=== PATIENT | female | born 1945 | race Caucasian/White ===

== ENCOUNTER 2019-09-18 13:49 | Inpatient (IN) | payer MEDICARE, OTHER, SELFPAY ==
[2019-09-18 13:51] VITALS: BP 163/75; PULSE 67; RESP 16; TEMP 37; O2SAT 95; BMI 39.0
--- NOTE | 2019-09-18 13:56 | ECG_ITS ---
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 Measurements Intervals [place] Rate: 67 P: 56 ME: 145 QRS: -12 QRSD: 126 T: 40 QT: 437 QTc: 464 Interpretive Statements SINUS RHYTHM POSSIBLE RIGHT VENTRICULAR CONDUCTION DELAY [RSR (QR) IN V1/V2] POSSIBLE LATERAL MYOCARDIAL INFARCTION [30 ms Q WAVE IN I/aVL/V5/V6], OF IN INDETERMINATE AGE No previous ECG available for comparison Electronically Signed On 09-19-2019 13:44:25 CDT by Clara Vargas M.D. [id number]
--- NOTE | 2019-09-18 13:56 | CT_ITS ---
WS: [id number] CT angio chest PE protcl [id number] REASON FOR EXAM: cp TECHNIQUE: Coronal and sagittal 2-D and MIP reformations. IV CONTRAST ADMINISTERED: Omnipaque 350, 75 mL TOTAL EXAM DLP: 511.[address] scans at [facility] use at least one of these dose optimization techniques: automat ed exposure control; mA and/or kV adjustment per patient size (includes targeted exams where dose is matched to clinical indication); or iterative reconstruction. FINDINGS: After bolus injection of the contrast the pulmonary arteries fill readily with no filling d efects no evidence of thromboembolic disease. The perfusion scan was normal with no altered diffusion seen. The aorta showed no evidence of dissection is at the right or left side. There is no filling defects to suggest masses in either lung field. The heart chambers were all normal. The liver showed normal appearance with no filling defect. The adrenal glands show no abnormalities. The upper right lobe of the liver shows mild herniation but no obstructive changes. CT/CT angio chest PE protcl [id number] IMPRESSION: Negative CTA of the chest low probability of pulmonary embolus.
--- NOTE | 2019-09-18 14:05 | ED_ITS ---
HPI - Chest Pain General: Chief Complaint: Chest Pain Stated Complaint: CHEST PAIN Time Seen by Provider: 09/18/19 13:50 Source: patient and EMS Mode of arrival: EMS Limitations: no limitations History of Present Illness: HPI narrative: 74-year-old female states she had chest pain starting roughly 1 hour ago. States it was a pain that started in the center of her back and radiated to her chest. She states pain was an 8 out of 10 originally. Patient given nitro and nitro patient states pain is resolved now. She denies any shortness of breath. She denies any vomiting. MD complaint: chest pain Onset (ago): hour(s) Timing of current episode: constant Prior episodes: No Pain location: substernal Pain radiation: none Severity: moderate Associated symptoms: Deny abdominal pain, dyspnea, fever(s), nausea or vomiting Review of Systems Const: Denies: fever(s), chills, body aches or change in appetite Eyes: Denies: blurry vision or eye discomfort ENMT: Denies: throat pain or dental pain Card: Reports: chest pain Resp: Denies: dyspnea GI: Denies: abdominal pain, nausea, vomiting or diarrhea : Denies: dysuria Musc: Denies: neck pain or back pain Skin/Breast: Denies: rash Neuro: Denies: headache(s) Psych: Denies: depression Baljinder/Lymph: Denies: easy bruising All/Imm: Denies: urticaria PFSH ED PFSH: Social History Smoking and tobacco status: never smoked Physical Exam Const: COMMON NORMALS: no acute distress, patient oriented x3 and healthy appearing HENMT: COMMON NORMALS: normocephalic and atraumatic HEAD & SCALP: normocephalic and atraumatic Eye: COMMON NORMALS: Equal, round and reactive pupils present and EOMs intact bilaterally PUPIL: Yes Equal, round and reactive pupils present Neck/C-Spine: COMMON NORMALS: full ROM and supple Chest: COMMONS NORMALS: normal inspection of the chest and normal palpation of entire chest wall Resp: COMMON NORMALS: normal respiratory effort, No retractions, No use of accessory muscles and clear to auscultation bilaterally AUSCULTATION: clear to auscultation bilaterally Cardio: COMMON NORMALS: regular rate, regular rhythm and No murmurs present (Cardio) RATE: regular rate RHYTHM: regular rhythm GI: COMMON NORMALS: Normal to inspection, nondistended, normoactive bowel sounds present, Soft to palpation, non-tender and no masses PALPATION: Yes Soft to palpation Extremity: COMMON NORMALS: normal to inspection and full ROM Neuro: COMMON NORMALS: patient oriented x3, moves all extremities and no focal motor deficits Psych: COMMON NORMALS: mental status grossly normal, Normal thought process present and cooperative THOUGHT PROCESS: Normal thought process present Skin: COMMON NORMALS: no rashes or lesions noted and no wounds GENERAL SKIN EXAM: no rashes or lesions noted Course Vital Signs: Vital signs: Vital Signs Temperature 98.6 F 09/18/19 13:51 Pulse Rate 67 09/18/19 13:51 Respiratory Rate 16 09/18/19 13:51 Blood Pressure 163/75 09/18/19 13:51 Pulse Oximetry 95 09/18/19 13:51 MDM - Chest Pain MDM Narrative: Medical decision making narrative: Abby presents here with chest pain is been resolved with nitro. Initial and repeat troponins are increasing consistent with that non-ST elevation WI. Patient's CT here is normal. I spoke to Dr. Ugalde who is consulted I spoke to hospitalist will admit to CSU. Patient given Lovenox here. Patient was given aspirin in route. Lab Data: Labs: Lab Results 09/18/19 09/18/19 09/18/19 Range/Units 12:25 12:25 12:25 WBC 7.1 (4.0-10.0) 10^3/ uL RBC 3.95 L (4.1-5.3) 10^6/u L Hgb 11.0 L (11.5-15.3) g/dL Hct 34.0 L (37.0-47.0) % MCV 86.1 (81-99) fL MCH 27.8 L (28.0-34.0) pg MCHC 32.4 (30.0-36.0) g/dL RDW 14.9 (12.1-15.1) % Plt Count 227 (130-400) 10^3/c mm MPV 10.4 (7.4-10.4) fL Neut % (Auto) 69.9 % Lymph % (Auto) 18.3 % Burt % (Auto) 8.4 % Eos % (Auto) 2.1 % Baso % (Auto) 0.6 % Neut # (Auto) 5.0 (1.8-7.7) 10^3/u L Lymph # (Auto) 1.3 (0.8-4.8) 10^3/u L Burt # (Auto) 0.6 (0.2-0.9) 10^3/u L Eos # (Auto) 0.2 (0.0-0.8) 10^3/u L Baso # (Auto) 0.0 (0.0-0.1) 10^3/u L Nucleated RBC % (a uto) 0 % Nucleated RBCs # 0.0 /100WBC Sodium 140 (136-145) mmol/L Potassium 4.2 (3.5-5.1) mmol/L Chloride 99 (98-107) mmol/L Carbon Dioxide 29 (22-29) mmol/L Anion Gap 16.2 (5-19) BUN 10 (8-23) mg/dL Creatinine 0.8 (0.5-0.9) mg/dL Glucose 135 H (65-115) mg/dL Calculated Osmolal ity 288 (285-295) mOsm/k g Calcium 9.8 (8.5-10.5) mg/dL Total Bilirubin 0.3 (0.15-1.2) mg/dL AST 13 (0-32) U/L ALT 10 (0-33) U/L Alkaline Phosphata se 56 (35-105) IU/L Troponin T Baselin e 83 H (0-10) ng/L Troponin T 120 Min [place] (0-10) ng/L Delta Troponin T (0-10) ABS# Total Protein 6.8 (6.6-8.7) g/dL Albumin 4.6 (3.5-5.2) g/dL Globulin 2.2 (1.3-4.6) g/dL 09/18/19 Range/Units 14:26 WBC (4.0-10.0) 10^3/ uL RBC (4.1-5.3) 10^6/u L Hgb (11.5-15.3) g/dL Hct (37.0-47.0) % MCV (81-99) fL MCH (28.0-34.0) pg MCHC (30.0-36.0) g/dL RDW (12.1-15.1) % Plt Count (130-400) 10^3/c mm MPV (7.4-10.4) fL Neut % (Auto) % Lymph % (Auto) % Burt % (Auto) % Eos % (Auto) % Baso % (Auto) % Neut # (Auto) (1.8-7.7) 10^3/u L Lymph # (Auto) (0.8-4.8) 10^3/u L Burt # (Auto) (0.2-0.9) 10^3/u L Eos # (Auto) (0.0-0.8) 10^3/u L Baso # (Auto) (0.0-0.1) 10^3/u L Nucleated RBC % (a uto) % Nucleated RBCs # /100WBC Sodium (136-145) mmol/L Potassium (3.5-5.1) mmol/L Chloride (98-107) mmol/L Carbon Dioxide (22-29) mmol/L Anion Gap (5-19) BUN (8-23) mg/dL Creatinine (0.5-0.9) mg/dL Glucose (65-115) mg/dL Calculated Osmolal ity (285-295) mOsm/k g Calcium (8.5-10.5) mg/dL Total Bilirubin (0.15-1.2) mg/dL AST (0-32) U/L ALT (0-33) U/L Alkaline Phosphata se (35-105) IU/L Troponin T Baselin e (0-10) ng/L Troponin T 120 Min [place] 221.9 H (0-10) ng/L Delta Troponin T 138.9 H* (0-10) ABS# Total Protein (6.6-8.7) g/dL Albumin (3.5-5.2) g/dL Globulin (1.3-4.6) g/dL Imaging Data^: CT Chest: Radiologist's impression: [address] [address] [address] Scan Report Signed Patient: Abby Nova Unit #: [id number] : 1945 Age/Sex: 74 / F ADM Date: 09/18/19 Loc: ER Room/Bed: Attending Dr: Ordering Provider/Ordering MD: Lorena Enciso MD Date of Service: 09/18/19 Procedure(s): CT angio chest PE protcl [id number] Accession Number(s): [id number] Report Number: [id number] WS: [id number] CT angio chest PE protcl [id number] REASON FOR EXAM: cp TECHNIQUE: Coronal and sagittal 2-D and MIP reformations. IV CONTRAST ADMINISTERED: Omnipaque 350, 75 mL TOTAL EXAM DLP: 511.[address] scans at [facility] use at least one of these dose optimization techniques: automated exposure control; mA and/or kV adjustment per patient size (includes targeted exams where dose is matched to clinical indication); or iterative reconstruction. FINDINGS: After bolus injection of the contrast the pulmonary arteries fill readily with no filling defects no evidence of thromboembolic disease. The perfusion scan was normal with no altered diffusion seen. The aorta showed no evidence of dissection is at the right or left side. There is no filling defects to suggest masses in either lung field. The heart chambers were all normal. The liver showed normal appearance with no filling defect. The adrenal glands show no abnormalities. The upper right lobe of the liver shows mild herniation but no obstructive changes. CT/CT angio chest PE protcl [id number] IMPRESSION: Negative CTA of the chest low probability of pulmonary embolus. 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
[2019-09-18 14:06] LABS: Basophils % 0.6 %; Eosinophils # 0.2 10^3/uL (0.0-0.8); Eosinophils % 2.1 %; Lymphocytes # 1.3 10^3/uL (0.8-4.8); Lymphocytes % 18.3 %; Mean Corpuscular HGB Conc 32.4 g/dL (30.0-36.0); Mean Corpuscular Hemoglobin 27.8 pg (28.0-34.0); Mean Corpuscular Volume 86.1 fL (81-99); Mean Platelet Volume 10.4 fL (7.4-10.4); Monocytes # 0.6 10^3/uL (0.2-0.9); Monocytes % 8.4 %; Neutrophils % 69.9 %; Nucleated Red Blood Cells % 0 %; Platelet Count 227 10^3/cmm (130-400); Red Blood Count 3.95 10^6/uL (4.1-5.3); Red Cell Distribution Width 14.9 % (12.1-15.1); White Blood Count 7.1 10^3/uL (4.0-10.0)
[2019-09-18 14:29] LABS: Alanine Aminotransferase 10 U/L (0-33); Albumin Level 4.6 g/dL (3.5-5.2); Alkaline Phosphatase 56 IU/L (35-105); Anion Gap 16.2 (5-19); Aspartate Amino Transferase 13 U/L (0-32); Blood Urea Nitrogen 10 mg/dL (8-23); Calcium 9.8 mg/dL (8.5-10.5); Carbon Dioxide 29 mmol/L (22-29); Chloride 99 mmol/L (98-107); Creatinine Clr Calc Pharmacy 60.9929; Globulin 2.2 g/dL (1.3-4.6); Glucose 135 mg/dL (65-115); Osmolality Calculated 288 mOsm/kg (285-295); Potassium 4.2 mmol/L (3.5-5.1); Sodium 140 mmol/L (136-145); Total Bilirubin 0.3 mg/dL (0.15-1.2); Total Protein 6.8 g/dL (6.6-8.7); Troponin(5th) Baseline 83 ng/L (0-10)
[2019-09-18 14:57] LABS: Troponin 5 2HR 221.9 ng/L (0-10)
[2019-09-18 14:58] LABS: Troponin 5 2HR Delta 138.9 ABS# (0-10)
[2019-09-18] MEDS: iohexol 350 mg/mL 100 mL Btl IV (15:24)
--- NOTE | 2019-09-18 15:56 | ECG_ITS ---
[facility] ED Test Date: 2019-09-18 Pat Name: Abby Nova Department: Room: 102 Gender: Female Director Of Analytics: : 1945 Requested By: Lorena Enciso Order Number: [id number] Donte MD: Clara Vargas M.D. Measurements Intervals [place] Rate: 69 P: 61 AR: 169 QRS: -7 QRSD: 126 T: 41 QT: 453 QTc: 487 Interpretive Statements SINUS RHYTHM POSSIBLE RIGHT VENTRICULAR CONDUCTION DELAY [RSR (QR) IN V1/V2] POSSIBLE LATERAL MYOCARDIAL INFARCTION [30 ms Q WAVE IN I/aVL/V5/V6], OF INDETERMINATE AGE Compared to ECG 09/18/2019 14:04:30 No significant changes Electronically Signed On 09-19-2019 14:15:09 CDT by Clara Vargas M.D. [id number]
[2019-09-18] MEDS: enoxaparin 100 mg/mL Syringe 90 MG SUBCUT ×3 (16:22→20:22)
--- NOTE | 2019-09-18 17:38 | P.HP_ITS ---
Providers/Chief Complaint Admitting Physician: April Garcia MD Primary Care Provider: Lev Pena Chief Complaint: CHEST PAIN History of Present Illness Abby Nova is a 74 year old female with a past medical history of hypertension, hyperlipidemia, diabetes, hypothyroidism, cardiac arrhythmia which appears to be atrial fibrillation for her described history, not on any chronic anticoagulation, history of sarcoidosis in the 1980s for which she was transiently on steroids who presents to the emergency room today complaining of chest pain. 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 She felt extremely unwell at the time and as such cannot tell me if she was also short of breath. She did feel nauseous. When the pain did not subside she did take some sublingual nitro from her and had transient relief in the pain. She states at home she needed to take this up to 3 times for her pain to come down to 2 out of 10. She has not noticed any recent dyspnea on exertion or swelling in her feet. She does not recall having any palpitations or dizziness during this episode. She states she last had a cardiac catheterization about 10 years ago and reportedly did not have any obstructive coronary disease. She has not followed with her senior asset manager in [place] in several years. Diagnostics in the ER are notable for a baseline troponin of 83 and a 2-hour delta of 138. EKG does not show any acute ST-T wave changes. Her chest pain is currently rated 2 out of 10. She is comfortable at rest. CTA of the chest is negative for PE. Review of Systems General: Reports: 10 or more systems reviewed and unremarkable except in HPI and below Const: Denies: fever(s), chills or body aches Eyes: Denies: change in vision, blurry vision or photophobia ENMT: Reports: hoarseness; Denies: throat pain, enlarged tonsils, odynophagia or nasal congestion Card: Reports: chest pain; Denies: palpitations, irregular heart rhythm, edema, swelling of feet/ankles, lightheadedness, pre-syncope, dyspnea on exertion or orthopnea Resp: Denies: dyspnea, productive cough, non-productive cough, wheezing, stridor, pain on inspiration, change in phlegm color, hemoptysis or chest congestion GI: Denies: abdominal pain, nausea, vomiting, hematemesis, coffee ground emesis, dysphagia, heartburn, diarrhea, constipation, GI cramping, change in stool character, hematochezia or melena : Denies: flank pain, difficulty voiding, dysuria, urinary frequency, urinary urgency, urinary hesitancy or hematuria Musc: Denies: neck pain, back pain, extremity pain, joint swelling, joint warmth or deformity Neuro: Denies: headache(s), numbness in extremities, weakness in extremities, sensory changes, difficulty walking, frequent falls, dizziness, vertigo, behavioral changes, Slurred speech present or seizure-like activity Psych: Denies: anxiety, depression, suicidal ideation or homicidal ideation Endo: Denies: polyuria, polydipsia, tired all the time, cold intolerance or hot flashes Baljinder/Lymph: Denies: easy bruising or easy bleeding Medications/Allergies Home Medications Medication Instructions Recorded Confirmed Last Taken Type aspirin 81 mg PO DAILY 09/18/19 09/18/19 09/17/19 History black cohosh 40 mg PO DAILY 09/18/19 09/18/19 09/17/19 History citalopram 20 mg PO DAILY 09/18/19 09/18/19 09/17/19 History diclofenac sodium 75 mg PO DAILY 09/18/19 09/18/19 09/17/19 History elderberry fruit and flower 1 cap PO BID 09/18/19 09/18/19 09/17/19 History levothyroxine 25 mcg PO DAILY 09/18/19 09/18/19 09/17/19 History lovastatin 20 mg PO DAILY 09/18/19 09/18/19 09/17/19 History metformin 1,000 mg PO BID 09/18/19 09/18/19 09/18/19 History orphenadrine citrate 100 mg PO BID 09/18/19 09/18/19 09/17/19 History pantoprazole 40 mg PO DAILY 09/18/19 09/18/19 09/17/19 History trazodone 150 mg PO DAILY 09/18/19 09/18/19 09/17/19 History verapamil 90 mg PO DAILY 09/18/19 09/18/19 09/17/19 History PFSH Acute PFSH: Medical History Arrhythmia Diabetes Hyperlipidemia Hypertension Hypothyroidism Sarcoidosis Family History (Updated 09/18/19 @ 17:46 by April Garcia MD) Other Stroke Social History Smoking and tobacco status: never smoked Vitals/I&O/Wt Last Vital Signs Temp 98.6 F 09/18/19 13:51 Pulse 67 09/18/19 13:51 Resp 16 09/18/19 13:51 BP 163/75 09/18/19 13:51 Pulse Ox 95 09/18/19 13:51 Weight last 48 hrs Weight 90.718 kg Physical Exam Narrative: EXAM NARRATIVE: GEN: Awake, alert and oriented, no acute distress HEENT: NC/AT, PERRLA CVS: S1S2 N RS: CTA B/L except crackles over RUL Abd: Soft, nt/nd , bs+ 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 EXT: no rashes or edema Data : 09/18/19 12:25 09/18/19 12:25 A&P Assessment and plan (1) Non-ST elevation [place] (NSTEMI): Status: Acute (2) Hypothyroidism: Status: Acute Qualifiers: Hypothyroidism type: unspecified Qualified Code(s): E03.9 - Hypot hyroidism, unspecified (3) Arrhythmia: Status: Acute Qualifiers: Arrhythmia type: unspecified cardiac arrhythmia Qualified Code(s): I49.9 - Cardiac arrhythmia, unspecified (4) Hyperlipidemia: Status: Acute Qualifiers: Hyperlipidemia type: unspecified Qualified Code(s): E78.5 - Hyperlipid emia, unspecified (5) Diabetes: Status: Acute Qualifiers: Diabetes mellitus type: type 2 Diabetes mellitus terminal operator insulin use: without penitentiary use Diabetes mellitus complication status: with circulatory complication (6) Hypertension: Status: Acute Qualifiers: Hypertension type: essential hypertension Qualified Code(s): I10 - Essential (primary) hypertension Additional A&P Information Admit to CSU # NSTEMI EKG without acute St-T changes 2-hour troponin with significant delta of 138. Continue to trend EKG every 3 hour and troponins at 6-hour. Continue aspirin 81 mg daily, continue Lipitor 40 mg daily. Start Lovenox full dose anticoagulation with 90 mg subcutaneous every 12 hours Cardiology consult with Dr. Ugalde N.p.o. post midnight in case angiogram needed. Check HbA1c and lipid panel to assess glycemic and lipid control. PRN morphine for pain control #History of arrhythmia, per patient history appears to be atrial fibrillation which may have been related to her hypothyroid state, however no current documentation available for the same. Continue verapamil 90 mg p.o. daily #Diabetes mellitus. Hold home dose of metformin. Start low-dose insulin sliding scale. #Hypothyroidism continue levothyroxine 25 mics p.o. daily DVT prophylaxis: Currently on full dose Lovenox Full code Attestations Medical Necessity Statement*: Anticipate greater than 2 midnight stay for the management of an NSTEMI. 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
[2019-09-18] MEDS: metoprolol tartrate 50 mg Tablet PO (17:54)
--- NOTE | 2019-09-18 18:07 | P.CONIM_ITS ---
Providers/Reason For Consult Consulting Physican/Specialty*: Lawanda Ugalde MD/cardiology Reason for Consult*: Chest pain/evaluate her troponin T Attending Physician: Ji Aponte MD Primary Care Provider: Lev Pena History of Present Illness History of Present Illness Abby Nova is a 74 year old female with a history of hypertension, type 2 diabetes, dyslipidemia and obesity is present with complaints of chest pain since 10:00 this morning. Patient apparently has been in her baseline state of health up until 10:00 this morning when she started having pain in the back between the shoulder blades. It was severe in intensity, 10/10. The pain started radiating to the front associated with a tight feeling in the chest. She had some shortness of breath. No palpitations, dizziness or syncopal episode. She took 1 sublingual nitro initially and waited for 15 minutes. Since there was no significant relief, she took the second nitro which brought down the pain from 10/10 to 5/10. At this time, the ambulance was called. She rates the emergency room around 1 PM. In the ambulance, she was given chewable aspirin, and another sublingual nitro .in the emergency room, she was started on a nitro paste. Her chest pain gradually started coming down. At the time of my examination, patient is pain-free. She feels tired and weak. She has no fever, chills or cough. No other specific complaints. She had a cardiac cauterization approximately 10 years ago in [place] and was told to have no significant blockages. She has no previous history for coronary disease, myocardial infarction or congestive heart failure. She has been compliant with her medications. Review of Systems Narrative: CONSTITUTIONAL: No fever or chills. He has some amount of lethargy and weakness now. EYES: No blurring of vision or other visual disturbances lately. ENT: No hoarseness of voice, auditory disturbances or sore throat. CARDIOVASCULAR: As mentioned above. RESPIRATORY: No significant cough. GASTROINTESTINAL: No hematemesis or melena. GENITOURINARY: No dysuria or hematuria. INTEGUMENTARY: No skin rashes or history of skin cancer. NEURO: No transient ischemic attacks or amaurosis. PSYCHIATRIC: No history of psychosis or major depression. HEMATOLOGIC: No bleeding disorders or significant anemia. ENDOCRINE: History of hypothyroidism MUSCULOSKELETAL: No recent joint pain or swelling. ALLERGY/IMMUNOLOGY: As mentioned above. Meds/Allergies Home Medications and Allergies Home Medications Medication Instructions Recorded Confirmed Last Taken Type aspirin 81 mg PO DAILY 09/18/19 09/18/19 09/17/19 History black cohosh 40 mg PO DAILY 09/18/19 09/18/19 09/17/19 History citalopram 20 mg PO DAILY 09/18/19 09/18/19 09/17/19 History diclofenac sodium 75 mg PO DAILY 09/18/19 09/18/19 09/17/19 History elderberry fruit and flower 1 cap PO BID 09/18/19 09/18/19 09/17/19 History levothyroxine 25 mcg PO DAILY 09/18/19 09/18/19 09/17/19 History lovastatin 20 mg PO DAILY 09/18/19 09/18/19 09/17/19 History metformin 1,000 mg PO BID 09/18/19 09/18/19 09/18/19 History orphenadrine citrate 100 mg PO BID 09/18/19 09/18/19 09/17/19 History pantoprazole 40 mg PO DAILY 09/18/19 09/18/19 09/17/19 History trazodone 75 mg PO BEDTIME 09/18/19 09/18/19 09/17/19 History verapamil 90 mg PO DAILY 09/18/19 09/18/19 09/17/19 History Allergies Allergy/AdvReac Type Severity Reaction Status Date / Time prednisone Allergy ALGY-Difficulty Verified 09/18/19 19:30 Breathing PFSH Acute PFSH: Medical History (Updated 09/18/19 @ 18:23 by Rafael Ugalde MD) Acute non-ST elevation myocardial infarction (NSTEMI) Arrhythmia Benign essential hypertension with target blood pressure below 140/90 Diabetes Exploratory laparotomy scar History of paroxysmal supraventricular tachycardia Hyperlipidemia Hypertension Hypothyroidism Mixed hyperlipidemia Sarcoidosis Type 2 diabetes mellitus Surgical History (Updated 09/18/19 @ 18:16 by Rafael Ugalde MD) History of appendectomy Family History (Updated 09/18/19 @ 17:46 by April Garcia MD) Other Stroke Social History Smoking and tobacco status: never smoked Vitals/I&O/Wt Last Vital Signs Temp 98.6 F 09/18/19 13:51 Pulse 67 09/18/19 13:51 Resp 16 09/18/19 13:51 BP 163/75 09/18/19 13:51 Pulse Ox 95 09/18/19 13:51 Weight last 48 hrs Weight 200 lb Physical Exam Narrative: EXAM NARRATIVE: GENERAL: The patient is alert and oriented times three. Not in any acute distress. Moderately obese, short statured HEENT: No significant pallor, icterus or lymphadenopathy. The pupils are reactant to light. Oral cavity: There are no mucous membrane lesions. Funduscopic examination: The fundus is not visualized NECK: Trachea appears to be central. No masses noted. No JVD or thyromegaly appreciated. No carotid bruit. RESPIRATORY: Chest is symmetrical. No intercostals muscle retraction or any accessory muscle activation. There is no chest wall tenderness. Breath sounds are heard bilaterally. No rales or rhonchi heard. No evidence of any consolidation. BREASTS: Deferred. HEART: The PMI could not be palpated. No palpable precordial events. S1 and S2 are normal. No S3 or S4 heard. No pericardial rub or any click heard. ABDOMEN: Obese . No vessel pulsations or distention. No tenderness. No organomegaly appreciated. No abdominal bruit. Bowel sounds are normally heard. Vertical laparotomy scar on the right side of the abdomen, appears well-healed. : Deferred. RECTAL: Deferred. LYMPHATIC: No lymphadenopathy noted in the neck or groin. EXTREMITIES: No edema or cyanosis. No clubbing. The pulses are symmetrical bilaterally. The radial, femoral, dorsalis pedis and the posterior tibial pulses are palpated and found to be in good volume and amplitude. MUSCULOSKELETAL: No acute joint deformities or swelling SKIN: There are no significant scars or skin rash noted. NEUROPSYCHIATRIC: The patient is alert and oriented x3. Appears to be in a good mood. The higher functions are grossly within normal limits. No tremors or rigidity noted. Data Labs: Other Labs: Laboratory Last Values WBC 7.1 10^3/uL (4.0- 10.0) 09/18/19 12:25 RBC 3.95 10^6/uL (4.1 -5.3) L 09/18/19 12:25 Hgb 11.0 g/dL (11.5-1 5.3) L 09/18/19 12:25 Hct 34.0 % (37.0-47.0 ) L 09/18/19 12:25 MCV 86.1 fL (81-99) 09/18/19 12:25 MCH 27.8 pg (28.0-34. 0) L 09/18/19 12:25 MCHC 32.4 g/dL (30.0-3 6.0) 09/18/19 12:25 RDW 14.9 % (12.1-15.1 ) 09/18/19 12:25 Plt Count 227 10^3/cmm (130 -400) 09/18/19 12:25 MPV 10.4 fL (7.4-10.4 ) 09/18/19 12:25 Neut % (Auto) 69.9 % 09/18/19 12:25 Lymph % (Auto) 18.3 % 09/18/19 12:25 [place] % (Auto) 8.4 % 09/18/19 12:25 Eos % (Auto) 2.1 % 09/18/19 12:25 Baso % (Auto) 0.6 % 09/18/19 12:25 Neut # (Auto) 5.0 10^3/uL (1.8- 7.7) 09/18/19 12:25 Lymph # (Auto) 1.3 10^3/uL (0.8- 4.8) 09/18/19 12:25 [place] # (Auto) 0.6 10^3/uL (0.2- 0.9) 09/18/19 12:25 Eos # (Auto) 0.2 10^3/uL (0.0- 0.8) 09/18/19 12:25 Baso # (Auto) 0.0 10^3/uL (0.0- 0.1) 09/18/19 12:25 Nucleated RBC % (a uto) 0 % 09/18/19 12:25 Nucleated RBCs # 0.0 /100WBC 09/18/19 12:25 Sodium 140 mmol/L (136-1 45) 09/18/19 12:25 Potassium 4.2 mmol/L (3.5-5 .1) 09/18/19 12:25 Chloride 99 mmol/L (98-107 ) 09/18/19 12:25 Carbon Dioxide 29 mmol/L (22-29) 09/18/19 12:25 Anion Gap 16.2 (5-19) 09/18/19 12:25 BUN 10 mg/dL (8-23) 09/18/19 12:25 Creatinine 0.8 mg/dL (0.5-0. 9) 09/18/19 12:25 Glucose 135 mg/dL (65-115 ) H 09/18/19 12:25 Calculated Osmolal ity 288 mOsm/kg (285- 295) 09/18/19 12:25 Calcium 9.8 mg/dL (8.5-10 .5) 09/18/19 12:25 Total Bilirubin 0.3 mg/dL (0.15-1 .2) 09/18/19 12:25 AST 13 U/L (0-32) 09/18/19 12:25 ALT 10 U/L (0-33) 09/18/19 12:25 Alkaline Phosphata se 56 IU/L (35-105) 09/18/19 12:25 Troponin T Baselin e 83 ng/L (0-10) H 09/18/19 12:25 Troponin T 120 Min cheo 221.9 ng/L (0-10) H 09/18/19 14:26 Delta Troponin T 138.9 ABS# (0-10) H* 09/18/19 14:26 Total Protein 6.8 g/dL (6.6-8.7 ) 09/18/19 12:25 Albumin 4.6 g/dL (3.5-5.2 ) 09/18/19 12:25 Globulin 2.2 g/dL (1.3-4.6 ) 09/18/19 12:25 Imaging^: CT Chest: Radiologist's impression: No evidence of pulmonary embolism. No evidence of aortic dissection EKG^: EKG 1: My Interpretation: Normal sinus rhythm with incomplete right bundle branch block pattern. Possible old lateral wall [place]. EKG 2: My Interpretation: Normal sinus rhythm with normal ST-T's. Incomplete right bundle branch block pattern. Possible old lateral wall myocardial infarction. A&P Assessment and plan (1) Acute non-ST elevation myocardial infarction (NSTEMI): Patient may be started on Lovenox, beta-melita, aspirin and Plavix. Also may start on Crestor 20 mg p.o. now and daily. Serial cardiac enzymes and EKGs. Echocardiogram would be appropriate to evaluate LV function and rule out any other pathology. May hold off on the verapamil and lovastatin may continue on the other current medications.. Status: Acute (2) History of paroxysmal supraventricular tachycardia: Patient apparently has not had any recent tachycardia. Since we are starting her on metoprolol, I may hold off on the verapamil at this time. Status: Acute (3) Type 2 diabetes mellitus: Management of diabetes as per the primary Status: Acute Qualifiers: Diabetes mellitus complication status: with hyperglycemia Diabetes mellitus assisted insulin use: without long term care social worker use Qualified Code(s): E11.65 - Type 2 diabetes mellitus with hyperglycemia (4) Benign essential hypertension with target blood pressure below 140/90: I will start her on amlodipine 10 mg p.o. now and daily. Metoprolol 50 mg p.o. twice daily. Continue on the Nitropaste. Closely monitor blood pressure. Status: Acute (5) Mixed hyperlipidemia: Crestor 20 mg p.o. daily. Will check on the lipid profile and liver profile on the blood in the lab Status: Acute Additional A&P Information After reviewing the echocardiogram and also based on the patient clinical progress, further recommendations will be made. 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
[2019-09-18 18:15] VITALS: BP 216/90; PULSE 68; RESP 18; O2SAT 94
[2019-09-18 18:56] LABS: NT Pro B Type Natriuretic Pept 268 pg/mL (0-450); Thyroid Stimulating Hormone 1.31 uIU/mL (0.27-4.20)
[2019-09-18 19:04] LABS: Troponin 5 6HR 363.4 ng/L (0-10); Troponin 5 6HR Delta 280.4 ng/L (0-12)
[2019-09-18 19:25] VITALS: BP 137/65; PULSE 58; RESP 14; TEMP 36.8; O2SAT 95
--- NOTE | 2019-09-18 19:45 | PC.NURSE ---
Patient arrived to the floor from the ED after report was received via phone. Patient is alert and oriented and able to ambulate with assistance. Patient does not have any complaints or pain at this time. VSS on room air. Heart rate drops down in to 50s at times. Patient has been oriented to her room and has call light within reach.
--- NOTE | 2019-09-18 19:56 | ECG_ITS ---
[facility] Test Date: 2019-09-18 Pat Name: Abby Nova Department: Room: 102 Gender: Female Academic Affairs Assistant: Rosa RYANB: 1945 Requested By: Lorena Enciso Order Number: [id number] Donte MD: Rafael Ugalde M.D. Measurements Intervals [place] Rate: 59 P: 62 IN: 159 QRS: 12 QRSD: 116 T: 33 QT: 456 QTc: 454 Interpretive Statements SINUS BRADYCARDIA LOW QRS VOLTAGE IN PRECORDIAL LEADS [QRS DEFLECTION < 1.0 mV IN CHEST LEADS] INCOMPLETE RIGHT BUNDLE BRANCH BLOCK [90+ ms QRS DURATION, TERMINAL R IN V1/V2, 40+ ms S IN I/aVL/V4/V5/V6] Compared to ECG 09/18/2019 14:04:30 Low QRS voltage now present Incomplete right bundle-branch block now present Sinus rhythm no longer present Myocardial infarct finding no longer present Electronically Signed On 09-19-2019 19:28:10 CDT by Rafael Ugalde M.D. [id number]
[2019-09-18 20:00] VITALS: PULSE 60
[2019-09-18] MEDS: amlodipine 5 mg Tablet PO (20:22)
[2019-09-18] MEDS: clopidogrel 300 mg Tablet PO (20:22)
[2019-09-18 20:42] LABS: Glucose Point of Care 136 mg/dL (70-110)
[2019-09-18] MEDS: trazodone 150 mg Tablet 75 MG PO (23:00)
[2019-09-18] MEDS: trazodone 150 mg Tablet PO (23:14)
[2019-09-19] VITALS (63 sets, daily range): BP systolic 87–135; BP diastolic 39–65; PULSE 50–69; RESP 7–31; TEMP 36.5–37.2; O2SAT 89–96
--- NOTE | 2019-09-19 03:46 | PC.NURSE ---
Patient had an uneventful night. Patient states she did not sleep well. Will continue to monitor.
[2019-09-19 04:43] LABS: Basophils % 0.5 %; Eosinophils # 0.2 10^3/uL (0.0-0.8); Eosinophils % 2.1 %; Lymphocytes # 2.1 10^3/uL (0.8-4.8); Lymphocytes % 23.5 %; Mean Corpuscular HGB Conc 32.4 g/dL (30.0-36.0); Mean Corpuscular Hemoglobin 27.6 pg (28.0-34.0); Mean Corpuscular Volume 85.4 fL (81-99); Mean Platelet Volume 10.3 fL (7.4-10.4); Monocytes # 0.8 10^3/uL (0.2-0.9); Monocytes % 9.2 %; Neutrophils # 5.6 10^3/uL (1.8-7.7); Nucleated Red Blood Cells % 0 %; Platelet Count 242 10^3/cmm (130-400); Red Blood Count 3.98 10^6/uL (4.1-5.3); White Blood Count 8.8 10^3/uL (4.0-10.0)
[2019-09-19 05:05] LABS: Alanine Aminotransferase 11 U/L (0-33); Albumin Level 4.3 g/dL (3.5-5.2); Alkaline Phosphatase 52 IU/L (35-105); Anion Gap 14.2 (5-19); Aspartate Amino Transferase 32 U/L (0-32); Blood Urea Nitrogen 8 mg/dL (8-23); Carbon Dioxide 29 mmol/L (22-29); Chloride 99 mmol/L (98-107); Creatinine Clr Calc Pharmacy 60.9929; Globulin 2.3 g/dL (1.3-4.6); Glucose 129 mg/dL (65-115); Osmolality Calculated 284 mOsm/kg (285-295); Potassium 4.2 mmol/L (3.5-5.1); Sodium 138 mmol/L (136-145); Total Bilirubin 0.5 mg/dL (0.15-1.2); Total Protein 6.6 g/dL (6.6-8.7)
[2019-09-19 05:08] LABS: Chol HDL Ratio 3.31 mg/dL (0.0-4.40); Cholesterol 129 mg/dL (0-200); HDL Cholesterol 39 mg/dL (60-100); LDL Cholesterol Calculated 61 mg/dL (50-129); LDL HDL Ratio 1.56 RATIO (0.00-3.22); Triglycerides 144 mg/dL (0-150)
[2019-09-19 06:35] LABS: Glucose Point of Care 155 mg/dL (70-110)
--- NOTE | 2019-09-19 07:52 | P.PN_ITS ---
Vitals/I&O/Wt Last Vital Signs Temp 98.7 F 09/19/19 03:03 Pulse 65 09/19/19 03:03 Resp 14 09/19/19 03:03 BP 119/56 09/19/19 03:03 Pulse Ox 95 09/19/19 03:03 09/18/19 09/19/19 09/19/19 22:59 06:59 14:59 Intake Total 300 / 300 Balance 300 / 300 Weight last 48 hrs Weight 90.083 kg Weight 90.718 kg Data : 09/19/19 04:03 09/19/19 04:03 A&P Assessment and plan (1) Non-ST elevation [place] (NSTEMI): Status: Acute (2) Hypothyroidism: Status: Acute Qualifiers: Hypothyroidism type: unspecified Qualified Code(s): E03.9 - Hypothyroidism, unspecified (3) Arrhythmia: Status: Acute Qualifiers: Arrhythmia type: unspecified cardiac arrhythmia Qualified Code(s): I49.9 - Cardiac arrhythmia, unspecified (4) Hyperlipidemia: Status: Acute Qualifiers: Hyperlipidemia type: unspecified Qualified Code(s): E78.5 - Hyperlipidemia, unspecified (5) Diabetes: Status: Acute Qualifiers: Diabetes mellitus type: type 2 Diabetes mellitus director long term care insulin use: without senior care use Diabetes mellitus complication status: with circulatory complication (6) Hypertension: Status: Acute Qualifiers: Hypertension type: essential hypertension Qualified Code(s): I10 - Essential (primary) hypertension Additional A&P Information Admit to CSU # NSTEMI EKG without acute St-T changes 2-hour troponin with significant delta of 138. Continue to trend EKG every 3 hour and troponins at 6-hour. Continue aspirin 81 mg daily, continue Lipitor 40 mg daily. Start Lovenox full dose anticoagulation with 90 mg subcutaneous every 12 hours Cardiology consult with Dr. Ugalde N.p.o. post midnight in case angiogram needed. Check HbA1c and lipid panel to assess glycemic and lipid control. PRN morphine for pain control #History of arrhythmia, per patient history appears to be atrial fibrillation which may have been related to her hypothyroid state, however no current documentation available for the same. Continue verapamil 90 mg p.o. daily #Diabetes mellitus. Hold home dose of metformin. Start low-dose insulin slidi ng scale. #Hypothyroidism continue levothyroxine 25 mics p.o. 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
--- NOTE | 2019-09-19 07:55 | USCV_ITS ---
Abby Nova Age: 74 Gender: F : 1945 Exam Date: 09/19/2019 10:04 Ordering Phys: Rafael Ugalde MD ([email or web address]) Technologist: Merlin Vargas [place] [facility] [place]: NSTEMI Risk Factors: Previous Vascular Surgery: Right Brachial BP: / Left Brachial BP: / Right Left Velocity (cm/s) Spectral Plaque Velocity (cm/s) Spectral Plaque Syst/Diast Broadening Syst/Diast Broadening 39.50/ 11.70 Prox CCA 44.30 / 13.20 49.70/ 16.00 Mid CCA 55.90 / 16.30 78.55/ 20.95 Distal CCA 52.00 / 10.10 101.40/20.90 Prox ICA 140.70/ 46.00 130.10/29.80 Mid ICA 117.00/ 31.60 / Distal ICA 86.30 / 14.50 72.80 ECA 102.50 1.40 ICA/CCA 2.51 Antegrade Vertebral Antegrade 84.90/ 14.30 cm/s 60.70/ 17.10 cm/s Tri Subclavian Tri 120.2 120.6 0 0 FINDINGS Moderate to heavy heterogeneous plaques at the left bifurcation and proximal internal carotid artery Moderate heterogeneous plaques at the right bifurcation and internal carotid artery Antegrade flow in the vertebral arteries bilaterally Normal Doppler flow velocities in the external carotid and subclavian arteries bilaterally CONCLUSIONS Moderate to heavy heterogeneous plaques at the left bifurcation and proximal internal carotid artery with velocity elevation consistent with 50-79% stenosis. Moderate heterogeneous plaques at the right bifurcation and internal carotid artery with velocity elevation consistent with 16-49% stenosis. No similar previous studies are available for comparison Dr Rafael Ugalde MD [facility] (Electronically Signed) Final Date: 20 September 2019 08:26 S
[2019-09-19] MEDS: citalopram 20 mg Tablet PO (08:38)
[2019-09-19] MEDS: atorvastatin 40 mg Tablet 20 MG PO (08:38)
[2019-09-19] MEDS: aspirin 81 mg EC Tablet PO (08:38)
[2019-09-19] MEDS: amlodipine 5 mg Tablet PO (08:38)
[2019-09-19] MEDS: metoprolol tartrate 50 mg Tablet PO (08:38)
[2019-09-19] MEDS: pantoprazole DR 40 mg Tablet PO (08:39)
[2019-09-19] MEDS: levothyroxine 25 mcg Tablet PO (08:39)
[2019-09-19] MEDS: sodium chloride 0.9% 1,000 ML 50 ML IV (08:40)
--- NOTE | 2019-09-19 09:21 | PC.CHAP ---
Pastoral Care Encounter/Spiritual Assessment Type of Contact [] Declined yarn examiner skeins visit [] Patient/Family/Request visit [] Outpatient visit [] Follow-up visit [] Physician referral [] Code/Alert [x] Routine visit [] Staff referral [] Actively dying [] Patient sleeping [] Family support [] [] Out of room [] Palliative care [] [] Receiving care in room [] Pre-surgical visit [] Trauma [] Long length of stay [] ICU visit [] Other: Relational/Emotional Strength [] Patient feels connected with others/family/visitors/staff [] Distress [] Loneliness/isolation [] Abandonment Spirituality of Patient [] Person of Elma [] Attends Jehovah[employer] Witness of their Elma [] Believes in Prayer [] Reads Bible or Baptism materials [] There are Spiritual issues to be addressed Filling And Packing Supervisor Interventions [x] Prayer [] Active listening [] Non-anxious presence [] Spiritual/emotional support [] Crisis/trauma care [] Spiritual counseling [] Bereavement support [] Provided bereavement packet [] Provided Bible/devotional materials [] Provided toy/stuffed animal, coloring book to patient or family member [] Provided Communion [] Anointing/Hydro [] Salvation [x] Completed spiritual assessment [] Other: Impact on Illness or Injury [] Angry [] Fearful [] Anxious [] Often cries [] Exhaustion [] Unable to work [] Unable to attend congregation [] Unable to walk/stand [] Unable to read [] Unable to drive [] Unable to eat/drink [] Unable to sleep [] Unable to be with family [] Patient intubated [] Other: Summary Patient suffering other bodily pains, and with heart issue meds are being withheld until all can be reviewed. Patient in pretty good frame of mind. Time spent with patient 10 min
[2019-09-19 09:45] LABS: Estmated Average Glucose 134; Hemoglobin A1C 6.3 % (4.0-6.0)
--- NOTE | 2019-09-19 10:48 | P.PN_ITS ---
Subjective Subjective: Interval history: no c/o chest pain today. C/o back pain and hip pain today from missing her diclofenac. Explained to her that this to minimize the risk of nephropathy since she will also be getting contrast today. Planned for angiogram today given NSTEMi and uptrending enzymes overnight. Verapamil has since been disocntinued, added metoprolol and amlodipine. Medications: Reviewed: Yes Vitals/I&O/Wt Last Vital Signs Temp 98.4 F 09/19/19 08:00 Pulse 61 09/19/19 08:00 Resp 16 09/19/19 08:00 BP 118/53 09/19/19 08:00 Pulse Ox 93 09/19/19 08:00 09/18/19 09/19/19 09/19/19 22:59 06:59 14:59 Intake Total 300 / 300 Balance 300 / 300 Weight last 48 hrs Weight 90.083 kg Weight 90.718 kg Physical Exam Narrative: EXAM NARRATIVE: GEN: Awake, alert and oriented, no acute distress HEENT: NC/AT, PERRLA CVS: S1S2 N RS: CTA B/L Abd: Soft, nt/nd , bs+ SOLUTION MANAGER: no focal neuro deficits EXT: no rashes or edema Data : 09/19/19 04:03 09/19/19 04:03 A&P Assessment and plan (1) Non-ST elevation [place] (NSTEMI): Status: Acute (2) Hypothyroidism: Status: Acute Qualifiers: Hypothyroidism type: unspecified Qualified Code(s): E03.9 - Hypothyroidism, unspecified (3) Arrhythmia: Status: Acute Qualifiers: Arrhythmia type: unspecified cardiac arrhythmia Qualified Code(s): I49.9 - Cardiac arrhythmia, unspecified (4) Hyperlipidemia: Status: Acute Qualifiers: Hyperlipidemia type: unspecified Qualified Code(s): E78.5 - Hyperlipidemia, unspecified (5) Diabetes: Status: Acute Qualifiers: Diabetes mellitus type: type 2 Diabetes mellitus longterm insulin use: without longterm use Diabetes mellitus complication status: with circulatory complication (6) Hypertension: Status: Acute Qualifiers: Hypertension type: essential hypertension Qualified Code(s): I10 - Essential (primary) hypertension Additional A&P Information # NSTEMI EKG without acute St-T changes , rising tropinin [place] overnight EChocardiogram with normal LVEF 60%, normal distolic function, no RWMA, mild AV stenosis Planned for angiogram later today Continue aspirin 81 mg daily, continue Lipitor 40 mg daily. Lovenox full dose anticoagulation with 90 mg subcutaneous every 12 hours metoprolol added to medication regimen, verapamil discontinued PRN morphine for pain control #History of arrhythmia, per patient history appears to be atrial fibrillation which may have been related to her hypothyroid state, however no current documentation available for the same. Now on metoprolol, verapamil disocontinued #Diabetes mellitus. Hold home dose of metformin. Start low-dose insulin sliding scale. A1c well controlled at 6.3 #Hypothyroidism continue levothyroxine 25 mics p.o. 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
[2019-09-19 12:09] LABS: Glucose Point of Care 144 mg/dL (70-110)
--- NOTE | 2019-09-19 13:25 | PM.PN ---
Subjective Subjective: Interval history: Patient is feeling okay with no chest pain or palpitation. No unusual shortness of breath. She had echocardiogram today. The LV ejection fraction was normal. She had a grade 1 diastolic dysfunction. Mild aortic valve stenosis. No other significant abnormalities. Medications: Reviewed: Yes Medication Review Details: Current Medications Al Hydrox/Mg Hydrox/Simethicone (Maalox) 15 ml PO Q6H PRN PRN Reason: INDIGESTION Amlodipine Besylate (Norvasc) 5 mg PO DAILY [facility] Last Admin: 09/19/19 08:38 Dose: 5 mg Documented by: Aspirin (Aspirin Ec) 81 mg PO DAILY [facility] Last Admin: 09/19/19 08:38 Dose: 81 mg Documented by: Atorvastatin Calcium (Lipitor) 40 mg PO DAILY [facility] Citalopram Hydrobromide (Celexa) 20 mg PO DAILY [facility] Last Admin: 09/19/19 08:38 Dose: 20 mg Documented by: Dextrose (D50w) 25 ml IVP ONCE PRN; Protocol PRN Reason: hypoglycemia protocol Dextrose (D50w) 50 ml IVP PRN PRN; Protocol PRN Reason: hypoglycemia protocol Diclofenac Sodium (Voltaren) 1 applic TOPICAL QID [facility] Enoxaparin Sodium (Lovenox) 90 mg 1 mg/kg (90 mg) SUBCUT Q12H [facility] Last Admin: 09/19/19 08:06 Dose: Not Given Documented by: Glucagon (Glucagen) 1 mg IM ONCE PRN; Protocol PRN Reason: Adult Acute Hypoglycemia Prot. Dextrose (D5w) 500 mls @ 100 mls/hr IV ONCE PRN; Protocol PRN Reason: Adult Acute Hypoglycemia Prot Sodium Chloride (Sodium Chloride 0.9%) 1,000 mls @ 125 mls/hr IV .Q8H ONE Stop: 09/19/19 16:15 Last Admin: 09/19/19 08:40 Dose: 50 mls/hr Documented by: Insulin Aspart (Novolog) 0 unit SUBCUT WM&BEDTIME [facility]; Protocol Last Admin: 09/19/19 12:05 Dose: Not Given Documented by: Levothyroxine Sodium (Synthroid) 25 mcg PO DAILY [facility] Last Admin: 09/19/19 08:39 Dose: 25 mcg Documented by: Metoprolol Tartrate (Lopressor) 50 mg PO BID [facility] Last Admin: 06/17/20 08:38 Dose: 50 mg Documented by: Morphine Sulfate (Morphine) 2 mg IVP Q4H PRN PRN Reason: SEVERE PAIN Ondansetron HCl (Zofran) 4 mg IVP Q8H PRN PRN Reason: vomiting, or N/V if npo Pantoprazole Sodium (Protonix) 40 mg PO DAILY [facility] Last Admin: 09/19/19 08:39 Dose: 40 mg Documented by: Trazodone HCl (Desyrel) 75 mg PO BEDTIME [facility] Last Admin: 09/18/19 23:00 Dose: 75 mg Documented by: Vitals/I&O/Wt Last Vital Signs Temp 98.9 F 09/19/19 11:09 Pulse 58 L 09/19/19 11:09 Resp 18 09/19/19 11:09 BP 108/47 09/19/19 11:09 Pulse Ox 96 09/19/19 11:09 09/18/19 09/19/19 09/19/19 22:59 06:59 14:59 Intake Total 300 / 300 Balance 300 / 300 Weight last 48 hrs Weight 198 lb 9.6 oz Weight 200 lb Physical Exam Narrative: EXAM NARRATIVE: GENERAL: The patient is alert and oriented times three. Not in any acute distress. Moderately obese, short statured HEENT: No significant pallor, icterus or lymphadenopathy. NECK: Trachea appears to be central. No masses noted. No JVD or thyromegaly appreciated. No carotid bruit. RESPIRATORY: Chest is symmetrical. No intercostals muscle retraction or any accessory muscle activation. There is no chest wall tenderness. Breath sounds are heard bilaterally. No rales or rhonchi heard. No evidence of any consolidation. BREASTS: Deferred. HEART: Ejection study murmur grade 2/6 in the aortic area. No diastolic murmurs. No pericardial rub. ABDOMEN: Obese . No vessel pulsations or distention. No tenderness. No organomegaly appreciated. No abdominal bruit. Bowel sounds are normally heard. Vertical laparotomy scar on the right side of the abdomen, appears well-healed. : Deferred. RECTAL: Deferred. LYMPHATIC: No lymphadenopathy noted in the neck or groin. EXTREMITIES: No edema or cyanosis. No clubbing. The pulses are symmetrical bilaterally. The radial, femoral, dorsalis pedis and the posterior tibial pulses are palpated and found to be in good volume and amplitude. MUSCULOSKELETAL: No acute joint deformities or swelling SKIN: There are no significant scars or skin rash noted. NEUROPSYCHIATRIC: The patient is alert and oriented x3. Appears to be in a good mood. The higher functions are grossly within normal limits. No tremors or rigidity noted. Data : 09/19/19 04:03 09/19/19 04:03 Other Labs: Laboratory Last Values WBC 8.8 10^3/uL (4.0-10.0) 09/19/19 04:03 RBC 3.98 10^6/uL (4.1-5.3) L 09/19/19 04:03 Hgb 11.0 g/dL (11.5-15.3) L 09/19/19 04:03 Hct 34.0 % (37.0-47.0) L 09/19/19 04:03 MCV 85.4 fL (81-99) 09/19/19 04:03 MCH 27.6 pg (28.0-34.0) L 09/19/19 04:03 MCHC 32.4 g/dL (30.0-36.0) 09/19/19 04:03 RDW 15.0 % (12.1-15.1) 09/19/19 04:03 Plt Count 242 10^3/cmm (130-400) 09/19/19 04:03 MPV 10.3 fL (7.4-10.4) 09/19/19 04:03 Neut % (Auto) 64.0 % 09/19/19 04:03 Lymph % (Auto) 23.5 % 09/19/19 04:03 [place] % (Auto) 9.2 % 09/19/19 04:03 Eos % (Auto) 2.1 % 09/19/19 04:03 Baso % (Auto) 0.5 % 09/19/19 04:03 Neut # (Auto) 5.6 10^3/uL (1.8-7.7) 09/19/19 04:03 Lymph # (Auto) 2.1 10^3/uL (0.8-4.8) 09/19/19 04:03 [place] # (Auto) 0.8 10^3/uL (0.2-0.9) 09/19/19 04:03 Eos # (Auto) 0.2 10^3/uL (0.0-0.8) 09/19/19 04:03 Baso # (Auto) 0.0 10^3/uL (0.0-0.1) 09/19/19 04:03 Nucleated RBC % (auto) 0 % 09/19/19 04:03 Nucleated RBCs # 0.0 /100WBC 09/19/19 04:03 Sodium 138 mmol/L (136-145) 09/19/19 04:03 Potassium 4.2 mmol/L (3.5-5.1) 09/19/19 04:03 Chloride 99 mmol/L (98-107) 09/19/19 04:03 Carbon Dioxide 29 mmol/L (22-29) 09/19/19 04:03 Anion Gap 14.2 (5-19) 09/19/19 04:03 BUN 8 mg/dL (8-23) 09/19/19 04:03 Creatinine 0.7 mg/dL (0.5-0.9) 09/19/19 04:03 Glucose 129 mg/dL (65-115) H 09/19/19 04:03 POC Glucose 144 mg/dL (70-110) 09/19/19 11:07 Estimat Average Glucose 134 09/19/19 04:03 Hemoglobin A1c 6.3 % (4.0-6.0) H 09/19/19 04:03 Calculated Osmolality 284 mOsm/kg (285-295) L 09/19/19 04:03 Calcium 10.0 mg/dL (8.5-10.5) 09/19/19 04:03 Total Bilirubin 0.5 mg/dL (0.15-1.2) 09/19/19 04:03 AST 32 U/L (0-32) 09/19/19 04:03 ALT 11 U/L (0-33) 09/19/19 04:03 Alkaline Phosphatase 52 IU/L (35-105) 09/19/19 04:03 Troponin I 6 Hour 363.4 ng/L (0-10) H 09/18/19 18:26 Troponin I Hi Sens Del 280.4 ng/L (0-12) H* 09/18/19 18:26 Troponin T Baseline 83 ng/L (0-10) H 09/18/19 12:25 Troponin T 120 Minute 221.9 ng/L (0-10) H 09/18/19 14:26 Delta Troponin T 138.9 ABS# (0-10) H* 09/18/19 14:26 NT-Pro-B Natriuret Pep 268 pg/mL (0-450) 09/18/19 18:25 Total Protein 6.6 g/dL (6.6-8.7) 09/19/19 04:03 Albumin 4.3 g/dL (3.5-5.2) 09/19/19 04:03 Globulin 2.3 g/dL (1.3-4.6) 09/19/19 04:03 Triglycerides 144 mg/dL (0-150) 09/19/19 04:03 Cholesterol 129 mg/dL (0-200) 09/19/19 04:03 LDL Cholesterol, Calc 61 mg/dL (50-129) 09/19/19 04:03 HDL Cholesterol 39 mg/dL (60-100) L 09/19/19 04:03 LDL/HDL Ratio 1.56 RATIO (0.00-3.22) 09/19/19 04:03 Cholesterol/HDL Ratio 3.31 mg/dL (0.0-4.40) 09/19/19 04:03 TSH 1.31 uIU/mL (0.27-4.20) 09/18/19 18:25 A&P Assessment and plan (1) Acute non-ST elevation myocardial infarction (NSTEMI): Patient has seems to be stable at this time. May continue on the current medication. Apparently she was not given the Lovenox early this morning. Advised to go ahead and give her heparin 5000 units IV. For further evaluation of the patient's coronary status, she requires a cardiac catheterization. Status: Acute (2) History of paroxysmal supraventricular tachycardia: Since there is no recurrence of tachyarrhythmia, may continue on the current dose of the metoprolol. Status: Acute (3) Type 2 diabetes mellitus: Management of diabetes as per the primary. Started on IV hydration with normal saline 125 cc/h. Continue to hold metformin Status: Acute Qualifiers: Diabetes mellitus halfway insulin use: without halfway use Diabetes mellitus complication status: with hyperglycemia Qualified Code(s): E11.65 - Type 2 diabetes mellitus with hyperglycemia (4) Benign essential hypertension with target blood pressure below 140/90: Patient is currently normotensive. May continue on the current medications. Will closely monitor the blood pressure. Status: Acute (5) Mixed hyperlipidemia: Crestor 20 mg p.o. daily. Will check on the lipid profile and liver profile on the blood in the lab Status: Acute Additional A&P Information We will do a troponin T today to evaluate the trend. For further evaluation of her symptoms and the coronary status, she requires a cardiac catheterization. The risk of bleeding, hematoma, vascular injury, myocardial infarction, CVA, renal failure and other concomitant complications were explained in detail. Patient understood this well and consented to proceed. 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
--- NOTE | 2019-09-19 13:35 | W.PM.OPSUD ---
Surgery/Procedure H&P Update DATE OF PROCEDURE: September 19, 2019 DATE H&P PERFORMED: 09/18/19 H&P UPDATE INFORMATION: I have reviewed H&P completed within last 30 days, I have examined patient prior to procedure and No changes to prior documentation PLANNED PROCEDURE: Operation Date: 09/19/19 16:30 Proposed Procedures p Cardiac Catheterization(Left) - Rafael Ugalde MD PHYSICAL EXAM: alert, oriented x 3, clear to auscultation bilaterally and regular rate & rhythm AIRWAY EVAL/ANESTHESIA PLAN: normal airway, Monitored Anesthesia, Local Anesthesia, Risks, benefits & alternatives of sedation and/or procedure discussed and Patient agrees to continue as planned
[2019-09-19] MEDS: diclofenac 1% Topical Gel 100 gm 1 APPLIC TOPICAL (14:36)
[2019-09-19] MEDS: heparin 5,000 unit/mL INJ 1 mL 5000 UNIT INJECTION (14:36)
[2019-09-19 14:40] LABS: Troponin T (5th) Once 730 ng/L (0-10)
--- NOTE | 2019-09-19 15:30 | XACV_ITS ---
Exam Room: [facility] Ht: 152 cm Wt: 90 kg BSA: 2.00 m2 Gender: Female : 1945 Any Known Allergies: Other Exam Priority: Routine Procedure(s): Procedure Description: Diagnostic procedure Procedure Description: Left Heart Catheterization Procedure Description: Left ventriculography Procedure Description: Coronary Angiography Diagnostic Cath Status: Urgent Diagnostic Findings Coronary angiography shows right dominance. There is no left main. The left anterior descending artery has a high and anterior takeoff. It was found to be very tortuous. The first 2 diagonal branches found to have an ostial around 70% narrowing. The diagonal branch is very tortuous. After the second diagonal branch, the left and descending artery was found to have an around 60%. The LAD at this point appeared to be tortuous. The distal LAD and all the diagonal branches were found to be very tortuous. The mid LAD was found to have mild diffuse disease. 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 Mild diffuse intimal varices were noted in this vessel. The right coronary artery is a large dominant tortuous vessel with no significant stenotic lesions. Conclusions 71-year-old white male with history of diabetes, hypertension and dyslipidemia, presented with prolonged episode of chest pain and elevated troponin T. She underwent a left heart catheterization with a left and right coronary angiogram and LV angiogram today. The findings are as follows. All the coronary arteries were found to be tortuous. She has an anomalous circumflex artery. Left anterior descending artery has a high and anterior takeoff. 70% ostial narrowing in the first diagonal branch. Right after the second diagonal artery, there is a 60% stenosis in the LAD proper. Mild disease in the other vessels. Normal LV ejection fraction 55%. Mild hypokinesia of the LV apex. LVEDP of 15 mmHg. The cardiac catheterization findings were reviewed and discussed with Dr. David. I was wanting to do an FFR of the LAD lesion. But because of the extreme tortuosity of the artery, percutaneous intervention could be extremely difficult. For this reason, I concurred with Dr. David to manage the patient medically and consider PCI, if she has recurrence of chest pains, even after optimizing the medical treatment. Recommendations Continue current medical management and risk factor modification. Diagnostic RX Recommendation: medical therapy and/or counseling LV EDP: 15 mmHg Ejection Fraction: 55.0 % Left Ventriculography Findings: The LV cavity appears to be normal size. There is mild hypokinesia of the LV apex. No filling defects were noted. Heavy mitral annular calcification was noted. Trace to mild mitral regurgitation was seen. No significant mitral prolapse. Pressures Phase:Rest AO : 102 mmHg / 50 mmHg ( 70 mmHg ) @ 11:51:00 AM 99 mmHg / 36 mmHg ( 61 mmHg ) @ 12:23:00 PM LV : 96 mmHg / 0 mmHg / @ 12:22:00 PM 101 mmHg / 0 mmHg / @ 12:23:00 PM Clinical Evaluation EBL: 5mL-10mL Procedural Details Procedure Consent Obtained. Pre-Procedure Time Out. Identified patient by full name and date of as verbalized by the patient/guarantor. Does the consent match the physician's order: Yes. Accurate & Complete Informed Consent: Yes. Inpatient/Outpatient History & Physical on Chart: Yes. If H&P is completed, is and addenduem needed: No; If yes, is the addendum complete: N/A. Visualize and Verify Site with Patient/Guarantor: N/A. Relevant Radiology Images available: N/A. Pre-op teaching completed and patient verbalized understanding. The risks, benefits, and alternatives of sedation and/or procedure were discussed by physician. The patient agrees to continue. Procedure started. [facility] Clinical Fraility Score: 3: Managing Well. Deliverer Pharmacy Indications: ACS > 24 hours. Chest Pain Symptom Assessment: Typical Angina Symptoms. Cardiovascular Instability: No. Correct patient, site and procedure confirmed by cath team. PERRLA. Strong, equal hand mechanical insulator bilaterally. Lungs clear x 5 lobes. IV Site on Arrival: 20 gauge in the left anticubital. IV Fluids: 0.9% NaCl at KVO. 0 mL infused prior to botany laboratory assistant. Pre Procedural Pulses: bilateral dorsalis pedis was Doppled. Pre Procedural Pulses: bilateral posterior tibial was Doppled. Oxygen started at 2liters/min via nasal canula. bilateral groins was prepped with chloroprep then draped in the usual sterile fashion. right radial was prepped with chloroprep then draped in the usual sterile fashion. Baseline sample Acquired. HR: 52 BPM. Physician notified. Patient's family unavailable. Equipment: 6F - Radial. Cardiac Cath Pack. ACIST Manifold Kit Model BT 2000. Heparinized Saline (2 units/mL), 1000 mL bag. Physician arrived. Physician scrubbed in. Immediate Pre-Procedure Time Out. Correct Patient: Yes; Correct Procedure: Yes; Correct Site: Yes; Correct Patient Position: Yes; Correct Supplies: Yes; Dried Flammable Prep: Yes; Blood Products Available: N/A;. Lidocaine 1% infiltrated to the right radial. Arterial access obtained. A Informativeo 5 Fr Abdelrahman Radial Catheter, 110cm was advanced over the wire and used for Left coronary angiography. ACT drawn. Results 111 seconds. Therapeutic limits - pre-heparin administration 90-150 seconds and monitoring heparin during a vascular procedure >250 seconds. Wire out. Hand injection. Glidewire inserted. Inventory is TR Glidewire Angled Stiff Shaft .035 260cm. Glidewire out. Exchanged wire inserted. Catheter removed over the exchange wire. A TR 5FR Radial TIG 4.0 110cm was advanced over the wire and used for Left coronary angiography. Catheter removed over the exchange wire. unable to cannulate catheters. Moving to femoral approach. Lidocaine 1% infiltrated to the right groin. Arterial access obtained with micropuncture set. Needle and wire out. Dr Ugalde holding pressure. Arterial access obtained with micropuncture set. CRD 5F Multi-pac Diagnostic Catheter. A 5 bhutanese JL4 catheter in over wire. Multiple views taken of left coronary artery. Catheter out. A 5 bhutanese JR4 catheter in over wire. Catheter out. A 5 bhutanese Angled Pig catheter in over wire. EDP Sample taken: LV 96/-1,15; HR: 48 BPM; SpO2: 96%. LV gram performed in ROLAND @ 10 mL/second for a total of 30 mL. EDP Sample taken: LV 101/-1,15; HR: 49 BPM; SpO2: 96%. Pullback taken: LV Off; AO Off; Mean: , Peak to Peak: , SEP: ; HR: 49 BPM; SpO2: 96%. Catheter out. Physician scrubbed out. A TR Band was successful obtaining hemostatsis at the Right Radial artery insertion site. A Suture was successful obtaining hemostatsis at the Right Femoral artery insertion site. TR band placed. Hemostasis obtained. Sheath(s) sutured into position with 2-0 silk and sterile 4x4's and Op-site applied over the site. No oozing or signs and symptoms of hematoma noted. Arterial sheath flushed and connected to tranducer and pressure bag with heparinized saline. Post Procedure: Pulses reassessed and unchanged. PERRLA. Strong, equal hand mechanical insulator bilaterally. No VTE prophylaxis required. Medication's Wasted: Nitro = 49.8 mg. Total IV fluids: 50 mL. Post-op diagnosis: single vessel CAD, anomylous Coronary artery. Complications: none. Estimated blood loss: 5mL-10mL. Procedure completed. Patient transferred by bed to 1st floor. Site: Right Radial artery Sheath Size: 6 Fr Hemostasis Method: TR Band Hemostasis Success: Successful Site: Right Femoral artery Sheath Size: 6 Fr Hemostasis Method: Suture Hemostasis Success: Successful Procedure Medications Start: 4:37 PM Stop: 4:37 PM Medication: Versed Amount: 0.5 mg Route: I.V. Start: 4:37 PM Stop: 4:37 PM Medication: Fentanyl Amount: 25 mcg Route: I.V. Start: 4:41 PM Stop: 4:41 PM Medication: Versed Amount: 0.5 mg Route: I.V. Start: 4:41 PM Stop: 4:41 PM Medication: Fentanyl Amount: 25 mcg Route: I.V. Start: 4:43 PM Stop: 4:43 PM Medication: Verapamil Amount: 5 mg Route: I.A. Start: 4:43 PM Stop: 4:43 PM Medication: Nitrogylcerin Amount: 200 mcg Route: I.A. Start: 4:50 PM Stop: 4:50 PM Medication: Heparin Amount: 4000 units Route: I.V. Start: 4:51 PM Stop: 4:51 PM Medication: Versed Amount: 0.5 mg Route: I.V. Start: 4:51 PM Stop: 4:51 PM Medication: Fentanyl Amount: 25 mcg Route: I.V. Start: 5:12 PM Stop: 5:12 PM Medication: Versed Amount: 0.5 mg Route: I.V. Start: 5:12 PM Stop: 5:12 PM Medication: Fentanyl Amount: 25 mcg Route: I.V. I, the attending physician, have reviewed and verified all procedure medications. Yes, all medications given per verbal order History/Risk Factors Hypertension: Yes Dyslipidemia: Yes Diabetic Therapy: Oral Peripheral Arterial Disease (PAD): No Myocardial Infarction (LA): Yes Obesity: Yes Renal Disease: No Prior Interventions PCI: No CABG: No Valve Surgery: No Report Signatures Finalized by:Dr Rafael Ugalde MD [facility] on 09/19/2019 6:49:51 PM
[2019-09-19] MEDS: diphenhydrAMINE 50 mg Capsule PO (15:41)
[2019-09-19 16:41] LABS: Glucose Point of Care 128 mg/dL (70-110)
--- NOTE | 2019-09-19 17:53 | PC.NURSE ---
PATIENT RETURNED FROM CCL WITH CCL RN ; VSS ; SB ; PATIENT DENIES ANY COMPLAINTS AT THIS TIME ; RIGHT WRIST TR BAND IN PLACE WITH NO BLEEDING BRUISING OR HEMATOMA NOTED ; RIGHT GROIN SHEATH IN PLACE WITH PRESSURE BAG ; NO BLEEDING BRUISING OR HEMATOMA NOTED ; ALL PULSES PRESENT ; PATIENT MONITORED ; FAMILY NOTIFIED
--- NOTE | 2019-09-19 19:20 | PC.NURSE ---
Received report from MOHINI Vernon. Patient is currently lying on her right side. Patient is s/p [facility] with right femoral and right radial access. TR band in place to right wrist with no s/s of bleeding or hematoma formation observed. Sheath and pressure bag in place to right groin. Dressing remains c,d,i with no s/s of bleeding or hematoma formation observed. Instructed patient on site care and restrictions. Patients verbalized understanding but will need reinforcement of all instructions.
[2019-09-19 19:45] LABS: Partial Thromboplastin Time 57.5 SECONDS (23.9-36.7)
--- NOTE | 2019-09-19 19:45 | USCV_ITS ---
Abby Nova Age: 74 Gender: F : 1945 Exam Date: 09/19/2019 05:58 Ordering Phys: April Garcia MD Technologist: Gosia Vargas Exam Location: [facility] [place] Indication: NSTEMI BP: 119 / 56 HR: 61 Rhythm: Sinus Technical Quality: Adequate MEASUREMENTS (Male / Female) Normal Values 2D ECHO LV Diastolic Diameter PLAX 3.9 cm 4.2 - 5.9 / 3.9 - 5.3 cm LV Systolic Diameter PLAX 3.4 cm LV Chamber Size 3.4 cm IVS Diastolic Thickness 1.6 cm 0.6 - 1.0 / 0.6 - 0.9 cm IVS Systolic Thickness 1.9 cm LVPW Diastolic Thickness 1.3 cm 0.6 - 1.0 / 0.6 - 0.9 cm LVPW Systolic Thickness 1.8 cm RV Chamber Size 2.9 cm LVOT Diameter 2.1 cm LV Ejection Fraction 2D Teich 28.1 % LV Ejection Fraction MOD 2C 57.8 % LV Ejection Fraction 2C AL 56.7 % LA Diameter 3.0 cm LA Width 2.7 cm LA Height 3.6 cm RA Width 2.5 cm RA Height 3.5 cm Aorta at Sinotubular Diameter 3.2 cm M-MODE LV Diastolic Diameter MM 4.2 cm 4.2 - 5.9 / 3.9 - 5.3 cm LV Systolic Diameter MM 2.2 cm LV Ejection Fraction MM Teich 79.7 % IVS Diastolic Thickness MM 1.0 cm 0.6 - 1.0 / 0.6 - 0.9 cm IVS Systolic Thickness MM 1.2 cm LVPW Diastolic Thickness MM 1.3 cm 0.6 - 1.0 / 0.6 - 0.9 cm LVPW Systolic Thickness MM 1.9 cm RV Diastolic Diameter MM 0.6 cm Aortic Annulus Diameter 3.2 cm LA Ao Ratio MM 0.9 MV E Point Septal Separation 1.1 cm DOPPLER AV Peak Velocity 263.0 cm/s LVOT Peak Velocity 134.0 cm/s AV Area Cont Eq vti 1.9 cm squared AV Area Cont Eq pk 1.7 cm squared MV Area PHT 2.2 cm squared Mitral E to A Ratio 0.9 MV E' Velocity 8.0 cm/s Mitral E to MV E' Ratio 17.2 Mitral E to LV E' Lateral Ratio 17.0 Mitral E to LV E' Septal Ratio 17.4 TR Peak Velocity 217.7 cm/s TR Peak Gradient 19.0 mmHg TR Mean Velocity 169.6 cm/s TR Mean Gradient 13.3 mmHg TR Velocity Time Integral 79.1 cm TV Peak E Velocity 50.0 cm/s Right Atrial Pressure 5.0 mmHg Pulmonary Artery Systolic Pressu 24.0 mmHg PV Peak Velocity 90.0 cm/s RV Acceleration Time 0.2 s RV Ejection Time 0.3 s RV AcT/ET 0.6 FINDINGS Left Ventricle Normal left ventricular size, systolic function and wall thickness, with no regional wall motion abnormalities. Left ventricular ejection fraction is estimated at 60 %. Normal diastolic function. Right Ventricle Normal right ventricular size and systolic function. Right ventricular systolic pressure 24 mmHg. Right Atrium Normal right atrial size. Left Atrium Normal left atrial size. Mitral Valve Moderate mitral annular calcification. No mitral valve stenosis. No mitral valve regurgitation. Aortic Valve Aortic valve not well visualized. Thickened and calcified aortic valve. Mild aortic valve stenosis, mean gradient 13 mmHg, FLORENCIO 1.9 cm squared. No aortic valve regurgitation. Tricuspid Valve Structurally normal tricuspid valve. Trace tricuspid valve regurgitation. Pulmonic Valve Pulmonic valve not well visualized. No pulmonary valve stenosis. Pericardium No pericardial effusion. Aorta Normal-sized aortic root. CONCLUSIONS 1. Normal left ventricular size, systolic function and wall thickness, with no regional wall motion abnormalities. Left ventricular ejection fraction is estimated at 60 %. Normal diastolic function. 2. Normal right ventricular size and systolic function. 3. Normal pulmonary artery pressure. 4. Mild aortic valve stenosis, mean gradient 13 mmHg, FLORENCIO 1.9 cm squared. 5. When compared to previous echocardiogram dated 06/28/2016, there is mild aortic valve stenosis now. Clara Vargas MD (Electronically Signed) Final Date: 19 September 2019 08:24 S
[2019-09-19 20:42] LABS: Glucose Point of Care 171 mg/dL (70-110)
[2019-09-19] MEDS: ALPRAZolam 0.25 mg Tablet PO (21:07)
[2019-09-19] MEDS: trazodone 150 mg Tablet 75 MG PO (21:07)
[2019-09-19] MEDS: acetaminophen 325 mg Tablet 650 MG PO (21:07)
--- NOTE | 2019-09-19 21:16 | PC.NURSE ---
Patient remains lying on right side. Right groin remain c,d,i with no s/s of bleeding or hematoma formation observed. Patient reports having back problems is why she can't lie on her back for long periods. Reinforced site care instructions. Patient verbalized understanding.
[2019-09-19] MEDS: morphine 4 mg/mL SDV 1 mL 2 MG IVP (21:44)
--- NOTE | 2019-09-19 22:22 | PC.NURSE ---
Initiated sheath pull at 2155 per protocol. Hemostasis achieved immediately. Maintained pressure for 20min. No s/s of bleeding or hematoma formation observed. Cleaned site. Applied 2x2 and bio-occlusive to site. VS monitored every 2min and they remained WNL. Positioned patient for comfort. TR band off at this time. No s/s of bleeding or hematoma formation to right wrist. Applied 2x2 and bio-occlusive dressing to site. Instructed patient on site care and restrictions. Patient verbalized complete understanding.
[2019-09-20] VITALS (10 sets, daily range): BP systolic 107–128; BP diastolic 45–61; PULSE 51–61; RESP 14–18; TEMP 36.4–37.1; O2SAT 93–96
--- NOTE | 2019-09-20 04:27 | PC.NURSE ---
Patient resting on left side. Right groin dressing remain c,d,i without s/s of bleeding or hematoma formation observed.
[2019-09-20 06:02] LABS: Basophils # 0.1 10^3/uL (0.0-0.1); Basophils % 0.8 %; Eosinophils # 0.2 10^3/uL (0.0-0.8); Eosinophils % 3.1 %; Hematocrit 31.8 % (37.0-47.0); Hemoglobin 9.9 g/dL (11.5-15.3); Lymphocytes # 1.8 10^3/uL (0.8-4.8); Lymphocytes % 28.9 %; Mean Corpuscular HGB Conc 31.1 g/dL (30.0-36.0); Mean Corpuscular Hemoglobin 27.7 pg (28.0-34.0); Mean Corpuscular Volume 88.8 fL (81-99); Mean Platelet Volume 10.2 fL (7.4-10.4); Monocytes # 0.5 10^3/uL (0.2-0.9); Monocytes % 8.7 %; Neutrophils # 3.6 10^3/uL (1.8-7.7); Neutrophils % 57.9 %; Nucleated Red Blood Cells % 0 %; Platelet Count 198 10^3/cmm (130-400); Red Blood Count 3.58 10^6/uL (4.1-5.3); Red Cell Distribution Width 15.4 % (12.1-15.1); White Blood Count 6.2 10^3/uL (4.0-10.0)
[2019-09-20 06:21] LABS: Alanine Aminotransferase 9 U/L (0-33); Albumin Level 3.9 g/dL (3.5-5.2); Alkaline Phosphatase 49 IU/L (35-105); Anion Gap 11.9 (5-19); Aspartate Amino Transferase 18 U/L (0-32); Blood Urea Nitrogen 13 mg/dL (8-23); Calcium 9.3 mg/dL (8.5-10.5); Carbon Dioxide 29 mmol/L (22-29); Chloride 101 mmol/L (98-107); Globulin 2.2 g/dL (1.3-4.6); Glucose 137 mg/dL (65-115); Osmolality Calculated 284 mOsm/kg (285-295); Potassium 3.9 mmol/L (3.5-5.1); Sodium 138 mmol/L (136-145); Total Bilirubin 0.5 mg/dL (0.15-1.2); Total Protein 6.1 g/dL (6.6-8.7)
[2019-09-20 06:27] LABS: Glucose Point of Care 141 mg/dL (70-110)
--- NOTE | 2019-09-20 08:37 | PC.NURSE ---
90 mg of Lovenox given per order on 09/18/19 at 2021. By error, documentation of medication was undone.
--- NOTE | 2019-09-20 09:06 | P.PN_ITS ---
Subjective Subjective: Interval history: Patient denies any chest pain or palpitations. No unusual shortness of breath. No hematoma or bleeding from the right groin. The vital signs remained stable. Blood pressure is under control. No significant arrhythmias on the monitor. Medications: Reviewed: Yes Medication Review Details: Current Medications Acetaminophen (Tylenol) 650 mg PO Q6H PRN PRN Reason: MILD PAIN Last Admin: 09/19/19 21:07 Dose: 650 mg Documented by: Al Hydrox/Mg Hydrox/Simethicone (Maalox) 15 ml PO Q6H PRN PRN Reason: INDIGESTION Al Hydrox/Mg Hydrox/Simethicone (Maalox) 30 ml PO Q15M PRN PRN Reason: INDIGESTION Alprazolam (Xanax) 0.25 mg PO TID PRN PRN Reason: ANXIETY Last Admin: 09/19/19 21:07 Dose: 0.25 mg Documented by: Amlodipine Besylate (Norvasc) 5 mg PO DAILY [facility] Last Admin: 09/19/19 08:38 Dose: 5 mg Documented by: Aspirin (Aspirin Ec) 81 mg PO DAILY [facility] Last Admin: 09/19/19 08:38 Dose: 81 mg Documented by: Atorvastatin Calcium (Lipitor) 40 mg PO DAILY [facility] Atropine Sulfate (Atropine) 0.5 mg IVP PRN PRN PRN Reason: Symptomatic bradycardia Citalopram Hydrobromide (Celexa) 20 mg PO DAILY [facility] Last Admin: 09/19/19 08:38 Dose: 20 mg Documented by: Clopidogrel Bisulfate (Plavix) 75 mg PO DAILY [facility] Dextrose (D50w) 25 ml IVP ONCE PRN; Protocol PRN Reason: hypoglycemia protocol Dextrose (D50w) 50 ml IVP PRN PRN; Protocol PRN Reason: hypoglycemia protocol Diclofenac Sodium (Voltaren) 1 applic TOPICAL QID [facility] Last Admin: 09/19/19 14:36 Dose: 1 applic Documented by: Diclofenac Sodium (Voltaren) 75 mg PO DAILY [facility] Enoxaparin Sodium (Lovenox) 90 mg 1 mg/kg (90 mg) SUBCUT Q12H [facility] Last Admin: 09/19/19 08:06 Dose: Not Given Documented by: Glucagon (Glucagen) 1 mg IM ONCE PRN; Protocol PRN Reason: Adult Acute Hypoglycemia Prot. Dextrose (D5w) 500 mls @ 100 mls/hr IV ONCE PRN; Protocol PRN Reason: Adult Acute Hypoglycemia Prot Insulin Aspart (Novolog) 0 unit SUBCUT WM&BEDTIME [facility]; Protocol Last Admin: 09/20/19 08:02 Dose: 2 unit Documented by: Levothyroxine Sodium (Synthroid) 25 mcg PO DAILY [facility] Last Admin: 09/19/19 08:39 Dose: 25 mcg Documented by: Magnesium Hydroxide (Milk Of Magnesia) 30 ml PO DAILY PRN PRN Reason: CONSTIPATION Metoprolol Tartrate (Lopressor) 50 mg PO BID [facility] Last Admin: 09/19/19 08:38 Dose: 50 mg Documented by: Morphine Sulfate (Morphine) 2 mg IVP Q4H PRN PRN Reason: SEVERE PAIN Last Admin: 09/19/19 21:44 Dose: 2 mg Documented by: Naloxone HCl (Narcan) 0.1 mg IVP Q2M PRN PRN Reason: RESPIRATORY RATE < 8/MIN Nitroglycerin (Nitrostat) 0.4 mg SUBLINGUAL Q5M PRN PRN Reason: CHEST PAIN Ondansetron HCl (Zofran) 4 mg IVP Q8H PRN PRN Reason: vomiting, or N/V if npo Pantoprazole Sodium (Protonix) 40 mg PO DAILY [facility] Last Admin: 09/19/19 08:39 Dose: 40 mg Documented by: Temazepam (Restoril) 15 mg PO BEDTIME PRN PRN Reason: INSOMNIA Trazodone HCl (Desyrel) 75 mg PO BEDTIME [facility] Last Admin: 09/19/19 21:07 Dose: 75 mg Documented by: Vitals/I&O/Wt Last Vital Signs Temp 98.1 F 09/20/19 04:24 Pulse 55 L 09/20/19 04:24 Resp 14 09/20/19 04:24 BP 115/45 09/20/19 04:24 Pulse Ox 93 09/20/19 04:24 09/19/19 09/20/19 09/20/19 22:59 06:59 14:59 Intake Total 120 / 120 120 / 240 Output Total 200 / 200 Balance -80 / -80 120 / 40 Weight last 48 hrs Weight 202 lb 5 oz Weight 198 lb 9.6 oz Weight 200 lb Physical Exam Narrative: EXAM NARRATIVE: GENERAL: The patient is alert and oriented times three. Not in any acute distress. Moderately obese, short statured HEENT: No significant pallor, icterus or lymphadenopathy. NECK: Trachea appears to be central. No masses noted. No JVD or thyromegaly appreciated. No carotid bruit. RESPIRATORY: Chest is symmetrical. No intercostals muscle retraction or any accessory muscle activation. There is no chest wall tenderness. Breath sounds are heard bilaterally. No rales or rhonchi heard. No evidence of any co nsolidation. BREASTS: Deferred. HEART: Ejection study murmur grade 2/6 in the aortic area. No diastolic murmurs. No pericardial rub. ABDOMEN: Obese . No vessel pulsations or distention. No tenderness. No organomegaly appreciated. No abdominal bruit. Bowel sounds are normally heard. Vertical laparotomy scar on the right side of the abdomen, appears well-healed. : Deferred. RECTAL: Deferred. LYMPHATIC: No lymphadenopathy noted in the neck or groin. EXTREMITIES: No edema or cyanosis. No hematoma or bleeding from the groin MUSCULOSKELETAL: No acute joint deformities or swelling SKIN: There are no significant scars or skin rash noted. NEUROPSYCHIATRIC: The patient is alert and oriented x3. Appears to be in a good mood. The higher functions are grossly within normal limits. No tremors or r igidity noted. Const: COMMON NORMALS: alert Resp: COMMON NORMALS: clear to auscultation bilaterally AUSCULTATION: clear to auscultation bilaterally Neuro: SENSORIUM/ORIENTATION: Yes alert Data : 09/20/19 05:17 09/20/19 05:17 A&P Assessment and plan (1) Acute non-ST elevation myocardial infarction (NSTEMI): Patient underwent the left heart catheterization yesterday. She was found to have moderately severe disease in the ostium of the first diagonal and distal LAD. In view of the extreme tortuosity of the vessels, it was opted to treat her medically. She may be kept on the aspirin and Plavix. Status: Acute (2) History of paroxysmal supraventricular tachycardia: Since there is no recurrence of tachyarrhythmia, may continue on the current dose of the metoprolol. Status: Acute (3) Type 2 diabetes mellitus: In view of the patient's coronary disease, it may be appropriate to add Jardiance to her current medications. This was discussed with Status: Acute Qualifiers: Diabetes mellitus complication status: with hyperglycemia Diabetes mellitus terminal system operator insulin use: without terminal system operator use Qualified Code(s): E11.65 - Type 2 diabetes mellitus with hyperglycemia (4) Benign essential hypertension with target blood pressure below 140/90: Patient is currently normotensive. May continue on the current medications Status: Acute (5) Mixed hyperlipidemia: May continue on the Lipitor. Status: Acute Additional A&P Information If the patient continues to remain stable, may be discharged home today. She needs to be seen in the clinic next week by the nurse practitioner. I may see her in the office in 1 month Attestations Medical Necessity Statement*: Possible discharge home today Coding Level of Care Code Acute Telescope Maintenance for [facility] Fwd Exam Expanded Problem Focused Diagnoses Acute non-ST elevation myocardial infarction (NSTEMI) I21.4 History of paroxysmal supraventricular tachycardia Z86.79 Type 2 diabetes mellitus E11.65 Diabetes mellitus complication status: with hyperglycemia Diabetes mellitus terminal system operator insulin use: without terminal system operator use Benign essential hypertension with target blood pressure below 140/90 I10 Mixed hyperlipidemia E78.2
--- NOTE | 2019-09-20 09:33 | ECG_ITS ---
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 Measurements Intervals Lyndon Rate: 62 P: 35 MO: 136 QRS: -35 QRSD: 126 T: 14 QT: 461 QTc: 470 Interpretive Statements SINUS RHYTHM LEFT AXIS DEVIATION RIGHT BUNDLE BRANCH BLOCK MODERATE T-WAVE ABNORMALITY, CONSIDER LATERAL ISCHEMIA Compared to ECG 09/18/2019 20:09:47 Left-axis deviation now present Right bundle-branch block now present T-wave abnormality now present Possible ischemia now present Sinus bradycardia no longer present Incomplete right bundle-branch block no longer present Electronically Signed On 09-20-2019 16:30:41 CDT by Clara Vargas M.D. [id number]
[2019-09-20] MEDS: pantoprazole DR 40 mg Tablet PO (09:51)
[2019-09-20] MEDS: citalopram 20 mg Tablet PO (09:51)
[2019-09-20] MEDS: aspirin 81 mg EC Tablet PO (09:51)
[2019-09-20] MEDS: atorvastatin 40 mg Tablet PO (09:52)
[2019-09-20] MEDS: metoprolol tartrate 50 mg Tablet PO ×2 (09:52→17:07)
[2019-09-20] MEDS: amlodipine 5 mg Tablet PO (09:52)
[2019-09-20] MEDS: diclofenac 75 mg DR Tablet PO (09:52)
[2019-09-20] MEDS: levothyroxine 25 mcg Tablet PO (09:53)
[2019-09-20] MEDS: clopidogrel 75 mg Tablet PO (09:53)
[2019-09-20] MEDS: enoxaparin 100 mg/mL Syringe 90 MG SUBCUT (10:20)
[2019-09-20 11:33] LABS: Glucose Point of Care 190 mg/dL (70-110)
[2019-09-20 16:19] LABS: Glucose Point of Care 137 mg/dL (70-110)
[2019-09-20 16:50] LABS: Troponin T (5th) Once 479 ng/L (0-10)
--- NOTE | 2019-09-20 17:27 | PM.DCS ---
Discharge Providers Date of Admission: 09/18/19 16:00 Date of Discharge: September 20, 2019 Attending Provider at Admission: Ji Aponte MD Attending Provider at Discharge: April Garcia MD Primary Care Provider: Lev Pena Diagnoses at Discharge Discharge Diagnosis (1) Acute non-ST elevation myocardial infarction (NSTEMI): Status: Acute (2) History of paroxysmal supraventricular tachycardia: Status: Acute (3) Type 2 diabetes mellitus: Status: Acute Qualifiers: Diabetes mellitus nursing home insulin use: without nursing home use Diabetes mellitus complication status: with hyperglycemia Qualified Code(s): E11.65 - Type 2 diabetes mellitus with hyperglycemia (4) Benign essential hypertension with target blood pressure below 140/90: Status: Acute (5) Mixed hyperlipidemia: Status: Acute Reason for Visit Reason for Visit: CHEST PAIN Hospital Course Discharge Summary: Abby Nova is a 74 year old female with a past medical history of hypertension, hyperlipidemia, diabetes, hypothyroidism who presented to [facility] [place] [facility] on September 17 with chief complaints of back pain radiating into the epigastric region. This was relieved with nitroglycerin. Diagnostics in the ER were notable for increasing troponin delta's, with overall picture consistent with NSTEMI. She was seen by the cardiology service and underwent coronary angiogram on September 18 and was found to have moderately severe disease in the ostium of the first diagonal and distal LAD. In view of extreme tortuosity of the vessels, it was overall a difficult to recanalize and it was decided to treat her medically. She has been optimized from a medication perspective on aspirin and Plavix. Verapamil has been discontinued and instead metoprolol and amlodipine has been started. Diabetic medication has also been changed from metformin to Jardiance for more cardioprotective nature. There were no significant arrhythmias on the monitor. Echocardiogram showed a normal LVEF and grade 1 diastolic dysfunction. On the day of discharge she is chest pain-free. She was able to ambulate within her room from bed to bathroom easily. She was able to give herself a shower without any recurrence of symptoms. She is returning home under the care of her daughter with recommendations to follow-up with cardiology in the next 7 to 10 days. She is also been advised to maintain her blood pressure, HR and blood glucose log to bring to the next visit. 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 Routin e Exams 09/19/19 15:30 Completed CV echo complete* [id number] Stat Ultrasound 09/19/19 19:45 Completed US carotid duplex bilateral [CV car otid duplex BI* Ultrasound 09/19/19 07:55 Completed [id number]] Routine Pending at discharge Category Date Time Status Complete Blood Co unt w/Auto AM LABS Lab 09/21/19 04:00 Ordered Comprehensive Met abolic Panel AM LA BS Lab 09/21/19 04:00 Ordered Labs from last 24 hours 09/20/19 09/20/19 09/20/19 16:11 11:19 06:03 WBC RBC Hgb Hct MCV MCH MCHC RDW Plt Count MPV Neut % (Auto) Lymph % (Auto) Bond % (Auto) Eos % (Auto) Baso % (Auto) Neut # (Auto) Lymph # (Auto) Bond # (Auto) Eos # (Auto) Baso # (Auto) Nucleated RBC % (a uto) Nucleated RBCs # APTT Sodium Potassium Chloride Carbon Dioxide Anion Gap BUN Creatinine Glucose POC Glucose 137 190 141 Calculated Osmolal ity Calcium Total Bilirubin AST ALT Alkaline Phosphata se Troponin T Gen 5 n g/L Total Protein Albumin Globulin 09/20/19 09/20/19 09/20/19 05:17 05:17 05:17 WBC 6.2 RBC 3.58 L Hgb 9.9 L Hct 31.8 L MCV 88.8 MCH 27.7 L MCHC 31.1 RDW 15.4 H Plt Count 198 MPV 10.2 Neut % (Auto) 57.9 Lymph % (Auto) 28.9 Bond % (Auto) 8.7 Eos % (Auto) 3.1 Baso % (Auto) 0.8 Neut # (Auto) 3.6 Lymph # (Auto) 1.8 Bond # (Auto) 0.5 Eos # (Auto) 0.2 Baso # (Auto) 0.1 Nucleated RBC % (a uto) 0 Nucleated RBCs # 0.0 APTT Sodium 138 Potassium 3.9 Chloride 101 Carbon Dioxide 29 Anion Gap 11.9 BUN 13 Creatinine 0.9 Glucose 137 H POC Glucose Calculated Osmolal ity 284 L Calcium 9.3 Total Bilirubin 0.5 AST 18 ALT 9 Alkaline Phosphata se 49 Troponin T Gen 5 n g/L 479 H* Total Protein 6.1 L Albumin 3.9 Globulin 2.2 09/19/19 09/19/19 09/19/19 20:53 20:38 19:23 WBC RBC Hgb Hct MCV MCH MCHC RDW Plt Count MPV Neut % (Auto) Lymph % (Auto) Bond % (Auto) Eos % (Auto) Baso % (Auto) Neut # (Auto) Lymph # (Auto) Bond # (Auto) Eos # (Auto) Baso # (Auto) Nucleated RBC % (a uto) Nucleated RBCs # APTT 36.0 57.5 H Sodium Potassium Chloride Carbon Dioxide Anion Gap BUN Creatinine Glucose POC Glucose 171 Calculated Osmolal ity Calcium Total Bilirubin AST ALT Alkaline Phosphata se Troponin T Gen 5 n g/L Total Protein Albumin Globulin Vitals: Last Vital Signs Temp 97.9 F 09/20/19 15:07 Pulse 56 L 09/20/19 15:07 Resp 17 09/20/19 15:07 BP 128/61 09/20/19 15:07 Pulse Ox 96 09/20/19 15:07 Discharge Plan Discharge Patient Disposition: Home, Self-Care Condition: Stable Prescriptions: New clopidogrel 75 mg Tablet 75 mg PO DAILY 30 Days Qty: 30 RF: 0 amlodipine 5 mg Tablet 5 mg PO DAILY 30 Days Qty: 30 RF: 0 metoprolol tartrate 50 mg Tablet 50 mg PO BID 30 Days Qty: 60 RF: 0 Nitrostat 0.4 mg Tablet, Sublingual 0.4 mg sublingual Q5M PRN (Reason: Chest Pain) 30 Days RF: 0 diclofenac sodium 1 % Gel 1 applic topical QID 30 Days Qty: 1 RF: 2 Jardiance 10 mg tablet 10 mg PO DAILY 30 Days Qty: 30 RF: 0 acetaminophen 325 mg Tablet 650 mg PO Q6H PRN (Reason: Mild Pain) Qty: 0 RF: 0 Continued aspirin 81 mg Tablet,Delayed Release (Dr/Ec) 81 mg PO DAILY RF: 0 levothyroxine 25 mcg tablet 25 mcg PO DAILY RF: 0 citalopram 20 mg tablet 20 mg PO DAILY RF: 0 pantoprazole 40 mg tablet,delayed release (DR/EC) 40 mg PO DAILY RF: 0 trazodone 150 mg tablet 75 mg PO BEDTIME RF: 0 orphenadrine citrate 100 mg tablet extended release 100 mg PO BID RF: 0 lovastatin 20 mg tablet 20 mg PO DAILY RF: 0 black cohosh 40 mg Tablet 40 mg PO DAILY RF: 0 elderberry fruit and flower 460-115 mg Capsule 1 cap PO BID RF: 0 Changed diclofenac sodium 75 mg tablet,delayed release (DR/EC) 75 mg PO DAILY PRN (Reason: pain) Qty: 0 RF: 0 Discontinued verapamil 180 mg tablet extended release 90 mg PO DAILY RF: 0 metformin 1,000 mg tablet 1,000 mg PO BID RF: 0 Discharge Orders: Discharge Order (Routine); Ordered 09/20/19 Ordered By: April Garcia Other Ambulatory Orders: Complete Blood Count w/Auto (Routine) Timeframe: 1 Week Location: Determined by Patient Ordered By: April Garcia Referrals: Lev Pena [Primary Care Provider] - Rafael Ugalde MD [Physician] - 7-10 days Discharge Diet: Cardiac and Diabetic Discharge Activity: Increase activity as tolerated Discharge Attestations Time Spent in Discharge Care*: greater than 30 min Specific Discharge Activities: Specific discharge activities: educating patient, educating and/or supporting family/caregiver, discussing with pcp/other providers, documenting/other paperwork and evaluating patient/reviewing data Quality Metrics Clinical Quality Measures During this hospital stay, did patient experience: AMI Clinical Trial Participant: No Contraindication to aspirin (AMI): Aspirin given Contraindication to statin: Statin prescribed Coding Level of Care Code Acute 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
--- NOTE | 2019-09-20 18:07 | PC.NURSE ---
discharge instructions given and explained.pt verb understanding of instructions.discharged via w/c to exit at this time
== END 2019-09-20 18:07 | disposition home or self-care (01) | DRG 282 ==
LOC: ER 16:53 → CSU 17:29
PROVIDERS: Emergency Medicine; Internal Medicine Cardiovascular Disease; Admitting Provider Student in an Organized Health Care Education/Training Program; PCP Physician Assistant Medical; Visit Provider Student in an Organized Health Care Education/Training Program
PROC: 4A023N7 Measurement of Cardiac Sampling and Pressure, Left Heart, Percutaneous Approach (ICD-10-PCS; principal; 2019-09-19 16:30)
DX: I21.4 Non-ST elevation (NSTEMI) myocardial infarction (principal); I25.10 Atherosclerotic heart disease of native coronary artery without angina pectoris; I10 Essential (primary) hypertension; E78.2 Mixed hyperlipidemia; E11.9 Type 2 diabetes mellitus without complications; E03.9 Hypothyroidism, unspecified; E66.9 Obesity, unspecified; Z68.39 Body mass index [BMI] 39.0-39.9, adult; I35.0 Nonrheumatic aortic (valve) stenosis; Z79.82 Long term (current) use of aspirin
CPT/HCPCS: 12345; 36415; 36416; 71275; 80053; 80061; 82962; 83036; 83880; 84443; 84484; 85025; 85347; 85730; 93005; 93306; 93452; 93880; 96372; 99283; C1769; C1887; C1894; J1644; J1650; J1815; J2001; J2250; J2270; J3010; J3490; J7030; Q0163; Q9967

== ENCOUNTER 2020-07-03 06:00 | Outpatient (RCR) | payer MEDICARE, SELFPAY | END 2020-08-01 23:55 | disposition home or self-care (01) | LOC: WPT 06:00 | PROVIDERS: PCP Physician Assistant Medical; Referring Provider Physician Assistant; Visit Provider Physician Assistant | DX: S42.202D Unspecified fracture of upper end of left humerus, subsequent encounter for fracture with routine healing (principal); X58.XXXD Exposure to other specified factors, subsequent encounter | CPT/HCPCS: 97110; 97112; 97140; 97163 ==

== ENCOUNTER 2020-08-02 06:00 | Outpatient (RCR) | payer MEDICARE, SELFPAY | END 2020-09-01 23:59 | disposition home or self-care (01) | LOC: WPT 06:00 | PROVIDERS: PCP Physician Assistant Medical; Referring Provider Physician Assistant; Visit Provider Physician Assistant | DX: S42.202D Unspecified fracture of upper end of left humerus, subsequent encounter for fracture with routine healing (principal); X58.XXXD Exposure to other specified factors, subsequent encounter | CPT/HCPCS: 97110; 97140 ==

== ENCOUNTER 2020-09-02 06:00 | Outpatient (RCR) | payer MEDICARE, SELFPAY | END 2020-10-01 23:59 | disposition home or self-care (01) | LOC: WPT 06:00 | PROVIDERS: PCP Physician Assistant Medical; Referring Provider Physician Assistant; Visit Provider Physician Assistant | DX: S42.202D Unspecified fracture of upper end of left humerus, subsequent encounter for fracture with routine healing (principal); X58.XXXD Exposure to other specified factors, subsequent encounter | CPT/HCPCS: 97110 ==

== ENCOUNTER 2020-09-13 22:41 | Observation (INO) | payer MEDICARE, SELFPAY ==
[2020-09-13 23:06] VITALS: BP 168/77; PULSE 61; RESP 18; TEMP 36.7; O2SAT 96; BMI 31.7
--- NOTE | 2020-09-13 23:14 | CTR_ITS ---
PROCEDURE INFORMATION: Exam: CT Head Without Contrast Exam date and time: 09/13/2020 11:14 PM Age: 75 years old Clinical indication: Patient HX: C/O dizziness w L sided facial parasthesia; Additional info: Weakness TECHNIQUE: Imaging protocol: Computed tomography of the head without contrast. Radiation optimization: All CT scans at this facility use at least one of these dose optimization techniques: automated exposure control; mA and/or kV adjustment per patient size (includes targeted exams where dose is matched to clinical indication); or iterative reconstruction. COMPARISON: No relevant prior studies available. RADIATION DOSE METRICS: Total DLP (mGy-cm): 857.97 FINDINGS: Brain: No acute intracranial hemorrhage or mass effect. There is very mild decreased attenuation in the periventricular white matter, likely from microvascular disease. No definite acute infarct by CT. MRI could be more sensitive/specific for detection, as clinically directed. Cerebral ventricles: Ventricle size is normal for age. Paranasal sinuses: Mild focal opacity in the right ethmoid sinus. Included paranasal sinuses otherwise appear essentially clear. Mastoid air cells: No significant acute finding. Vasculature: Vascular calcifications in the internal carotid and vertebral basilar systems. Bones/joints: No definite acute skull fracture. CT/CT head wo con* [id number] IMPRESSION: 1. No acute intracranial hemorrhage or mass effect. 2. Changes of microvascular disease. 3. No definite acute infarct by CT, see above. 4. Other findings discussed above. Radiation Dose CTDIVOL = (mGy): DLP = 857.97 (mGy-cm)
--- NOTE | 2020-09-13 23:14 | XRR_ITS ---
PROCEDURE INFORMATION: Exam: XR Chest Exam date and time: 09/13/2020 11:14 PM Age: 75 years old Clinical indication: Other: Weakness TECHNIQUE: Imaging protocol: XR of the chest. Views: 1 view. COMPARISON: CT angio chest PE protcl [id number] 09/18/2019 3:12 PM FINDINGS: Tubes, catheters and devices: Left-sided cardiac pacemaker, new since the comparison exam. Lungs: No CHF/pulmonary edema. Visible lungs appear essentially clear. Pleural spaces: No visible pneumothorax. No definite pleural fluid. Heart/Mediastinum: Heart size is upper range of normal. Bones/joints: No significant acute finding. XR/XR chest 1V portable [id number] IMPRESSION: 1. No definite CHF or pneumonia. 2. Other findings discussed above.
[2020-09-13 23:25] LABS: Basophils # 0.1 10^3/uL (0.0-0.1); Eosinophils # 0.2 10^3/uL (0.0-0.8); Eosinophils % 2.8 %; Hematocrit 35.9 % (37.0-47.0); Hemoglobin 11.5 g/dL (11.5-15.3); Lymphocytes # 2.4 10^3/uL (0.8-4.8); Lymphocytes % 28.8 %; Mean Corpuscular Hemoglobin 28.5 pg (28.0-34.0); Mean Corpuscular Volume 89.1 fL (81-99); Mean Platelet Volume 10.5 fL (7.4-10.4); Monocytes # 0.7 10^3/uL (0.2-0.9); Monocytes % 8.7 %; Neutrophils # 4.78 10^3/uL (1.8-7.7); Nucleated Red Blood Cells % 0 %; Platelet Count 243 10^3/cmm (130-400); Red Blood Count 4.03 10^6/uL (4.1-5.3); Red Cell Distribution Width 15.6 % (12.1-15.1); White Blood Count 8.3 10^3/uL (4.0-10.0)
--- NOTE | 2020-09-13 23:38 | ED_ITS ---
HPI - Weakness General: Chief complaint: Weakness Stated complaint: WEAKNESS Time Seen by Provider: 09/13/20 23:06 Source: patient and EMS Mode of arrival: EMS Limitations: no limitations History of Present Illness: HPI Narrative: 75-year-old female who states she has history of severe stenosis in her carotid arteries. States that starting this evening around 8 she was having some paresthesias to the left side of her face. She denies any weakness. States she has had some dizziness over the last 2 days. No extremity weakness noted. She denies any chest pain. She states last time she felt normal was 2 days ago. Denies any vision changes currently. Associated symptoms: Denies chest pain, chills, dysuria, easy bruising, fever(s), nausea or vomiting Review of Systems Const: Denies: fever(s), chills, body aches or change in appetite Eyes: Denies: blurry vision or eye discomfort ENMT: Denies: throat pain or dental pain Card: Denies: chest pain Resp: Denies: dyspnea GI: Denies: abdominal pain, nausea, vomiting or diarrhea : Denies: dysuria Musc: Denies: neck pain or back pain Skin/Breast: Denies: rash Neuro: Reports: sensory changes Psych: Denies: depression Baljinder/Lymph: Denies: easy bruising All/Imm: Denies: urticaria PFSH ED PFSH: Medical History (Updated 09/14/20 @ 01:36 by Lorena Enciso MD) Acute non-ST elevation myocardial infarction (NSTEMI) Arrhythmia Benign essential hypertension with target blood pressure below 140/90 Diabetes Exploratory laparotomy scar History of paroxysmal supraventricular tachycardia Hyperlipidemia Hypertension Hypothyroidism Mixed hyperlipidemia Sarcoidosis Type 2 diabetes mellitus Surgical History (Updated 09/18/19 @ 18:16 by Rafael Ugalde MD) History of appendectomy Family History (Updated 09/18/19 @ 17:46 by April Garcia MD) Other Stroke Social History Smoking and tobacco status: never smoked Physical Exam Const: COMMON NORMALS: no acute distress, patient oriented x3 and healthy appearing HENMT: COMMON NORMALS: normocephalic and atraumatic HEAD & SCALP: normoce phalic and atraumatic Eye: COMMON NORMALS: Equal, round and reactive pupils present and EOMs intact bilaterally PUPIL: Yes Equal, round and reactive pupils present Neck/C-Spine: COMMON NORMALS: full ROM and supple Chest: COMMONS NORMALS: normal inspection of the chest and normal palpation of entire chest wall Resp: COMMON NORMALS: normal respiratory effort, No retractions, No use of accessory muscles and clear to auscultation bilaterally AUSCULTATION: clear to auscultation bilaterally Cardio: COMMON NORMALS: regular rate, regular rhythm and No murmurs present (Cardio) RATE: regular rate RHYTHM: regular rhythm GI: COMMON NORMALS: Normal to inspection, nondistended, normoactive bowel sounds present, Soft to palpation, non-tender and no masses PALPATION: Yes Soft to palpation Extremity: COMMON NORMALS: normal to inspection and full ROM Neuro: COMMON NORMALS: patient oriented x3, moves all extremities and no focal motor deficits CRANIAL NERVES: Yes CN normal except as noted COORDINATION/BALANCE: [id number] test normal SPEECH: speech normal MOTOR EXAM: 5/5 motor strength present throughout COORDINATION: [id number] test normal Psych: COMMON NORMALS: mental status grossly normal, Normal thought process present and cooperative THOUGHT PROCESS: Normal thought process present Skin: COMMON NORMALS: no rashes or lesions noted and no wounds GENERAL SKIN EXAM: no rashes or lesions noted Course Vital Signs: Vital signs: Vital Signs Temperature 98.1 F 09/13/20 23:06 Pulse Rate 61 09/13/20 23:06 Respiratory Rate 18 09/13/20 23:06 Blood Pressure 168/77 09/13/20 23:06 Pulse Oximetry 96 09/13/20 23:06 MDM - Weakness MDM Narrative: Medical decision making narrative: Patient presents here with some paresthesias to her left side of her face along with generalized weakness. Weakness is been going on for 2 days. Her NIH scale here is a 0 she is not a TPA candidate. She does have a history of carotid artery stenosis though and I spoke to hospitalist will add admit she is having some paresthesias. She has been stable here. She ambulate with no difficulty. Lab Data: Labs: Lab Results 09/13/20 09/13/20 09/13/20 Range/Units 23:00 23:00 23:00 WBC 8.3 (4.0-10.0) 10^3/ uL RBC 4.03 L (4.1-5.3) 10^6/u L Hgb 11.5 (11.5-15.3) g/dL Hct 35.9 L (37.0-47.0) % MCV 89.1 (81-99) fL MCH 28.5 (28.0-34.0) pg MCHC 32.0 (30.0-36.0) g/dL RDW 15.6 H (12.1-15.1) % Plt Count 243 (130-400) 10^3/c mm MPV 10.5 H (7.4-10.4) fL Neut % (Auto) 58.0 % Lymph % (Auto) 28.8 % Granite % (Auto) 8.7 % Eos % (Auto) 2.8 % Baso % (Auto) 1.0 % Neut # (Auto) 4.78 (1.8-7.7) 10^3/u L Lymph # (Auto) 2.4 (0.8-4.8) 10^3/u L Granite # (Auto) 0.7 (0.2-0.9) 10^3/u L Eos # (Auto) 0.2 (0.0-0.8) 10^3/u L Baso # (Auto) 0.1 (0.0-0.1) 10^3/u L Nucleated RBC % (a uto) 0 % Nucleated RBCs # 0.0 /100WBC Sodium 140 (136-145) mmol/L Potassium 4.5 (3.5-5.1) mmol/L Chloride 100 (98-107) mmol/L Carbon Dioxide 27 (22-29) mmol/L Anion Gap 17.5 (5-19) BUN 19 (8-23) mg/dL Creatinine 0.9 (0.5-0.9) mg/dL GFR Calculation Not Reportable Glucose 84 (65-115) mg/dL Calculated Osmolal ity 291 (285-295) mOsm/k g Calcium 9.2 (8.5-10.5) mg/dL Total Bilirubin 0.4 (0.15-1.2) mg/dL AST 13 (0-32) U/L ALT 9 (0-33) U/L Alkaline Phosphata se 60 (35-105) IU/L Troponin T Baselin e 11 H (0-10) ng/L Troponin T 120 Min kiana (0-10) ng/L Delta Troponin T (0-10) ABS# Total Protein 7.0 (6.6-8.7) g/dL Albumin 4.7 (3.5-5.2) g/dL Globulin 2.3 (1.3-4.6) g/dL Urine Color (Yellow) Urine Appearance (CLEAR) Urine pH (5-7) Ur Specific Gravit y (1.005-1.030) Urine Protein (Negative) Urine Glucose (UA) (Normal) Urine Ketones (Negative) Urine Blood (Negative) Urine Nitrate (Negative) Urine Bilirubin (Negative) Urine Urobilinogen (Negative) mg/dL Ur Leukocyte Kimberley ase (Negative) Urine RBC (0-2) /hpf Urine WBC (0-5) /hpf Ur Squamous Epith Cells (0-5) /hpf Amorphous Sediment Urine Bacteria (NONE) /hpf 09/13/20 09/14/20 Range/Units 23:25 00:55 WBC (4.0-10.0) 10^3/ uL RBC (4.1-5.3) 10^6/u L Hgb (11.5-15.3) g/dL Hct (37.0-47.0) % MCV (81-99) fL MCH (28.0-34.0) pg MCHC (30.0-36.0) g/dL RDW (12.1-15.1) % Plt Count (130-400) 10^3/c mm MPV (7.4-10.4) fL Neut % (Auto) % Lymph % (Auto) % Granite % (Auto) % Eos % (Auto) % Baso % (Auto) % Neut # (Auto) (1.8-7.7) 10^3/u L Lymph # (Auto) (0.8-4.8) 10^3/u L Granite # (Auto) (0.2-0.9) 10^3/u L Eos # (Auto) (0.0-0.8) 10^3/u L Baso # (Auto) (0.0-0.1) 10^3/u L Nucleated RBC % (a uto) % Nucleated RBCs # /100WBC Sodium (136-145) mmol/L Potassium (3.5-5.1) mmol/L Chloride (98-107) mmol/L Carbon Dioxide (22-29) mmol/L Anion Gap (5-19) BUN (8-23) mg/dL Creatinine (0.5-0.9) mg/dL GFR Calculation Glucose (65-115) mg/dL Calculated Osmolal ity (285-295) mOsm/k g Calcium (8.5-10.5) mg/dL Total Bilirubin (0.15-1.2) mg/dL AST (0-32) U/L ALT (0-33) U/L Alkaline Phosphata se (35-105) IU/L Troponin T Baselin e (0-10) ng/L Troponin T 120 Min kiana 11.77 H (0-10) ng/L Delta Troponin T 0.77 (0-10) ABS# Total Protein (6.6-8.7) g/dL Albumin (3.5-5.2) g/dL Globulin (1.3-4.6) g/dL Urine Color Yellow (Yellow) Urine Appearance Clear (CLEAR) Urine pH 5 (5-7) Ur Specific Gravit y 1.010 (1.005-1.030) Urine Protein Neg (Negative) Urine Glucose (UA) Norm (Normal) Urine Ketones Negative (Negative) Urine Blood Neg (Negative) Urine Nitrate Negative (Negative) Urine Bilirubin Neg (Negative) Urine Urobilinogen Norm (Negative) mg/dL Ur Leukocyte Kimberley ase Trace H (Negative) Urine RBC 0-4 H (0-2) /hpf Urine WBC 0-4 H (0-5) /hpf Ur Squamous Epith Cells 0-4 H (0-5) /hpf Amorphous Sediment Not Reportable Urine Bacteria Trace (NONE) /hpf Imaging Data^: CT Head: Attestation: I personally reviewed and interpreted this imaging study as follows: Radiologist's impression: [address] [address] [address] Scan Report Signed Patient: Abby Nova Unit #: [id number] : [id number] Age/Sex: 75 / F ADM Date: 09/13/20 Loc: ER Room/Bed: Attending Dr: Ordering Provider/Ordering MD: Lorena Enciso MD Date of Service: 09/13/20 Procedure(s): CT head wo con* [id number] Accession Number(s): [id number] Report Number: [id number] PROCEDURE INFORMATION: Exam: CT Head Without Contrast Exam date and time: 09/13/2020 11:14 PM Age: 75 years old Clinical indication: Patient HX: C/O dizziness w L sided facial parasthesia; Additional info: Weakness TECHNIQUE: Imaging protocol: Computed tomography of the head without contrast. Radiation optimization: All CT scans at this facility use at least one of these dose optimization techniques: automated exposure control; mA and/or kV adjustment per patient size (includes targeted exams where dose is matched to clinical indication); or iterative reconstruction. COMPARISON: No relevant prior studies available. RADIATION DOSE METRICS: Total DLP (mGy-cm): 857.97 FINDINGS: Brain: No acute intracranial hemorrhage or mass effect. There is very mild decreased attenuation in the periventricular white matter, likely from microvascular disease. No definite acute infarct by CT. MRI could be more sensitive/specific for detection, as clinically directed. Cerebral ventricles: Ventricle size is normal for age. Paranasal sinuses: Mild focal opacity in the right ethmoid sinus. Included paranasal sinuses otherwise appear essentially clear. Mastoid air cells: No significant acute finding. Vasculature: Vascular calcifications in the internal carotid and vertebral basilar systems. Bones/joints: No definite acute skull fracture. CT/CT head wo con* [id number] IMPRESSION: 1. No acute intracranial hemorrhage or mass effect. 2. Changes of microvascular disease. 3. No definite acute infarct by CT, see above. 4. Other findings discussed above. EKG Data^: EKG 1: Attestation: I personally reviewed and interpreted this EKG as follows: EKG interpretation date: 09/13/20 EKG interpretation time: 23:20 Interpretation: paced rhythm hr 60with no st or t wave abnormalities qrs 169 qtc 498 Discharge Plan Discharge Patient Disposition: Admitted As Inpatient Admit Provider: Eva Kim Clinical Impression: Paresthesia, Weakness Condition: Stable Coding Level of Care Code ED Information Management Specialist for Chg Fwd Exam Comprehensive NIH stroke score NIHSS Level Of Consciousness - 1a: 0 Level Of Consciousness Questions - 1b: Both Correct Level Of Consciousness Commands - 1c: Both Correct Best Gaze - 2: Normal Visual Crockett - 3: No Visual Loss Facial Palsy - 4: Normal Motor Arm Right - 5: No Drift Motor Arm Left - 5: No Drift Motor Leg Right - 6: No Drift Motor Leg Left - 6: No Drift Limb Ataxia - 7: Absent Sensory - 8: Normal Best Language - 9: No Aphasia Dysarthia - 10: Normal Extinction And Inattention - 11: 0 Score Total Score: 0
[2020-09-13 23:45] LABS: Add Urine Microscopic? YES; Bilirubin Urine Neg (Negative); Blood Urine Neg (Negative); Glucose Urine UA Norm (Normal); Ketones Urine Negative (Negative); Leukocyte Esterase Urine Trace (Negative); Nitrate Urine Negative (Negative); Protein Urine Neg (Negative); Urine Appearance Clear (CLEAR); Urine Color Yellow (Yellow); Urobilinogen Urine Norm (Negative); pH Urine 5 (5-7)
[2020-09-13 23:47] LABS: Add Urine Culture? No; Bacteria Urine TRACE /hpf; RBC Urine 0-4 /hpf (0-2); Squamous Epithelial Cell Urine 0-4 /hpf (0-5); WBC Urine 0-4 /hpf (0-5)
[2020-09-13 23:47] LABS: Troponin(5th) Baseline 11 ng/L (0-10)
[2020-09-13 23:51] LABS: Alanine Aminotransferase 9 U/L (0-33); Albumin Level 4.7 g/dL (3.5-5.2); Alkaline Phosphatase 60 IU/L (35-105); Anion Gap 17.5 (5-19); Aspartate Amino Transferase 13 U/L (0-32); Blood Urea Nitrogen 19 mg/dL (8-23); Calcium 9.2 mg/dL (8.5-10.5); Carbon Dioxide 27 mmol/L (22-29); Chloride 100 mmol/L (98-107); Globulin 2.3 g/dL (1.3-4.6); Glucose 84 mg/dL (65-115); Osmolality Calculated 291 mOsm/kg (285-295); Potassium 4.5 mmol/L (3.5-5.1); Sodium 140 mmol/L (136-145); Total Bilirubin 0.4 mg/dL (0.15-1.2)
[2020-09-14] VITALS (12 sets, daily range): BP systolic 114–182; BP diastolic 57–91; PULSE 56–96; RESP 12–17; TEMP 36.6–37.5; O2SAT 93–96
[2020-09-14 01:18] LABS: Troponin 5 2HR 11.77 ng/L (0-10); Troponin 5 2HR Delta 0.77 ABS# (0-10)
--- NOTE | 2020-09-14 03:54 | PM.HP ---
Providers/Chief Complaint Admitting Physician: Eva Kim MD Primary Care Provider: Lev Pena Chief Complaint: WEAKNESS History of Present Illness Abby Nova is a 75 year old female who presented to the emergency room with chief complaint of left-sided facial paresthesias. Mrs. Nova has a known history of carotid artery disease and is in the process of being set up for vascular surgery in [place]. She says that she has 90% blockage in her left carotid artery. She had a stress test last week for cardiac evaluation preoperatively and has an appointment the first week of October with vascular surgeon Dr. Patel. She had been seen by Dr. Cochran another vascular surgeon previously. Her senior analyst developer is Dr. Shorty Prater in [place]. She has been having frequent dizzy spells and weakness for some time. The last few days symptoms have been occurring but she thought she was getting better. This evening however she had what she describes a somewhat sudden onset of left-sided facial numbness and tingling. She stated the left side of her face felt acutely cold. She waited for a little while but the symptoms did not pass. At the time of symptom onset she was watching TV. Later on she was trying to use her phone to set up something on the TV and could not see the numbers clearly. She tried to close her eyes but things remained blurry. She denied any double vision. She does describe feeling a little dizzy at the time but had no nausea. No tinnitus. She denies any speech difficulties or swallowing problems. She did not notice any focal weakness on one side or the other and had no other paresthesias. Her symptoms though persisted and she decided to come in for evaluation. On arrival to the emergency room NIH score was 0. She continued to complain of sensation of her face feeling numb and tingly. CT of her head did not show acute abnormalities and her laboratory studies were unremarkable. Initial troponin was 11. In addition to carotid artery stenosis she has other medical diagnoses as noted below. She is being placed in observation status for further evaluation and treatment. Review of Systems Const: Reports: fatigue; Denies: fever(s), chills or change in weight Eyes: Reports: blurry vision ENMT: Denies: throat pain or nasal congestion Card: Reports: lightheadedness and pre-syncope; Denies: chest pain, palpitations or edema Resp: Denies: dyspnea, productive cough or non-productive cough GI: Denies: abdominal pain, nausea, vomiting, diarrhea or constipation : Denies: difficulty voiding Musc: Reports: muscle weakness; Denies: joint swelling or joint redness Skin/Breast: Denies: rash or sores Neuro: Reports: sensory changes, difficulty walking, dizziness, vertigo and other (No fall last few weeks but has had fall with fracture in her left shoulder); Denies: headache(s), numbness in extremities, weakness in extremities, confusion, Slurred speech present or involuntary movements Psych: Denies: anxiety or depression Baljinder/Lymph: Denies: easy bruising or easy bleeding Medications/Allergies Home Medications Medication Instructions Recorded Confirmed Last Taken Type aspirin 81 mg PO DAILY 09/18/19 09/14/20 09/17/19 History black cohosh 40 mg PO DAILY 09/18/19 09/14/20 09/17/19 History citalopram 20 mg PO DAILY 09/18/19 09/14/20 09/17/19 History elderberry fruit and flower 1 cap PO BID 09/18/19 09/14/20 09/17/19 History levothyroxine 25 mcg PO DAILY 09/18/19 09/14/20 09/17/19 History lovastatin 20 mg PO DAILY 09/18/19 09/14/20 09/17/19 History pantoprazole 40 mg PO DAILY 09/18/19 09/14/20 09/17/19 History trazodone 75 mg PO BEDTIME 09/18/19 09/14/20 09/17/19 History diclofenac sodium 75 mg PO DAILY PRN #0 tab 09/20/19 09/14/20 09/17/19 Rx amlodipine 5 mg PO DAILY 09/14/20 09/14/20 Unknown History clopidogrel 75 mg PO DAILY 09/14/20 09/14/20 Unknown History fluticasone propionate 1 spray INTRANASAL BID 09/14/20 09/14/20 Unknown History furosemide 40 mg PO DAILY PRN 09/14/20 09/14/20 Unknown History metformin 1,000 mg PO BID 09/14/20 09/14/20 Unknown History metoprolol tartrate 25 mg PO BID 09/14/20 09/14/20 Unknown History tizanidine 2 mg PO DAILY 09/14/20 09/14/20 Unknown History Allergies Allergy/AdvReac Type Severity Reaction Status Date / Time prednisone Allergy ALGY-Difficulty Verified 09/18/19 19:30 Breathing Additional Medication Information I personally reviewed home medication list PFSH Acute PFSH: Medical History (Updated 09/14/20 @ 09:02 by Eva Kim MD) Acute non-ST elevation myocardial infarction (NSTEMI) (09/2019) Benign essential hypertension with target blood pressure below 140/90 Carotid artery stenosis 90% blockage COVID-19 vaccine administered (~07/2020) History of COVID-19 (~02/2020) of covid History of paroxysmal supraventricular tachycardia Hypothyroidism Mixed hyperlipidemia Sarcoidosis Type 2 diabetes mellitus Surgical History (Updated 09/14/20 @ 09:03 by Eva Kim MD) History of appendectomy History of arteriography attempted left heart Cath 09/2019. 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, done in [place] Family History (Updated 09/14/20 @ 08:20 by Eva Kim MD) Brother Stroke CAD (coronary artery disease) Brother Stroke Sister CAD (coronary artery disease) upper 50s Other Cancer Denies family history of Diabetes Clotting disorder Social History (Updated 09/14/20 @ 08:20 by Eva Kim MD) Smoking and tobacco status: never smoked Alcohol intake: never Substance/Drug Use: never Lives independently: Yes Household members: none Marital status: / Vitals/I&O/Wt Last Vital Signs Temp 97.8 F 09/14/20 02:35 Pulse 56 L 09/14/20 02:35 Resp 12 09/14/20 02:35 BP 182/70 09/14/20 02:35 Pulse Ox 96 09/14/20 02:35 09/13/20 09/13/20 09/14/20 14:59 22:59 06:59 Output Total 400 / 400 Balance -400 / -400 Weight last 48 hrs Weight 83.915 kg Physical Exam Narrative: EXAM NARRATIVE: Constitutional: Awake and alert, cooperative, history obtained from her HEENT: Normocephalic atraumatic, able to keep eyes open during examination, no nystagmus, extraocular movements are intact, pupils are reactive, does have some dizziness with head movements but not consistent, nasopharynx is clear, oropharynx Neck: Large, supple Respiratory: Clear to auscultation bilaterally Cardiovascular: Regular rhythm, pacemaker palpable, murmur, no S3 or S4 Abdomen: Soft, large surgical scar from remote open cholecystectomy, nontender, positive bowel sounds Extremities: No pitting edema Skin: Dry, no rashes Neuro: Speech clear, face is symmetric, tongue protrusion is midline, handgrip is equal, strength is equal at both feet, [id number] is intact, toes are downgoing Psych: Normal affect Data : 09/13/20 23:00 09/13/20 23:00 Other data: Laboratory Results WBC 8.3 10^3/uL (4.0-10.0) 09/13/20 23:00 RBC 4.03 10^6/uL (4.1-5.3) L 09/13/20 23:00 Hgb 11.5 g/dL (11.5-15.3) 09/13/20 23:00 Hct 35.9 % (37.0-47.0) L 09/13/20 23:00 MCV 89.1 fL (81-99) 09/13/20 23:00 MCH 28.5 pg (28.0-34.0) 09/13/20 23:00 MCHC 32.0 g/dL (30.0-36.0) 09/13/20 23:00 RDW 15.6 % (12.1-15.1) H 09/13/20 23:00 Plt Count 243 10^3/cmm (130-400) 09/13/20 23:00 MPV 10.5 fL (7.4-10.4) H 09/13/20 23:00 Neut % (Auto) 58.0 % 09/13/20 23:00 Lymph % (Auto) 28.8 % 09/13/20 23:00 [place] % (Auto) 8.7 % 09/13/20 23:00 Eos % (Auto) 2.8 % 09/13/20 23:00 Baso % (Auto) 1.0 % 09/13/20 23:00 Neut # (Auto) 4.78 10^3/uL (1.8-7.7) 09/13/20 23:00 Lymph # (Auto) 2.4 10^3/uL (0.8-4.8) 09/13/20 23:00 [place] # (Auto) 0.7 10^3/uL (0.2-0.9) 09/13/20 23:00 Eos # (Auto) 0.2 10^3/uL (0.0-0.8) 09/13/20 23:00 Baso # (Auto) 0.1 10^3/uL (0.0-0.1) 09/13/20 23:00 Nucleated RBC % (auto) 0 % 09/13/20 23:00 Nucleated RBCs # 0.0 /100WBC 09/13/20 23:00 Sodium 140 mmol/L (136-145) 09/13/20 23:00 Potassium 4.5 mmol/L (3.5-5.1) 09/13/20 23:00 Chloride 100 mmol/L (98-107) 09/13/20 23:00 Carbon Dioxide 27 mmol/L (22-29) 09/13/20 23:00 Anion Gap 17.5 (5-19) 09/13/20 23:00 BUN 19 mg/dL (8-23) 09/13/20 23:00 Creatinine 0.9 mg/dL (0.5-0.9) 09/13/20 23:00 GFR Calculation Not Reportable 09/13/20 23:00 Glucose 84 mg/dL (65-115) 09/13/20 23:00 Calculated Osmolality 291 mOsm/kg (285-295) 09/13/20 23:00 Calcium 9.2 mg/dL (8.5-10.5) 09/13/20 23:00 Total Bilirubin 0.4 mg/dL (0.15-1.2) 09/13/20 23:00 AST 13 U/L (0-32) 09/13/20 23:00 ALT 9 U/L (0-33) 09/13/20 23:00 Alkaline Phosphatase 60 IU/L (35-105) 09/13/20 23:00 Troponin T Baseline 11 ng/L (0-10) H 09/13/20 23:00 Troponin T 120 Minute 11.77 ng/L (0-10) H 09/14/20 00:55 Delta Troponin T 0.77 ABS# (0-10) 09/14/20 00:55 Total Protein 7.0 g/dL (6.6-8.7) 09/13/20 23:00 Albumin 4.7 g/dL (3.5-5.2) 09/13/20 23:00 Globulin 2.3 g/dL (1.3-4.6) 09/13/20 23:00 Urine Color Yellow (Yellow) 09/13/20 23:25 Urine Appearance Clear (CLEAR) 09/13/20 23:25 Urine pH 5 (5-7) 09/13/20 23:25 Ur Specific [place] 1.010 (1.005-1.030) 09/13/20 23:25 Urine Protein Neg (Negative) 09/13/20 23:25 Urine Glucose (UA) Norm (Normal) 09/13/20 23:25 Urine Ketones Negative (Negative) 09/13/20 23:25 Urine Blood Neg (Negative) 09/13/20 23:25 Urine Nitrate Negative (Negative) 09/13/20 23:25 Urine Bilirubin Neg (Negative) 09/13/20 23:25 Urine Urobilinogen Norm mg/dL (Negative) 09/13/20 23:25 Ur Leukocyte Esterase Trace (Negative) H 09/13/20 23:25 Urine RBC 0-4 /hpf (0-2) H 09/13/20 23:25 Urine WBC 0-4 /hpf (0-5) H 09/13/20 23:25 Ur Squamous Epith Cells 0-4 /hpf (0-5) H 09/13/20 23:25 Amorphous Sediment Not Reportable 09/13/20 23:25 Urine Bacteria Trace /hpf (NONE) 09/13/20 23:25 Impressions Chest X-Ray 09/13/20:14 IMPRESSION: 1. No definite CHF or pneumonia. 2. Other findings discussed above. Head CT 09/13/20 23:14 IMPRESSION: 1. No acute intracranial hemorrhage or mass effect. 2. Changes of microvascular disease. 3. No definite acute infarct by CT, see above. 4. Other findings discussed above. Radiation Dose CTDIVOL = (mGy): DLP = 857.97 (mGy-cm) A&P Assessment and plan (1) Paresthesia: left face, along with transient blurry vision Status: Acute (2) Dizziness: been an intermittent problem for a while, seemed worse for a time tonight Status: Acute (3) Weakness: worse the last few days, generalized rather than focal Status: Acute (4) Carotid artery stenosis: 90% blockage by patient report, in process of getting evealuated for intervention/surgery Status: Chronic Qualifiers: Laterality: left Qualified Code(s): I65.22 - Occlusion and stenosis of left carotid artery (5) Type 2 diabetes mellitus: chronically on metformin, blood sugar was in 80s in ED which patient states is low for her Status: Chronic Qualifiers: Diabetes mellitus prison insulin use: without prison use Diabetes mellitus complication status: with hyperglycemia Qualified Code(s): E11.65 - Type 2 diabetes mellitus with hyperglycemia (6) Benign essential hypertension with target blood pressure below 140/90: chronically on metoprolol and amlodipine, currently with elevated pressures Status: Chronic (7) Mixed hyperlipidemia: chronically on statin Status: Chronic (8) Hypothyroidism: chronically on levothyroxine Status: Chronic Qualifiers: Hypothyroidism type: unspecified Qualified Code(s): E03.9 - Hypothyroidism, unspecified (9) Pacemaker: Status: Chronic Additional A&P Information Lives alone (lost to covid at our facility) Observation admission Serial neuro exams Continue serial troponins/EKG Telemetry monitoring PT/OT/speech evaluations We will check echocardiogram I have not ordered focused evaluation of carotid arteries as she has had a recent CTA of the head neck revealing, per her report, 90% left carotid stenosis, in the process of being set up for surgical evaluation outpatient Not a candidate for MRI secondary to pacemaker I have requested records from the first vascular surgeon she saw in [place] as well as her senior analyst developer She is scheduled to see new vascular surgeon the first week in October, Dr Patel Continue aspirin and Plavix Continue statin therapy Continue beta-blockade and amlodipine, currently not adding any additional antihypertensive medication Continue citalopram and levothyroxine Hold home Metformin, sliding scale insulin currently Hold trazodone, tizanidine for now Hold her herbal medications of black cohosh and Elderberry flower Continue Flonase Continue PPI Presently patient is feeling much better. We will see how she does with therapy evaluations before determining further plan of care. DVT prophylaxis: Lovenox Plans, findings and concerns discussed with patient and she was given an opportunity to ask questions. Anticipated Disposition: Home with close outpatient follow-up to her providers in [place] Code Status: Full code Attestations Medical Necessity Statement*: Currently anticipate a stay less than two midnights in a patient presenting with complaints as described. There has been a progressively chronic component to the symptoms she displays but the left-sided facial paresthesias and changes in her vision this evening were new. She reports having 90% blockage in her left carotid artery. Plans are as noted. 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
[2020-09-14 05:41] LABS: Troponin 5 6HR 11.69 ng/L (0-10); Troponin 5 6HR Delta 0.69 ng/L (0-12)
--- NOTE | 2020-09-14 06:55 | USCV_ITS ---
Abby Nova Age: 75 Gender: F : 1945 Exam Date: 09/14/2020 09:18 Ordering Phys: Eva Kim MD Technologist: Gwendolyn Moreno Exam Location: [facility] [place] Indication: Known carotid disease, parasthesias BP: / HR: Rhythm: Sinus Technical Quality: Fair MEASUREMENTS (Male / Female) Normal Values 2D ECHO LV Diastolic Diameter PLAX 3.8 cm 4.2 - 5.9 / 3.9 - 5.3 cm LV Systolic Diameter PLAX 2.2 cm LV Chamber Size 3.3 cm IVS Diastolic Thickness 1.8 cm 0.6 - 1.0 / 0.6 - 0.9 cm IVS Systolic Thickness 1.8 cm LVPW Diastolic Thickness 0.8 cm 0.6 - 1.0 / 0.6 - 0.9 cm LVPW Systolic Thickness 1.5 cm RV Chamber Size 3.1 cm LVOT Diameter 2.0 cm LV Ejection Fraction 2D Teich 74.5 % LV Ejection Fraction MOD 2C 71.2 % LV Ejection Fraction 2C AL 70.8 % LA Diameter 3.1 cm LA Width 2.9 cm LA Height 5.2 cm RA Width 2.9 cm RA Height 4.7 cm Aorta at Sinotubular Diameter 2.4 cm M-MODE LV Diastolic Diameter MM 4.6 cm 4.2 - 5.9 / 3.9 - 5.3 cm LV Systolic Diameter MM 2.7 cm LV Ejection Fraction MM Teich 70.9 % IVS Diastolic Thickness MM 1.4 cm 0.6 - 1.0 / 0.6 - 0.9 cm IVS Systolic Thickness MM 1.7 cm LVPW Diastolic Thickness MM 1.4 cm 0.6 - 1.0 / 0.6 - 0.9 cm LVPW Systolic Thickness MM 1.4 cm RV Diastolic Diameter MM 0.6 cm Aortic Annulus Diameter 3.2 cm LA Ao Ratio MM 1.0 MV E Point Septal Separation 0.6 cm DOPPLER AV Peak Velocity 233.3 cm/s LVOT Peak Velocity 124.0 cm/s AV Area Cont Eq vti 1.7 cm squared AV Area Cont Eq pk 1.7 cm squared MV Peak Velocity 166.0 cm/s MV Area PHT 4.1 cm squared Mitral E to A Ratio 0.8 MV E' Velocity 69.0 cm/s Mitral E to MV E' Ratio 20.4 Mitral E to LV E' Lateral Ratio 23.6 Mitral E to LV E' Septal Ratio 18.1 TV Peak E Velocity 59.0 cm/s Right Atrial Pressure 3.0 mmHg PV Peak Velocity 107.0 cm/s RV Acceleration Time 0.1 s RV Ejection Time 0.3 s RV AcT/ET 0.3 FINDINGS Left Ventricle Normal left ventricular size and systolic function with no regional wall motion abnormalities. Left ventricular ejection fraction is estimated at 70 %. Grade II diastolic dysfunction, moderately elevated filling pressures. Right Ventricle Normal right ventricular size and systolic function. Right Atrium Normal right atrial size. Right atrial pressure estimated at 3 mm Hg. Left Atrium Mildly increased left atrial size. Mitral Valve Severe mitral annular calcification. Moderately thickened mitral valve. No mitral valve stenosis. Trace mitral valve regurgitation. Aortic Valve Moderatey thickened and calcified aortic valve. Mild aortic valve stenosis, peak velcity 2.4 m/sec, peak gradient 23 mm Hg, mean gradient 13 mmHg, FLORENCIO 1.6 cm squared by continuity equation. Aortic valve visually appears moderate. No aortic valve regurgitation. Tricuspid Valve Structurally normal tricuspid valve. Trace tricuspid valve regurgitation. Pulmonic Valve Pulmonic valve not well visualized. No pulmonary valve stenosis. Pericardium No pericardial effusion. Aorta Normal size aortic root and proximal ascending aorta. Normal sized inferior vena cava. CONCLUSIONS 1. Normal left ventricular size and systolic function with no regional wall motion abnormalities. Left ventricular ejection fraction is estimated at 70 %. Grade II diastolic dysfunction, moderately elevated filling pressures. 2. Moderatey thickened and calcified aortic valve. Mild aortic valve stenosis, peak velcity 2.4 m/sec, peak gradient 23 mm Hg, mean gradient 13 mmHg, FLORENCIO 1.6 cm squared by continuity equation. Aortic valve visually appears moderate. 3. No pericardial effusion. 4. When compared to previous echocardiogram dated 09/19/2019, there may not have been any significant change. Clara Vargas MD (Electronically Signed) Final Date: 14 September 2020 14:00 S
[2020-09-14 08:21] LABS: Estmated Average Glucose 97
[2020-09-14 08:23] LABS: Chol HDL Ratio 3.06 mg/dL (0.0-4.40); Cholesterol 144 mg/dL (0-200); HDL Cholesterol 47 mg/dL (60-100); LDL Cholesterol Calculated 73 mg/dL (50-129); LDL HDL Ratio 1.55 RATIO (0.00-3.22); Triglycerides 118 mg/dL (0-150)
[2020-09-14 08:50] LABS: Glucose Point of Care 115 mg/dL (70-110)
[2020-09-14] MEDS: atorvastatin 40 mg Tablet 20 MG PO (10:04)
[2020-09-14] MEDS: pantoprazole DR 40 mg Tablet PO (10:05)
[2020-09-14] MEDS: aspirin 81 mg EC Tablet PO (10:05)
[2020-09-14] MEDS: metoprolol tartrate 25 mg Tablet PO (10:05)
[2020-09-14] MEDS: amlodipine 5 mg Tablet PO (10:05)
[2020-09-14] MEDS: citalopram 20 mg Tablet PO (10:05)
[2020-09-14] MEDS: levothyroxine 25 mcg Tablet PO (10:05)
[2020-09-14] MEDS: clopidogrel 75 mg Tablet PO (10:05)
[2020-09-14] MEDS: fluticasone nasal spray 16gm Btl 1 SPRAY INTRANASAL ×2 (10:06→17:28)
[2020-09-14 10:19] LABS: INR 1.05 (0.8-1.2)
[2020-09-14 11:08] LABS: Glucose Point of Care 160 mg/dL (70-110)
[2020-09-14] MEDS: enoxaparin 40 mg/0.4 mL Syringe SUBCUT (11:21)
--- NOTE | 2020-09-14 16:44 | PM.PN ---
Subjective Subjective: Interval history: Currently patient is doing better, she is ambulating the hallways in a walker, she tells me that her left facial numbness is only slightly present, primarily in the hindu region, no jaw pain, no temporal pain, she tells me that she has intermittent changes in her vision, is not real blurriness of the vision, just distortion of her vision, currently her vision is back to normal, no numbness or tingling of her fingers, no focal neurologic deficits, Vitals/I&O/Wt Last Vital Signs Temp 98.9 F 09/14/20 16:00 Pulse 60 09/14/20 16:00 Resp 17 09/14/20 16:00 BP 117/57 09/14/20 16:00 Pulse Ox 93 09/14/20 16:00 09/14/20 09/14/20 09/14/20 06:59 14:59 22:59 Intake Total 600 / 600 Output Total 400 / 400 Balance -400 / -400 600 / 600 Weight last 48 hrs Weight 83.915 kg Physical Exam Const: COMMON NORMALS: no acute distress and patient oriented x3 Resp: COMMON NORMALS: normal respiratory effort, No retractions, No use of accessory muscles and clear to auscultation bilaterally AUSCULTATION: clear to auscultation bilaterally Cardio: COMMON NORMALS: regular rate, regular rhythm, S1 normal heart sound present and S2 normal heart sound present RATE: regular rate RHYTHM: regular rhythm HEART SOUNDS: S1 normal heart sound present and S2 normal heart sound present GI: COMMON NORMALS: Normal to inspection, nondistended, normoactive bowel sounds present, Soft to palpation, non-tender and No hepatosplenomegaly present PALPATION: Yes Soft to palpation and Yes No hepatosplenomegaly present Extremity: COMMON NORMALS: no pedal edema Neuro: COMMON NORMALS: patient oriented x3, CN's II-XII intact bilaterally, moves all extremities, no focal motor deficits and no sensory deficits noted Psych: COMMON NORMALS: mental status grossly normal Data : 09/13/20 23:00 09/13/20 23:00 A&P Assessment and plan (1) Paresthesia: Possible transient ischemic attack left face, along with transient blurry vision Currently resolved Does have left carotid artery stenosis, which would not fit the picture of left facial numbness Cardiac echocardiogram shows mild aortic stenosis Does report intermittent palpitations of her heart, on telemetry monitoring, might require an event monitor on discharge MRI of the brain cannot be done due to pacemaker Continue aspirin, statin, Plavix, gentle IV hydration, continue to monitor Full code Lovenox for DVT prophylaxis Status: Acute (2) Dizziness: been an intermittent problem for a while, seemed worse for a time tonight Status: Acute (3) Weakness: worse the last few days, generalized rather than focal Status: Acute (4) Carotid artery stenosis: 90% blockage by patient report, in process of getting evealuated for intervention/surgery Status: Chronic Qualifiers: Laterality: left Qualified Code(s): I65.22 - Occlusion and stenosis of left carotid artery (5) Type 2 diabetes mellitus: chronically on metformin, blood sugar was in 80s in ED which patient states is low for her Status: Chronic Qualifiers: Diabetes mellitus 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 terminal operator insulin use: without computer terminal operator use Diabetes mellitus complication status: with hyperglycemia Qualified Code(s): E11.65 - Type 2 diabetes mellitus with hyperglycemia (6) Benign essential hypertension with target blood pressure below 140/90: chronically on metoprolol and amlodipine, currently with elevated pressures Status: Chronic (7) Mixed hyperlipidemia: chronically on statin Status: Chronic (8) Hypothyroidism: chronically on levothyroxine Status: Chronic Qualifiers: Hypothyroidism type: unspecified Qualified Code(s): E03.9 - Hypothyroidism, unspecified (9) Pacemaker: Status: Chronic Additional A&P Information Lives alone (lost to covid at our facility) Serial neuro exams Telemetry monitoring PT/OT/speech evaluations I have not ordered focused evaluation of carotid arteries as she has had a recent CTA of the head neck revealing, per her report, 90% left carotid stenosis, in the process of being set up for surgical evaluation outpatient Not a candidate for MRI secondary to pacemaker I have requested records from the first vascular surgeon she saw in [place] as well as her line crew supervisor She is scheduled to see new vascular surgeon the first week in October, Dr Patel Continue aspirin and Plavix Continue statin therapy Continue beta-blockade and amlodipine, currently not adding any additional antihypertensive medication Continue citalopram and levothyroxine Hold home Metformin, sliding scale insulin currently Hold trazodone, tizanidine for now Hold her herbal medications of black cohosh and Elderberry flower Continue Flonase Continue PPI Presently patient is feeling much better. We will see how she does with therapy evaluations before determining further plan of care. DVT prophylaxis: Lovenox Plans, findings and concerns discussed with patient and she was given an opportunity to ask questions. 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
[2020-09-14 16:54] LABS: Glucose Point of Care 134 mg/dL (70-110)
[2020-09-14] MEDS: sodium chloride 0.9% 1,000 ML 75 ML IV (17:28)
--- NOTE | 2020-09-14 17:36 | PC.NURSE ---
pt refused blood pressure medication due to it making her feel foggy when she takes more then one while blood pressure medication. metoprolol 25 mg was held due to pt refusal.
--- NOTE | 2020-09-14 17:39 | PC.NURSE ---
shift summary pt has been up ad jamil[place] with stand by assist. pt walked one lap around both nurses stations with this nurse using walker without any assistance from this nurse, pt tolerated well. pt has been up to chair with meals, and transfers with no assistance from this nurse. no complaints of discomfort or pain at this time. numbness is stillon left side of face and head. No other complaints at this time. will continue to monitor.
[2020-09-14 18:10] LABS: Erythrocyte Sedimentation Rate 11 mm/hr (0-15)
[2020-09-14 20:52] LABS: Glucose Point of Care 142 mg/dL (70-110)
--- NOTE | 2020-09-14 21:40 | PC.NURSE ---
PATIENT ASKED WHY SOME OF HER HOME MEDICATIONS HAD NOT BEEN GIVEN. THIS NURSE ASKED WHICH MEDICATIONS SHE WAS ASKING ABOUT SPECIFICALLY. PATIENT RESPONDED WITH TRAZODONE AND THE OTHER ONE I CANT REMEMBER THE NAME OF BUT IT HELPS WITH MY LEGS. THIS NURSE INFORMED PATIENT THAT SHE WOULD LOOK OVER HER HOME MEDICATION LIST AND COMPARE IT TO THE CURRENT MAR, AND WHEN THE DOCTOR WAS AVAILABLE TO LOOK AT HER CHART THIS NURSE WOULD BE ABLE TO GET CLARIFICATION AND RELAY INFORMATION TO PATIENT.
[2020-09-15] VITALS: BP 126/63; PULSE 59; RESP 16; TEMP 36.8; O2SAT 94
--- NOTE | 2020-09-15 01:18 | PC.NURSE ---
PATIENT WAS NOTIFIED THAT THE DOCTOR HAD NOT YET HAD A CHANCE TO LOOK INTO HER CHART BUT SOON SHE HAD A MOMENT SHE WOULD. THIS NURSE WOULD LET PATIENT KNOW WHY SHE HAS NOT BEEN GIVEN THE MEDICATIONS IN QUESTION. PATIENT AGGRESSIVELY STATED I HAVE BEEN TAKING THESE MEDICATIONS FOR 35 YEARS, IF THEY WONT GIVE THEM TO ME GO GET MY BAG OF MEDICATIONS AND I WILL TAKE THEM MYSELF. THIS NURSE EDUCATED PATIENT ON POLICY OF MEDICATION ADMINISTRATION, THAT ALL MEDICATIONS HAVE TO BE APPROVED AND ORDERED BY THE ATTENDING DOCTOR BEFORE A NURSE CAN RETRIEVE THEM OR GIVE THEM. PATIENT IS RESISTIVE TO EDUCATION. WILL KEEP PATIENT UPDATED ON ANY COMMUNICATION WITH DOCTOR ABOUT MEDICATIONS IN QUESTION.
[2020-09-15 04:00] VITALS: BP 131/66; PULSE 60; RESP 17; TEMP 36.9; O2SAT 95
[2020-09-15 07:01] LABS: Basophils # 0.1 10^3/uL (0.0-0.1); Eosinophils # 0.2 10^3/uL (0.0-0.8); Eosinophils % 2.6 %; Hematocrit 33.2 % (37.0-47.0); Hemoglobin 10.6 g/dL (11.5-15.3); Lymphocytes # 1.9 10^3/uL (0.8-4.8); Lymphocytes % 27.6 %; Mean Corpuscular HGB Conc 31.9 g/dL (30.0-36.0); Mean Corpuscular Hemoglobin 28.2 pg (28.0-34.0); Mean Corpuscular Volume 88.3 fL (81-99); Mean Platelet Volume 10.1 fL (7.4-10.4); Monocytes # 0.6 10^3/uL (0.2-0.9); Monocytes % 7.9 %; Neutrophils % 60.3 %; Nucleated Red Blood Cells % 0 %; Platelet Count 222 10^3/cmm (130-400); Red Blood Count 3.76 10^6/uL (4.1-5.3); Red Cell Distribution Width 15.4 % (12.1-15.1)
[2020-09-15 07:14] LABS: Alanine Aminotransferase 7 U/L (0-33); Albumin Level 4.3 g/dL (3.5-5.2); Alkaline Phosphatase 51 IU/L (35-105); Anion Gap 13.2 (5-19); Aspartate Amino Transferase 9 U/L (0-32); Blood Urea Nitrogen 16 mg/dL (8-23); Calcium 9.5 mg/dL (8.5-10.5); Carbon Dioxide 29 mmol/L (22-29); Chloride 102 mmol/L (98-107); Globulin 2.2 g/dL (1.3-4.6); Glucose 108 mg/dL (65-115); Magnesium 1.8 mg/dL (1.7-2.3); Osmolality Calculated 292 mOsm/kg (285-295); Phosphorus 3.3 mg/dL (2.5-4.5); Potassium 4.2 mmol/L (3.5-5.1); Sodium 140 mmol/L (136-145); Total Bilirubin 0.4 mg/dL (0.15-1.2); Total Protein 6.5 g/dL (6.6-8.7)
[2020-09-15 08:00] VITALS: BP 163/76; PULSE 64; RESP 19; TEMP 36.8; O2SAT 96
[2020-09-15] MEDS: atorvastatin 40 mg Tablet 20 MG PO (08:27)
[2020-09-15] MEDS: amlodipine 5 mg Tablet PO (08:28)
[2020-09-15] MEDS: aspirin 81 mg EC Tablet PO (08:28)
[2020-09-15] MEDS: levothyroxine 25 mcg Tablet PO (08:29)
[2020-09-15] MEDS: pantoprazole DR 40 mg Tablet PO (08:29)
[2020-09-15] MEDS: metoprolol tartrate 25 mg Tablet PO (08:29)
[2020-09-15] MEDS: fluticasone nasal spray 16gm Btl 1 SPRAY INTRANASAL (08:29)
[2020-09-15] MEDS: citalopram 20 mg Tablet PO (08:29)
[2020-09-15] MEDS: clopidogrel 75 mg Tablet PO (08:29)
[2020-09-15] MEDS: enoxaparin 40 mg/0.4 mL Syringe SUBCUT (08:30)
[2020-09-15] MEDS: sodium chloride 0.9% 1,000 ML 75 ML IV (08:31)
[2020-09-15] MEDS: tizanidine 4 mg Tablet 2 MG PO (11:01)
[2020-09-15 11:21] LABS: Glucose Point of Care 189 mg/dL (70-110)
[2020-09-15 11:47] VITALS: BP 105/53; PULSE 66; RESP 18; TEMP 37.3; O2SAT 95
--- NOTE | 2020-09-15 13:31 | P.DS_ITS ---
Discharge Providers Date of Admission: 09/14/20 01:24 Date of Discharge: September 15, 2020 Attending Provider at Admission: Eva Kim MD Attending Provider at Discharge: Ilan Hays MD Primary Care Provider: Lev Pena Diagnoses at Discharge Discharge Diagnosis (1) Paresthesia: Status: Acute (2) Dizziness: Status: Acute (3) Weakness: Status: Acute (4) Carotid artery stenosis: Status: Chronic Permanent problem details: 90% blockage Qualifiers: Laterality: left Qualified Code(s): I65.22 - Occlusion and stenosis of left carotid artery (5) Type 2 diabetes mellitus: Status: Chronic Qualifiers: Diabetes mellitus intermediate frame tender insulin use: without intermediate frame tender use Diabetes mellitus complication status: with hyperglycemia Qualified Code(s): E11.65 - Type 2 diabetes mellitus with hyperglycemia (6) Benign essential hypertension with target blood pressure below 140/90: Status: Chronic (7) Mixed hyperlipidemia: Status: Chronic (8) Hypothyroidism: Status: Chronic Qualifiers: Hypothyroidism type: unspecified Qualified Code(s): E03.9 - Hypothyroidism, unspecified (9) Pacemaker: Status: Chronic Permanent problem details: for jaison-Abbe, done in [place] Reason for Visit Reason for Visit: WEAKNESS Hospital Course Hospital Course This is a 75-year-old female with a past medical history of hypertension, noninsulin-dependent type 2 diabetes mellitus, hypothyroidism, CAD with moderate severe disease in the ostium of the first diagonal and distal LAD medically managed, grade 1 diastolic dysfunction, history of greater than 90% left carotid artery stenosis currently in the process of seeing vascular surgery for surgical intervention who presents to [facility] due to left-sided facial numbness, and visual changes Patient was admitted to [facility] for transient ischemic attack, with left facial numbness, blurry vision, dizziness, NIH stroke scale on admission was 0. Head CT showed no acute intracranial hemorrhage or mass- effect, her Plavix and statin were continued, she received IV fluids, her vision returned back to normal, her left facial numbness resolved. It is unlikely that patient's left facial numbness is related to her left carotid artery stenosis, likely patient has had a transient ischemic Attack. She remained asymptomatic throughout hospital admission, I have discharged her on patients aspirin, Plavix, high-dose statin, with a close follow-up with her primary care physician as outpatient. Patient was advised if she were to have any recurrent strokelike symptoms go to the emergency room or call 911. For her left carotid artery stenosis, she is going to follow-up with her vascular surgeon Dr. Cochran in [place]. Advised to keep up with appointment. Physical Exam Const: COMMON NORMALS: no acute distress and patient oriented x3 Resp: COMMON NORMALS: normal respiratory effort, No retractions, No use of accessory muscles and clear to auscultation bilaterally AUSCULTATION: clear to auscultation bilaterally Cardio: COMMON NORMALS: regular rate, regular rhythm, S1 normal heart sound present and S2 normal heart sound present RATE: regular rate RHYTHM: regular rhythm HEART SOUNDS: S1 normal heart sound present and S2 normal heart sound present GI: COMMON NORMALS: Normal to inspection, nondistended, normoactive bowel sounds present, Soft to palpation, non-tender and No hepatosplenomegaly present PALPATION: Yes Soft to palpation and Yes No hepatosplenomegaly present Extremity: COMMON NORMALS: no pedal edema Neuro: COMMON NORMALS: patient oriented x3 Psych: COMMON NORMALS: mental status grossly normal Discharge Data Data Completed and Pending: Completed Studies During Hospitalization Category Date Time Status CT head wo con* [id number] Urgent Cat Scan 09/13/20 23:14 Completed XR chest 1V viktoria ble [id number] Urgent Exams 09/13/20 23:14 Completed CV echo complete* [id number] Routine Ultrasound 09/14/20 06:55 Completed Pending at discharge Category Date Time Status Complete Blood Co unt w/Auto AM LABS Lab 09/16/20 04:00 Ordered Complete Blood Co unt w/Auto AM LABS Lab 09/17/20 04:00 Ordered Comprehensive Met abolic Panel AM LA BS Lab 09/16/20 04:00 Ordered Comprehensive Met abolic Panel AM LA BS Lab 09/17/20 04:00 Ordered Magnesium AM LABS Lab 09/16/20 04:00 Ordered Magnesium AM LABS Lab 09/17/20 04:00 Ordered Phosphorus AM LAB S Lab 09/16/20 04:00 Ordered Phosphorus AM LAB S Lab 09/17/20 04:00 Ordered Labs from last 24 hours 09/15/20 09/15/20 09/15/20 11:11 06:17 06:17 WBC 7.0 RBC 3.76 L Hgb 10.6 L Hct 33.2 L MCV 88.3 MCH 28.2 MCHC 31.9 RDW 15.4 H Plt Count 222 MPV 10.1 Neut % (Auto) 60.3 Lymph % (Auto) 27.6 [place] % (Auto) 7.9 Eos % (Auto) 2.6 Baso % (Auto) 1.0 Neut # (Auto) 4.20 Lymph # (Auto) 1.9 [place] # (Auto) 0.6 Eos # (Auto) 0.2 Baso # (Auto) 0.1 Nucleated RBC % (a uto) 0 Nucleated RBCs # 0.0 ESR Sodium 140 Potassium 4.2 Chloride 102 Carbon Dioxide 29 Anion Gap 13.2 BUN 16 Creatinine 0.8 GFR Calculation Not Reportable Glucose 108 POC Glucose 189 H Calculated Osmolal ity 292 Calcium 9.5 Phosphorus 3.3 Magnesium 1.8 Total Bilirubin 0.4 AST 9 ALT 7 Alkaline Phosphata se 51 Total Protein 6.5 L Albumin 4.3 Globulin 2.2 09/14/20 09/14/20 09/14/20 20:40 16:47 05:00 WBC RBC Hgb Hct MCV MCH MCHC RDW Plt Count MPV Neut % (Auto) Lymph % (Auto) [place] % (Auto) Eos % (Auto) Baso % (Auto) Neut # (Auto) Lymph # (Auto) [place] # (Auto) Eos # (Auto) Baso # (Auto) Nucleated RBC % (a uto) Nucleated RBCs # ESR 11 Sodium Potassium Chloride Carbon Dioxide Anion Gap BUN Creatinine GFR Calculation Glucose POC Glucose 142 H 134 H Calculated Osmolal ity Calcium Phosphorus Magnesium Total Bilirubin AST ALT Alkaline Phosphata se Total Protein Albumin Globulin Vitals: Last Vital Signs Temp 99.2 F 09/15/20 11:47 Pulse 66 09/15/20 11:47 Resp 18 09/15/20 11:47 BP 105/53 09/15/20 11:47 Pulse Ox 95 09/15/20 11:47 Discharge Plan Discharge Patient Disposition: Home Condition: Stable Prescriptions: New atorvastatin 80 mg tablet 80 mg PO DAILY 30 Days Qty: 30 RF: 0 Continued furosemide 40 mg Tablet 40 mg PO DAILY PRN (Reason: Fluid overload) RF: 0 tizanidine 4 mg Tablet 2 mg PO DAILY RF: 0 metformin 1,000 mg Tablet 1,000 mg PO BID RF: 0 metoprolol tartrate 50 mg Tablet 25 mg PO BID RF: 0 clopidogrel 75 mg Tablet 75 mg PO DAILY RF: 0 amlodipine 5 mg tablet 5 mg PO DAILY RF: 0 fluticasone propionate 50 mcg/actuation [place],Suspension 1 spray INTRANASAL BID RF: 0 aspirin 81 mg Tablet,Delayed Release (Dr/Ec) 81 mg PO DAILY RF: 0 levothyroxine 25 mcg tablet 25 mcg PO DAILY RF: 0 citalopram 20 mg tablet 20 mg PO DAILY RF: 0 pantoprazole 40 mg tablet,delayed release (DR/EC) 40 mg PO DAILY RF: 0 trazodone 150 mg tablet 75 mg PO BEDTIME RF: 0 black cohosh 40 mg Tablet 40 mg PO DAILY RF: 0 elderberry fruit and flower 460-115 mg Capsule 1 cap PO BID RF: 0 diclofenac sodium 75 mg tablet,delayed release (DR/EC) 75 mg PO DAILY PRN (Reason: pain) Qty: 0 RF: 0 Discontinued lovastatin 20 mg tablet 20 mg PO DAILY RF: 0 Discharge Orders: Discharge Order (Routine); Ordered 09/15/20 Ordered By: Ilan Hays Other Ambulatory Orders: [place] cardiac event monitor (Routine) Timeframe: 1 Day Facility: [facility] - Location: Cardiac Diagnostic Laboratory Ordered By: Ilan Hays Referrals: Lev Pena [Primary Care Provider] - Andrea Dukes M.D [Physician] - 1 month (event monitor) Patient Instructions: Transient Ischemic Attack (DC), Opioid Safety Activity Restrictions/Additional Instructions: -Follow-up with vascular surgeon in [place] for carotid artery surgery -Follow-up with cardiology -If you have recurrent TIA-like symptoms, please go to emergency room Discharge Attestations Time Spent in Discharge Care*: less than 30 min Quality Metrics Clinical Quality Measures During this hospital stay, did patient experience: Stroke Contraindication to Antithrombotic: Antithrombotic prescribed Contraindication to Anticoagulation: Overlap treatment not indicated Contraindication to Statin: Statin prescribed Coding Level of Care Code Acute Chg FW DC note Diagnoses Paresthesia R20.2 Dizziness R42 Weakness R53.1 Carotid artery stenosis I65.22 Laterality: left Type 2 diabetes mellitus E11.65 Diabetes mellitus [facility] insulin use: without intermediate frame tender use Diabetes mellitus complication status: with hyperglycemia Benign essential hypertension with target blood pressure below 140/90 I10 Mixed hyperlipidemia E78.2 Hypothyroidism E03.9 Hypothyroidism type: unspecified Pacemaker Z95.0
[2020-09-15 15:28] VITALS: BP 120/63; PULSE 60; RESP 20; TEMP 36.9; O2SAT 93
[2020-09-15 17:32] VITALS: BP 120/63; PULSE 60; RESP 20; TEMP 36.9; O2SAT 93
== END 2020-09-15 16:30 | disposition home or self-care (01) ==
LOC: ER 23:06 → MEDSURG 09-14 01:34
PROVIDERS: Admitting Provider Hospitalist; Emergency Provider Emergency Medicine; PCP Physician Assistant Medical; Visit Provider Family Medicine
DX: R20.2 Paresthesia of skin (principal); R42 Dizziness and giddiness; R53.1 Weakness; I65.22 Occlusion and stenosis of left carotid artery; I10 Essential (primary) hypertension; E78.2 Mixed hyperlipidemia; E03.9 Hypothyroidism, unspecified; Z95.0 Presence of cardiac pacemaker; E11.65 Type 2 diabetes mellitus with hyperglycemia; I25.10 Atherosclerotic heart disease of native coronary artery without angina pectoris
CPT/HCPCS: 36415; 36416; 70450; 71045; 80053; 80061; 81001; 82962; 83036; 83735; 84100; 84484; 85025; 85610; 85651; 92523; 92610; 93306; 96360; 96361; 96372; 97110; 97116; 97161; 97165; 99285; G0378; J1650; J1815; J7030

== ENCOUNTER 2021-09-23 12:21 | Outpatient (CLI) | payer MEDICARE, SELFPAY ==
--- NOTE | 2021-09-23 12:45 | USCV_ITS ---
Avtar Abby Age: 76 Gender: F : 1945 Exam Date: 09/23/2021 12:54 Ordering Phys: Sara Gomez Technologist: [place] [facility] [place]: BP: 130 / 82 HR: 61 Rhythm: Sinus Technical Quality: MEASUREMENTS (Male / Female) Normal Values 2D ECHO LV Diastolic Diameter PLAX 3.6 cm 4.2 - 5.9 / 3.9 - 5.3 cm LV Systolic Diameter PLAX 2.4 cm IVS Diastolic Thickness 1.0 cm 0.6 - 1.0 / 0.6 - 0.9 cm IVS Systolic Thickness 1.4 cm LVPW Diastolic Thickness 1.3 cm 0.6 - 1.0 / 0.6 - 0.9 cm LVPW Systolic Thickness 1.4 cm LVOT Diameter 2.0 cm LV Ejection Fraction 2D Teich 65.1 % LA Diameter 3.5 cm Aorta at Sinotubular Diameter 2.5 cm IVC Diameter 1.6 cm M-MODE Aortic Annulus Diameter 3.5 cm LA Ao Ratio MM 1.2 MV E Point Septal Separation 1.6 cm DOPPLER AV Peak Velocity 268.3 cm/s LVOT Peak Velocity 116.0 cm/s AV Area Cont Eq vti 1.5 cm squared AV Area Cont Eq pk 1.4 cm squared MV Area PHT 5.0 cm squared Mitral E to A Ratio 0.9 MV E' Velocity 69.0 cm/s Mitral E to MV E' Ratio 17.8 Mitral E to LV E' Lateral Ratio 16.7 Mitral E to LV E' Septal Ratio 19.1 TR Peak Velocity 270.3 cm/s TR Peak Gradient 29.2 mmHg TV Peak E Velocity 88.0 cm/s Right Atrial Pressure 3.0 mmHg Pulmonary Artery Systolic Pressu 32.2 mmHg PV Peak Velocity 108.0 cm/s FINDINGS Left Ventricle Normal left ventricular size. LV systolic function is normal with EF of 55-60%. No regional wall motion abnormalities. Grade 1 diastolic dysfunction Right Ventricle The right ventricle is normal in size and function. Right Atrium The right atrium is normal in size. Left Atrium The left atrium is enlarged Mitral Valve Moderate mitral annular calcification without significant stenosis or prolapse. There is trace mitral regurgitation. Aortic Valve Aortic valve is thickened and calcified. Mild aortic stenosis with mean gradient across aortic valve of 13 mmHg and aortic valve gradient of 1.39 cm squared. Tricuspid Valve Structurally normal tricuspid valve without significant stenosis. Trace tricuspid regurgitation. Insufficient TR jet to calculate RVSP. Pulmonic Valve Not well-visualized Pericardium Normal pericardium without effusion. Aorta Normal ascending aorta dimension. IVC CONCLUSIONS LV systolic function is normal with EF 55 to 60%. Grade 1 diastolic dysfunction. Left atrium is enlarged. Moderate mitral annular calcification. Trace mitral regurgitation Aortic valve is thickened and calcified. Mild aortic stenosis with mean gradient across aortic valve of 13 mmHg and aortic valve area 1.39 cm squared Trace tricuspid regurgitation. Compared to prior echocardiogram from 09/14/2020, no significant changes are seen. Andrea Dukes MD (Electronically Signed) Final Date: 29 September 2021 23:27 S
== END 2021-09-23 12:22 | disposition home or self-care (01) ==
PROVIDERS: PCP Physician Assistant Medical; Visit Provider Nurse Practitioner Family
DX: I35.0 Nonrheumatic aortic (valve) stenosis (principal)
CPT/HCPCS: 93306

== ENCOUNTER 2022-08-11 15:48 | Emergency (ER) | payer MEDICARE, SELFPAY ==
[2022-08-11 15:58] VITALS: BP 139/58; PULSE 63; RESP 16; TEMP 36.5; O2SAT 94; BMI 41.0
--- NOTE | 2022-08-11 17:14 | W.ED.EXTPRO ---
HPI - Extremity Problem General: Chief complaint: Extremity Injury, Lower Stated complaint: fall/leg pain Time Seen by Provider: 08/11/22 17:14 History of Present Illness: 77-year-old female comes in today with complaints of increased redness to do a hematoma to her left proximal lower leg. Patient reports falling 12 days ago was seen at [facility] and noted no fracture. Over the past 2 days patient's had some increased pain and redness to her right lower leg. Patient does take Eliquis and Plavix routinely. Swelling is localized to the proximal lateral lower leg with some erythema and fever. Patient has coronary artery disease, GERD, subclinical hypothyroidism, diabetes type 2. Associated symptoms: Deny chest pain or fever(s) Review of Systems Const: Denies: fever(s) Card: Denies: chest pain Resp: Denies: dyspnea GI: Denies: vomiting : Denies: difficulty voiding Musc: Reports: extremity pain Skin/Breast: Reports: erythema PFSH ED PFSH: Medical History (Updated 08/11/22 @ 18:12 by SHANE Alvarenga) Acute non-ST elevation myocardial infarction (NSTEMI) (09/2019) Benign essential hypertension with target blood pressure below 140/90 Carotid artery stenosis 90% blockage COVID-19 vaccine administered (~07/2020) History of COVID-19 (~02/2020) of covid History of paroxysmal supraventricular tachycardia Hypothyroidism Mixed hyperlipidemia Sarcoidosis Type 2 diabetes mellitus Surgical History (Updated 09/14/20 @ 09:03 by Eva Kim MD) History of appendectomy History of arteriography attempted left heart Cath 09/2019. 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, done in [place] Family History (Updated 09/14/20 @ 08:20 by Eva Kim MD) Brother Stroke CAD (coronary artery disease) Brother Stroke Sister CAD (coronary artery disease) upper 50s Other Cancer Denies family history of Diabetes Clotting disorder Social History (Updated 09/14/20 @ 08:20 by Eva Kim MD) Smoking and tobacco status: never smoked Alcohol intake: never Substance/Drug Use: never Lives independently: Yes Household members: none Marital status: / Physical Exam Const: COMMON NORMALS: alert HENMT: COMMON NORMALS: normocephalic HEAD & SCALP: normocephalic Neck/C-Spine: COMMON NORMALS: full ROM Resp: COMMON NORMALS: normal respiratory effort Cardio: COMMON NORMALS: regular rate and regular rhythm RATE: regular rate RHYTHM: regular rhythm Extremity: LEFT LOWER EXTREMITY: Yes lower leg (Lateral proximal lower leg with some ecchymosis and redness.) Left lower leg: Yes inspection, Yes palpation and Yes neurovascular exam Neuro: SENSORIUM/ORIENTATION: Yes alert Skin: NARRATIVE SKIN EXAM: Redness to an area of ecchymosis and swelling Procedures Abscess I/D Site: lower extremity Side (if applicable): left Local Anesthetic: lidocaine 1% and with epi Amount of anesthesia used (mL): 4 Technique: incised with #11 blade Amount of fluid expressed (mL): 15 Irrigation: No Packing used?: none Course Vital Signs: Vital signs: Vital Signs Temperature 97.7 F 08/11/22 15:58 Pulse Rate 76 08/11/22 18:21 Respiratory Rate 16 08/11/22 18:21 Blood Pressure 139/58 08/11/22 15:58 Pulse Oximetry 98 08/11/22 18:21 Oxygen Delivery Me thod Room Air 08/11/22 15:58 MDM - Extremity (Nontraumatic) Medical Decision Making Patient came in today due to increased swelling and tenderness to a possible hematoma to the left lower leg. On exam patient has a fluctuant mass to the left proximal lower extremity. Some redness and heat is noted to a probable hematoma. Differential diagnosis includes hematoma, abscess, cellulitis. Under aseptic condition and needle was used to draw off approximately 15 cc of dark red blood no other was able to be drawn. Patient then had a incision made into the area for further evacuation of blood. No signs of purulent drainage was noted. Believe the patient probably has some cellulitis secondary to a hematoma and lower leg injury. Patient will be started on Bactrim and cephalexin for full coverage for strep and staph. Recommended monitoring for worsening symptoms and return to the ER as needed. Patient did report relief of pain and discomfort after I&D. Lab Data Radiology Impressions Tibia/Fibula X-Ray 08/11/22 17:37 IMPRESSION: 1. Negative for fracture or dislocation. 2. Knee arthroplasty changes in place. 3. Soft tissue swelling over the anterior aspect of the proximal tibial metaphysis. Discharge Plan Discharge Patient Disposition: Home Clinical Impression: Cellulitis and abscess of left leg, Hematoma Condition: Stable Prescriptions: New cephalexin 500 mg capsule 500 mg PO TID 7 Days Qty: 21 0RF sulfamethoxazole-trimethoprim 800-160 mg tablet 1 tab PO BID 7 Days Qty: 14 0RF No Action furosemide 40 mg Tablet 40 mg PO DAILY PRN (Reason: Fluid overload) tizanidine 4 mg Tablet 2 mg PO DAILY metformin 1,000 mg Tablet 1,000 mg PO BID metoprolol tartrate 50 mg Tablet 25 mg PO BID clopidogrel 75 mg Tablet 75 mg PO DAILY amlodipine 5 mg tablet 5 mg PO DAILY fluticasone propionate 50 mcg/actuation [place],Suspension 1 spray INTRANASAL BID aspirin 81 mg Tablet,Delayed Release (Dr/Ec) 81 mg PO DAILY levothyroxine 25 mcg tablet 25 mcg PO DAILY citalopram 20 mg tablet 20 mg PO DAILY pantoprazole 40 mg tablet,delayed release (DR/EC) 40 mg PO DAILY Rx Instructions: pt states that she takes 1/2 tab daily trazodone 150 mg tablet 75 mg PO BEDTIME black cohosh 40 mg Tablet 40 mg PO DAILY elderberry fruit and flower 460-115 mg Capsule 1 cap PO BID diclofenac sodium 75 mg tablet,delayed release (DR/EC) 75 mg PO DAILY PRN (Reason: pain) Qty: 0 0RF Rx Instructions: take with food Discharge Orders: Discharge ED (Routine); Ordered 08/11/22 Ordered By: Archie Castro Referrals: Chun Arshad [Primary Care Provider] - Discharge Diet: Usual diet Discharge Activity: Increase activity as tolerated Patient Instructions: Cellulitis (ED) Activity Restrictions/Additional Instructions: Home and rest. Drink plenty of water and fluids. Take antibiotics as directed. You will take cephalexin 500 mg 3 times a day for the next 7 days. You will take Bactrim DS 1 tablet twice a day for the next 7 days. Follow-up with primary care in 3 to 5 days for recheck. Return to emergency room for worsening symptoms such as inability to hold fluids down, severe leg pain, high fever greater than 100.4. Coding Level of Care Code ED 911 Telecommunicator for Felisa Meade
--- NOTE | 2022-08-11 17:37 | XRR_ITS ---
PROCEDURE INFORMATION: Exam: XR Left Tibia and Fibula Exam date and time: 08/11/2022 5:51 PM Age: 77 years old Clinical indication: Injury or trauma; Fall; Blunt trauma; Lower leg; Left; Prior surgery; Surgery date: 6+ months; Surgery type: Lt knee TECHNIQUE: Imaging protocol: Radiologic exam of the left tibia and fibula. Views: 2 views. COMPARISON: No relevant prior studies available. FINDINGS: Bones/joints: Knee arthroplasty changes in place. Soft tissues: Soft tissue swelling over the anterior aspect of the proximal tibial metaphysis. XR/XR tibia fibula LT 2V [id number] IMPRESSION: 1. Negative for fracture or dislocation. 2. Knee arthroplasty changes in place. 3. Soft tissue swelling over the anterior aspect of the proximal tibial metaphysis.
[2022-08-11] MEDS: sulfamethoxazole-trimeth DS 160-800 mg Tablet 1 TAB PO (17:58)
[2022-08-11] MEDS: cefTRIAXone 1,000 MG in water for injection-sterile 2.1 ML 0.01 MG IM (17:58)
[2022-08-11 18:21] VITALS: PULSE 76; RESP 16; O2SAT 98
== END 2022-08-11 18:22 | disposition home or self-care (01) ==
PROVIDERS: Emergency Provider Nurse Practitioner Family; PCP Family Medicine
DX: L03.116 Cellulitis of left lower limb (principal); L02.416 Cutaneous abscess of left lower limb; S80.12XA Contusion of left lower leg, initial encounter; Z79.02 Long term (current) use of antithrombotics/antiplatelets; Z79.82 Long term (current) use of aspirin; Z79.84 Long term (current) use of oral hypoglycemic drugs; I25.2 Old myocardial infarction; I10 Essential (primary) hypertension; E78.2 Mixed hyperlipidemia; E11.9 Type 2 diabetes mellitus without complications; W19.XXXA Unspecified fall, initial encounter
CPT/HCPCS: 73590; 96372; 99284; J0696

== ENCOUNTER 2024-02-02 13:52 | Outpatient (CLI) | payer MEDICARE, SELFPAY ==
--- NOTE | 2024-02-02 13:54 | US_ITS ---
WS: [id number] BILATERAL 3D TOMOSYNTHESIS DIGITAL DIAGNOSTIC MAMMOGRAPHY WITH CAD CLINICAL INFORMATION: PAIN OF R BREAST HISTORY: Pain in RIGHT axilla COMPARISON: 2009 TECHNIQUE: Bilateral CC, MLO, and ML views. FINDINGS: The breasts are composed of heterogeneous fibroglandular density, which can limit the detection of sm all underlying mass lesions. Vascular calcifications. Punctate and lucent centered calcifications. Se cretory calcifications. Marker RIGHT axilla. Normal underlying fatty tissue. Somewhat prominent lymph node in this area with a normal fatty hilum. Ultrasound is pending. ULTRASOUND BREAST RIGHT TECHNIQUE: Ultrasound right breast focused area of concern. CLINICAL INFORMATION: PAIN OF R BREAST FINDINGS: Ultrasound RIGHT breast area of concern RIGHT axilla prominent slightly enlarged lymph node measuring 2.5 x 1.0 x 1.2 cm in the area of pain. Preserved fatty hilum. Lymph node is enlarged but otherwise has a normal appearance. This could be further evaluated with ultrasound-guided biopsy if continued c oncern. Otherwise recommend return to annual screening mammography. No other suspicious abnormalities. US/US breast RT limited* [id number] IMPRESSION: Lobulated prominent lymph node RIGHT axilla with normal preserved f atty hilum and otherwise normal appearance. This has a benign appearance but co uld be followed up with ultrasound or biopsied if continued clinical concern in this area. Otherwise recommend return to annual screen mammography. DENSITY: The breasts are heterogeneously dense, which may obscure small masses. BI-RADS: 2 - Benign FOLLOW UP: 1 Year Follow-up See discussion regarding lymph node above
--- NOTE | 2024-02-02 14:48 | MM_ITS ---
WS: [id number] BILATERAL 3D TOMOSYNTHESIS DIGITAL DIAGNOSTIC MAMMOGRAPHY WITH CAD CLINICAL INFORMATION: PAIN OF R BREAST HISTORY: Pain in RIGHT axilla COMPARISON: 2009 TECHNIQUE: Bilateral CC, MLO, and ML views. FINDINGS: The breasts are composed of heterogeneous fibroglandular density, which can limit the detection of sm all underlying mass lesions. Vascular calcifications. Punctate and lucent centered calcifications. Se cretory calcifications. Marker RIGHT axilla. Normal underlying fatty tissue. Somewhat prominent lymph node in this area with a normal fatty hilum. Ultrasound is pending. ULTRASOUND BREAST RIGHT TECHNIQUE: Ultrasound right breast focused area of concern. CLINICAL INFORMATION: PAIN OF R BREAST FINDINGS: Ultrasound RIGHT breast area of concern RIGHT axilla prominent slightly enlarged lymph node measuring 2.5 x 1.0 x 1.2 cm in the area of pain. Preserved fatty hilum. Lymph node is enlarged but otherwise has a normal appearance. This could be further evaluated with ultrasound-guided biopsy if continued c oncern. Otherwise recommend return to annual screening mammography. No other suspicious abnormalities. MM/MM diag tomosynthesis [id number] IMPRESSION: Lobulated prominent lymph node RIGHT axilla with normal preserved f atty hilum and otherwise normal appearance. This has a benign appearance but co uld be followed up with ultrasound or biopsied if continued clinical concern in this area. Otherwise recommend return to annual screen mammography. DENSITY: The breasts are heterogeneously dense, which may obscure small masses. BI-RADS: 2 - Benign FOLLOW UP: 1 Year Follow-up See discussion regarding lymph node above
== END 2024-02-02 13:53 | disposition home or self-care (01) ==
LOC: RAD 13:54
PROVIDERS: PCP Family Medicine; Visit Provider Nurse Practitioner Family
DX: N63.31 Unspecified lump in axillary tail of the right breast (principal); R92.333 Mammographic heterogeneous density, bilateral breasts; R92.1 Mammographic calcification found on diagnostic imaging of breast
CPT/HCPCS: 76642; 77061; 77062; G0279

== ENCOUNTER → 2024-06-12 13:13 | Outpatient (BNVA) | payer MEDICARE, SELFPAY | PROVIDERS: PCP Family Medicine; Visit Provider Nurse Practitioner Family | DX: I87.2 Venous insufficiency (chronic) (peripheral) (principal); L29.89 Other pruritus; L57.8 Other skin changes due to chronic exposure to nonionizing radiation; D22.39 Melanocytic nevi of other parts of face; L57.0 Actinic keratosis | CPT/HCPCS: 17000; 99204 ==

== ENCOUNTER 2024-06-21 13:22 | Emergency (ER) | payer MEDICARE, SELFPAY ==
[2024-06-21 13:24] VITALS: BP 126/76; PULSE 60; RESP 18; TEMP 36.5; O2SAT 96; BMI 40.6
--- NOTE | 2024-06-21 15:11 | CTR_ITS ---
PROCEDURE INFORMATION: Exam: CT Thoracic Spine Without Contrast Exam date and time: 06/21/2024 4:46 PM Age: 79 years old Clinical indication: Injury or trauma; Fall; Blunt trauma (contusions or hematomas); Injury date: 06/20/2024; Prior surgery; Surgery date: 6+ months; Surgery type: Gb, hysterectomy , tubal, spine, exploratory abd. ; Additional info: Fall/hematoma TECHNIQUE: Imaging protocol: Computed tomography of the thoracic spine without contrast. Radiation optimization: All CT scans at this facility use at least one of these dose optimization techniques: automated exposure control; mA and/or kV adjustment per patient size (includes targeted exams where dose is matched to clinical indication); or iterative reconstruction. COMPARISON: CT angio chest PE protcl [id number] 09/18/2019 3:12 PM RADIATION DOSE METRICS: Total DLP (mGy-cm): 979.7 FINDINGS: Tubes, catheters and devices: Pacemaker. Bones/joints: Multilevel bridging productive degenerative endplate changes throughout the spine. T1-T2: No significant disc bulge or herniation. No severe spinal canal stenosis. No significant neural foraminal narrowing. T2-T3: No significant disc bulge or herniation. No severe spinal canal stenosis. No significant neural foraminal narrowing. T3-T4: No significant disc bulge or herniation. No severe spinal canal stenosis. No significant neural foraminal narrowing. T4-T5: No significant disc bulge or herniation. No severe spinal canal stenosis. No significant neural foraminal narrowing. T5-T6: No significant disc bulge or herniation. No severe spinal canal stenosis. No significant neural foraminal narrowing. T6-T7: No significant disc bulge or herniation. No severe spinal canal stenosis. No significant neural foraminal narrowing. T7-T8: No significant disc bulge or herniation. No severe spinal canal stenosis. No significant neural foraminal narrowing. T8-T9: No significant disc bulge or herniation. No severe spinal canal stenosis. No significant neural foraminal narrowing. T9-T10: No significant disc bulge or herniation. No severe spinal canal stenosis. No significant neural foraminal narrowing. T10-T11: No significant disc bulge or herniation. No severe spinal canal stenosis. No significant neural foraminal narrowing. T11-T12: No significant disc bulge or herniation. No severe spinal canal stenosis. No significant neural foraminal narrowing. T12-L1: No significant disc bulge or herniation. No severe spinal canal stenosis. No significant neural foraminal narrowing. Lungs: Emphysematous changes. Bibasilar atelectasis. Vasculature: Aortic and coronary artery atherosclerotic calcifications. Soft tissues: Unremarkable. CT/CT thoracic spin wo con* [id number] IMPRESSION: 1. Negative for fracture or dislocation 2. Aortic and coronary artery atherosclerotic calcifications. 3. Emphysematous changes. 4. Multilevel bridging productive degenerative endplate changes throughout the spine. 5. Pacemaker. 6. Bibasilar atelectasis.
--- NOTE | 2024-06-21 15:11 | CTR_ITS ---
PROCEDURE INFORMATION: Exam: CT Abdomen And Pelvis With Contrast Exam date and time: 06/21/2024 4:46 PM Age: 79 years old Clinical indication: Injury or trauma; Fall; Blunt; Generalized; Prior surgery; Surgery date: 6+ months; Surgery type: Gb, hysterectomy , tubal, spine, exploratory abd. ; Additional info: Fall/back ecchymosis/anticoagulation, also eval for lumbar fracture TECHNIQUE: Imaging protocol: Computed tomography of the abdomen and pelvis with contrast. Radiation optimization: All CT scans at this facility use at least one of these dose optimization techniques: automated exposure control; mA and/or kV adjustment per patient size (includes targeted exams where dose is matched to clinical indication); or iterative reconstruction. Contrast material: OMNIPAQUE 350; Contrast volume: 100 ml; Contrast route: INTRAVENOUS (IV); COMPARISON: CT angio chest PE protcl [id number] 09/18/2019 3:12 PM RADIATION DOSE METRICS: Total DLP (mGy-cm): 986.9 FINDINGS: Lungs: Left lower lobe atelectasis. Diaphragm: Small hiatal hernia. Liver: Mild hepatic steatosis. Scattered hepatic and splenic calcified benign granulomas. Gallbladder and biliary ducts: Normal. No calcified stones. No ductal dilation. Pancreas: Normal. No ductal dilation. Spleen: Normal. No splenomegaly. Adrenal glands: Normal. No mass. Kidneys and ureters: Perinephric edema bilaterally likely reflecting renal insufficiency, please correlate for pyelonephritis. Left kidney nonobstructing calyceal stone. Stomach and bowel: Diverticulosis without diverticulitis. Appendix: No evidence of appendicitis. Intraperitoneal space: Unremarkable. No free air. No significant fluid collection. Vasculature: Extensive proximal mesenteric and bilateral renal artery atherosclerotic disease, CT angiogram could further characterize this. Lymph nodes: Unremarkable. No enlarged lymph nodes. Urinary bladder: Unremarkable as visualized. Reproductive: Unremarkable as visualized. Bones/joints: Lumbar spine surgical hardware. Soft tissues: Unremarkable. CT/CT abdomen pelvis w con* [id number] IMPRESSION: 1. Negative for traumatic injury to the abdomen or pelvis. 2. Left lower lobe atelectasis. 3. Mild hepatic steatosis. 4. Scattered hepatic and splenic calcified benign granulomas. 5. Perinephric edema bilaterally likely reflecting renal insufficiency, please correlate for pyelonephritis. 6. Left kidney nonobstructing calyceal stone. 7. Diverticulosis without diverticulitis. 8. Lumbar spine surgical hardware. 9. Small hiatal hernia. 10. Extensive proximal mesenteric and bilateral renal artery atherosclerotic disease, CT angiogram could further characterize this.
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
[2024-06-21 15:52] LABS: Basophils # 0.1 10^3/uL (0.0-0.1); Basophils % 0.9 %; Eosinophils # 0.1 10^3/uL (0.0-0.8); Hematocrit 33.2 % (36-47); Lymphocytes # 1.7 10^3/uL (0.8-4.8); Lymphocytes % 24.6 %; Mean Corpuscular HGB Conc 32.8 g/dL (30-55); Mean Corpuscular Hemoglobin 29.1 pg (27-33); Mean Corpuscular Volume 88.8 fl (85-98); Mean Platelet Volume 9.5 fL (7.4-10.4); Monocytes # 0.6 10^3/uL (0.2-0.9); Monocytes % 8.2 %; Neutrophils # 4.32 10^3/uL (1.8-7.7); Neutrophils % 63.3 %; Nucleated Red Blood Cells % 0 %; Platelet Count 201 10^3/cmm (157-399); Red Blood Count 3.74 10^6/uL (3.85-5.65); Red Cell Distribution Width 16.3 % (12.1-15.1); White Blood Count 6.83 10^3/uL (3.29-11.43)
[2024-06-21 16:09] LABS: Alanine Aminotransferase 8 U/L (0-33); Albumin Level 4.2 g/dL (3.5-5.2); Alkaline Phosphatase 69 U/L (35-105); Anion Gap 15.5 (5-19); Aspartate Amino Transferase 11 U/L (0-32); Blood Urea Nitrogen 17 mg/dL (8-23); Calcium 9.1 mg/dL (8.5-10.5); Carbon Dioxide 31 mmol/L (22-29); Chloride 96 mmol/L (98-107); Creatinine Clr Calc Pharmacy 35.4378; Glucose 182 mg/dL (65-115); Osmolality Calculated 292 mOsm/kg (285-295); Potassium 4.5 mmol/L (3.5-5.1); Sodium 138 mmol/L (136-145); Total Bilirubin 0.5 mg/dL (0.15-1.2); Total Protein 7.2 g/dL (6.6-8.7)
[2024-06-21] MEDS: iohexol 350 mg/mL 500 mL Btl (per mL) IV (16:52)
[2024-06-21 18:08] VITALS: BP 159/83; PULSE 60; O2SAT 92
== END 2024-06-21 18:09 | disposition home or self-care (01) ==
PROVIDERS: Emergency Provider Physician Assistant; PCP Family Medicine
DX: S20.229A Contusion of unspecified back wall of thorax, initial encounter (principal); S30.0XXA Contusion of lower back and pelvis, initial encounter; Z79.84 Long term (current) use of oral hypoglycemic drugs; E11.9 Type 2 diabetes mellitus without complications; E78.2 Mixed hyperlipidemia; I10 Essential (primary) hypertension; W19.XXXA Unspecified fall, initial encounter
CPT/HCPCS: 36415; 72128; 74177; 80053; 85025; 99285

== ENCOUNTER 2024-10-09 00:46 | Emergency (ER) | payer MEDICARE, SELFPAY ==
[2024-10-09] VITALS (8 sets, daily range): BP systolic 123–187; BP diastolic 71–84; PULSE 60–78; RESP 16–17; TEMP 36.8; O2SAT 86–96; BMI 39.8
--- OUTSIDE RECORDS SUMMARY | 2024-10-09 00:56 | XMS_ITS | Encounter Summary ---
Author Organization [facility] Address [address] [place] [address] Care Team Providers Care Skin Diving Teacher Name Role Phone Cori You MD Primary Care Provider Encounter Details Date Type Department Care Team (Latest Contact Info) Description 10/01/1998 Outpatient Historical [facility] Mango Andujar MD [address] [place] [address] Primary localized osteoarthrosis, other specified sites (Primary Dx); Acquired spondylolisthesis Social History Tobacco Use Types Packs/Day Years Used Date Smoking Tobacco: Never Assessed Comments Unknown Sex and Gender Information Value Date Recorded Sex Assigned at Not on file Legal Sex Female 5:17 AM CYTOLOGY MANAGER Gender Identity Not on file Sexual Orientation Not on file documented as of this encounter Plan of Treatment Not on file documented as of this encounter Visit Diagnoses Diagnosis Primary localized osteoarthrosis, other specified sites- Primary Acquired spondylolisthesis documented in this encounter Additional Health Concerns Infection Onset Date Last Indicated Resolved Time R/O COVID-19 02/07/2020 02/07/2020 02/09/2020 2:46 AM CYTOLOGY MANAGER COVID-19 02/07/2020 02/07/2020 03/08/2020 8:09 PM CYTOLOGY MANAGER R/O COVID-19 03/13/2020 03/14/2020 03/14/2020 4:43 AM CYTOLOGY MANAGER COVID-19 Comment:Positive in February. Retest for pre-procedure. 03/14/2020 03/14/2020 03/15/2020 9:[address] documented as of this encounter Care Teams Skin Diving Teacher Relationship Specialty Start Date End Date Cori You MD [address] [phone] PCP - General Family Practice 10/10/14 documented as of this encounter
--- OUTSIDE RECORDS SUMMARY | 2024-10-09 00:56 | XMS_ITS | Encounter Summary ---
Author Organization [facility] Address [address] [place] [address] Care Team Providers Care International Logistics Analyst Name Role Phone Cori You MD Primary Care Provider [phone] Encounter Details Date Type Department Care Team (Latest Contact Info) Description 06/20/1998 Outpatient Historical [facility] Family Medicine- [address] [phone] Trace Singleton MD [address] [phone] Acute bronchitis (Primary Dx) Social History Tobacco Use Types Packs/Day Years Used Date Smoking Tobacco: Never Assessed Comments Unknown Sex and Gender Information Value Date Recorded Sex Assigned at Not on file Legal Sex Female 5:17 AM CELLAR PACKER Gender Identity Not on file Sexual Orientation Not on file documented as of this encounter Plan of Treatment Not on file documented as of this encounter Visit Diagnoses Diagnosis Acute bronchitis- Primary documented in this encounter Additional Health Concerns Infection Onset Date Last Indicated Resolved Time R/O COVID-19 02/07/2020 02/07/2020 02/09/2020 2:46 AM CELLAR PACKER COVID-19 02/07/2020 02/07/2020 03/08/2020 8:09 PM CELLAR PACKER R/O COVID-19 03/13/2020 03/14/2020 03/14/2020 4:43 AM CELLAR PACKER COVID-19 Comment:Positive in February. Retest for pre-procedure. 03/14/2020 03/14/2020 03/15/2020 9:16 AM Mindy CRUZ documented as of this encounter Care Teams International Logistics Analyst Relationship Specialty Start Date End Date Cori You MD [address] [phone] PCP - General Family Practice 10/10/14 documented as of this encounter
--- OUTSIDE RECORDS SUMMARY | 2024-10-09 00:56 | XMS_ITS | Encounter Summary ---
Author Organization [facility] Address [address] [place] [address] Care Team Providers Care Corncob Pipes Assembler Name Role Phone Cori You MD Primary Care Provider [phone] Encounter Details Date Type Department Care Team (Late st Contact Info) Description 04/09/2008 Ancillary Orders [facility] [address] [facility] [address] [place] [address] Herbert Hugo, NO ADDRESS ON FILE Screening Mammogram Social History Tobacco Use Types Packs/Day Years Used Date Smoking Tobacco: Never Assessed Comments No Sex and Gender Information Value Date Recorded Sex Assigned at Not on file Legal Sex Female 5:17 AM STIFF LEG OPERATOR Gender Identity Not on file Sexual Orientation Not on file documented as of this encounter Plan of Treatment Not on file documented as of this encounter Visit Diagnoses Diagnosis Screening mammogram Other screening mammogram documented in this encounter Additional Health Concerns Infection Onset Date Last Indicated Resolved Time R/O COVID-19 02/07/2020 02/07/2020 02/09/2020 2:46 AM STIFF LEG OPERATOR COVID-19 02/07/2020 02/07/2020 03/08/2020 8:09 PM STIFF LEG OPERATOR R/O COVID-19 03/13/2020 03/14/2020 03/14/2020 4:43 AM STIFF LEG OPERATOR COVID-19 Comment:Positive in February. Retest for pre-procedure. 03/14/2020 03/14/2020 03/15/2020 9:[address] documented as of this encounter Care Teams Corncob Pipes Assembler Relationship Specialty Start Date End Date Cori You MD [address] [phone] PCP - General Family Practice 10/10/14 documented as of this encounter
--- OUTSIDE RECORDS SUMMARY | 2024-10-09 00:56 | XMS_ITS | Encounter Summary ---
Author Organization [facility] Address [address] [place] [address] Care Team Providers Care Pneumatic Tube Operator Name Role Phone Cori You MD Primary Care Provider Encounter Details Date Type Department Care Team (Late st Contact Info) Description 02/19/2008 Outpatient Historical [facility] Cardiopulmonary Rehabilitation [address] [place] [address] Misael Aviles MD [address] [place] [phone] Social History Tobacco Use Types Packs/Day Years Used Date Smoking Tobacco: Never Assessed Comments No Sex and Gender Information Value Date Recorded Sex Assigned at Not on file Legal Sex Female 5:17 AM FINISHING SUPERVISOR PLASTIC SHEETS Gender Identity Not on file Sexual Orientation Not on file documented as of this encounter Plan of Treatment Not on file documented as of this encounter Visit Diagnoses Not on filedocumented in this encounter Additional Health Concerns Infection Onset Date Last Indicated Resolved Time R/O COVID-19 02/07/2020 02/07/2020 02/09/2020 2:46 AM FINISHING SUPERVISOR PLASTIC SHEETS COVID-19 02/07/2020 02/07/2020 03/08/2020 8:09 PM FINISHING SUPERVISOR PLASTIC SHEETS R/O COVID-19 03/13/2020 03/14/202003/14/2020 4:43 AM FINISHING SUPERVISOR PLASTIC SHEETS COVID-19 Comment:Positive in February. Retest for pre-procedure. 03/14/2020 03/14/2020 03/15/2020 9:16 AM C documented as of this encounter Care Teams Pneumatic Tube Operator Relationship Specialty Start Date End Date Cori You MD [address] [phone] PCP - General Family Practice 10/10/14 documented as of this encounter
--- OUTSIDE RECORDS SUMMARY | 2024-10-09 00:56 | XMS_ITS | Encounter Summary ---
Author Organization [facility] Address [address] [place] [address] Care Team Providers Care State Tested Nursing Assistant Name Role Phone Cori You MD Primary Care Provider Encounter Details Date Type Department Care Team (Latest Contact Info) Description 12/23/1998 Outpatient Historical [facility] [address] [facility] [address] [place] [address] Adalberto Nick MD NO ADDRESS ON FILE Family history of malignant neoplasm of breast (Primary Dx) Social History Tobacco Use Types Packs/Day Years Used Date Smoking Tobacco: Never Assessed Comments Unknown Sex and Gender Information Value Date Recorded Sex Assigned at Not on file Legal Sex Female 5:17 AM PROFESSOR OF PHYSICAL EDUCATION Gender Identity Not on file Sexual Orientation Not on file documented as of this encounter Plan of Treatment Not on file documented as of this encounter Visit Diagnoses Diagnosis Family history of malignant neoplasm of breast- Primary documented in this encounter Additional Health Concerns Infection Onset Date Last Indicated Resolved Time R/O COVID-19 02/07/2020 02/07/2020 02/09/2020 2:46 AM PROFESSOR OF PHYSICAL EDUCATION COVID-19 02/07/2020 02/07/2020 03/08/2020 8:09 PM PROFESSOR OF PHYSICAL EDUCATION R/O COVID-19 03/13/2020 03/14/2020 03/14/2020 4:43 AM PROFESSOR OF PHYSICAL EDUCATION COVID-19 Comment:Positive in February. Retest for pre-procedure. 03/14/2020 03/14/2020 03/15/2020 9:[address] documented as of this encounter Care Teams State Tested Nursing Assistant Relationship Specialty Start Date End Date Cori You MD [address] [phone] PCP - General Family Practice 10/10/14 documented as of this encounter
--- OUTSIDE RECORDS SUMMARY | 2024-10-09 00:56 | XMS_ITS | Encounter Summary ---
Author Organization [facility] Address [address] [place] [address] Care Team Providers Care Boat Engine Mechanic Name Role Phone Cori You MD Primary Care Provider Encounter Details Date Type Department Care Team (Latest Contact Info) Description 01/27/1998 Outpatient Historical [facility] [address] [phone] Herbert Hugo, NO ADDRESS ON FILE Acute bronchitis (Primary Dx) Social History Tobacco Use Types Packs/Day Years Used Date Smoking Tobacco: Never Assessed Comments Unknown Sex and Gender Information Value Date Recorded Sex Assigned at Not on file Legal Sex Female 5:17 AM SENSOR TECHNICIAN Gender Identity Not on file Sexual Orientation Not on file documented as of this encounter Plan of Treatment Not on file documented as of this encounter Visit Diagnoses Diagnosis Acute bronchitis- Primary documented in this encounter Additional Health Concerns Infection Onset Date Last Indicated Resolved Time R/O COVID-19 02/07/2020 02/07/2020 02/09/2020 2:46 AM SENSOR TECHNICIAN COVID-19 02/07/2020 02/07/2020 03/08/2020 8:09 PM SENSOR TECHNICIAN R/O COVID-19 03/13/2020 03/14/2020 03/14/2020 4:43 AM SENSOR TECHNICIAN COVID-19 Comment:Positive in February. Retest for pre-procedure. 03/14/2020 03/14/2020 03/15/2020 9:[address] documented as of this encounter Care Teams Boat Engine Mechanic Relationship Specialty Start Date End Date Croi You MD [address] [phone] PCP - General Family Practice 10/10/14 documented as of this encounter
--- OUTSIDE RECORDS SUMMARY | 2024-10-09 00:56 | XMS_ITS | Encounter Summary ---
Author Organization [facility] Address [address] [place] [address] Care Team Providers Care Gemologist Name Role Phone Cori You MD Primary Care Provider Encounter Details Date Type Department Care Team (Late st Contact Info) Description 12/17/1997 Outpatient Historical [facility] [address] [facility] [address] [place] [address] Radha Duffy MD NO ADDRESS ON FILE Family history of malignant neoplasm of breast (Primary Dx) Social History Tobacco Use Types Packs/Day Years Used Date Smoking Tobacco: Never Assessed Comments Unknown Sex and Gender Information Value Date Recorded Sex Assigned at Not on file Legal Sex Female 5:17 AM PRINT BINDING WORKER Gender Identity Not on file Sexual Orientation Not on file documented as of this encounter Plan of Treatment Not on file documented as of this encounter Visit Diagnoses Diagnosis Family history of malignant neoplasm of breast- Primary documented in this encounter Additional Health Concerns Infection Onset Date Last Indicated Resolved Time R/O COVID-19 02/07/2020 02/07/2020 02/09/2020 2:46 AM PRINT BINDING WORKER COVID-19 02/07/2020 02/07/2020 03/08/2020 8:09 PM PRINT BINDING WORKER R/O COVID-19 03/13/2020 03/14/2020 03/14/2020 4:43 AM PRINT BINDING WORKER COVID-19 Comment:Positive in February. Retest for pre-procedure. 03/14/2020 03/14/2020 03/15/2020 9:[address] documented as of this encounter Care Teams Gemologist Relationship Specialty Start Date End Date Cori You MD [address] [phone] PCP - General Family Practice 10/10/14 documented as of this encounter
--- OUTSIDE RECORDS SUMMARY | 2024-10-09 00:56 | XMS_ITS | Encounter Summary ---
Author Organization [facility] Address [address] [place] [address] Care Team Providers Care Wire Fence Erector Name Role Phone Cori You MD Primary Care Provider Encounter Details Date Type Department Care Team (Latest Contact Info) Description 05/25/1999 Outpatient Historical [facility] Medicine[address] [phone] Herbert Hugo, NO ADDRESS ON FILE Acute sinusitis, unspecified (Primary Dx); Wheezing Social History Tobacco Use Types Packs/Day Years Used Date Smoking Tobacco: Never Assessed Comments Unknown Sex and Gender Information Value Date Recorded Sex Assigned at Not on file Legal Sex Female 5:17 AM MECHANICAL SUPERVISOR Gender Identity Not on file Sexual Orientation Not on file documented as of this encounter Plan of Treatment Not on file documented as of this encounter Visit Diagnoses Diagnosis Acute sinusitis, unspecified- Primary Wheezing documented in this encounter Additional Health Concerns Infection Onset Date Last Indicated Resolved Time R/O COVID-19 02/07/2020 02/07/2020 02/09/2020 2:46 AM MECHANICAL SUPERVISOR COVID-19 02/07/2020 02/07/2020 03/08/2020 8:09 PM MECHANICAL SUPERVISOR R/O COVID-19 03/13/2020 03/14/2020 03/14/2020 4:43 AM MECHANICAL SUPERVISOR COVID-19 Comment:Positive in February. Retest for pre-procedure. 03/14/2020 03/14/2020 03/15/2020 9:[address] documented as of this encounter Care Teams Wire Fence Erector Relationship Specialty Start Date End Date Cori You MD [address] [phone] PCP - General Family Practice 10/10/14 documented as of this encounter
--- OUTSIDE RECORDS SUMMARY | 2024-10-09 00:56 | XMS_ITS | Encounter Summary ---
Author Organization [facility] Address [address] [place] [address] Care Team Providers Care Wine Sales Representative Name Role Phone Cori You MD Primary Care Provider Encounter Details Date Type Department Care Team (Late st Contact Info) Description 11/01/2007 [facility] [address] [place] [address] Herbert Hugo DO NO ADDRESS ON FILE Sohail Flores MD NO ADDRESS ON FILE Social History Tobacco Use Types Packs/Day Years Used Date Smoking Tobacco: Never Assessed Comments Unknown Sex and Gender Information Value Date Recorded Sex Assigned at Not on file Legal Sex Female 5:17 AM LODGE OFFICER Gender Identity Not on file Sexual Orientation Not on file documented as of this encounter Plan of Treatment Not on file documented as of this encounter Procedures Procedure Name Priority Date/Time Associated Diagnosis Comments NM BONE SCAN 3 PHASE Routine 11/03/2007 10:00 AM CDT documented in this encounter Results * NM BONE SCAN 3 PHASE (11/03/2007 10:00 AM CDT) Anatomical Region Laterality Modality Other 11/03/2007 10:0 0 AM CDT Narrative 11/03/2007 5:28 PM CDT Radionuclide Bone Imaging, Three Phase Examination: Radiopharmaceutical: Tc-99m HDP ([id number]) Dose: 20.2 mCi Reason for Consultation: Right knee pain 11 month status post TKA for evaluation: Possible loosening Perfusion imaging over the anterior knees demonstrates mild diffuse increase over the right knee with immediate blood pool images demonstrating mild increase in the lateral synovium. Osseous phase images demonstrate focal irregularity of increased tracer accumulation in the femoral condyles and tibial condyles as well as in the patella. In addition there is subtle focal increase of tracer in two discrete locations in the posterior cortex of the proximal tibial shaft. The left knee demonstrates focally increased tracer along the medial articular surface. Impression: 1. Findings in the right knee of concern for nonspecific inflammation with possible enthesopathy laterally. Findings are not highly suggestive of infection, loosening or fracture at the knee. 2. Findings in the right proximal tibial shaft posteriorly of concern for gonzalez splints or possible early stress fractures. 3. Osteoarthritic changes in the left knee. - Dictated By: Be Richard M.D. Electronically Signed By: Be Richard M.D. Date Signed: 11/03/07 Procedure Note Be Richard - 11/03/2007 Radionuclide Bone Imaging, Three Phase Examination: Radiopharmaceutical: Tc-99m HDP([id number]) Dose: 20.2 mCi Reason for Consultation: Right knee pain 11 month status post TKA forevaluation: Possible loosening Perfusion imaging over the anterior knees demonstrates mild diffuseincrease over the right knee with immediate blood pool images demonstrating mild increase in the lateralsynovium. Osseous phase images demonstrate focal irregularity of increased traceraccumulation in the femoral condyles and tibial condyles as well as in the patella. In addition thereis subtle focal increase of tracer in two discrete locations in the posterior cortex of the proximaltibial shaft. The left knee demonstrates focally increased tracer along the medialarticular surface. Impression: 1. Findings in the right knee of concern for nonspecific inflammation withpossible enthesopathy laterally. Findings are not highly suggestive of infection, loosening orfracture at the knee. 2. Findings in the right proximal tibial shaft posteriorly of concern forshin splints or possible early stress fractures. 3. Osteoarthritic changes in the left knee. - Dictated By: Be Richard M.D. Electronically Signed By: Be Richard M.D. Date Signed: 11/03/07 us Sohail Flores MD NM ORDERABLES Final Result documented in this encounter Visit Diagnoses Not on filedocumented in this encounter Additional Health Concerns Infection Onset Date Last Indicated Resolved Time R/O COVID-19 02/07/2020 02/07/2020 02/09/2020 2:46 AM LODGE OFFICER COVID-19 02/07/2020 02/07/2020 03/08/2020 8:09 PM LODGE OFFICER R/O COVID-19 03/13/2020 03/14/2020 03/14/2020 4:43 AM LODGE OFFICER COVID-19 Comment:Positive in February. Retest for pre-procedure. 03/14/2020 03/14/2020 03/15/2020 9:[address] documented as of this encounter Care Teams Wine Sales Representative Relationship Specialty Start Date End Date Cori You MD [address] [phone] PCP - General Family Practice 10/10/14 documented as of this encounter
--- OUTSIDE RECORDS SUMMARY | 2024-10-09 00:56 | XMS_ITS | Encounter Summary ---
Author Organization [facility] Address [address] [place] [address] Care Team Providers Care Mica Spreader Name Role Phone Cori You MD Primary Care Provider [phone] Encounter Details Date Type Department Care Team (Late st Contact Info) Description 01/19/2007 Outpatient Historical [facility] [place] [address] Social History Tobacco Use Types Packs/Day Years Used Date Smoking Tobacco: Never Assessed Comments Unknown Sex and Gender Information Value Date Recorded Sex Assigned at Not on file Legal Sex Female 5:[address] Gender Identity Not on file Sexual Orientation Not on file documented as of this encounter Plan of Treatment Not on file documented as of this encounter Visit Diagnoses Not on filedocumented in this encounter Additional Health Concerns Infection Onset Date Last Indicated Resolved Time R/O COVID-19 02/07/2020 02/07/2020 02/09/2020 2:[address] REPORTER COVID-19 02/07/2020 02/07/2020 03/08/2020 8:[address] REPORTER R/O COVID-19 03/13/2020 03/14/2020 03/14/2020 4:[address] REPORTER COVID-19 Comment:Positive in February. Retest for pre-procedure. 03/14/2020 03/14/2020 03/15/2020 9:[address] documented as of this encounter Care Teams Mica Spreader Relationship Specialty Start Date End Date Cori You MD [address] [phone] PCP - General Family Practice 10/10/14 documented as of this encounter
--- OUTSIDE RECORDS SUMMARY | 2024-10-09 00:56 | XMS_ITS | Encounter Summary ---
Author Organization [facility] Address [address] [place] [address] Care Team Providers Care Molybdenum Steamer Operator Name Role Phone Cori You MD Primary Care Provider [phone] Encounter Details Date Type Department Care Team (Latest Contact Info) Description 12/29/1999 Outpatient Historical [facility] [address] [address] Cristina Collazo MD NO ADDRESS ON FILE Other screening mammogram (Primary Dx) Social History Tobacco Use Types Packs/Day Years Used Date Smoking Tobacco: Never Assessed Comments Unknown Sex and Gender Information Value Date Recorded Sex Assigned at Not on file Legal Sex Female 5:17 AM FOUNDRY PROCESS ENGINEER Gender Identity Not on file Sexual Orientation Not on file documented as of this encounter Plan of Treatment Not on file documented as of this encounter Visit Diagnoses Diagnosis Other screening mammogram- Primary documented in this encounter Additional Health Concerns Infection Onset Date Last Indicated Resolved Time R/O COVID-19 02/07/2020 02/07/2020 02/09/2020 2:46 AM FOUNDRY PROCESS ENGINEER COVID-19 02/07/2020 02/07/2020 03/08/2020 8:09 PM FOUNDRY PROCESS ENGINEER R/O COVID-19 03/13/2020 03/14/2020 03/14/2020 4:43 AM FOUNDRY PROCESS ENGINEER COVID-19 Comment:Positive in February. Retest for pre-procedure. 03/14/2020 03/14/2020 03/15/2020 9:[address] documented as of this encounter Care Teams Molybdenum Steamer Operator Relationship Specialty Start Date End Date Cori You MD [address] [phone] PCP - General Family Practice 10/10/14 documented as of this encounter
--- OUTSIDE RECORDS SUMMARY | 2024-10-09 00:56 | XMS_ITS | Patient Health Record ---
Author Organization [facility] Address [address] [place], [place] [address] Care Team Providers Care Lumber Piler Name Role Phone Stephon Randle Primary Care Provider Michael Kramer MD, Aries Unavailable [phone] Shorty Devries MD Unavailable Unavail able Allergies Allergen (clinical drug ingredient) Drug/Non Drug Allergy documented on EMR Reaction Allergy Type Onset Date Status prednisone prednisone at a very high dose Drug Allergy Active Reason For Referral No Information Medications Medication SIG (Take, Route, Frequency, Duration) Notes Start Date End Date Status orphenadrine 100 mg 1 tab orally 2 times a day Active traMADol 50 mg 1 tab po orally BID prn pain Active traZODone 150 mg 1 tab orally once a day (at bedtime) Active aspirin 81 mg 1 tab orally once a day Active verapamil 180 mg/24 hours 1 cap orally once a day Active calcium carbonate 1250 mg orally as directed Active citalopram 20 mg 1 tab orally once a day Active diclofenac sodium 75 mg 1 tab po orally BID prn pain; take with food Active Excedrin Active fluticasone nasal 50 mcg/inh 1 spray intranasally as directed Active levothyroxine 25 mcg (0.025 mg) 1 tab orally once a day Acti ve metFORMIN 1000 mg 1 tab orally 2 times a day Active Social History Tobacco Use: Social History Observation Description Date Details (start date - stop date) Never Smoker NA - NA alcohol Question Answer Notes Did you have a drink containing alcohol in the p ast year? No Points 0 Interpretation Negative Tobacco use: Question Answer Notes : nonsmoker Problems Problem Type SNOMED Code ICD Code Onset Dates Problem Status W/U Status Risk Notes Problem Solitary sacroiliitis (931828528) Sacroiliitis, not elsewhere classified (M46.1) Active confirmed Problem Low back pain (450358781) Low back pain (M54.5) Active confirmed Problem Anxiety disorder (793776257) Other specified anxiety disorders (F41.8) Active confirmed Problem Hypersomnia (80844184) Hypersomnia, unspecified (G47.10) Active confirmed Problem Acquired spondylolisthesis (161101593) Spondylolisthesis , lumbar region (M43.16) Active confirmed Problem Spinal stenosis of lumbar region (15776664) Spinal stenosis, lumbar region (M48.06) Active confirmed Problem Post-laminectomy syndrome (45635639) Postlaminectomy syndrome, not elsewhere classified (M96.1) Active confirmed Problem Long-term current use of drug therapy (829633699) Other fpc (current) drug therapy (Z79.899) Active confirmed Problem Spinal stenosis of lumbar region (95336548) Spinal stenosis, lumbar region without neurogenic claudication (M48.061) Active confirmed Plan Of Treatment No Information Insurance Providers Payer Name Payer Address Payer Phone Subscriber Number Group Number Insured Name Patient Relationship to Insured Coverage Start Date Coverage End Date [employer] Medicare Part B Claims Department [address] [address] [place] [address] [id number] Abby Nova Self - patient is the insured [facility] Claims Dept [address] [place] [id number] AvtarAbby Self - patient is the insured Medical (General) History Medical History History ICD Code Low back pain Left leg discomfort Muscle weakness Sacroiliitis SI joint dysfunction Bilateral leg pain Spinal instability lumbar Degenerative disc disease, lumbar Spondylosis, lumbar Spondylolisthesis, lumbar Diabetes Arthritis Depression Anxiety Gastric ulcer Hypertension Sarcoidosis Fibromyalgia Lumbar radiculopathy Thoracic pain Obesity Surgical History Surgery Date(Month/Year) Neck fusion, Dr. Redmond, 1972 Hysterectomy, 1978 Elbow surgery, 1983 Cholecystectomy, 1985 Right knee replacement, 2007 Lap band, 2008 Nasal surgery, 2009 Left knee replacement, 2010 L4-5, L5-S1 PLIF, 07/01/2016 Removal of bone spur, left 5th toe, perf [place]med in [place], [place], 2018
--- OUTSIDE RECORDS SUMMARY | 2024-10-09 00:56 | XMS_ITS | Encounter Summary ---
Author Organization [facility] Address [address] [place] [address] Care Team Providers Care Feed Management Advisor Name Role Phone Cori You MD Primary Care Provider [phone] Encounter Details Date Type Department Care Team (Late st Contact Info) Description 04/11/2008 Outpatient Historical [facility] [address] [facility] [address] [place] [address] Social History Tobacco Use Types Packs/Day Years Used Date Smoking Tobacco: Never Assessed Comments No Sex and Gender Information Value Date Recorded Sex Assigned at Not on file Legal Sex Female 5:17 AM SPOOLER OPERATOR Gender Identity Not on file Sexual Orientation Not on file documented as of this encounter Plan of Treatment Not on file documented as of this encounter Visit Diagnoses Not on filedocumented in this encounter Additional Health Concerns Infection Onset Date Last Indicated Resolved Time R/O COVID-19 02/07/2020 02/07/2020 02/09/2020 2:46 AM SPOOLER OPERATOR COVID-19 02/07/2020 02/07/2020 03/08/2020 8:09 PM SPOOLER OPERATOR R/O COVID-19 03/13/2020 03/14/2020 03/14/2020 4:43 AM SPOOLER OPERATOR COVID-19 Comment:Positive in February. Retest for pre-procedure. 03/14/2020 03/14/2020 03/15/2020 9:[address] documented as of this encounter Care Teams Feed Management Advisor Relationship Specialty Start Date End Date Cori You MD [address] [phone] PCP - General Family Practice 10/10/14 documented as of this encounter
--- OUTSIDE RECORDS SUMMARY | 2024-10-09 00:56 | XMS_ITS | Encounter Summary ---
Author Organization [facility] Address [address] [place] [address] Care Team Providers Care Director Of Managed Care Name Role Phone Cori You MD Primary Care Provider Encounter Details Date Type Department Care Team (Late st Contact Info) Description 08/24/2018 Ancillary Orders [facility] [place] [address] [facility] [address] [place] [address] Lev Pena PA NO ADDRESS ON FILE Right hip pain Social History Tobacco Use Types Packs/Day Years Used Date Smoking Tobacco: Never Smokeless Tobacco: Never Alcohol Use Standard Drinks/Week Comments No 0 (1 standard drink = 0.6 oz pur e alcohol) Comments No Sex and Gender Information Value Date Recorded Sex Assigned at Not on file Legal Sex Female 5:17 AM SCOURER Gender Identity Not on file Sexual Orientation Not on file Occupation Industry Job Start Date Job End Date Not on file Not on file Not on file Not on file documented as of this encounter Plan of Treatment Not on file documented as of this encounter Results * XR HIPS BILAT MIN 5 VIEWS (08/24/2018 10:03 AM CDT) Anatomical Region Laterality Modality Lower Extremity Computed Radiogr aphy 08/24/2018 10:0 3 AM CDT Impressions 08/24/2018 3:25 PM CDT IMPRESSION: See below. Exam: XR HIPS BILAT MIN 5 VIEWS Date/Time of Exam: 08/24/2018 10:03 AM Reason For Exam: Pain. Priors: None Findings: No acute fracture or dislocation. Mild osteophyte formation along the left superior acetabulum. No joint effusion or soft tissue abnormality. No significant degenerative findings of the right hip. Narrative Procedure Note Josué Cruz DO - 08/24/2018 IMPRESSION: See below. Exam: XR HIPS BILAT MIN 5 VIEWS Date/Time of Exam: 08/24/2018 10:03 AM Reason For Exam: Pain. Priors: None Findings: No acute fracture or dislocation. Mild osteophyte formation along the left superior acetabulum. No joint effusion or soft tissue abnormality. No significant degenerative findings of the right hip. [facility] ORDERABLES Final Result documented in this encounter Visit Diagnoses Diagnosis Right hip pain Pain in joint, pelvic region and thigh Right hip pain Pain in joint, pelvic region and thigh documented in this encounter Additional Health Concerns Infection Onset Date Last Indicated Resolved Time R/O COVID-19 02/07/2020 02/07/2020 02/09/2020 2:46 AM SCOURER COVID-19 02/07/2020 02/07/2020 03/08/2020 8:09 PM SCOURER R/O COVID-19 03/13/2020 03/14/2020 03/14/2020 4:43 AM SCOURER COVID-19 Comment:Positive in February. Retest for pre-procedure. 03/14/2020 03/14/2020 03/15/2020 9:[address] documented as of this encounter Care Teams Director Of Managed Care Relationship Specialty Start Date End Date Cori You MD [address] [facility] [address] [place] [phone] PCP - General Family Practice 10/10/14 documented as of this encounter
--- OUTSIDE RECORDS SUMMARY | 2024-10-09 00:56 | XMS_ITS | Encounter Summary ---
Author Organization [facility] Address [address] [place] [address] Care Team Providers Care Supervisor Tubing Name Role Phone Cori You MD Primary Care Provider Encounter Details Date Type Department Care Team (Latest Contact Info) Description 04/09/1998 Outpatient Historical [facility] Medicine- [address] [phone] Trace Singleton MD [address] [phone] Pain in joint, lower leg (Primary Dx); Effusion of ankle and foot joint Social History Tobacco Use Types Packs/Day Years Used Date Smoking Tobacco: Never Assessed Comments Unknown Sex and Gender Information Value Date Recorded Sex Assigned at Not on file Legal Sex Female 5:17 AM BISTRO ATTENDANT Gender Identity Not on file Sexual Orientation Not on file documented as of this encounter Plan of Treatment Not on file documented as of this encounter Visit Diagnoses Diagnosis Pain in joint, lower leg- Primary Effusion of ankle and foot joint documented in this encounter Additional Health Concerns Infection Onset Date Last Indicated Resolved Time R/O COVID-19 02/07/2020 02/07/2020 02/09/2020 2:46 AM BISTRO ATTENDANT COVID-19 02/07/2020 02/07/202003/08/2020 8:09 PM BISTRO ATTENDANT R/O COVID-19 03/13/2020 03/14/2020 03/14/2020 4:43 AM BISTRO ATTENDANT COVID-19 Comment:Positive in February. Retest for pre-procedure. 03/14/2020 03/14/2020 03/15/2020 9:[address] documented as of this encounter Care Teams Supervisor Tubing Relationship Specialty Start Date End Date Cori You MD [address] [phone] PCP - General Family Practice 10/10/14 documented as of this encounter
--- OUTSIDE RECORDS SUMMARY | 2024-10-09 00:56 | XMS_ITS | Encounter Summary ---
Author Organization [facility] Address [address] [place] [address] Care Team Providers Care Cardiac Cath Rn Name Role Phone Cori You MD Primary Care Provider Encounter Details Date Type Department Care Team (Late st Contact Info) Description 02/19/2008 Outpatient Historical [facility] Cardiopulmonary Rehabilitation [address] [place] [address] Misael Aviles MD [address] [place] [phone] Social History Tobacco Use Types Packs/Day Years Used Date Smoking Tobacco: Never Assessed Comments No Sex and Gender Information Value Date Recorded Sex Assigned at Not on file Legal Sex Female 5:17 AM FORENSIC AUDIT EXPERT Gender Identity Not on file Sexual Orientation Not on file documented as of this encounter Plan of Treatment Not on file documented as of this encounter Visit Diagnoses Not on filedocumented in this encounter Additional Health Concerns Infection Onset Date Last Indicated Resolved Time R/O COVID-19 02/07/2020 02/07/2020 02/09/2020 2:46 AM FORENSIC AUDIT EXPERT COVID-19 02/07/2020 02/07/2020 03/08/2020 8:09 PM FORENSIC AUDIT EXPERT R/O COVID-19 03/13/2020 03/14/202003/14/2020 4:43 AM FORENSIC AUDIT EXPERT COVID-19 Comment:Positive in February. Retest for pre-procedure. 03/14/2020 03/14/2020 03/15/2020 9:16 AM C documented as of this encounter Care Teams Cardiac Cath Rn Relationship Specialty Start Date End Date Cori You MD [address] [phone] PCP - General Family Practice 10/10/14 documented as of this encounter
--- OUTSIDE RECORDS SUMMARY | 2024-10-09 00:56 | XMS_ITS | Encounter Summary ---
Author Organization [facility] Address [address] [place] [address] Care Team Providers Care Neurologist Name Role Phone Cori You MD Primary Care Provider Encounter Details Date Type Department Care Team (Late st Contact Info) Description 02/28/2008 Outpatient Historical [facility] [place] Other, Sgf NO ADDRESS ON FILE Social History Tobacco Use Types Packs/Day Years Used Date Smoking Tobacco: Never Assessed Comments No Sex and Gender Information Value Date Recorded Sex Assigned at Not on file Legal Sex Female 5:17 AM CIVIL STRUCTURAL DESIGNER Gender Identity Not on file Sexual Orientation Not on file documented as of this encounter Plan of Treatment Not on file documented as of this encounter Visit Diagnoses Not on filedocumented in this encounter Additional Health Concerns Infection Onset Date Last Indicated Resolved Time R/O COVID-19 02/07/2020 02/07/2020 02/09/2020 2:46 AM CIVIL STRUCTURAL DESIGNER COVID-19 02/07/2020 02/07/2020 03/08/2020 8:09 PM CIVIL STRUCTURAL DESIGNER R/O COVID-19 03/13/2020 03/14/2020 03/14/2020 4:43 AM CIVIL STRUCTURAL DESIGNER COVID-19 Comment:Positive in February. Retest for pre-procedure. 03/14/2020 03/14/2020 03/15/2020 9:16 AM C documented as of this encounter Care Teams Neurologist Relationship Specialty Start Date End Date Cori You MD [address] [phone] PCP - General Family Practice 10/10/14 documented as of this encounter
--- OUTSIDE RECORDS SUMMARY | 2024-10-09 00:56 | XMS_ITS | Encounter Summary ---
Author Organization [facility] Address [address] [place] [address] Care Team Providers Care Business Machines Teacher Name Role Phone Cori You MD Primary Care Provider Encounter Details Date Type Department Care Team (Late st Contact Info) Description 09/02/1999 Outpatient Historical [address] [phone] Social History Tobacco Use Types Packs/Day Years Used Date Smoking Tobacco: Never Assessed Comments Unknown Sex and Gender Information Value Date Recorded Sex Assigned at Not on file Legal Sex Female 5:17 AM ROBOTICS SPECIALIST Gender Identity Not on file Sexual Orientation Not on file documented as of this encounter Plan of Treatment Not on file documented as of this encounter Visit Diagnoses Not on filedocumented in this encounter Additional Health Concerns Infection Onset Date Last Indicated Resolved Time R/O COVID-19 02/07/2020 02/07/2020 02/09/2020 2:46 AM ROBOTICS SPECIALIST COVID-19 02/07/2020 02/07/2020 03/08/2020 8:09 PM ROBOTICS SPECIALIST R/O COVID-19 03/13/2020 03/14/2020 03/14/2020 4:43 AM ROBOTICS SPECIALIST COVID-19 Comment:Positive in February. Retest for pre-procedure. 03/14/2020 03/14/2020 03/15/2020 9:[address] documented as of this encounter Care Teams Business Machines Teacher Relationship Specialty Start Date End Date Cori You MD [address] [phone] PCP - General Family Practice 10/10/14 documented as of this encounter
--- OUTSIDE RECORDS SUMMARY | 2024-10-09 00:56 | XMS_ITS | Encounter Summary ---
Author Organization [facility] Address [address] [place] [address] Care Team Providers Care Scenery Builder Name Role Phone Cori You MD Primary Care Provider Encounter Details Date Type Department Care Team (Late st Contact Info) Description 09/13/2008 Ancillary Orders [facility] [place] [facility] [address] [place] [address] Liliane Leonardo FNP NO ADDRESS ON FILE Social History Tobacco Use Types Packs/Day Years Used Date Smoking Tobacco: Never Alcohol Use Standard Drinks/Week Comments No 0 (1 standard drink = 0.6 oz pur e alcohol) Comments No Sex and Gender Information Value Date Recorded Sex Assigned at Not on file Legal Sex Female 5:17 AM VISUAL COORDINATOR Gender Identity Not on file Sexual Orientation Not on file documented as of this encounter Plan of Treatment Not on file documented as of this encounter Visit Diagnoses Not on filedocumented in this encounter Additional Health Concerns Infection Onset Date Last Indicated Resolved Time R/O COVID-19 02/07/2020 02/07/2020 02/09/2020 2:46 AM VISUAL COORDINATOR COVID-19 02/07/2020 02/07/2020 03/08/2020 8:09 PM VISUAL COORDINATOR R/O COVID-19 03/13/2020 03/14/2020 03/14/2020 4:43 AM VISUAL COORDINATOR COVID-19 Comment:Positive in February. Retest for pre-procedure. 03/14/2020 03/14/2020 03/15/2020 9:[address] documented as of this encounter Care Teams Scenery Builder Relationship Specialty Start Date End Date Cori You MD [address] [phone] PCP - General Family Practice 10/10/14 documented as of this encounter
--- OUTSIDE RECORDS SUMMARY | 2024-10-09 00:56 | XMS_ITS | Encounter Summary ---
Author Organization [facility] Address [address] [place] [address] Care Team Providers Care Medical Sonographer Name Role Phone Cori You MD Primary Care Provider Encounter Details Date Type Department Care Team (Latest Contact Info) Description 02/02/1999 Outpatient Historical [facility] Medicine- [address] [phone] Herbert Hugo, NO ADDRESS ON FILE Need vaccination-viral disease (Primary Dx) Social History Tobacco Use Types Packs/Day Years Used Date Smoking Tobacco: Never Assessed Comments Unknown Sex and Gender Information Value Date Recorded Sex Assigned at Not on file Legal Sex Female 5:17 AM RN ANESTHESIOLOGY Gender Identity Not on file Sexual Orientation Not on file documented as of this encounter Plan of Treatment Not on file documented as of this encounter Visit Diagnoses Diagnosis Need vaccination-viral disease- Primary Need for prophylactic vaccination and inoculation against other viral diseases documented in this encounter Additional Health Concerns Infection Onset Date Last Indicated Resolved Time R/O COVID-19 02/07/2020 02/07/2020 02/09/2020 2:46 AM RN ANESTHESIOLOGY COVID-19 02/07/2020 02/07/2020 03/08/2020 8:09 PM RN ANESTHESIOLOGY R/O COVID-19 03/13/2020 03/14/2020 03/14/2020 4:43 AM RN ANESTHESIOLOGY COVID-19 Comment:Positive in February. Retest for pre-procedure. 03/14/2020 03/14/2020 03/15/2020 9:[address] documented as of this encounter Care Teams Medical Sonographer Relationship Specialty Start Date End Date Cori You MD [address] [phone] PCP - General Family Practice 10/10/14 documented as of this encounter
--- OUTSIDE RECORDS SUMMARY | 2024-10-09 00:56 | XMS_ITS | Encounter Summary ---
Author Organization [facility] Address [address] [place] [address] Care Team Providers Care Carpenter Assembler Name Role Phone Cori You MD Primary Care Provider Reason for Referral * Radiology Services (Routine) - Closed Specialty Diagnoses / Procedures Referred By Merlin merino Referred To Contact Diagnoses Encounter for screening mammogram for malignant neoplasm of breast Procedures MAMMO SCREEN BILAT W OR WO CAD Lev Pena PA Referral ID Status Reason Start Date Expiration Date Visits Re quested Visits Authorized [id number] Closed 01/23/2019 02/23/2020 1 1 Encounter Details Date Type Department Care Team (Latest Contact Info) Description 01/23/2019 Ancillary Orders [facility] Centralized Scheduling [address] [place] [address] Lev Pena PA NO ADDRESS ON FILE Encounter for screening mammogram for malignant neoplasm of breast Social History Tobacco Use Types Packs/Day Years Used Date Smoking Tobacco: Never Smokeless Tobacco: Never Alcohol Use Standard Drinks/Week Comments No 0 (1 standard drink = 0.6 oz pur e alcohol) Comments No Sex and Gender Information Value Date Recorded Sex Assigned at Not on file Legal Sex Female 5:17 AM INVESTMENT ACCOUNTANT Gender Identity Not on file Sexual Orientation Not on file Occupation Industry Job Start Date Job End Date Not on file Not on file Not on file Not on file documented as of this encounter Plan of Treatment Not on file documented as of this encounter Results * MAMMO SCREEN BILAT W OR WO CAD (02/01/2019 12:13 PM CDT) Anatomical Region Laterality Modality Breast Bilateral Mammography Narrative 02/01/2019 3:45 PM CDT Bilateral Mammogram Reason for Exam: Screening Comparison: Compared to: 01/04/2018 MAMMO SCREEN BILAT W OR WO CAD, 09/16/2016 MAMMO SCREEN BILAT W OR WO CAD, 10/18/2013 MAMMO DIGITAL DIAG BILAT, and 09/19/2013 MAMMO DIGITAL SCREEN BILAT Findings: Bilateral CC and MLO views were obtained. This examination was reviewed with the aid of a computer-aided detection system(CAD). Breast Composition: The breasts are heterogeneously dense, which may obscure small masses. There are no suspicious masses, areas of architectural distortions, or microcalcifications to suggest malignancy. No significant new findings since the prior mammogram(s). Impression: Negative screening mammogram. Recommendation: Routine annual follow-up Overall Assessment: Birads Category 2: Negative Lev PETERSON MAMMO ORDERABLES Final Result documented in this encounter Visit Diagnoses Diagnosis Encounter for screening mammogram for malignant neoplasm of breast Other screening mammogram Encounter for screening mammogram for malignant neoplasm of breast Other screening mammogram documented in this encounter Additional Health Concerns Infection Onset Date Last Indicated Resolved Time R/O COVID-19 02/07/2020 02/07/2020 02/09/2020 2:46 AM INVESTMENT ACCOUNTANT COVID-19 02/07/2020 02/07/2020 03/08/2020 8:09 PM INVESTMENT ACCOUNTANT R/O COVID-19 03/13/2020 03/14/2020 03/14/2020 4:43 AM INVESTMENT ACCOUNTANT COVID-19 Comment:Positive in February. Retest for pre-procedure. 03/14/2020 03/14/2020 03/15/2020 9:[address] documented as of this encounter Care Teams Carpenter Assembler Relationship Specialty Start Date End Date Cori You MD [address] [phone] PCP - General Family Practice 10/10/14 documented as of this encounter
--- OUTSIDE RECORDS SUMMARY | 2024-10-09 00:56 | XMS_ITS | Encounter Summary ---
Author Organization [facility] Address [address] [place] [address] Care Team Providers Care Printer Floor Covering Assistant Name Role Phone Cori You MD Primary Care Provider [phone] Encounter Details Date Type Department Care Team (Latest Contact Info) Description 10/24/1998 Outpatient Historical [facility] Medicine- [address] [phone] Trace Singleton MD [address] [phone] Chest pain, unspecified (Primary Dx); Cardiac dysrhythmia, unspecified Social History Tobacco Use Types Packs/Day Years Used Date Smoking Tobacco: Never Assessed Comments Unknown Sex and Gender Information Value Date Recorded Sex Assigned at Not on file Legal Sex Female 5:17 AM ACTIVITY MANAGER Gender Identity Not on file Sexual Orientation Not on file documented as of this encounter Plan of Treatment Not on file documented as of this encounter Visit Diagnoses Diagnosis Chest pain, unspecified- Primary Cardiac dysrhythmia, unspecified documented in this encounter Additional Health Concerns Infection Onset Date Last Indicated Resolved Time R/O COVID-19 02/07/2020 02/07/2020 02/09/2020 2:46 AM ACTIVITY MANAGER COVID-19 02/07/2020 02/07/2020 03/08/2020 8:09 PM ACTIVITY MANAGER R/O COVID-19 03/13/2020 03/14/2020 03/14/2020 4:43 AM ACTIVITY MANAGER COVID-19 Comment:Positive in February. Retest for pre-procedure. 03/14/2020 03/14/2020 03/15/2020 9:[address] documented as of this encounter Care Teams Printer Floor Covering Assistant Relationship Specialty Start Date End Date Cori You MD [address] [phone] PCP - General Family Practice 10/10/14 documented as of this encounter
--- OUTSIDE RECORDS SUMMARY | 2024-10-09 00:56 | XMS_ITS | Encounter Summary ---
Author Organization [facility] Address [address] [place] [address] Care Team Providers Care Community Health Program Coordinator Name Role Phone Cori You MD Primary Care Provider Encounter Details Date Type Department Care Team (Late st Contact Info) Description 02/28/2008 Outpatient Historical [facility] [place] Other, Sgf NO ADDRESS ON FILE Social History Tobacco Use Types Packs/Day Years Used Date Smoking Tobacco: Never Assessed Comments No Sex and Gender Information Value Date Recorded Sex Assigned at Not on file Legal Sex Female 5:17 AM MODELING AGENCY MANAGER Gender Identity Not on file Sexual Orientation Not on file documented as of this encounter Plan of Treatment Not on file documented as of this encounter Visit Diagnoses Not on filedocumented in this encounter Additional Health Concerns Infection Onset Date Last Indicated Resolved Time R/O COVID-19 02/07/2020 02/07/2020 02/09/2020 2:46 AM MODELING AGENCY MANAGER COVID-19 02/07/2020 02/07/2020 03/08/2020 8:09 PM MODELING AGENCY MANAGER R/O COVID-19 03/13/2020 03/14/2020 03/14/2020 4:43 AM MODELING AGENCY MANAGER COVID-19 Comment:Positive in February. Retest for pre-procedure. 03/14/2020 03/14/2020 03/15/2020 9:16 AM C documented as of this encounter Care Teams Community Health Program Coordinator Relationship Specialty Start Date End Date Cori You MD [address] [phone] PCP - General Family Practice 10/10/14 documented as of this encounter
--- OUTSIDE RECORDS SUMMARY | 2024-10-09 00:56 | XMS_ITS | Encounter Summary ---
Author Organization [facility] Address [address] [place] [address] Care Team Providers Care Risk Mgr Name Role Phone Cori You MD Primary Care Provider Encounter Details Date Type Department Care Team (Latest Contact Info) Description 03/17/1998 Outpatient Historical [facility] Medicine[address] [phone] Herbert Hugo, NO ADDRESS ON FILE Contusion of knee (Primary Dx) Social History Tobacco Use Types Packs/Day Years Used Date Smoking Tobacco: Never Assessed Comments Unknown Sex and Gender Information Value Date Recorded Sex Assigned at Not on file Legal Sex Female 5:17 AM DIE CUTTER DIAMOND Gender Identity Not on file Sexual Orientation Not on file documented as of this encounter Plan of Treatment Not on file documented as of this encounter Visit Diagnoses Diagnosis Contusion of knee- Primary documented in this encounter Additional Health Concerns Infection Onset Date Last Indicated Resolved Time R/O COVID-19 02/07/2020 02/07/2020 02/09/2020 2:46 AM DIE CUTTER DIAMOND COVID-19 02/07/2020 02/07/2020 03/08/2020 8:09 PM DIE CUTTER DIAMOND R/O COVID-19 03/13/2020 03/14/2020 03/14/2020 4:43 AM DIE CUTTER DIAMOND COVID-19 Comment:Positive in February. Retest for pre-procedure. 03/14/2020 03/14/2020 03/15/2020 9:[address] documented as of this encounter Care Teams Risk Mgr Relationship Specialty Start Date End Date Cori You MD [address] [phone] PCP - General Family Practice 10/10/14 documented as of this encounter
--- OUTSIDE RECORDS SUMMARY | 2024-10-09 00:56 | XMS_ITS | Encounter Summary ---
Author Organization [facility] Address [address] [place]: [place] [address] Care Team Providers Care Legal Support Assistant Name Role Phone Cori You MD Primary Care Provider Encounter Details Date Type Department Care Team (Late st Contact Info) Description 09/02/1999 Outpatient Historical Herbert Hugo DO NO ADDRESS ON FILE Social History Tobacco Use Types Packs/Day Years Used Date Smoking Tobacco: Never Assessed Comments Unknown Sex and Gender Information Value Date Recorded Sex Assigned at Not on file Legal Sex Female 5:17 AM HONEY PRODUCER Gender Identity Not on file Sexual Orientation Not on file documented as of this encounter Plan of Treatment Not on file documented as of this encounter Visit Diagnoses Not on filedocumented in this encounter Additional Health Concerns Infection Onset Date Last Indicated Resolved Time R/O COVID-19 02/07/2020 02/07/2020 02/09/2020 2:46 AM HONEY PRODUCER COVID-19 02/07/2020 02/07/2020 03/08/2020 8:09 PM HONEY PRODUCER R/O COVID-19 03/13/2020 03/14/2020 03/14/2020 4:43 AM HONEY PRODUCER COVID-19 Comment:Positive in February. Retest for pre-procedure. 03/14/2020 03/14/2020 03/15/2020 9:16 AM Mindy CRUZ documented as of this encounter Care Teams Legal Support Assistant Relationship Specialty Start Date End Date Cori You MD [address] [phone] PCP - General Family Practice 10/10/14 documented as of this encounter
--- OUTSIDE RECORDS SUMMARY | 2024-10-09 00:56 | XMS_ITS | Encounter Summary ---
Author Organization [facility] Address [address] [place] [address] Care Team Providers Care Collections Director Name Role Phone Cori You MD Primary Care Provider Encounter Details Date Type Department Care Team (Latest Contact Info) Description 08/28/1999 Outpatient Historical [facility] Medicine- [address] [phone] Herbert Hugo, NO ADDRESS ON FILE Unspecified essential hypertension (Primary Dx); Osteoarthrosis, unspecified whether generalized or localized, unspecified site; Gynecologic examination Social History Tobacco Use Types Packs/Day Years Used Date Smoking Tobacco: Never Assessed Comments Unknown Sex and Gender Information Value Date Recorded Sex Assigned at Not on file Legal Sex Female 5:17 AM HIGH DENSITY PRESS LABORER Gender Identity Not on file Sexual Orientation Not on file documented as of this encounter Plan of Treatment Not on file documented as of this encounter Visit Diagnoses Diagnosis Unspecified essential hypertension- Primary Osteoarthrosis, unspecified whether generalized or localized, unspecified site Gynecologic examination Gynecological examination documented in this encounter Additional Health Concerns Infection Onset Date Last Indicated Resolved Time R/O COVID-19 02/07/2020 02/07/2020 02/09/2020 2:46 AM HIGH DENSITY PRESS LABORER COVID-19 02/07/2020 02/07/2020 03/08/2020 8:09 PM HIGH DENSITY PRESS LABORER R/O COVID-19 03/13/2020 03/14/2020 03/14/2020 4:43 AM HIGH DENSITY PRESS LABORER COVID-19 Comment:Positive in February. Retest for pre-procedure. 03/14/2020 03/14/2020 03/15/2020 9:16 AM C documented as of this encounter Care Teams Collections Director Relationship Specialty Start Date End Date Cori You MD [address] [phone] PCP - General Family Practice 10/10/14 documented as of this encounter
--- OUTSIDE RECORDS SUMMARY | 2024-10-09 00:56 | XMS_ITS | Encounter Summary ---
Author Organization [facility] Address [address] [place] [address] Care Team Providers Care Golf Sales Associate Name Role Phone Cori You MD Primary Care Provider Encounter Details Date Type Department Care Team (Late st Contact Info) Description 04/11/2008 Outpatient Historical [facility] PreAdmission [place] [address] [address] [place] [address] Misael Aviles MD [address] [place] [phone] Social History Tobacco Use Types Packs/Day Years Used Date Smoking Tobacco: Never Assessed Comments No Sex and Gender Information Value Date Recorded Sex Assigned at Not on file Legal Sex Female 5:17 AM RN TRAINING Gender Identity Not on file Sexual Orientation Not on file documented as of this encounter Plan of Treatment Not on file documented as of this encounter Procedures Procedure Name Priority Date/Time Associated Diagnosis Comments CBC WITH DIFFERENTIAL Stat 04/11/2008 5:50 PM RN TRAINING TSH Stat 04/11/2008 5:50 PM RN TRAINING BASIC METABOLIC PANEL Stat 04/11/2008 5:50 PM RN TRAINING documented in this encounter Results * (ABNORMAL) CBC WITH DIFFERENTIAL (04/11/2008 5:50 PM RN TRAINING) MONOCYTE ABSOLUTE 0.4 0.1 - 0.6 K/ul [facility] WBC 8.1 4.8 - 10.8 K/ul [facility] NEUTROPHILS 60.1 42.2 - 75.2 % [facility] MCH 29.9 27.0 - 34.0 pg [facility] NEUTROPHIL ABSOLUTE 4.8 2.0 - 8.0 K/ul [facility] HEMATOCRIT 36.9 36.0 - 46.0 % [facility] PLATELETS 181 140 - 440 K/ul [facility] EOSINOPHIL ABSOLUTE 0.6 0.0 - 0.7 K/ul [facility] EOSINOPHILS 7.9(H) 0.0 - 7.0 % [facility] RBC 4.22 4.20 - 5.40 Mil/ul [facility] MCHC 34.1 30.0 - 35.0 g/dL [facility] LYMPHOCYTE ABSOLUTE 2.2 1.2 - 4.0 K/ul [facility] LYMPHOCYTES 26.8 24.0 - 44.0 % [facility] MCV 87.4 84.0 - 103.0 Fl [facility] BASOPHILS 0.5 0.0 - 1.0 % [facility] MPV 9.7 8.9 - 12.8 Fl [facility] BASOPHILS ABSOLUTE 0.0 0.0 - 0.2 K/ul [facility] HEMOGLOBIN 12.6 12.0 - 16.0 g/dL [facility] MONOCYTES 4.7 2.0 - 10.0 % [facility] RDW 14.7(H) 11.0 - 14.5 % [facility] Blood specimen (specimen) 04/11/2008 5:50 PM RN TRAINING 04/11/2008 5:55 PM RN TRAINING us Misael Aviles MD HEMATOLOGY ORDERABLES F inal Result Performing Organization Address [facility] Phone Number INTERFACE SYSTEM Refer to clinic/hospital department [facility] CLIA# [id number] [address] [place] [id number] * TSH (04/11/2008 5:50 PM RN TRAINING) Pathologist [facility] TSH 2.769 0.350 - 5.500 uIU/ml [facility] Blood specimen (specimen) 04/11/2008 5:50 PM RN TRAINING 04/11/2008 5:55 PM RN TRAINING us Misael Aviles MD CHEMISTRY ORDERABLES Fi nal Result Performing Organization Address [facility] Phone Number INTERFACE SYSTEM Refer to clinic/hospital department [facility] CLIA# [id number] [address] [place] [phone] * (ABNORMAL) BASIC METABOLIC PANEL (04/11/2008 5:50 PM RN TRAINING) Pathologist [facility] GLUCOSE 180(H) 70 - 110 mg/dL [facility] CHLORIDE 101 95 - 110 mEq/L [facility] ANION GAP 10 9 - 20 mEq/L [facility] SODIUM 141 136 - 145 mEq/L [facility] BUN 11 7 - 17 mg/dL [facility] CO2 34(H) 22 - 32 mmol/l [facility] POTASSIUM 3.9 3.5 - 5.0 mEq/L [facility] OSMOLALITY, CALCULATED 293 275 - 295 mOsm/Kg [facility] CREATININE 0.7 0.7 - 1.2 mg/dL [facility] CALCIUM 9.6 8.4 - 10.5 mg/dL [facility] Blood specimen (specimen) 04/11/2008 5:50 PM RN TRAINING 04/11/2008 5:55 PM RN TRAINING us Misael Aviles MD CHEMISTRY ORDERABLES Fi nal Result INTERFACE SYSTEM Refer to clinic/hospital department [facility] CLIA# [id number] [address] [place] [address] documented in this encounter Visit Diagnoses Not on filedocumented in this encounter Additional Health Concerns Infection Onset Date Last Indicated Resolved Time R/O COVID-19 02/07/2020 02/07/2020 02/09/2020 2:46 AM RN TRAINING COVID-19 02/07/2020 02/07/2020 03/08/2020 8:09 PM RN TRAINING R/O COVID-19 03/13/2020 03/14/2020 03/14/2020 4:43 AM RN TRAINING COVID-19 Comment:Positive in February. Retest for pre-procedure. 03/14/2020 03/14/2020 03/15/2020 9:[address] documented as of this encounter Care Teams Golf Sales Associate Relationship Specialty Start Date End Date Cori You MD [address] [facility] [address] [place] [phone] PCP - General Family Practice 10/10/14 documented as of this encounter
--- OUTSIDE RECORDS SUMMARY | 2024-10-09 00:56 | XMS_ITS | Encounter Summary ---
Author Organization [facility] Address [address] [place] [address] Care Team Providers Care Steel Division Supervisor Name Role Phone Cori You MD Primary Care Provider [phone] Encounter Details Date Type Department Care Team (Late st Contact Info) Description 03/30/2008 Outpatient Historical [facility] Cardiopulmonary Rehabilitation [address] [place] [address] Misael Aviles MD [address] [place] [phone] Social History Tobacco Use Types Packs/Day Years Used Date Smoking Tobacco: Never Assessed Comments No Sex and Gender Information Value Date Recorded Sex Assigned at Not on file Legal Sex Female 5:17 AM HOT MILL OBSERVER Gender Identity Not on file Sexual Orientation Not on file documented as of this encounter Plan of Treatment Not on file documented as of this encounter Visit Diagnoses Not on filedocumented in this encounter Additional Health Concerns Infection Onset Date Last Indicated Resolved Time R/O COVID-19 02/07/2020 02/07/2020 02/09/2020 2:46 AM HOT MILL OBSERVER COVID-19 02/07/2020 02/07/2020 03/08/2020 8:09 PM HOT MILL OBSERVER R/O COVID-19 03/13/2020 03/14/202003/14/2020 4:43 AM HOT MILL OBSERVER COVID-19 Comment:Positive in February. Retest for pre-procedure. 03/14/2020 03/14/2020 03/15/2020 9:16 AM C documented as of this encounter Care Teams Steel Division Supervisor Relationship Specialty Start Date End Date Cori You MD [address] [phone] PCP - General Family Practice 10/10/14 documented as of this encounter
--- OUTSIDE RECORDS SUMMARY | 2024-10-09 00:56 | XMS_ITS | Encounter Summary ---
Author Organization [facility] Address [address] [place] [address] Care Team Providers Care Supervisor Riprap Placing Name Role Phone Cori You MD Primary Care Provider [phone] Encounter Details Date Type Department Care Team (Late st Contact Info) Description 04/03/2007 Outpatient [facility] [address], [place] [id number] Herbert Hugo, NO ADDRESS ON FILE Social History Tobacco Use Types Packs/Day Years Used Date Smoking Tobacco: Never Assessed Comments Unknown Sex and Gender Information Value Date Recorded Sex Assigned at Not on file Legal Sex Female 5:17 AM SOFTWARE SUPPORT TECHNICIAN Gender Identity Not on file Sexual Orientation Not on file documented as of this encounter Plan of Treatment Not on file documented as of this encounter Visit Diagnoses Not on filedocumented in this encounter Additional Health Concerns Infection Onset Date Last Indicated Resolved Time R/O COVID-19 02/07/2020 02/07/2020 02/09/2020 2:46 AM SOFTWARE SUPPORT TECHNICIAN COVID-19 02/07/2020 02/07/2020 03/08/2020 8:09 PM SOFTWARE SUPPORT TECHNICIAN R/O COVID-19 03/13/2020 03/14/2020 03/14/2020 4:43 AM SOFTWARE SUPPORT TECHNICIAN COVID-19 Comment:Positive in February. Retest for pre-procedure. 03/14/2020 03/14/2020 03/15/2020 9:[address] documented as of this encounter Care Teams Supervisor Riprap Placing Relationship Specialty Start Date End Date Cori You MD [address] [phone] PCP - General Family Practice 10/10/14 documented as of this encounter
--- OUTSIDE RECORDS SUMMARY | 2024-10-09 00:56 | XMS_ITS | Encounter Summary ---
Author Organization [facility] Address [address] [place] [address] Care Team Providers Care Charge Aide Name Role Phone Cori You MD Primary Care Provider Encounter Details Date Type Department Care Team (Late st Contact Info) Description 09/13/2008 Ancillary Orders [facility] [address] [place] [address] Liliane Leonardo, SHANE NO ADDRESS ON FILE Morbid Obesity (CMS/HCC) Social History Tobacco Use Types Packs/Day Years Used Date Smoking Tobacco: Never Alcohol Use Standard Drinks/Week Comments No 0 (1 standard drink = 0.6 oz pur e alcohol) Comments No Sex and Gender Information Value Date Recorded Sex Assigned at Not on file Legal Sex Female 5:17 AM TUBE TURNER Gender Identity Not on file Sexual Orientation Not on file documented as of this encounter Plan of Treatment Not on file documented as of this encounter Results * XR FLUORO < 1 HOUR (09/16/2008 1:27 PM CDT) Anatomical Region Laterality Modality Computed Radiogr aphy Narrative 10/04/2012 8:41 AM CDT This exam has been autofinalized. Procedure Note Sgf Danie Wu, Radiologist, - 10/04/2012 This exam has been autofinalized. Liliane Leonardo GEOSPATIAL APPLICATIONS DEVELOPER DIAGNOSTIC IMAGING ORDERABLES Final Result documented in this encounter Visit Diagnoses Diagnosis Morbid obesity (CMS/HCC) Morbid obesity Morbid obesity (CMS/HCC) Morbid obesity documented in this encounter Additional Health Concerns Infection Onset Date Last Indicated Resolved Time R/O COVID-19 02/07/2020 02/07/2020 02/09/2020 2:46 AM TUBE TURNER COVID-19 02/07/2020 02/07/2020 03/08/2020 8:09 PM TUBE TURNER R/O COVID-19 03/13/2020 03/14/2020 03/14/2020 4:43 AM TUBE TURNER COVID-19 Comment:Positive in February. Retest for pre-procedure. 03/14/2020 03/14/2020 03/15/2020 9:[address] documented as of this encounter Care Teams Charge Aide Relationship Specialty Start Date End Date Cori You MD [address] [facility] [address] [place] [address] PCP - General Family Practice 10/10/14 documented as of this encounter
--- OUTSIDE RECORDS SUMMARY | 2024-10-09 00:56 | XMS_ITS | Encounter Summary ---
Author Organization [facility] Address [address] [place] [address] Care Team Providers Care Electric Welder Name Role Phone Cori You MD Primary Care Provider [phone] Encounter Details Date Type Department Care Team (Latest Contact Info) Description 06/27/1998 Outpatient Historical [facility] Medicine- [address] [phone] Herbert Hugo, NO ADDRESS ON FILE Other malaise and fatigue (Primary Dx); Dizziness and giddiness; Palpitations Social History Tobacco Use Types Packs/Day Years Used Date Smoking Tobacco: Never Assessed Comments Unknown Sex and Gender Information Value Date Recorded Sex Assigned at Not on file Legal Sex Female 5:17 AM SMALL ANIMAL VETERINARIAN Gender Identity Not on file Sexual Orientation Not on file documented as of this encounter Plan of Treatment Not on file documented as of this encounter Visit Diagnoses Diagnosis Other malaise and fatigue- Primary Dizziness and giddiness Palpitations documented in this encounter Additional Health Concerns Infection Onset Date Last Indicated Resolved Time R/O COVID-19 02/07/2020 02/07/2020 02/09/2020 2:46 AM SMALL ANIMAL VETERINARIAN COVID-19 02/07/2020 02/07/2020 03/08/2020 8:09 PM SMALL ANIMAL VETERINARIAN R/O COVID-19 03/13/2020 03/14/2020 03/14/2020 4:43 AM SMALL ANIMAL VETERINARIAN COVID-19 Comment:Positive in February. Retest for pre-procedure. 03/14/2020 03/14/2020 03/15/2020 9:16 AM Mindy CRUZ documented as of this encounter Care Teams Electric Welder Relationship Specialty Start Date End Date Cori You MD [address] [phone] PCP - General Family Practice 10/10/14 documented as of this encounter
--- OUTSIDE RECORDS SUMMARY | 2024-10-09 00:56 | XMS_ITS | Encounter Summary ---
Author Organization [facility] Address [address] [place] [address] Care Team Providers Care Die Maker Apprentice Name Role Phone Cori You MD Primary Care Provider [phone] Encounter Details Date Type Department Care Team (Late st Contact Info) Description 07/29/2008 Ancillary Orders [facility] Gen Spec Surg [address] [address] [facility] [address] [place] [address] Liliane Leonardo FNP NO ADDRESS ON FILE Social History Tobacco Use Types Packs/Day Years Used Date Smoking Tobacco: Never Assessed Comments No Sex and Gender Information Value Date Recorded Sex Assigned at Not on file Legal Sex Female 5:17 AM BELTING INSPECTOR Gender Identity Not on file Sexual Orientation Not on file documented as of this encounter Plan of Treatment Not on file documented as of this encounter Visit Diagnoses Not on filedocumented in this encounter Additional Health Concerns Infection Onset Date Last Indicated Resolved Time R/O COVID-19 02/07/2020 02/07/2020 02/09/2020 2:46 AM BELTING INSPECTOR COVID-19 02/07/2020 02/07/2020 03/08/2020 8:09 PM BELTING INSPECTOR R/O COVID-19 03/13/2020 03/14/2020 03/14/2020 4:43 AM BELTING INSPECTOR COVID-19 Comment:Positive in February. Retest for pre-procedure. 03/14/2020 03/14/2020 03/15/2020 9:[address] documented as of this encounter Care Teams Die Maker Apprentice Relationship Specialty Start Date End Date Cori You MD [address] [phone] PCP - General Family Practice 10/10/14 documented as of this encounter
--- OUTSIDE RECORDS SUMMARY | 2024-10-09 00:56 | XMS_ITS | Encounter Summary ---
Author Organization [facility] Address [address] [place] [address] Care Team Providers Care College Athletic Director Name Role Phone Cori You MD Primary Care Provider Encounter Details Date Type Department Care Team (Late st Contact Info) Description 03/30/2008 Outpatient Historical [facility] Cardiopulmonary Rehabilitation [address] [place] [address] Misael Aviles MD [address] [place] [phone] Social History Tobacco Use Types Packs/Day Years Used Date Smoking Tobacco: Never Assessed Comments No Sex and Gender Information Value Date Recorded Sex Assigned at Not on file Legal Sex Female 5:17 AM DIVE SUPERVISOR Gender Identity Not on file Sexual Orientation Not on file documented as of this encounter Plan of Treatment Not on file documented as of this encounter Visit Diagnoses Not on filedocumented in this encounter Additional Health Concerns Infection Onset Date Last Indicated Resolved Time R/O COVID-19 02/07/2020 02/07/2020 02/09/2020 2:46 AM DIVE SUPERVISOR COVID-19 02/07/2020 02/07/2020 03/08/2020 8:09 PM DIVE SUPERVISOR R/O COVID-19 03/13/2020 03/14/202003/14/2020 4:43 AM DIVE SUPERVISOR COVID-19 Comment:Positive in February. Retest for pre-procedure. 03/14/2020 03/14/2020 03/15/2020 9:16 AM C documented as of this encounter Care Teams College Athletic Director Relationship Specialty Start Date End Date Cori You MD [address] [phone] PCP - General Family Practice 10/10/14 documented as of this encounter
--- OUTSIDE RECORDS SUMMARY | 2024-10-09 00:56 | XMS_ITS | Encounter Summary ---
Author Organization [facility] Address [address] [place] [address] Care Team Providers Care Court Administrator Name Role Phone Cori You MD Primary Care Provider Encounter Details Date Type Department Care Team (Latest Contact Info) Description 12/23/1998 Outpatient Historical [facility] Mango Andujar MD [address] [place] [address] Acquired spondylolisthesis (Primary Dx); Pain in joint, lower leg Social History Tobacco Use Types Packs/Day Years Used Date Smoking Tobacco: Never Assessed Comments Unknown Sex and Gender Information Value Date Recorded Sex Assigned at Not on file Legal Sex Female 5:17 AM LEAD RAMP AGENT Gender Identity Not on file Sexual Orientation Not on file documented as of this encounter Plan of Treatment Not on file documented as of this encounter Visit Diagnoses Diagnosis Acquired spondylolisthesis- Primary Pain in joint, lower leg documented in this encounter Additional Health Concerns Infection Onset Date Last Indicated Resolved Time R/O COVID-19 02/07/2020 02/07/2020 02/09/2020 2:46 AM LEAD RAMP AGENT COVID-19 02/07/2020 02/07/2020 03/08/2020 8:09 PM LEAD RAMP AGENT R/O COVID-19 03/13/2020 03/14/2020 03/14/2020 4:43 AM LEAD RAMP AGENT COVID-19 Comment:Positive in February. Retest for pre-procedure. 03/14/2020 03/14/2020 03/15/2020 9:[address] documented as of this encounter Care Teams Court Administrator Relationship Specialty Start Date End Date Cori You MD [address] [phone] PCP - General Family Practice 10/10/14 documented as of this encounter
--- OUTSIDE RECORDS SUMMARY | 2024-10-09 00:56 | XMS_ITS | Encounter Summary ---
Author Organization [facility] Address [address] [place] [address] Care Team Providers Care Security Control Center Operator Name Role Phone Cori You MD Primary Care Provider Encounter Details Date Type Department Care Team (Latest Contact Info) Description 08/08/1998 Outpatient Historical [facility] Mango Andujar MD [address] [place] [address] Primary localized osteoarthrosis, lower leg (Primary Dx); Acquired spondylolisthesis Social History Tobacco Use Types Packs/Day Years Used Date Smoking Tobacco: Never Assessed Comments Unknown Sex and Gender Information Value Date Recorded Sex Assigned at Not on file Legal Sex Female 5:17 AM JIG AND FIXTURE BUILDER Gender Identity Not on file Sexual Orientation Not on file documented as of this encounter Plan of Treatment Not on file documented as of this encounter Visit Diagnoses Diagnosis Primary localized osteoarthrosis, lower leg- Primary Acquired spondylolisthesis documented in this encounter Additional Health Concerns Infection Onset Date Last Indicated Resolved Time R/O COVID-19 02/07/2020 02/07/2020 02/09/2020 2:46 AM JIG AND FIXTURE BUILDER COVID-19 02/07/2020 02/07/2020 03/08/2020 8:09 PM JIG AND FIXTURE BUILDER R/O COVID-19 03/13/2020 03/14/2020 03/14/2020 4:43 AM JIG AND FIXTURE BUILDER COVID-19 Comment:Positive in February. Retest for pre-procedure. 03/14/2020 03/14/2020 03/15/2020 9:[address] documented as of this encounter Care Teams Security Control Center Operator Relationship Specialty Start Date End Date Cori You MD [address] [phone] PCP - General Family Practice 10/10/14 documented as of this encounter
--- OUTSIDE RECORDS SUMMARY | 2024-10-09 00:56 | XMS_ITS | Encounter Summary ---
Author Organization [facility] Address [address] [place] [address] Care Team Providers Care Motion Picture Equipment Machinist Name Role Phone Cori You MD Primary Care Provider Encounter Details Date Type Department Care Team (Latest Contact Info) Description 01/15/1998 Outpatient Historical [facility] Medicine- [address] [phone] Trace Singleton MD [address] [phone] Need vaccination-viral disease (Primary Dx) Social History Tobacco Use Types Packs/Day Years Used Date Smoking Tobacco: Never Assessed Comments Unknown Sex and Gender Information Value Date Recorded Sex Assigned at Not on file Legal Sex Female 5:17 AM WORT EXTRACTOR Gender Identity Not on file Sexual Orientation [...] R/O COVID-19 02/07/2020 02/07/2020 02/09/2020 2:46 AM WORT EXTRACTOR COVID-19 02/07/2020 02/07/2020 03/08/2020 8:09 PM WORT EXTRACTOR R/O COVID-19 03/13/2020 03/14/2020 03/14/2020 4:43 AM WORT EXTRACTOR COVID-19 Comment:Positive in February. Retest for pre-procedure. 03/14/2020 03/14/2020 03/15/2020 9:[address] documented as of this encounter Care Teams Motion Picture Equipment Machinist Relationship Specialty Start Date End Date Cori You MD [address] [phone] PCP - General Family Practice 10/10/14 documented as of this encounter
--- OUTSIDE RECORDS SUMMARY | 2024-10-09 00:56 | XMS_ITS | Encounter Summary ---
Author Organization [facility] Address [address] [place] [address] Care Team Providers Care Network Operations Center Engineer Name Role Phone Cori You MD Primary Care Provider Encounter Details Date Type Department Care Team (Late st Contact Info) Description 07/29/2008 Ancillary Orders [facility] Imaging and Laboratory Services [address] [place] [address] Liliane Leonardo FNP NO ADDRESS ON FILE Morbid Obesity (CMS/HCC) Social History Tobacco Use Types Packs/Day Years Used Date Smoking Tobacco: Never Assessed Comments No Sex and Gender Information Value Date Recorded Sex Assigned at Not on file Legal Sex Female 5:17 AM MILL HAND PLATE MILL Gender Identity Not on file Sexual Orientation Not on file documented as of this encounter Plan of Treatment Not on file documented as of this encounter Results * XR FLUORO < 1 HOUR (07/30/2008 10:43 AM CDT) Anatomical Region Laterality Modality Computed Radiogr aphy Narrative 10/04/2012 8:39 AM CDT This exam has been autofinalized. Procedure Note Sgf Danie Wu, Radiologist, - 10/04/2012 This exam has been autofinalized. us Liliane L Leonardo TOOL PLANER SET UP OPERATOR DIAGNOSTIC IMAGING ORDERABLES Final Result documented in this encounter Visit Diagnoses Diagnosis Morbid obesity (CMS/HCC) Morbid obesity Morbid obesity (CMS/HCC) Morbid obesity documented in this encounter Additional Health Concerns Infection Onset Date Last Indicated Resolved Time R/O COVID-19 02/07/2020 02/07/2020 02/09/2020 2:46 AM MILL HAND PLATE MILL COVID-19 02/07/2020 02/07/2020 03/08/2020 8:09 PM MILL HAND PLATE MILL R/O COVID-19 03/13/2020 03/14/2020 03/14/2020 4:43 AM MILL HAND PLATE MILL COVID-19 Comment:Positive in February. Retest for pre-procedure. 03/14/2020 03/14/2020 03/15/2020 9:[address] documented as of this encounter Care Teams Network Operations Center Engineer Relationship Specialty Start Date End Date Cori You MD [address] [phone] PCP - General Family Practice 10/10/14 documented as of this encounter
--- OUTSIDE RECORDS SUMMARY | 2024-10-09 00:56 | XMS_ITS | Encounter Summary ---
Author Organization [facility] Address [address] [place] [address] Care Team Providers Care Scullion Chief Name Role Phone Cori You MD Primary Care Provider Encounter Details Date Type Department Care Team (Latest Contact Info) Description 09/04/1998 Outpatient Historical [facility] Medicine [address] [place] [address] Soledad Myers NO ADDRESS ON FILE Abdominal pain, unspecified site (Primary Dx); Hematuria Social History Tobacco Use Types Packs/Day Years Used Date Smoking Tobacco: Never Assessed Comments Unknown Sex and Gender Information Value Date Recorded Sex Assigned at Not on file Legal Sex Female 5:17 AM MASTER COASTWISE YACHT Gender Identity Not on file Sexual Orientation Not on file documented as of this encounter Plan of Treatment Not on file documented as of this encounter Visit Diagnoses Diagnosis Abdominal pain, unspecified site- Primary Hematuria documented in this encounter Additional Health Concerns Infection Onset Date Last Indicated Resolved Time R/O COVID-19 02/07/2020 02/07/2020 02/09/2020 2:46 AM MASTER COASTWISE YACHT COVID-19 02/07/2020 02/07/2020 03/08/2020 8:09 PM MASTER COASTWISE YACHT R/O COVID-19 03/13/2020 03/14/2020 03/14/2020 4:43 AM MASTER COASTWISE YACHT COVID-19 Comment:Positive in February. Retest for pre-procedure. 03/14/2020 03/14/2020 03/15/2020 9:[address] documented as of this encounter Care Teams Scullion Chief Relationship Specialty Start Date End Date Cori You MD [address] [phone] PCP - General Family Practice 10/10/14 documented as of this encounter
--- OUTSIDE RECORDS SUMMARY | 2024-10-09 00:56 | XMS_ITS | Encounter Summary ---
Author Organization [facility] Address [address] [place] [address] Care Team Providers Care Tourist Escort Name Role Phone Chun Arshad MD Primary Care Provider [phone] Encounter Details Date Type Department Care Team (Late st Contact Info) Description 03/18/2022 Lab Requisition [facility] Laboratory Services [place] [address] [address] Laila Molina, [facility] [address] [place] [phone] Social History Tobacco Use Types Packs/Day Years Used Date Smoking Tobacco: Never Smokeless Tobacco: Never Alcohol Use Standard Drinks/Week Comments No 0 (1 standard drink = 0.6 oz pur e alcohol) Financial Resource Strain Answer Date R ecorded How hard is it for you to pa y for the very basics like food, housing, medical care, and heating? Not hard at all 09/01/2021 Food Insecurity Answer Date Recorded In the past 12 months, have you worried that your food would run out before you had money to buy more? Never true 09/01/2021 In the past 12 months, did y ou run out of food and didn't have money to buy more? Never true 09/01/2021 Transportation Needs Answer Date Record ed In the past 12 months, has l ack of transportation kept you from medical appointments or from getting medications? No 09/01/2021 Lack of Transportation (Non-Medical) Not on file 09/01/2021 Comments No Sex and Gender Information Value Date Recorded Sex Assigned at Not on file Legal Sex Female 12:22 AM PRICING ASSOCIATE Gender Identity Not on file Sexual Orientation Not on file COVID-19 Exposure Response Date Recorded In the last 10 days, have yo u been in contact with someone who was confirmed or suspected to have Coronavirus/COVID-19? No / Unsure 03/18/2022 12:51 PM PRICING ASSOCIATE documented as of this encounter Plan of Treatment Upcoming Encounters Date Type Department Care Team (Late st Contact Info) Description 10/19/2024 1:00 PM CDT Office Visit [facility] [place] [address] [address] Maddi Zuniga, STRUCTURAL LAYOUT WORKER [address] [address] 10/24/2024 2:00 PM CDT Ancillary Procedure [facility] [place] [address] [place] [address] Zay Connor NP [address] [place] [address] 10/24/2024 3:00 PM CDT Office Visit [facility] [place] [address] [place] [address] Zay Connor NP [address] [place] [address] 11/13/2024 1:20 PM CDT Office Visit [facility] Cardiology [facility] [address] [place] [address] Melia Causey MD [address] [place] [address] [place] Major PA [address] [place] [address] 11/13/2024 1:30 PM CDT Procedure visit [facility] [address] [place] [address] Melia Causey MD [address] [place] [address] 11/27/2024 10:20 AM CDT Office Visit [facility] [place] [address] [address] Chun Arshad MD [address] [address] 12/28/2024 10:45 AM CDT Office Visit [facility] [address] [address] Sera Littlejohn, STRUCTURAL LAYOUT WORKER [address] [address] 02/11/2025 8:00 AM PRICING ASSOCIATE Procedure visit [facility] [address] [place] [address] Melia Causey MD [address] [place] [address] documented as of this encounter Procedures Procedure Name Priority Date/Time Associated Diagnosis Comments CBC WITH DIFFERENTIAL Stat 03/18/2022 1:38 PM PRICING ASSOCIATE BRAIN NATRIURETIC PEPTIDE, BNP OR PROBNP Stat 03/18/2022 1:38 PM PRICING ASSOCIATE documented in this encounter Results * BRAIN NATRIURETIC PEPTIDE, BNP OR PROBNP (03/18/2022 1:38 PM PRICING ASSOCIATE) Pathologist [facility] PROBNP, N TERMINAL 278 0 - 450 pg/mL 03/18/2022 1:57 PM [facility] Blood Venipuncture / Unknown 03/18/2022 1:38 PM PRICING ASSOCIATE 03/18/2022 1:39 PM PRICING ASSOCIATE Laila Molina STRUCTURAL LAYOUT WORKER CHEMISTRY ORDERABLES Fin al Result [facility] CLIA # [id number] [address] [place] [id number] * (ABNORMAL) CBC WITH DIFFERENTIAL (03/18/2022 1:38 PM PRICING ASSOCIATE) [facility] WBC 4.2 4.0 - 10.0 K/uL 03/18/2022 1:53 PM [facility] RBC 3.99 3.93 - 5.22 M/uL 03/18/2022 1:53 PM [facility] HEMOGLOBIN 11.3 11.2 - 15.7 g/dL 03/18/2022 1:53 PM [facility] HEMATOCRIT 35.4 34.1 - 44.9 % 03/18/2022 1:53 PM [facility] MCV 88.7 79.4 - 94.8 fL 03/18/2022 1:53 PM [facility] MCH 28.3 25.6 - 32.2 pg 03/18/2022 1:53 PM [facility] MCHC 31.9(L) 32.2 - 35.5 g/dL 03/18/2022 1:53 PM [facility] RDW 18.3(H) 11.0 - 14.5 % 03/18/2022 1:53 PM [facility] RDW-STDEV 59.6(H) 36.9 - 56.9 fL 03/18/2022 1:53 PM [facility] PLATELETS 163 163 - 337 K/uL 03/18/2022 1:53 PM [facility] MPV 9.7(L) 10.0 - 14.8 fL 03/18/2022 1:53 PM [facility] NEUTROPHILS 39 34 - 71 % 03/18/2022 1:53 PM [facility] LYMPHOCYTES 48 19 - 52 % 03/18/2022 1:53 PM [facility] MONOCYTES 9 5 - 13 % 03/18/2022 1:53 PM [facility] EOSINOPHILS 2 1 - 6 % 03/18/2022 1:53 PM [facility] BASOPHILS 1 0 - 1 % 03/18/2022 1:53 PM [facility] IMMATURE GRANULOCYTES 1 % 03/18/2022 1:53 PM [facility] NEUTROPHIL ABSOLUTE 1.62 1.56 - 6.13 K/uL 03/18/2022 1:53 PM [facility] LYMPHOCYTE ABSOLUTE 2.01 1.20 - 3.40 K/uL 03/18/2022 1:53 PM [facility] MONOCYTE ABSOLUTE 0.36 0.24 - 0.36 K/uL 03/18/2022 1:53 PM [facility] EOSINOPHIL ABSOLUTE 0.10 0.04 - 0.36 K/uL 03/18/2022 1:53 PM [facility] BASOPHILS ABSOLUTE 0.05 0.01 - 0.08 K/uL 03/18/2022 1:53 PM [facility] IMMATURE GRANULOCYTES ABSOLUTE 0.02 K/uL 03/18/2022 1:53 PM [facility] Blood Venipuncture / Unknown 03/18/2022 1:38 PM PRICING ASSOCIATE 03/18/2022 1:39 PM PRICING ASSOCIATE us Laila Molina STRUCTURAL LAYOUT WORKER HEMATOLOGY ORDERABLES Fi nal Result [facility] CLIA # [id number] [address] [place] [id number] documented in this encounter Visit Diagnoses Not on filedocumented in this encounter Care Teams Tourist Escort Relationship Specialty Start Date End Date Chun Arshad MD [address] [phone] PCP - General Family Practice 03/18/21 documented as of this encounter
--- OUTSIDE RECORDS SUMMARY | 2024-10-09 00:57 | XMS_ITS | Encounter Summary ---
Author Organization [facility] Address [address] [place] [address] Care Team Providers Care Operations Manager Name Role Phone Cori You MD Primary Care Provider [phone] Encounter Details Date Type Department Care Team (Latest Contact Info) Description 06/09/2004 Outpatient Historical [facility] Medicine- [address] [phone] Trace Singleton MD [address] [phone] CHRONIC SINUSITIS NOS (Primary Dx) Social History Tobacco Use Types Packs/Day Years Used Date Smoking Tobacco: Never Assessed Comments Unknown Sex and Gender Information Value Date Recorded Sex Assigned at Not on file Legal Sex Female 5:17 AM ORACLE FUSION DEVELOPER Gender Identity Not on file Sexual Orientation Not on file documented as of this encounter Plan of Treatment Not on file documented as of this encounter Visit Diagnoses Diagnosis Unspecified sinusitis (chronic)- Primary documented in this encounter Additional Health Concerns Infection Onset Date Last Indicated Resolved Time R/O COVID-19 02/07/2020 02/07/2020 02/09/2020 2:46 AM ORACLE FUSION DEVELOPER COVID-19 02/07/2020 02/07/2020 03/08/2020 8:09 PM ORACLE FUSION DEVELOPER R/O COVID-19 03/13/2020 03/14/2020 03/14/2020 4:43 AM ORACLE FUSION DEVELOPER COVID-19 Comment:Positive in February. Retest for pre-procedure. 03/14/2020 03/14/2020 03/15/2020 9:16 AM Mindy CRUZ documented as of this encounter Care Teams Operations Manager Relationship Specialty Start Date End Date Cori You MD [address] [address] PCP - General Family Practice 10/10/14 documented as of this encounter
--- OUTSIDE RECORDS SUMMARY | 2024-10-09 00:57 | XMS_ITS | Encounter Summary ---
Author Organization [facility] Address [address] [place] [address] Care Team Providers Care Clinical Nursing Manager Name Role Phone Cori You MD Primary Care Provider Encounter Details Date Type Department Care Team (Latest Contact Info) Description 05/05/2004 Outpatient Historical [facility] Ear, Nose and Throat [address] [place] [address] George Wilkerson MD NO ADDRESS ON FILE DEVIATED NASAL SEPTUM (Primary Dx); Hypertrph nasal turbinat; CHRONIC RHINITIS Social History Tobacco Use Types Packs/Day Years Used Date Smoking Tobacco: Never Assessed Comments Unknown Sex and Gender Information Value Date Recorded Sex Assigned at Not on file Legal Sex Female 5:17 AM VALVE REPAIRER Gender Identity Not on file Sexual Orientation Not on file documented as of this encounter Plan of Treatment Not on file documented as of this encounter Visit Diagnoses Diagnosis Deviated nasal septum- Primary Hypertrph nasal turbinat Hypertrophy of nasal turbinates Chronic rhinitis documented in this encounter Additional Health Concerns Infection Onset Date Last Indicated Resolved Time R/O COVID-19 02/07/2020 02/07/2020 02/09/2020 2:46 AM VALVE REPAIRER COVID-19 02/07/2020 02/07/2020 03/08/2020 8:09 PM VALVE REPAIRER R/O COVID-19 03/13/2020 03/14/2020 03/14/2020 4:43 AM VALVE REPAIRER COVID-19 Comment:Positive in February. Retest for pre-procedure. 03/14/2020 03/14/2020 03/15/2020 9:[address] documented as of this encounter Care Teams Clinical Nursing Manager Relationship Specialty Start Date End Date Cori You MD [address] [address] PCP - General Family Practice 10/10/14 documented as of this encounter
--- OUTSIDE RECORDS SUMMARY | 2024-10-09 00:57 | XMS_ITS | Encounter Summary ---
Author Organization [facility] Address [address] [place] [address] Care Team Providers Care Rotary Surface Grinder Name Role Phone Cori You MD Primary Care Provider Encounter Details Date Type Department Care Team (Latest Contact Info) Description 05/11/2006 Outpatient Historical [facility] [address] [phone] Lev Pena PA NO ADDRESS ON FILE Unspecified Sinusitis (Chronic) (Primary Dx) Social History Tobacco Use Types Packs/Day Years Used Date Smoking Tobacco: Never Assessed Comments Unknown Sex and Gender Information Value Date Recorded Sex Assigned at Not on file Legal Sex Female 5:17 AM INSURANCE HEALTHCARE CONSULTANT Gender Identity Not on file Sexual Orientation Not on file documented as of this encounter Plan of Treatment Not on file documented as of this encounter Visit Diagnoses Diagnosis Unspecified sinusitis (chronic)- Primary documented in this encounter Additional Health Concerns Infection Onset Date Last Indicated Resolved Time R/O COVID-19 02/07/2020 02/07/2020 02/09/2020 2:46 AM INSURANCE HEALTHCARE CONSULTANT COVID-19 02/07/2020 02/07/2020 03/08/2020 8:09 PM INSURANCE HEALTHCARE CONSULTANT R/O COVID-19 03/13/2020 03/14/2020 03/14/2020 4:43 AM INSURANCE HEALTHCARE CONSULTANT COVID-19 Comment:Positive in February. Retest for pre-procedure. 03/14/2020 03/14/2020 03/15/2020 9:[address] documented as of this encounter Care Teams Rotary Surface Grinder Relationship Specialty Start Date End Date Cori You MD [address] [phone] PCP - General Family Practice 10/10/14 documented as of this encounter
--- OUTSIDE RECORDS SUMMARY | 2024-10-09 00:57 | XMS_ITS | Encounter Summary ---
Author Organization [facility] Address [address] [place] [address] Care Team Providers Care Back Hoe Machine Operator Name Role Phone Cori You MD Primary Care Provider Encounter Details Date Type Department Care Team (Latest Contact Info) Description 01/28/2004 Outpatient Historical [facility] Medicine- [address] [phone] Herbert Hugo, NO ADDRESS ON FILE ACUTE SINUSITIS NOS (Primary Dx); ACUTE BRONCHITIS Social History Tobacco Use Types Packs/Day Years Used Date Smoking Tobacco: Never Assessed Comments Unknown Sex and Gender Information Value Date Recorded Sex Assigned at Not on file Legal Sex Female 5:17 AM CYTOGENETIC TECHNOLOGIST Gender Identity Not on file Sexual Orientation Not on file documented as of this encounter Plan of Treatment Not on file documented as of this encounter Visit Diagnoses Diagnosis Acute sinusitis, unspecified- Primary Acute bronchitis documented in this encounter Additional Health Concerns Infection Onset Date Last Indicated Resolved Time R/O COVID-19 02/07/2020 02/07/2020 02/09/2020 2:46 AM CYTOGENETIC TECHNOLOGIST COVID-19 02/07/2020 02/07/2020 03/08/2020 8:09 PM CYTOGENETIC TECHNOLOGIST R/O COVID-19 03/13/2020 03/14/2020 03/14/2020 4:43 AM CYTOGENETIC TECHNOLOGIST COVID-19 Comment:Positive in February. Retest for pre-procedure. 03/14/2020 03/14/2020 03/15/2020 9:[address] documented as of this encounter Care Teams Back Hoe Machine Operator Relationship Specialty Start Date End Date Cori You MD [address] [phone] PCP - General Family Practice 10/10/14 documented as of this encounter
--- OUTSIDE RECORDS SUMMARY | 2024-10-09 00:57 | XMS_ITS | Encounter Summary ---
Author Organization [facility] Address [address] [place] [address] Care Team Providers Care Wool Hat Hydraulicker Name Role Phone Cori You MD Primary Care Provider Encounter Details Date Type Department Care Team (Latest Contact Info) Description 05/05/2004 Outpatient Historical [facility] [place] [address] [place] [address] George Wilkerson MD NO ADDRESS ON FILE CHRONIC SINUSITIS NOS (Primary Dx) Social History Tobacco Use Types Packs/Day Years Used Date Smoking Tobacco: Never Assessed Comments Unknown Sex and Gender Information Value Date Recorded Sex Assigned at Not on file Legal Sex Female 5:17 AM APPLICATION DEVELOPMENT SPECIALIST Gender Identity Not on file Sexual Orientation Not on file documented as of this encounter Plan of Treatment Not on file documented as of this encounter Visit Diagnoses Diagnosis Unspecified sinusitis (chronic)- Primary documented in this encounter Additional Health Concerns Infection Onset Date Last Indicated Resolved Time R/O COVID-19 02/07/2020 02/07/2020 02/09/2020 2:46 AM APPLICATION DEVELOPMENT SPECIALIST COVID-19 02/07/2020 02/07/2020 03/08/2020 8:09 PM APPLICATION DEVELOPMENT SPECIALIST R/O COVID-19 03/13/2020 03/14/2020 03/14/2020 4:43 AM APPLICATION DEVELOPMENT SPECIALIST COVID-19 Comment:Positive in February. Retest for pre-procedure. 03/14/2020 03/14/2020 03/15/2020 9:[address] documented as of this encounter Care Teams Wool Hat Hydraulicker Relationship Specialty Start Date End Date Cori You MD [address] [phone] PCP - General Family Practice 10/10/14 documented as of this encounter
--- OUTSIDE RECORDS SUMMARY | 2024-10-09 00:57 | XMS_ITS | Encounter Summary ---
Author Organization [facility] Address [address] [place] [address] Care Team Providers Care Slinger Sequins Name Role Phone Cori You MD Primary Care Provider Encounter Details Date Type Department Care Team (Latest Contact Info) Description 07/11/2001 Outpatient Historical [facility] Medicine- [address] [phone] Trace Singleton MD [address] [phone] ALLERGY, UNSPECIFIED (Primary Dx) Social History Tobacco Use Types Packs/Day Years Used Date Smoking Tobacco: Never Assessed Comments Unknown Sex and Gender Information Value Date Recorded Sex Assigned at Not on file Legal Sex Female 5:17 AM EMERGENCY PREPAREDNESS MANAGER Gender Identity Not on file Sexual Orientation Not on file documented as of this encounter Plan of Treatment Not on file documented as of this encounter Visit Diagnoses Diagnosis Allergy, unspecified not elsewhere classified- Primary documented in this encounter Additional Health Concerns Infection Onset Date Last Indicated Resolved Time R/O COVID-19 02/07/2020 02/07/2020 02/09/2020 2:46 AM EMERGENCY PREPAREDNESS MANAGER COVID-19 02/07/2020 02/07/2020 03/08/2020 8:09 PM EMERGENCY PREPAREDNESS MANAGER R/O COVID-19 03/13/2020 03/14/2020 03/14/2020 4:43 AM EMERGENCY PREPAREDNESS MANAGER COVID-19 Comment:Positive in February. Retest for pre-procedure. 03/14/2020 03/14/2020 03/15/2020 9:16 AM Mindy CRUZ documented as of this encounter Care Teams Slinger Sequins Relationship Specialty Start Date End Date Cori oYu MD [address] [phone] PCP - General Family Practice 10/10/14 documented as of this encounter
--- OUTSIDE RECORDS SUMMARY | 2024-10-09 00:57 | XMS_ITS | Encounter Summary ---
Author Organization [facility] Address [address] [place] [address] Care Team Providers Care Online Marketer Name Role Phone Cori You MD Primary Care Provider Encounter Details Date Type Department Care Team (Latest Contact Info) Description 08/27/2003 Outpatient Historical [facility] Medicine- [address] [phone] Trace Singleton MD [address] [phone] URIN TRACT INFECTION NOS (Primary Dx) Social History Tobacco Use Types Packs/Day Years Used Date Smoking Tobacco: Never Assessed Comments Unknown Sex and Gender Information Value Date Recorded Sex Assigned at Not on file Legal Sex Female 5:17 AM HAMMER REPAIRER Gender Identity Not on file Sexual Orientation Not on file documented as of this encounter Plan of Treatment Not on file documented as of this encounter Visit Diagnoses Diagnosis Urinary tract infection, site not specified- Primary documented in this encounter Additional Health Concerns Infection Onset Date Last Indicated Resolved Time R/O COVID-19 02/07/2020 02/07/2020 02/09/2020 2:46 AM HAMMER REPAIRER COVID-19 02/07/2020 02/07/2020 03/08/2020 8:09 PM HAMMER REPAIRER R/O COVID-19 03/13/2020 03/14/2020 03/14/2020 4:43 AM HAMMER REPAIRER COVID-19 Comment:Positive in February. Retest for pre-procedure. 03/14/2020 03/14/2020 03/15/2020 9:16 AM Mindy CRUZ documented as of this encounter Care Teams Online Marketer Relationship Specialty Start Date End Date Cori You MD [address] [phone] PCP - General Family Practice 10/10/14 documented as of this encounter
--- OUTSIDE RECORDS SUMMARY | 2024-10-09 00:57 | XMS_ITS | Encounter Summary ---
Author Organization [facility] Address [address] [place] [address] Care Team Providers Care Tool Programmer Name Role Phone Cori You MD Primary Care Provider Encounter Details Date Type Department Care Team (Latest Contact Info) Description 04/10/2004 Outpatient Historical [facility] Ear, Nose and Throat [address] [place] [address] George Wilkerson MD NO ADDRESS ON FILE CHRONIC SINUSITIS NOS (Primary Dx); Hypertrph nasal turbinat; ESOPHAGEAL REFLUX; HYPERSOMNI W SLEEP APNEA Social History Tobacco Use Types Packs/Day Years Used Date Smoking Tobacco: Never Assessed Comments Unknown Sex and Gender Information Value Date Recorded Sex Assigned at Not on file Legal Sex Female 5:17 AM GRAINING MACHINE OPERATOR Gender Identity Not on file Sexual Orientation Not on file documented as of this encounter Plan of Treatment Not on file documented as of this encounter Visit Diagnoses Diagnosis Unspecified sinusitis (chronic)- Primary Hypertrph nasal turbinat Hypertrophy of nasal turbinates Esophageal reflux Hypersomnia with sleep apnea, unspecified documented in this encounter Additional Health Concerns Infection Onset Date Last Indicated Resolved Time R/O COVID-19 02/07/2020 02/07/2020 02/09/2020 2:46 AM GRAINING MACHINE OPERATOR COVID-19 02/07/2020 02/07/2020 03/08/2020 8:09 PM GRAINING MACHINE OPERATOR R/O COVID-19 03/13/2020 03/14/2020 03/14/2020 4:43 AM GRAINING MACHINE OPERATOR COVID-19 Comment:Positive in February. Retest for pre-procedure. 03/14/2020 03/14/2020 03/15/2020 9:[address] documented as of this encounter Care Teams Tool Programmer Relationship Specialty Start Date End Date Cori You MD [address] [phone] PCP - General Family Practice 10/10/14 documented as of this encounter
--- OUTSIDE RECORDS SUMMARY | 2024-10-09 00:57 | XMS_ITS | Encounter Summary ---
Author Organization [facility] Address [address] [place] [address] Care Team Providers Care Graining Press Operator Name Role Phone Cori You MD Primary Care Provider Encounter Details Date Type Department Care Team (Latest Contact Info) Description 07/26/2001 Outpatient Historical [facility] Medicine- [address] [phone] Trace Singleton MD [address] [phone] ALLERGY, UNSPECIFIED (Primary Dx) Social History Tobacco Use Types Packs/Day Years Used Date Smoking Tobacco: Never Assessed Comments Unknown Sex and Gender Information Value Date Recorded Sex Assigned at Not on file Legal Sex Female 5:17 AM BLAST FURNACE OPERATOR Gender Identity Not on file Sexual Orientation Not on file documented as of this encounter Plan of Treatment Not on file documented as of this encounter Visit Diagnoses Diagnosis Allergy, unspecified not elsewhere classified- Primary documented in this encounter Additional Health Concerns Infection Onset Date Last Indicated Resolved Time R/O COVID-19 02/07/2020 02/07/2020 02/09/2020 2:46 AM BLAST FURNACE OPERATOR COVID-19 02/07/2020 02/07/2020 03/08/2020 8:09 PM BLAST FURNACE OPERATOR R/O COVID-19 03/13/2020 03/14/2020 03/14/2020 4:43 AM BLAST FURNACE OPERATOR COVID-19 Comment:Positive in February. Retest for pre-procedure. 03/14/2020 03/14/2020 03/15/2020 9:16 AM Mindy CRUZ documented as of this encounter Care Teams Graining Press Operator Relationship Specialty Start Date End Date Cori You MD [address] [phone] PCP - General Family Practice 10/10/14 documented as of this encounter
--- OUTSIDE RECORDS SUMMARY | 2024-10-09 00:57 | XMS_ITS | Encounter Summary ---
Author Organization [facility] Address [address] [place] [address] Care Team Providers Care Gas Pumping Station Operator Name Role Phone Cori You MD Primary Care Provider Encounter Details Date Type Department Care Team (Late st Contact Info) Description 06/26/2008 Ancillary Orders [facility] Imaging and Laboratory Services [address] [place] [address] Liliane Leonardo FNP NO ADDRESS ON FILE Morbid Obesity (CMS/HCC) Social History Tobacco Use Types Packs/Day Years Used Date Smoking Tobacco: Never Assessed Comments No Sex and Gender Information Value Date Recorded Sex Assigned at Not on file Legal Sex Female 5:17 AM SHREDDER TENDER Gender Identity Not on file Sexual Orientation Not on file documented as of this encounter Plan of Treatment Not on file documented as of this encounter Results * XR FLUORO < 1 HOUR (06/27/2008 2:28 PM CDT) Anatomical Region Laterality Modality Computed Radiogr aphy Narrative 10/04/2012 8:38 AM CDT This exam has been autofinalized. Procedure Note Sgf Danie Wu, Radiologist, - 10/04/2012 This exam has been autofinalized. us Liliane L Leonardo COMMERCIAL LOAN REVIEWER DIAGNOSTIC IMAGING ORDERABLES Final Result documented in this encounter Visit Diagnoses Diagnosis Morbid obesity (CMS/HCC) Morbid obesity Morbid obesity (CMS/HCC) Morbid obesity documented in this encounter Additional Health Concerns Infection Onset Date Last Indicated Resolved Time R/O COVID-19 02/07/2020 02/07/2020 02/09/2020 2:46 AM SHREDDER TENDER COVID-19 02/07/2020 02/07/2020 03/08/2020 8:09 PM SHREDDER TENDER R/O COVID-19 03/13/2020 03/14/2020 03/14/2020 4:43 AM SHREDDER TENDER COVID-19 Comment:Positive in February. Retest for pre-procedure. 03/14/2020 03/14/2020 03/15/2020 9:[address] documented as of this encounter Care Teams Gas Pumping Station Operator Relationship Specialty Start Date End Date Cori You MD [address] [phone] PCP - General Family Practice 10/10/14 documented as of this encounter
--- OUTSIDE RECORDS SUMMARY | 2024-10-09 00:57 | XMS_ITS | Encounter Summary ---
Author Organization [facility] Address [address] [place] [address] Care Team Providers Care Compressor Assembler Name Role Phone Cori You MD Primary Care Provider Encounter Details Date Type Department Care Team (Latest Contact Info) Description 11/21/2001 Outpatient Historical [facility] Medicine- [address] [phone] Trace Singleton MD [address] [phone] ALLERGY, UNSPECIFIED (Primary Dx) Social History Tobacco Use Types Packs/Day Years Used Date Smoking Tobacco: Never Assessed Comments Unknown Sex and Gender Information Value Date Recorded Sex Assigned at Not on file Legal Sex Female 5:17 AM FULLING MILL OPERATOR Gender Identity Not on file Sexual Orientation Not on file documented as of this encounter Plan of Treatment Not on file documented as of this encounter Visit Diagnoses Diagnosis Allergy, unspecified not elsewhere classified- Primary documented in this encounter Additional Health Concerns Infection Onset Date Last Indicated Resolved Time R/O COVID-19 02/07/2020 02/07/2020 02/09/2020 2:46 AM FULLING MILL OPERATOR COVID-19 02/07/2020 02/07/2020 03/08/2020 8:09 PM FULLING MILL OPERATOR R/O COVID-19 03/13/2020 03/14/2020 03/14/2020 4:43 AM FULLING MILL OPERATOR COVID-19 Comment:Positive in February. Retest for pre-procedure. 03/14/2020 03/14/2020 03/15/2020 9:16 AM Mindy CRUZ documented as of this encounter Care Teams Compressor Assembler Relationship Specialty Start Date End Date Cori You MD [address] [phone] PCP - General Family Practice 10/10/14 documented as of this encounter
--- OUTSIDE RECORDS SUMMARY | 2024-10-09 00:57 | XMS_ITS | Encounter Summary ---
Author Organization [facility] Address [address] [place] [address] Care Team Providers Care Animal Ride Manager Name Role Phone Cori You MD Primary Care Provider Encounter Details Date Type Department Care Team (Latest Contact Info) Description 09/23/2006 Outpatient Historical [facility] [address] [phone] Lev Pena PA NO ADDRESS ON FILE Unspecified Chest Pain (Primary Dx); Other Malaise and Fatigue Social History Tobacco Use Types Packs/Day Years Used Date Smoking Tobacco: Never Assessed Comments Unknown Sex and Gender Information Value Date Recorded Sex Assigned at Not on file Legal Sex Female 5:17 AM SOCIAL WORKER PALLIATIVE CARE Gender Identity Not on file Sexual Orientation Not on file documented as of this encounter Plan of Treatment Not on file documented as of this encounter Visit Diagnoses Diagnosis Chest pain, unspecified- Primary Other malaise and fatigue documented in this encounter Additional Health Concerns Infection Onset Date Last Indicated Resolved Time R/O COVID-19 02/07/2020 02/07/2020 02/09/2020 2:46 AM SOCIAL WORKER PALLIATIVE CARE COVID-19 02/07/2020 02/07/2020 03/08/2020 8:09 PM SOCIAL WORKER PALLIATIVE CARE R/O COVID-19 03/13/2020 03/14/2020 03/14/2020 4:43 AM SOCIAL WORKER PALLIATIVE CARE COVID-19 Comment:Positive in February. Retest for pre-procedure. 03/14/2020 03/14/2020 03/15/2020 9:16 AM Mindy CRUZ documented as of this encounter Care Teams Animal Ride Manager Relationship Specialty Start Date End Date Cori You MD [address] [phone] PCP - General Family Practice 10/10/14 documented as of this encounter
--- OUTSIDE RECORDS SUMMARY | 2024-10-09 00:57 | XMS_ITS | Encounter Summary ---
Author Organization [facility] Address [address] [place] [address] Care Team Providers Care Cylinder Dyer Name Role Phone Cori You MD Primary Care Provider Encounter Details Date Type Department Care Team (Latest Contact Info) Description 10/03/2003 Outpatient Historical [facility] [address] [facility] [address] [place] [address] Cristina Collazo MD NO ADDRESS ON FILE SCREENING MAMM-MAILG NEOPL-OTHER (Primary Dx) Social History Tobacco Use Types Packs/Day Years Used Date Smoking Tobacco: Never Assessed Comments Unknown Sex and Gender Information Value Date Recorded Sex Assigned at Not on file Legal Sex Female 5:17 AM SALES REPRESENTATIVE WIRE ROPE Gender Identity Not on file Sexual Orientation Not on file documented as of this encounter Plan of Treatment Not on file documented as of this encounter Visit Diagnoses Diagnosis Other screening mammogram- Primary documented in this encounter Additional Health Concerns Infection Onset Date Last Indicated Resolved Time R/O COVID-19 02/07/2020 02/07/2020 02/09/2020 2:46 AM SALES REPRESENTATIVE WIRE ROPE COVID-19 02/07/2020 02/07/2020 03/08/2020 8:09 PM SALES REPRESENTATIVE WIRE ROPE R/O COVID-19 03/13/2020 03/14/2020 03/14/2020 4:43 AM SALES REPRESENTATIVE WIRE ROPE COVID-19 Comment:Positive in February. Retest for pre-procedure. 03/14/2020 03/14/2020 03/15/2020 9:[address] documented as of this encounter Care Teams Cylinder Dyer Relationship Specialty Start Date End Date Cori You MD [address] [phone] PCP - General Family Practice 10/10/14 documented as of this encounter
--- OUTSIDE RECORDS SUMMARY | 2024-10-09 00:57 | XMS_ITS | Encounter Summary ---
Author Organization [facility] Address [address] [place] [address] Care Team Providers Care Senior Product Manager Name Role Phone Cori You MD Primary Care Provider Encounter Details Date Type Department Care Team (Latest Contact Info) Description 10/28/2003 Outpatient Historical [facility] Rheumatology- [facility] [address] [place] [address] Silvana Lee MD NO ADDRESS ON FILE RHEUMATISM NOS (Primary Dx); GENERAL OSTEOARTHROSIS Social History Tobacco Use Types Packs/Day Years Used Date Smoking Tobacco: Never Assessed Comments Unknown Sex and Gender Information Value Date Recorded Sex Assigned at Not on file Legal Sex Female 5:17 AM MIDDLE SCHOOL SPANISH TEACHER Gender Identity Not on file Sexual Orientation Not on file documented as of this encounter Plan of Treatment Not on file documented as of this encounter Visit Diagnoses Diagnosis Rheumatism, unspecified and fibrositis- Primary Generalized osteoarthrosis, involving multiple sites documented in this encounter Additional Health Concerns Infection Onset Date Last Indicated Resolved Time R/O COVID-19 02/07/2020 02/07/2020 02/09/2020 2:46 AM MIDDLE SCHOOL SPANISH TEACHER COVID-19 02/07/2020 02/07/2020 03/08/2020 8:09 PM MIDDLE SCHOOL SPANISH TEACHER R/O COVID-19 03/13/2020 03/14/2020 03/14/2020 4:43 AM MIDDLE SCHOOL SPANISH TEACHER COVID-19 Comment:Positive in February. Retest for pre-procedure. 03/14/2020 03/14/2020 03/15/2020 9:[address] documented as of this encounter Care Teams Senior Product Manager Relationship Specialty Start Date End Date Cori You MD [address] [phone] PCP - General Family Practice 10/10/14 documented as of this encounter
--- OUTSIDE RECORDS SUMMARY | 2024-10-09 00:57 | XMS_ITS | Encounter Summary ---
Author Organization [facility] Address [address] [place] [address] Care Team Providers Care Law Enforcement Instructor Name Role Phone Cori You MD Primary Care Provider Encounter Details Date Type Department Care Team (Latest Contact Info) Description 12/24/2004 Outpatient Historical [facility] Operating Room [address] [place] [address] George Wilkerson MD NO ADDRESS ON FILE DEVIATED NASAL SEPTUM (Primary Dx) Social History Tobacco Use Types Packs/Day Years Used Date Smoking Tobacco: Never Assessed Comments Unknown Sex and Gender Information Value Date Recorded Sex Assigned at Not on file Legal Sex Female 5:17 AM LOW ALTITUDE AIR DEFENSE OFFICER Gender Identity Not on file Sexual Orientation Not on file documented as of this encounter Plan of Treatment Not on file documented as of this encounter Visit Diagnoses Diagnosis Deviated nasal septum- Primary documented in this encounter Additional Health Concerns Infection Onset Date Last Indicated Resolved Time R/O COVID-19 02/07/2020 02/07/2020 02/09/2020 2:46 AM LOW ALTITUDE AIR DEFENSE OFFICER COVID-19 02/07/2020 02/07/2020 03/08/2020 8:09 PM LOW ALTITUDE AIR DEFENSE OFFICER R/O COVID-19 03/13/2020 03/14/2020 03/14/2020 4:43 AM LOW ALTITUDE AIR DEFENSE OFFICER COVID-19 Comment:Positive in February. Retest for pre-procedure. 03/14/2020 03/14/2020 03/15/2020 9:[address] documented as of this encounter Care Teams Law Enforcement Instructor Relationship Specialty Start Date End Date Cori You MD [address] [phone] PCP - General Family Practice 10/10/14 documented as of this encounter
--- OUTSIDE RECORDS SUMMARY | 2024-10-09 00:57 | XMS_ITS | Encounter Summary ---
Author Organization [facility] Address [address] [place] [address] Care Team Providers Care Half Backer Name Role Phone Cori You MD Primary Care Provider Encounter Details Date Type Department Care Team (Late st Contact Info) Description 06/26/2004 Outpatient Historical [facility] Gastroenterology- [address] [place] [address] Santy Treviño MD [address] [place] [address] [place] [address] DIARRHEA NOS (Primary Dx); PERS HX COLONIC POLYPS; FAMILY HX GI MALIGNANCY Social History Tobacco Use Types Packs/Day Years Used Date Smoking Tobacco: Never Assessed Comments Unknown Sex and Gender Information Value Date Recorded Sex Assigned at Not on file Legal Sex Female 5:17 AM TUBE CLEANING OPERATOR Gender Identity Not on file Sexual Orientation Not on file documented as of this encounter Plan of Treatment Not on file documented as of this encounter Visit Diagnoses Diagnosis Diarrhea- Primary Personal history of colonic polyps Family history of malignant neoplasm of gastrointestinal tract documented in this encounter Additional Health Concerns Infection Onset Date Last Indicated Resolved Time R/O COVID-19 02/07/2020 02/07/2020 02/09/2020 2:46 AM TUBE CLEANING OPERATOR COVID-19 02/07/2020 02/07/202003/08/2020 8:09 PM TUBE CLEANING OPERATOR R/O COVID-19 03/13/2020 03/14/2020 03/14/2020 4:43 AM TUBE CLEANING OPERATOR COVID-19 Comment:Positive in February. Retest for pre-procedure. 03/14/2020 03/14/2020 03/15/2020 9:[address] documented as of this encounter Care Teams Half Backer Relationship Specialty Start Date End Date Cori You MD [address] [phone] PCP - General Family Practice 10/10/14 documented as of this encounter
--- OUTSIDE RECORDS SUMMARY | 2024-10-09 00:57 | XMS_ITS | Encounter Summary ---
Author Organization [facility] Address [address] [place] [address] Care Team Providers Care Animal Trainer Supervisor Name Role Phone Cori You MD Primary Care Provider Encounter Details Date Type Department Care Team (Late st Contact Info) Description 07/16/2008 Ancillary Orders [facility] Gen Spec [place] [address] [facility] [address] [place] [address] Liliane Leonardo FNP NO ADDRESS ON FILE Social History Tobacco Use Types Packs/Day Years Used Date Smoking Tobacco: Never Assessed Comments No Sex and Gender Information Value Date Recorded Sex Assigned at Not on file Legal Sex Female 5:17 AM MEAT PROCESSING CENTER MANAGER Gender Identity Not on file Sexual Orientation Not on file documented as of this encounter Plan of Treatment Not on file documented as of this encounter Visit Diagnoses Not on filedocumented in this encounter Additional Health Concerns Infection Onset Date Last Indicated Resolved Time R/O COVID-19 02/07/2020 02/07/2020 02/09/2020 2:46 AM MEAT PROCESSING CENTER MANAGER COVID-19 02/07/2020 02/07/2020 03/08/2020 8:09 PM MEAT PROCESSING CENTER MANAGER R/O COVID-19 03/13/2020 03/14/2020 03/14/2020 4:43 AM MEAT PROCESSING CENTER MANAGER COVID-19 Comment:Positive in February. Retest for pre-procedure. 03/14/2020 03/14/2020 03/15/2020 9:[address] documented as of this encounter Care Teams Animal Trainer Supervisor Relationship Specialty Start Date End Date Cori You MD [address] [phone] PCP - General Family Practice 10/10/14 documented as of this encounter
--- OUTSIDE RECORDS SUMMARY | 2024-10-09 00:57 | XMS_ITS | Encounter Summary ---
Author Organization [facility] Address [address] [place] [address] Care Team Providers Care Animal Husbandry Worker Name Role Phone Cori You MD Primary Care Provider Encounter Details Date Type Department Care Team (Latest Contact Info) Description 01/26/2005 Outpatient Historical [facility] Medicine- [address] [phone] Lev Pena PA NO ADDRESS ON FILE EUTHYROID SICK SYNDROME (Primary Dx); PALPITATIONS; POSTMENOPAUSAL HORMONAL REPLACEMENT [place] Social History Tobacco Use Types Packs/Day Years Used Date Smoking Tobacco: Never Assessed Comments Unknown Sex and Gender Information Value Date Recorded Sex Assigned at Not on file Legal Sex Female 5:17 AM FENCE POST CUTTER Gender Identity Not on file Sexual Orientation Not on file documented as of this encounter Plan of Treatment Not on file documented as of this encounter Visit Diagnoses Diagnosis Euthyroid sick syndrome- Primary Palpitations Need for prophylactic hormone replacement therapy (postmenopausal) documented in this encounter Additional Health Concerns Infection Onset Date Last Indicated Resolved Time R/O COVID-19 02/07/2020 02/07/2020 02/09/2020 2:46 AM FENCE POST CUTTER COVID-19 02/07/2020 02/07/2020 03/08/2020 8:09 PM FENCE POST CUTTER R/O COVID-19 03/13/2020 03/14/2020 03/14/2020 4:43 AM FENCE POST CUTTER COVID-19 Comment:Positive in February. Retest for pre-procedure. 03/14/2020 03/14/2020 03/15/2020 9:16 AM Mindy CRUZ documented as of this encounter Care Teams Animal Husbandry Worker Relationship Specialty Start Date End Date Cori You MD [address] [phone] PCP - General Family Practice 10/10/14 documented as of this encounter
--- OUTSIDE RECORDS SUMMARY | 2024-10-09 00:57 | XMS_ITS | Encounter Summary ---
Author Organization [facility] Address [address] [place] [address] Care Team Providers Care Optical Glass Wet Inspector Name Role Phone Cori You MD Primary Care Provider [phone] Reason for Referral * Outpatient Services (Routine) - Closed Specialty Diagnoses / Procedures Referred By Contac t Referred To Contact Diagnoses Other (abnormal) findings on radiological examination of breast Procedures MAMMO DIGITAL DIAG BILAT Lev Pena PA NO ADDRESS ON FILE Referral ID Status Reason Start Date Expiration Date Visits Re quested Visits Authorized [id number] Closed 09/28/2013 10/29/2014 1 1 Encounter Details Date Type Department Care Team (Latest Contact Info) Description 09/28/2013 Ancillary Orders [facility] [address] [facility] [address] [place] [phone] Lev Pena PA NO ADDRESS ON FILE Other (abnormal) findings on radiological examination of breast (Primary Dx) Social History Tobacco Use Types Packs/Day Years Used Date Smoking Tobacco: Never Smokeless Tobacco: Never Alcohol Use Standard Drinks/Week Comments No 0 (1 standard drink = 0.6 oz pur e alcohol) Comments No Sex and Gender Information Value Date Recorded Sex Assigned at Not on file Legal Sex Female 5:17 AM PAN GREASER Gender Identity Not on file Sexual Orientation Not on file Occupation Industry Job Start Date Job End Date Not on file Not on file Not on file Not on file documented as of this encounter Plan of Treatment Not on file documented as of this encounter Results * MAMMO DIGITAL DIAG BILAT (10/18/2013 12:34 PM CDT) Anatomical Region Laterality Modality Breast Bilateral Mammography 10/18/2013 11:3 3 AM CDT Narrative 10/29/2013 8:21 AM CDT BILATERAL ADDITIONAL VIEWS 10/18/2013 The patient had a screening on 09/19/2013 and comparison was made with outside exams and at that time a nodular area was identified deep slightly laterally on the right craniocaudal view and there was a possible nodular area laterally on the left craniocaudal view and tissue asymmetry was marked superiorly on the right MLO and superiorly on the left MLO. Bilateral MLO and bilateral true lateral views were obtained today and left craniocaudal and bilateral oblique spot compression views were obtained. The area that was seen on the right craniocaudal view appears to be benign tissue which is stable compared with the prior outside exams of 03/04/2010 and a digitized exam that was actually done here at [facility] but the original films were not returned but we do have the 04/11/2007 exam digitized and that tissue is stable. On the left craniocaudal spot compression view the area that was marked laterally did not persist and the areas that were marked on the MLO views do not persist on the repeat MLO views and on the MLO spot compression views. There is no change compared with the only available two prior exams dated 03/04/2010 and 04/11/2007. CONCLUSION: Benign finding category 2. Additional views show no persistent or suspicious findings on either side and there is no mammographic change. I would recommend followup screening mammogram in one year. I would strongly recommend the patient begin to have routine screening mammograms on an annual basis. The patient was given a result/recommendation letter. RAMAN/irwin - uploaded from Shared Performance Scribe - Procedure Note Cristina Collazo MD - 10/29/2013 BILATERAL ADDITIONAL VIEWS 10/18/2013 The patient had a screening on 09/19/2013 and comparison was made with outside exams and at that time a nodular area was identified deep slightly laterally on the right craniocaudal view and there was a possible nodular area laterally on the left craniocaudal view and tissue asymmetry was marked superiorly on the right MLO and superiorly on the left MLO. Bilateral MLO and bilateral true lateral views were obtained today and left craniocaudal and bilateral oblique spot compression views were obtained. The area that was seen on the right craniocaudal view appears to be benign tissue which is stable compared with the prior outside exams of 03/04/2010 and a digitized exam that was actually done here at [facility] but the original films were not returned but we do have the 04/11/2007 exam digitized and that tissue is stable. On the left craniocaudal spot compression view the area that was marked laterally did not persist and the areas that were marked on the MLO views do not persist on the repeat MLO views and on the MLO spot compression views. There is no change compared with the only available two prior exams dated 03/04/2010 and 04/11/2007. CONCLUSION: Benign finding category 2. Additional views show no persistent or suspicious findings on either side and there is no mammographic change. I would recommend followup screening mammogram in one year. I would strongly recommend the patient begin to have routine screening mammograms on an annual basis. The patient was given a result/recommendation letter. Carlos - uploaded from [employer] - Lev PETERSON MAMMO ORDERABLES Final Result documented in this encounter Visit Diagnoses Diagnosis Other (abnormal) findings on radiological examination of breast- Primary Other (abnormal) findings on radiological examination of breast documented in this encounter Additional Health Concerns Infection Onset Date Last Indicated Resolved Time R/O COVID-19 02/07/2020 02/07/2020 02/09/2020 2:46 AM PAN GREASER COVID-19 02/07/2020 02/07/2020 03/08/2020 8:09 PM PAN GREASER R/O COVID-19 03/13/2020 03/14/2020 03/14/2020 4:43 AM PAN GREASER COVID-19 Comment:Positive in February. Retest for pre-procedure. 03/14/2020 03/14/2020 03/15/2020 9:[address] documented as of this encounter Care Teams Optical Glass Wet Inspector Relationship Specialty Start Date End Date Cori You MD [address] [phone] PCP - General Family Practice 10/10/14 documented as of this encounter
--- OUTSIDE RECORDS SUMMARY | 2024-10-09 00:57 | XMS_ITS | Encounter Summary ---
Author Organization [facility] Address [address] [place] [address] Care Team Providers Care Automotive General Manager Name Role Phone Cori You MD Primary Care Provider [phone] Encounter Details Date Type Department Care Team (Latest Contact Info) Description 10/10/2001 Outpatient Historical [facility] Medicine- [address] [phone] Trace Singleton MD [address] [phone] ALLERGY, UNSPECIFIED (Primary Dx) Social History Tobacco Use Types Packs/Day Years Used Date Smoking Tobacco: Never Assessed Comments Unknown Sex and Gender Information Value Date Recorded Sex Assigned at Not on file Legal Sex Female 5:17 AM POWER SUPERINTENDENT Gender Identity Not on file Sexual Orientation Not on file documented as of this encounter Plan of Treatment Not on file documented as of this encounter Visit Diagnoses Diagnosis Allergy, unspecified not elsewhere classified- Primary documented in this encounter Additional Health Concerns Infection Onset Date Last Indicated Resolved Time R/O COVID-19 02/07/2020 02/07/2020 02/09/2020 2:46 AM POWER SUPERINTENDENT COVID-19 02/07/2020 02/07/2020 03/08/2020 8:09 PM POWER SUPERINTENDENT R/O COVID-19 03/13/2020 03/14/2020 03/14/2020 4:43 AM POWER SUPERINTENDENT COVID-19 Comment:Positive in February. Retest for pre-procedure. 03/14/2020 03/14/2020 03/15/2020 9:16 AM Mindy CRUZ documented as of this encounter Care Teams Automotive General Manager Relationship Specialty Start Date End Date Cori You MD [address] [phone] PCP - General Family Practice 10/10/14 documented as of this encounter
--- OUTSIDE RECORDS SUMMARY | 2024-10-09 00:57 | XMS_ITS | Encounter Summary ---
Author Organization [facility] Address [address] [place] [address] Care Team Providers Care Molder Hand Name Role Phone Cori You MD Primary Care Provider Encounter Details Date Type Department Care Team (Late st Contact Info) Description 07/25/2019 Ancillary Orders [facility] [address] [place] [address] Merry Villanueva MD NO ADDRESS ON FILE Other screening mammogram Social History Tobacco Use Types Packs/Day Years Used Date Smoking Tobacco: Never Smokeless Tobacco: Never Alcohol Use Standard Drinks/Week Comments No 0 (1 standard drink = 0.6 oz pur e alcohol) Comments No Sex and Gender Information Value Date Recorded Sex Assigned at Not on file Legal Sex Female 5:17 AM SEED CLEANER OPERATOR Gender Identity Not on file Sexual Orientation Not on file Occupation Industry Job Start Date Job End Date Not on file Not on file Not on file Not on file COVID-19 Exposure Response Date Recorded In the last month, have you been in contact with someone who was confirmed or suspected to have Coronavirus / COVID-19? No / Unsure 07/02/2019 2:26 PM CDT documented as of this encounter Plan of Treatment Not on file documented as of this encounter Results * MAMMO PRIOR STUDY (03/04/2010 10:15 AM SEED CLEANER OPERATOR) Narrative 07/25/2019 10:14 AM CDT This exam was auto finalized to allow images to be scanned to PACS. Merry Villanueva MD DIAGNOSTIC IMAGING ORDERABLES Final Result documented in this encounter Visit Diagnoses Diagnosis Other screening mammogram Other screening mammogram documented in this encounter Additional Health Concerns Infection Onset Date Last Indicated Resolved Time R/O COVID-19 02/07/2020 02/07/2020 02/09/2020 2:46 AM SEED CLEANER OPERATOR COVID-19 02/07/2020 02/07/2020 03/08/2020 8:09 PM SEED CLEANER OPERATOR R/O COVID-19 03/13/2020 03/14/2020 03/14/2020 4:43 AM SEED CLEANER OPERATOR COVID-19 Comment:Positive in February. Retest for pre-procedure. 03/14/2020 03/14/2020 03/15/2020 9:[address] documented as of this encounter Care Teams Molder Hand Relationship Specialty Start Date End Date Cori You MD [address] [phone] PCP - General Family Practice 10/10/14 documented as of this encounter
--- OUTSIDE RECORDS SUMMARY | 2024-10-09 00:57 | XMS_ITS | Encounter Summary ---
[facility] Organization [facility] Address [address] [place] [address] Care Team Providers Care Jewelry Consultant Name Role Phone Cori You MD Primary Care Provider Encounter Details Date Type Department Care Team (Latest Contact Info) Description 10/03/[address] [facility] Breast Center [facility] [address] [place], [place] [id number] Trace Singleton MD [address] [phone] SCREENING MAMM-MAILG NEOPL-OTHER (Primary Dx) Social History Tobacco Use Types Packs/Day Years Used Date Smoking Tobacco: Never Assessed Comments Unknown Sex and Gender Information Value Date Recorded Sex Assigned at Not on file Legal Sex Female 5:17 AM SLATER APPRENTICE Gender Identity Not on file Sexual Orientation Not on file documented as of this encounter Plan of Treatment Not on file documented as of this encounter Visit Diagnoses Diagnosis Other screening mammogram- Primary documented in this encounter Additional Health Concerns Infection Onset Date Last Indicated Resolved Time R/O COVID-19 02/07/2020 02/07/2020 02/09/2020 2:46 AM SLATER APPRENTICE COVID-19 02/07/2020 02/07/2020 03/08/2020 8:09 PM SLATER APPRENTICE R/O COVID-19 03/13/2020 03/14/2020 03/14/2020 4:43 AM SLATER APPRENTICE COVID-19 Comment:Positive in February. Retest for pre-procedure. 03/14/2020 03/14/2020 03/15/2020 9:16 AM Mindy CRUZ documented as of this encounter Care Teams Jewelry Consultant Relationship Specialty Start Date End Date Cori You MD [address] [phone] PCP - General Family Practice 10/10/14 documented as of this encounter
--- OUTSIDE RECORDS SUMMARY | 2024-10-09 00:57 | XMS_ITS | Encounter Summary ---
Author Organization [facility] Address [address] [place] [address] Care Team Providers Care Damage Inside Adjuster Name Role Phone Cori You MD Primary Care Provider Encounter Details Date Type Department Care Team (Latest Contact Info) Description 08/01/2001 Outpatient Historical [facility] [address] [phone] Herbert Hugo, NO ADDRESS ON FILE ALLERGY, UNSPECIFIED (Primary Dx) Social History Tobacco Use Types Packs/Day Years Used Date Smoking Tobacco: Never Assessed Comments Unknown Sex and Gender Information Value Date Recorded Sex Assigned at Not on file Legal Sex Female 5:17 AM HUMAN INTELLIGENCE Gender Identity Not on file Sexual Orientation Not on file documented as of this encounter Plan of Treatment Not on file documented as of this encounter Visit Diagnoses Diagnosis Allergy, unspecified not elsewhere classified- Primary documented in this encounter Additional Health Concerns Infection Onset Date Last Indicated Resolved Time R/O COVID-19 02/07/2020 02/07/2020 02/09/2020 2:46 AM HUMAN INTELLIGENCE COVID-19 02/07/2020 02/07/2020 03/08/2020 8:09 PM HUMAN INTELLIGENCE R/O COVID-19 03/13/2020 03/14/2020 03/14/2020 4:43 AM HUMAN INTELLIGENCE COVID-19 Comment:Positive in February. Retest for pre-procedure. 03/14/2020 03/14/2020 03/15/2020 9:[address] documented as of this encounter Care Teams Damage Inside Adjuster Relationship Specialty Start Date End Date Cori You MD [address] [phone] PCP - General Family Practice 10/10/14 documented as of this encounter
--- OUTSIDE RECORDS SUMMARY | 2024-10-09 00:57 | XMS_ITS | Encounter Summary ---
Author Organization [facility] Address [address] [place] [address] Care Team Providers Care Trigonometry Tutor Name Role Phone Cori oYu MD Primary Care Provider Encounter Details Date Type Department Care Team (Latest Contact Info) Description 11/08/2001 Outpatient Historical [facility] Medicine- [address] [phone] Trace Singleton MD [address] [phone] ALLERGY, UNSPECIFIED (Primary Dx) Social History Tobacco Use Types Packs/Day Years Used Date Smoking Tobacco: Never Assessed Comments Unknown Sex and Gender Information Value Date Recorded Sex Assigned at Not on file Legal Sex Female 5:17 AM LABORER SALVAGE Gender Identity Not on file Sexual Orientation Not on file documented as of this encounter Plan of Treatment Not on file documented as of this encounter Visit Diagnoses Diagnosis Allergy, unspecified not elsewhere classified- Primary documented in this encounter Additional Health Concerns Infection Onset Date Last Indicated Resolved Time R/O COVID-19 02/07/2020 02/07/2020 02/09/2020 2:46 AM LABORER SALVAGE COVID-19 02/07/2020 02/07/2020 03/08/2020 8:09 PM LABORER SALVAGE R/O COVID-19 03/13/2020 03/14/2020 03/14/2020 4:43 AM LABORER SALVAGE COVID-19 Comment:Positive in February. Retest for pre-procedure. 03/14/2020 03/14/2020 03/15/2020 9:16 AM Mindy CRUZ documented as of this encounter Care Teams Trigonometry Tutor Relationship Specialty Start Date End Date Cori You MD [address] [phone] PCP - General Family Practice 10/10/14 documented as of this encounter
--- OUTSIDE RECORDS SUMMARY | 2024-10-09 00:57 | XMS_ITS | Encounter Summary ---
Author Organization [facility] Address [address] [place] [address] Care Team Providers Care Staffing Manager Name Role Phone Cori You MD Primary Care Provider Encounter Details Date Type Department Care Team (Latest Contact Info) Description 09/23/2006 Outpatient Historical [facility] [address] [phone] Herbert Hugo, NO ADDRESS ON FILE Other and Unspecified Angina Pectoris (Primary Dx) Social History Tobacco Use Types Packs/Day Years Used Date Smoking Tobacco: Never Assessed Comments Unknown Sex and Gender Information Value Date Recorded Sex Assigned at Not on file Legal Sex Female 5:17 AM BLENDING COORDINATOR Gender Identity Not on file Sexual Orientation Not on file documented as of this encounter Plan of Treatment Not on file documented as of this encounter Procedures Procedure Name Priority Date/Time Associated Diagnosis Comments TROPONIN Routine 09/23/2006 9:00 PM CDT documented in this encounter Results * TROPONIN (09/23/2006 9:00 PM CDT) TROPONIN I <0.1 0.0 - 1.3 ng/mL INTERFACE SYSTEM Comment: As of 06 the Troponin Reference Range has changed from 0.0-1.5 ng/ml to 0.0- 1.3 ng/ml due to a change in testing methodology. 09/23/2006 9:00 PM CDT us Herbert Hugo DO CHEMISTRY ORDERABLES Edited INTERFACE SYSTEM Refer to clinic/hospital department documented in this encounter Visit Diagnoses Diagnosis Other and unspecified angina pectoris- Primary documented in this encounter Additional Health Concerns Infection Onset Date Last Indicated Resolved Time R/O COVID-19 02/07/2020 02/07/2020 02/09/2020 2:46 AM BLENDING COORDINATOR COVID-19 02/07/2020 02/07/2020 03/08/2020 8:09 PM BLENDING COORDINATOR R/O COVID-19 03/13/2020 03/14/2020 03/14/2020 4:43 AM BLENDING COORDINATOR COVID-19 Comment:Positive in February. Retest for pre-procedure. 03/14/2020 03/14/2020 03/15/2020 9:[address] documented as of this encounter Care Teams Staffing Manager Relationship Specialty Start Date End Date Cori You MD [address] [phone] PCP - General Family Practice 10/10/14 documented as of this encounter
--- OUTSIDE RECORDS SUMMARY | 2024-10-09 00:57 | XMS_ITS | Encounter Summary ---
Author Organization [facility] Address [address] [place] [address] Care Team Providers Care Manager University Name Role Phone Cori You MD Primary Care Provider Encounter Details Date Type Department Care Team (Latest Contact Info) Description 11/18/2004 Outpatient Historical [facility] Medicine- [address] [phone] Trace Singleton MD [address] [phone] MASTODYNIA (Primary Dx); EUTHYROID SICK SYNDROME Social History Tobacco Use Types Packs/Day Years Used Date Smoking Tobacco: Never Assessed Comments Unknown Sex and Gender Information Value Date Recorded Sex Assigned at Not on file Legal Sex Female 5:17 AM DYE LAB TECHNICIAN Gender Identity Not on file Sexual Orientation Not on file documented as of this encounter Plan of Treatment Not on file documented as of this encounter Visit Diagnoses Diagnosis Mastodynia- Primary Euthyroid sick syndrome documented in this encounter Additional Health Concerns Infection Onset Date Last Indicated Resolved Time R/O COVID-19 02/07/2020 02/07/2020 02/09/2020 2:46 AM DYE LAB TECHNICIAN COVID-19 02/07/2020 02/07/2020 03/08/2020 8:09 PM DYE LAB TECHNICIAN R/O COVID-19 03/13/2020 03/14/2020 03/14/2020 4:43 AM DYE LAB TECHNICIAN COVID-19 Comment:Positive in February. Retest for pre-procedure. 03/14/2020 03/14/2020 03/15/2020 9:16 AM C documented as of this encounter Care Teams Manager University Relationship Specialty Start Date End Date Cori You MD [address] [phone] PCP - General Family Practice 10/10/14 documented as of this encounter
--- OUTSIDE RECORDS SUMMARY | 2024-10-09 00:57 | XMS_ITS | Encounter Summary ---
Author Organization [facility] Address [address] [place] [address] Care Team Providers Care Mash Filter Cloth Changer Name Role Phone Cori You MD Primary Care Provider Encounter Details Date Type Department Care Team (Latest Contact Info) Description 01/06/2005 Outpatient Historical [facility] [address] [place] [address] George Wilkerson MD NO ADDRESS ON FILE SURGERY FOLLOWUP NOS (Primary Dx) Social History Tobacco Use Types Packs/Day Years Used Date Smoking Tobacco: Never Assessed Comments Unknown Sex and Gender Information Value Date Recorded Sex Assigned at Not on file Legal Sex Female 5:17 AM VALVE STEAMER Gender Identity Not on file Sexual Orientation Not on file documented as of this encounter Plan of Treatment Not on file documented as of this encounter Visit Diagnoses Diagnosis Follow-up examination, following unspecified surgery- Primary documented in this encounter Additional Health Concerns Infection Onset Date Last Indicated Resolved Time R/O COVID-19 02/07/2020 02/07/2020 02/09/2020 2:46 AM VALVE STEAMER COVID-19 02/07/2020 02/07/2020 03/08/2020 8:09 PM VALVE STEAMER R/O COVID-19 03/13/2020 03/14/2020 03/14/2020 4:43 AM VALVE STEAMER COVID-19 Comment:Positive in February. Retest for pre-procedure. 03/14/2020 03/14/2020 03/15/2020 9:[address] documented as of this encounter Care Teams Mash Filter Cloth Changer Relationship Specialty Start Date End Date Cori You MD [address] [phone] PCP - General Family Practice 10/10/14 documented as of this encounter
--- OUTSIDE RECORDS SUMMARY | 2024-10-09 00:57 | XMS_ITS | Encounter Summary ---
Author Organization [facility] Address [address] [place] [address] Care Team Providers Care Seed Cleaner Name Role Phone Cori You MD Primary Care Provider Encounter Details Date Type Department Care Team (Latest Contact Info) Description 04/30/2005 Outpatient Historical [facility] Medicine[address] [phone] Lev Pena PA NO ADDRESS ON FILE BACKACHE NOS (Primary Dx); Pain in limb; CARDIAC DYSRHYTHMIA NOS Social History Tobacco Use Types Packs/Day Years Used Date Smoking Tobacco: Never Assessed Comments Unknown Sex and Gender Information Value Date Recorded Sex Assigned at Not on file Legal Sex Female 5:17 AM INSIDE SALES ADVISOR Gender Identity Not on file Sexual Orientation Not on file documented as of this encounter Plan of Treatment Not on file documented as of this encounter Visit Diagnoses Diagnosis Backache, unspecified- Primary Pain in limb Pain in soft tissues of limb Cardiac dysrhythmia, unspecified documented in this encounter Additional Health Concerns Infection Onset Date Last Indicated Resolved Time R/O COVID-19 02/07/2020 02/07/2020 02/09/2020 2:46 AM INSIDE SALES ADVISOR COVID-19 02/07/2020 02/07/2020 03/08/2020 8:09 PM INSIDE SALES ADVISOR R/O COVID-19 03/13/2020 03/14/202003/14/2020 4:43 AM INSIDE SALES ADVISOR COVID-19 Comment:Positive in February. Retest for pre-procedure. 03/14/2020 03/14/2020 03/15/2020 9:16 AM C documented as of this encounter Care Teams Seed Cleaner Relationship Specialty Start Date End Date Cori You MD [address] [phone] PCP - General Family Practice 10/10/14 documented as of this encounter
--- OUTSIDE RECORDS SUMMARY | 2024-10-09 00:57 | XMS_ITS | Encounter Summary ---
Author Organization [facility] Address [address] [place] [address] Care Team Providers Care Usability Engineer Name Role Phone Cori You MD Primary Care Provider [phone] Encounter Details Date Type Department Care Team (Latest Contact Info) Description 03/09/2006 Outpatient Historical [facility] Medicine[address] [phone] Lev Pena PA NO ADDRESS ON FILE Vaccin Strep Pneumoniae (Primary Dx) Social History Tobacco Use Types Packs/Day Years Used Date Smoking Tobacco: Never Assessed Comments Unknown Sex and Gender Information Value Date Recorded Sex Assigned at Not on file Legal Sex Female 5:17 AM MASTER DYER Gender Identity Not on file Sexual Orientation Not on file documented as of this encounter Plan of Treatment Not on file documented as of this encounter Visit Diagnoses Diagnosis Need for prophylactic vaccination against Streptococcus pneumoniae (pneumococcus)- Primary Need for prophylactic vaccination against streptococcus pneumoniae (pneumococcus) documented in this encounter Additional Health Concerns Infection Onset Date Last Indicated Resolved Time R/O COVID-19 02/07/2020 02/07/2020 02/09/2020 2:46 AM MASTER DYER COVID-19 02/07/2020 02/07/2020 03/08/2020 8:09 PM MASTER DYER R/O COVID-19 03/13/2020 03/14/2020 03/14/2020 4:43 AM MASTER DYER COVID-19 Comment:Positive in February. Retest for pre-procedure. 03/14/2020 03/14/2020 03/15/2020 9:[address] documented as of this encounter Care Teams Usability Engineer Relationship Specialty Start Date End Date Cori You MD [address] [phone] PCP - General Family Practice 10/10/14 documented as of this encounter
--- OUTSIDE RECORDS SUMMARY | 2024-10-09 00:57 | XMS_ITS | Encounter Summary ---
Author Organization [facility] Address [address] [place] [address] Care Team Providers Care Sagger Maker Name Role Phone Cori You MD Primary Care Provider Encounter Details Date Type Department Care Team (Latest Contact Info) Description 08/18/2001 Outpatient Historical [facility] Medicine- [address] [phone] Trace Singleton MD [address] [phone] ALLERGY, UNSPECIFIED (Primary Dx) Social History Tobacco Use Types Packs/Day Years Used Date Smoking Tobacco: Never Assessed Comments Unknown Sex and Gender Information Value Date Recorded Sex Assigned at Not on file Legal Sex Female 5:17 AM STOCK ASSOCIATE Gender Identity Not on file Sexual Orientation Not on file documented as of this encounter Plan of Treatment Not on file documented as of this encounter Visit Diagnoses Diagnosis Allergy, unspecified not elsewhere classified- Primary documented in this encounter Additional Health Concerns Infection Onset Date Last Indicated Resolved Time R/O COVID-19 02/07/2020 02/07/2020 02/09/2020 2:46 AM STOCK ASSOCIATE COVID-19 02/07/2020 02/07/2020 03/08/2020 8:09 PM STOCK ASSOCIATE R/O COVID-19 03/13/2020 03/14/2020 03/14/2020 4:43 AM STOCK ASSOCIATE COVID-19 Comment:Positive in February. Retest for pre-procedure. 03/14/2020 03/14/2020 03/15/2020 9:16 AM Mindy CRUZ documented as of this encounter Care Teams Sagger Maker Relationship Specialty Start Date End Date Cori You MD [address] [phone] PCP - General Family Practice 10/10/14 documented as of this encounter
--- OUTSIDE RECORDS SUMMARY | 2024-10-09 00:57 | XMS_ITS | Encounter Summary ---
Author Organization [facility] Address [address] [place] [address] Care Team Providers Care Cloth Piecer Name Role Phone Cori You MD Primary Care Provider [phone] Encounter Details Date Type Department Care Team (Latest Contact Info) Description 10/28/2006 Outpatient Historical [facility] Medicine[address] [phone] Lev Pena PA NO ADDRESS ON FILE Special Screening for Malignant Neoplasms of Other Sites (Primary Dx) Social History Tobacco Use Types Packs/Day Years Used Date Smoking Tobacco: Never Assessed Comments Unknown Sex and Gender Information Value Date Recorded Sex Assigned at Not on file Legal Sex Female 5:17 AM CAT TENDER Gender Identity Not on file Sexual Orientation Not on file documented as of this encounter Plan of Treatment Not on file documented as of this encounter Visit Diagnoses Diagnosis Special screening for malignant neoplasms of other sites- Primary documented in this encounter Additional Health Concerns Infection Onset Date Last Indicated Resolved Time R/O COVID-19 02/07/2020 02/07/2020 02/09/2020 2:46 AM CAT TENDER COVID-19 02/07/2020 02/07/2020 03/08/2020 8:09 PM CAT TENDER R/O COVID-19 03/13/2020 03/14/2020 03/14/2020 4:43 AM CAT TENDER COVID-19 Comment:Positive in February. Retest for pre-procedure. 03/14/2020 03/14/2020 03/15/2020 9:[address] documented as of this encounter Care Teams Cloth Piecer Relationship Specialty Start Date End Date Cori You MD [address] [phone] PCP - General Family Practice 10/10/14 documented as of this encounter
--- OUTSIDE RECORDS SUMMARY | 2024-10-09 00:57 | XMS_ITS | Encounter Summary ---
Author Organization [facility] Address [address] [place] [address] Care Team Providers Care Marble Cutter Name Role Phone Cori You MD Primary Care Provider Encounter Details Date Type Department Care Team (Latest Contact Info) Description 12/31/2005 Outpatient [facility] Breast Center [facility] [address] [place], [place] [phone] Herbert Hugo, NO ADDRESS ON FILE Other Screening Mammogram (Primary Dx) Social History Tobacco Use Types Packs/Day Years Used Date Smoking Tobacco: Never Assessed Comments Unknown Sex and Gender Information Value Date Recorded Sex Assigned at Not on file Legal Sex Female 5:17 AM JAVASCRIPT UI DEVELOPER Gender Identity Not on file Sexual Orientation Not on file documented as of this encounter Plan of Treatment Not on file documented as of this encounter Visit Diagnoses Diagnosis Other screening mammogram- Primary documented in this encounter Additional Health Concerns Infection Onset Date Last Indicated Resolved Time R/O COVID-19 02/07/2020 02/07/2020 02/09/2020 2:46 AM JAVASCRIPT UI DEVELOPER COVID-19 02/07/2020 02/07/2020 03/08/2020 8:09 PM JAVASCRIPT UI DEVELOPER R/O COVID-19 03/13/2020 03/14/2020 03/14/2020 4:43 AM JAVASCRIPT UI DEVELOPER COVID-19 Comment:Positive in February. Retest for pre-procedure. 03/14/2020 03/14/202003/15/2020 9:[address] documented as of this encounter Care Teams Marble Cutter Relationship Specialty Start Date End Date Cori You MD [address] [phone] PCP - General Family Practice 10/10/14 documented as of this encounter
--- OUTSIDE RECORDS SUMMARY | 2024-10-09 00:57 | XMS_ITS | Encounter Summary ---
Author Organization [facility] Address [address] [place] [address] Care Team Providers Care Patented Hogshead Assembler Name Role Phone Cori You MD Primary Care Provider Encounter Details Date Type Department Care Team (Latest Contact Info) Description 12/01/2004 Outpatient Historical [facility] [address] [phone] Adalberto Nick MD NO ADDRESS ON FILE MASTODYNIA (Primary Dx) Social History Tobacco Use Types Packs/Day Years Used Date Smoking Tobacco: Never Assessed Comments Unknown Sex and Gender Information Value Date Recorded Sex Assigned at Not on file Legal Sex Female 5:17 AM BOX SPINNER Gender Identity Not on file Sexual Orientation Not on file documented as of this encounter Plan of Treatment Not on file documented as of this encounter Visit Diagnoses Diagnosis Mastodynia- Primary documented in this encounter Additional Health Concerns Infection Onset Date Last Indicated Resolved Time R/O COVID-19 02/07/2020 02/07/2020 02/09/2020 2:46 AM BOX SPINNER COVID-19 02/07/2020 02/07/2020 03/08/2020 8:09 PM BOX SPINNER R/O COVID-19 03/13/2020 03/14/2020 03/14/2020 4:43 AM BOX SPINNER COVID-19 Comment:Positive in February. Retest for pre-procedure. 03/14/2020 03/14/2020 03/15/2020 9:[address] documented as of this encounter Care Teams Patented Hogshead Assembler Relationship Specialty Start Date End Date Cori You MD [address] [phone] PCP - General Family Practice 10/10/14 documented as of this encounter
--- OUTSIDE RECORDS SUMMARY | 2024-10-09 00:57 | XMS_ITS | Encounter Summary ---
Author Organization [facility] Address [address] [place] [address] Care Team Providers Care Turkey Roll Maker Name Role Phone Cori You MD Primary Care Provider Encounter Details Date Type Department Care Team (Latest Contact Info) Description 2020 Ancillary Orders [facility] Orthopedics - Orthopedic [facility] [address] [place] [address] Christiano, NICHOLAS Gregory [address] [facility] [address] [place] [address] Acute pain of right shoulder Social History Tobacco Use Types Packs/Day Years Used Date Smoking Tobacco: Never Smokeless Tobacco: Never Alcohol Use Standard Drinks/Week Comments No 0 (1 standard drink = 0.6 oz pur e alcohol) Comments No Sex and Gender Information Value Date Recorded Sex Assigned at Not on file Legal Sex Female 5:17 AM LAST REPAIRER Gender Identity Not on file Sexual Orientation Not on file Occupation Industry Job Start Date Job End Date Not on file Not on file Not on file Not on file COVID-19 Exposure Response Date Recorded In the last month, have you been in contact with someone who was confirmed or suspected to have Coronavirus / COVID-19? No / Unsure 2020 10:14 AM CDT documented as of this encounter Plan of Treatment Not on file documented as of this encounter Results * XR SHOULDER 2+ VW LEFT (2020 10:25 AM CDT) Anatomical Region Laterality Modality Upper Extremity Computed Radiogr aphy Narrative 02/08/2020 10:11 AM LAST REPAIRER Three views of the left shoulder were taken today and independently reviewed. There is re-demonstration of a closed, acute, comminuted fracture of the left proximal humerus, involving the surgical neck and greater tuberosity. There is slight valgus angulation. No other acute changes noted. [facility] ORDERABLES Fi nal Result documented in this encounter Visit Diagnoses Diagnosis Acute pain of right shoulder Acute pain of right shoulder documented in this encounter Additional Health Concerns Infection Onset Date Last Indicated Resolved Time R/O COVID-19 02/07/2020 02/07/2020 02/09/2020 2:46 AM LAST REPAIRER COVID-19 02/07/2020 02/07/2020 03/08/2020 8:09 PM LAST REPAIRER R/O COVID-19 03/13/2020 03/14/2020 03/14/2020 4:43 AM LAST REPAIRER COVID-19 Comment:Positive in February. Retest for pre-procedure. 03/14/2020 03/14/2020 03/15/2020 9:[address] documented as of this encounter Care Teams Turkey Roll Maker Relationship Specialty Start Date End Date Cori You MD [address] [phone] PCP - General Family Practice 10/10/14 documented as of this encounter
--- OUTSIDE RECORDS SUMMARY | 2024-10-09 00:57 | XMS_ITS | Encounter Summary ---
Author Organization [facility] Address [address] [place] [address] Care Team Providers Care Document Photographer Name Role Phone Cori You MD Primary Care Provider Encounter Details Date Type Department Care Team (Latest Contact Info) Description 11/29/2006 Outpatient Historical [facility] [address] [address] [place] [address] Sohail Flores MD NO ADDRESS ON FILE Other Specified Pre-Operative Examination (Primary Dx) Social History Tobacco Use Types Packs/Day Years Used Date Smoking Tobacco: Never Assessed Comments Unknown Sex and Gender Information Value Date Recorded Sex Assigned at Not on file Legal Sex Female 5:17 AM HEALTH PRACTICE MANAGER Gender Identity Not on file Sexual Orientation Not on file documented as of this encounter Plan of Treatment Not on file documented as of this encounter Procedures Procedure Name Priority Date/Time Associated Diagnosis Comments URINALYSIS W/REFLEX MICROSCOPIC Routine 11/29/2006 11:04 AM CDT CBC WITHOUT DIFFERENTIAL Routine 11/29/2006 10:42 AM CDT BASIC METABOLIC PANEL Routine 11/29/2006 10:42 AM CDT documented in this encounter Results * URINALYSIS (11/29/2006 11:04 AM CDT) COLOR UA Pale Yellow Straw INTERFAC E SYSTEM CLARITY UA Clear Clear INTERFACE SYSTEM LEUKOCYTE ESTERASE UA NEGATIVE NEGATIVE INTERFACE SYSTEM NITRITE UA NEGATIVE NEGATIVE INTERFACE SYSTEM PH UA 6.0 5.0 - 9.0 INTERFACE SYSTEM PROTEIN UA NEGATIVE NEGATIVE INTERFACE SYSTEM GLUCOSE UA NEGATIVE NEGATIVE INTERFACE SYSTEM KETONES UA NEGATIVE NEGATIVE INTERFACE SYSTEM UROBILINOGEN UA 0.2 0.2 INTE RFACE SYSTEM BILIRUBIN UA NEGATIVE NEGATIVE INTERFA CE SYSTEM BLOOD UA NEGATIVE NEGATIVE INTERFACE SYSTEM SPECIFIC GRAVITY UA 1.015 1.005 - 1.030 INTERFACE SYSTEM MICRO EXAM No No INTERFACE SYSTEM 11/29/2006 11:0 4 AM CDT Sohail Flores MD URINE ORDERABLES Edited Performing Organization Address [facility] Phone Number INTERFACE SYSTEM Refer to clinic/hospital department * (ABNORMAL) BASIC METABOLIC PANEL (11/29/2006 10:42 AM CDT) GLUCOSE 126(H) 70 - 110 mg/dL INTERFACE SYSTEM BUN 9 7 - 17 mg/dL INTERFACE SYSTEM CREATININE 0.6(L) 0.7 - 1.2 mg/dL INTERFACE SYSTEM SODIUM 138 136 - 145 mEq/L INTERFACE SYSTEM POTASSIUM 3.7 3.5 - 5.0 mEq/L INTERFACE SYSTEM CHLORIDE 103 95 - 110 mEq/L INTERFACE SYSTEM CO2 29 22 - 32 mmol/l INTERFACE SYSTEM CALCIUM 9.2 8.4 - 10.5 mg/dL INTERFACE SYSTEM ANION GAP 10 9 - 20 mEq/L INTERFACE SYSTEM OSMOLALITY, CALCULATED 284 275 - 295 mOsm/Kg INTERFACE SYSTEM 11/29/2006 10:4 2 AM CDT Sohail Flores MD CHEMISTRY ORDERABLES Edited Performing Organization Address [facility] Phone Number INTERFACE SYSTEM Refer to clinic/hospital department * (ABNORMAL) CBC WITHOUT DIFFERENTIAL (11/29/2006 10:42 AM CDT) WBC 7.3 4.8 - 10.8 K/ul INTERFACE SYSTEM RBC 4.11(L) 4.20 - 5.40 Mil/ul INTERFACE SYSTEM HEMOGLOBIN 12.1 12.0 - 16.0 g/dL INTERFACE SYSTEM HEMATOCRIT 35.8(L) 36.0 - 46.0 % INTERFACE SYSTEM MCV 87.1 84.0 - 103.0 Fl INTERFACE SYSTEM MCH 29.4 27.0 - 34.0 pg INTERFACE SYSTEM MCHC 33.8 30.0 - 35.0 g/dL INTERFACE SYSTEM RDW 14.6(H) 11.0 - 14.5 % INTERFACE SYSTEM PLATELETS 193 140 - 440 K/ul INTERFACE SYSTEM MPV 10.4 8.9 - 12.8 Fl INTERFACE SYSTEM NEUTROPHILS 63.1 42.2 - 75.2 % INTERFACE SYSTEM LYMPHOCYTES 27.4 24.0 - 44.0 % INTERFACE SYSTEM MONOCYTES 5.4 2.0 - 10.0 % INTERFACE SYSTEM EOSINOPHILS 3.7 0.0 - 7.0 % INTERFACE SYSTEM BASOPHILS 0.4 0.0 - 1.0 % INTERFACE SYSTEM NEUTROPHIL ABSOLUTE 4.6 2.0 - 8.0 K/ul INTERFACE SYSTEM LYMPHOCYTE ABSOLUTE 2.0 1.2 - 4.0 K/ul INTERFACE SYSTEM MONOCYTE ABSOLUTE 0.4 0.1 - 0.6 K/ul INTERFACE SYSTEM EOSINOPHIL ABSOLUTE 0.3 0.0 - 0.7 K/ul INTERFACE SYSTEM BASOPHILS ABSOLUTE 0.0 0.0 - 0.2 K/ul INTERFACE SYSTEM 11/29/2006 10:4 2 AM CDT Sohail Flores MD HEMATOLOGY ORDERABLES Edited INTERFACE SYSTEM Refer to clinic/hospital department documented in this encounter Visit Diagnoses Diagnosis Other specified pre-operative examination- Primary documented in this encounter Additional Health Concerns Infection Onset Date Last Indicated Resolved Time R/O COVID-19 02/07/2020 02/07/2020 02/09/2020 2:46 AM HEALTH PRACTICE MANAGER COVID-19 02/07/2020 02/07/2020 03/08/2020 8:09 PM HEALTH PRACTICE MANAGER R/O COVID-19 03/13/2020 03/14/2020 03/14/2020 4:43 AM HEALTH PRACTICE MANAGER COVID-19 Comment:Positive in February. Retest for pre-procedure. 03/14/2020 03/14/2020 03/15/2020 9:[address] documented as of this encounter Care Teams Document Photographer Relationship Specialty Start Date End Date Cori You MD [address] [phone] PCP - General Family Practice 10/10/14 documented as of this encounter
--- OUTSIDE RECORDS SUMMARY | 2024-10-09 00:57 | XMS_ITS | Encounter Summary ---
Author Organization [facility] Address [address] [place] [address] Care Team Providers Care Toggle Press Operator Name Role Phone Cori You MD Primary Care Provider [phone] Encounter Details Date Type Department Care Team (Latest Contact Info) Description 06/27/2001 Outpatient Historical [facility] Medicine- [address] [phone] Trace Singleton MD [address] [phone] ALLERGY, UNSPECIFIED (Primary Dx) Social History Tobacco Use Types Packs/Day Years Used Date Smoking Tobacco: Never Assessed Comments Unknown Sex and Gender Information Value Date Recorded Sex Assigned at Not on file Legal Sex Female 5:17 AM COMPLAINT SUPERVISOR Gender Identity Not on file Sexual Orientation Not on file documented as of this encounter Plan of Treatment Not on file documented as of this encounter Visit Diagnoses Diagnosis Allergy, unspecified not elsewhere classified- Primary documented in this encounter Additional Health Concerns Infection Onset Date Last Indicated Resolved Time R/O COVID-19 02/07/2020 02/07/2020 02/09/2020 2:46 AM COMPLAINT SUPERVISOR COVID-19 02/07/2020 02/07/2020 03/08/2020 8:09 PM COMPLAINT SUPERVISOR R/O COVID-19 03/13/2020 03/14/2020 03/14/2020 4:43 AM COMPLAINT SUPERVISOR COVID-19 Comment:Positive in February. Retest for pre-procedure. 03/14/2020 03/14/2020 03/15/2020 9:16 AM Mindy CRUZ documented as of this encounter Care Teams Toggle Press Operator Relationship Specialty Start Date End Date Cori You MD [address] [phone] PCP - General Family Practice 10/10/14 documented as of this encounter
--- OUTSIDE RECORDS SUMMARY | 2024-10-09 00:57 | XMS_ITS | Encounter Summary ---
Author Organization [facility] Address [address] [place] [address] Care Team Providers Care Sunday School Missionary Name Role Phone Cori You MD Primary Care Provider Encounter Details Date Type Department Care Team (Latest Contact Info) Description 07/18/2001 Outpatient Historical [facility]- [address] [phone] Trace Singleton MD [address] [phone] ALLERGY, UNSPECIFIED (Primary Dx) Social History Tobacco Use Types Packs/Day Years Used Date Smoking Tobacco: Never Assessed Comments Unknown Sex and Gender Information Value Date Recorded Sex Assigned at Not on file Legal Sex Female 5:17 AM DISPLAY AND BANNER DESIGNER Gender Identity Not on file Sexual Orientation Not on file documented as of this encounter Plan of Treatment Not on file documented as of this encounter Visit Diagnoses Diagnosis Allergy, unspecified not elsewhere classified- Primary documented in this encounter Additional Health Concerns Infection Onset Date Last Indicated Resolved Time R/O COVID-19 02/07/2020 02/07/2020 02/09/2020 2:46 AM DISPLAY AND BANNER DESIGNER COVID-19 02/07/2020 02/07/2020 03/08/2020 8:09 PM DISPLAY AND BANNER DESIGNER R/O COVID-19 03/13/2020 03/14/2020 03/14/2020 4:43 AM DISPLAY AND BANNER DESIGNER COVID-19 Comment:Positive in February. Retest for pre-procedure. 03/14/2020 03/14/2020 03/15/2020 9:16 AM Mindy CRUZ documented as of this encounter Care Teams Sunday School Missionary Relationship Specialty Start Date End Date Cori You MD [address] [phone] PCP - General Family Practice 10/10/14 documented as of this encounter
--- OUTSIDE RECORDS SUMMARY | 2024-10-09 00:57 | XMS_ITS | Encounter Summary ---
Author Organization [facility] Address [address] [place] [address] Care Team Providers Care Child Watch Attendant Name Role Phone Cori You MD Primary Care Provider Encounter Details Date Type Department Care Team (Latest Contact Info) Description 09/26/2001 Outpatient Historical [facility] [address] [phone] Herbert Hugo, NO ADDRESS ON FILE ALLERGY, UNSPECIFIED (Primary Dx) Social History Tobacco Use Types Packs/Day Years Used Date Smoking Tobacco: Never Assessed Comments Unknown Sex and Gender Information Value Date Recorded Sex Assigned at Not on file Legal Sex Female 5:17 AM PEDIATRIC GENETIC COUNSELOR Gender Identity Not on file Sexual Orientation Not on file documented as of this encounter Plan of Treatment Not on file documented as of this encounter Visit Diagnoses Diagnosis Allergy, unspecified not elsewhere classified- Primary documented in this encounter Additional Health Concerns Infection Onset Date Last Indicated Resolved Time R/O COVID-19 02/07/2020 02/07/2020 02/09/2020 2:46 AM PEDIATRIC GENETIC COUNSELOR COVID-19 02/07/2020 02/07/2020 03/08/2020 8:09 PM PEDIATRIC GENETIC COUNSELOR R/O COVID-19 03/13/2020 03/14/2020 03/14/2020 4:43 AM PEDIATRIC GENETIC COUNSELOR COVID-19 Comment:Positive in February. Retest for pre-procedure. 03/14/2020 03/14/2020 03/15/2020 9:[address] documented as of this encounter Care Teams Child Watch Attendant Relationship Specialty Start Date End Date Cori You MD [address] [phone] PCP - General Family Practice 10/10/14 documented as of this encounter
--- OUTSIDE RECORDS SUMMARY | 2024-10-09 00:57 | XMS_ITS | Encounter Summary ---
Author Organization [facility] Address [address] [place] [address] Care Team Providers Care Urogynaecologist Name Role Phone Cori You MD Primary Care Provider [phone] Encounter Details Date Type Department Care Team (Latest Contact Info) Description 11/17/2006 Outpatient Historical [facility] Orthopedics- [address] [place] [address] Sohail Flores MD NO ADDRESS ON FILE Primary Localized Osteoarthrosis, Lower Leg (Primary Dx); Pain in Joint, Lower Leg; Unspecified Myalgia and Myositis; Morbid Obesity (CMS/HCC) Social History Tobacco Use Types Packs/Day Years Used Date Smoking Tobacco: Never Assessed Comments Unknown Sex and Gender Information Value Date Recorded Sex Assigned at Not on file Legal Sex Female 5:17 AM BODY TRIMMER Gender Identity Not on file Sexual Orientation Not on file documented as of this encounter Plan of Treatment Not on file documented as of this encounter Visit Diagnoses Diagnosis Primary localized osteoarthrosis, lower leg- Primary Pain in joint, lower leg Myalgia and myositis, unspecified Mylagia and myositis, unspecified Morbid obesity (CMS/HCC) Morbid obesity documented in this encounter Additional Health Concerns Infection Onset Date Last Indicated Resolved Time R/O COVID-19 02/07/2020 02/07/2020 02/09/2020 2:46 AM BODY TRIMMER COVID-19 02/07/2020 02/07/2020 03/08/2020 8:09 PM BODY TRIMMER R/O COVID-19 03/13/2020 03/14/2020 03/14/2020 4:43 AM BODY TRIMMER COVID-19 Comment:Positive in February. Retest for pre-procedure. 03/14/2020 03/14/2020 03/15/2020 9:[address] documented as of this encounter Care Teams Urogynaecologist Relationship Specialty Start Date End Date Cori You MD [address] [phone] PCP - General Family Practice 10/10/14 documented as of this encounter
--- OUTSIDE RECORDS SUMMARY | 2024-10-09 00:57 | XMS_ITS | Encounter Summary ---
Author Organization [facility] Address [address] [place] [address] Care Team Providers Care Long Line Teamster Name Role Phone Cori You MD Primary Care Provider Encounter Details Date Type Department Care Team (Late st Contact Info) Description 12/31/2005 Outpatient Historical [facility] [address] [facility] [address] [place] [address] Radha Duffy MD NO ADDRESS ON FILE Other Screening Mammogram (Primary Dx) Social History Tobacco Use Types Packs/Day Years Used Date Smoking Tobacco: Never Assessed Comments Unknown Sex and Gender Information Value Date Recorded Sex Assigned at Not on file Legal Sex Female 5:17 AM COUNSELOR MANAGER Gender Identity Not on file Sexual Orientation Not on file documented as of this encounter Plan of Treatment Not on file documented as of this encounter Visit Diagnoses Diagnosis Other screening mammogram- Primary documented in this encounter Additional Health Concerns Infection Onset Date Last Indicated Resolved Time R/O COVID-19 02/07/2020 02/07/2020 02/09/2020 2:46 AM COUNSELOR MANAGER COVID-19 02/07/2020 02/07/2020 03/08/2020 8:09 PM COUNSELOR MANAGER R/O COVID-19 03/13/2020 03/14/2020 03/14/2020 4:43 AM COUNSELOR MANAGER COVID-19 Comment:Positive in February. Retest for pre-procedure. 03/14/2020 03/14/2020 03/15/2020 9:[address] documented as of this encounter Care Teams Long Line Teamster Relationship Specialty Start Date End Date Cori You MD [address] [phone] PCP - General Family Practice 10/10/14 documented as of this encounter
--- OUTSIDE RECORDS SUMMARY | 2024-10-09 00:57 | XMS_ITS | Encounter Summary ---
Author Organization [facility] Address [address] [place] [address] Care Team Providers Care Lead Teller Name Role Phone Cori You MD Primary Care Provider [phone] Encounter Details Date Type Department Care Team (Latest Contact Info) Description 11/17/2001 Outpatient Historical [facility] [address] [phone] Herbert Hugo, NO ADDRESS ON FILE ALLERGY, UNSPECIFIED (Primary Dx) Social History Tobacco Use Types Packs/Day Years Used Date Smoking Tobacco: Never Assessed Comments Unknown Sex and Gender Information Value Date Recorded Sex Assigned at Not on file Legal Sex Female 5:17 AM HYDROMETEOROLOGY TEACHER Gender Identity Not on file Sexual Orientation Not on file documented as of this encounter Plan of Treatment Not on file documented as of this encounter Visit Diagnoses Diagnosis Allergy, unspecified not elsewhere classified- Primary documented in this encounter Additional Health Concerns Infection Onset Date Last Indicated Resolved Time R/O COVID-19 02/07/2020 02/07/2020 02/09/2020 2:46 AM HYDROMETEOROLOGY TEACHER COVID-19 02/07/2020 02/07/2020 03/08/2020 8:09 PM HYDROMETEOROLOGY TEACHER R/O COVID-19 03/13/2020 03/14/2020 03/14/2020 4:43 AM HYDROMETEOROLOGY TEACHER COVID-19 Comment:Positive in February. Retest for pre-procedure. 03/14/2020 03/14/2020 03/15/2020 9:[address] documented as of this encounter Care Teams Lead Teller Relationship Specialty Start Date End Date Cori You MD [address] [phone] PCP - General Family Practice 10/10/14 documented as of this encounter
--- OUTSIDE RECORDS SUMMARY | 2024-10-09 00:57 | XMS_ITS | Encounter Summary ---
Author Organization [facility] Address [address] [place] [address] Care Team Providers Care Ferruler Name Role Phone Cori You MD Primary Care Provider Encounter Details Date Type Department Care Team (Latest Contact Info) Description 09/09/2004 Outpatient Historical [facility]- [address] [phone] Trace Singleton MD [address] [phone] MIXED HYPERLIPIDEMIA (Primary Dx) Social History Tobacco Use Types Packs/Day Years Used Date Smoking Tobacco: Never Assessed Comments Unknown Sex and Gender Information Value Date Recorded Sex Assigned at Not on file Legal Sex Female 5:17 AM CASH APPLICATIONS ASSOCIATE Gender Identity Not on file Sexual Orientation Not on file documented as of this encounter Plan of Treatment Not on file documented as of this encounter Procedures Procedure Name Priority Date/Time Associated Diagnosis Comments CBC WITHOUT DIFFERENTIAL Routine 09/09/2004 10:00 AM CDT TSH Routine 09/09/2004 10:00 AM CDT LIPID PANEL Routine 09/09/2004 10:00 AM CDT documented in this encounter Results * (ABNORMAL) CBC WITHOUT DIFFERENTIAL (09/09/2004 10:00 AM CDT) WBC 8.4 4.8 - 10.8 K/ul INTERFACE SYSTEM RBC 4.33 4.20 - 5.40 Mil/ul INTERFACE SYSTEM HEMOGLOBIN 12.3 12.0 - 16.0 g/dL INTERFACE SYSTEM HEMATOCRIT 38.5 36.0 - 46.0 % INTERFACE SYSTEM MCV 88.9 84.0 - 103.0 Fl INTERFACE SYSTEM MCH 28.4 27.0 - 34.0 pg INTERFACE SYSTEM MCHC 31.9 30.0 - 35.0 g/dL INTERFACE SYSTEM RDW 14.7(H) 11.0 - 14.5 % INTERFACE SYSTEM PLATELETS 240 140 - 440 K/ul INTERFACE SYSTEM MPV 10.6 8.9 - 12.8 Fl INTERFACE SYSTEM NEUTROPHILS 68.3 42.2 - 75.2 % INTERFACE SYSTEM LYMPHOCYTES 23.6(L) 24.0 - 44.0 % INTERFACE SYSTEM MONOCYTES 4.7 2.0 - 10.0 % INTERFACE SYSTEM EOSINOPHILS 3.0 0.0 - 7.0 % INTERFACE SYSTEM BASOPHILS 0.4 0.0 - 1.0 % INTERFACE SYSTEM NEUTROPHIL ABSOLUTE 5.7 2.0 - 8.0 K/uL INTERFACE SYSTEM LYMPHOCYTE ABSOLUTE 2.0 1.2 - 4.0 K/ul INTERFACE SYSTEM MONOCYTE ABSOLUTE 0.4 0.1 - 0.6 K/ul INTERFACE SYSTEM EOSINOPHIL ABSOLUTE 0.3 0.0 - 0.7 K/ul INTERFACE SYSTEM BASOPHILS ABSOLUTE 0.0 0.0 - 0.2 K/ul INTERFACE SYSTEM 09/09/2004 10:0 0 AM CDT us Trace Singleton MD HEMATOLOGY ORDERABLES Final Result INTERFACE SYSTEM Refer to clinic/hospital department * TSH (09/09/2004 10:00 AM CDT) TSH 2.667 0.350 - 5.500 uIU/ml INTERFACE SYSTEM Comment: As of 04 at 3:00 p.m. [facility] has changed the methodology for TSH, and with this change the reference range has changed from 0.49-4.67 to 0.35-5.5 uIU/ml. 09/09/2004 10:0 0 AM CDT us Trace Singleton MD CHEMISTRY ORDERABLES Final Result Performing Organization Address City/State/[facility] Co de Phone Number INTERFACE SYSTEM Refer to clinic/hospital department * LIPID PANEL (09/09/2004 10:00 AM CDT) CALCULATED TOTAL CHOLESTEROL TO HDL RATIO 3.63 3.27 - 4.44 INTERFACE SYSTEM CHOLESTEROL 189 75 - 200 mg/dL INTERFACE SYSTEM HDL 52 40 - 60 mg/dL INTERFACE SYSTEM LDL CALCULATED 109 0 - 130 mg/dL INTERFACE SYSTEM TRIGLYCERIDE 142 0 - 200 mg/dL INTERFACE SYSTEM 09/09/2004 10:0 0 AM CDT us Trace Singleton MD CHEMISTRY ORDERABLES Final Result Performing Organization Address City/[facility] Co de Phone Number INTERFACE SYSTEM Refer to clinic/hospital department documented in this encounter Visit Diagnoses Diagnosis Mixed hyperlipidemia- Primary documented in this encounter Additional Health Concerns Infection Onset Date Last Indicated Resolved Time R/O COVID-19 02/07/2020 02/07/2020 02/09/2020 2:46 AM CASH APPLICATIONS ASSOCIATE COVID-19 02/07/2020 02/07/2020 03/08/2020 8:09 PM CASH APPLICATIONS ASSOCIATE R/O COVID-19 03/13/2020 03/14/2020 03/14/2020 4:43 AM CASH APPLICATIONS ASSOCIATE COVID-19 Comment:Positive in February. Retest for pre-procedure. 03/14/2020 03/14/2020 03/15/2020 9:[address] documented as of this encounter Care Teams Ferruler Relationship Specialty Start Date End Date Cori You MD [address] [phone] PCP - General Family Practice 10/10/14 documented as of this encounter
--- OUTSIDE RECORDS SUMMARY | 2024-10-09 00:57 | XMS_ITS | Encounter Summary ---
Author Organization [facility] Address [address] [place] [address] Care Team Providers Care Shipwright Supervisor Name Role Phone Cori You MD Primary Care Provider Encounter Details Date Type Department Care Team (Latest Contact Info) Description 09/12/2001 Outpatient Historical [facility] Medicine[address] [phone] Herbert Hugo, NO ADDRESS ON FILE ALLERGY, UNSPECIFIED (Primary Dx) Social History Tobacco Use Types Packs/Day Years Used Date Smoking Tobacco: Never Assessed Comments Unknown Sex and Gender Information Value Date Recorded Sex Assigned at Not on file Legal Sex Female 5:17 AM POLITICAL THEORY PROFESSOR Gender Identity Not on file Sexual Orientation Not on file documented as of this encounter Plan of Treatment Not on file documented as of this encounter Visit Diagnoses Diagnosis Allergy, unspecified not elsewhere classified- Primary documented in this encounter Additional Health Concerns Infection Onset Date Last Indicated Resolved Time R/O COVID-19 02/07/2020 02/07/2020 02/09/2020 2:46 AM POLITICAL THEORY PROFESSOR COVID-19 02/07/2020 02/07/2020 03/08/2020 8:09 PM POLITICAL THEORY PROFESSOR R/O COVID-19 03/13/2020 03/14/2020 03/14/2020 4:43 AM POLITICAL THEORY PROFESSOR COVID-19 Comment:Positive in February. Retest for pre-procedure. 03/14/2020 03/14/2020 03/15/2020 9:[address] documented as of this encounter Care Teams Shipwright Supervisor Relationship Specialty Start Date End Date Cori You MD [address] [phone] PCP - General Family Practice 10/10/14 documented as of this encounter
--- OUTSIDE RECORDS SUMMARY | 2024-10-09 00:57 | XMS_ITS | Encounter Summary ---
Author Organization [facility] Address [address] [place] [address] Care Team Providers Care Hourly Sign Language Interpreter Name Role Phone Cori You MD Primary Care Provider Encounter Details Date Type Department Care Team (Latest Contact Info) Description 06/14/2001 Outpatient Historical [facility] Medicine- [address] [phone] Trace Singleotn MD [address] [phone] ALLERGY, UNSPECIFIED (Primary Dx) Social History Tobacco Use Types Packs/Day Years Used Date Smoking Tobacco: Never Assessed Comments Unknown Sex and Gender Information Value Date Recorded Sex Assigned at Not on file Legal Sex Female 5:17 AM CYTOTECHNOLOGIST/CYTOLOGY SUPERVISOR Gender Identity Not on file Sexual Orientation Not on file documented as of this encounter Plan of Treatment Not on file documented as of this encounter Visit Diagnoses Diagnosis Allergy, unspecified not elsewhere classified- Primary documented in this encounter Additional Health Concerns Infection Onset Date Last Indicated Resolved Time R/O COVID-19 02/07/2020 02/07/2020 02/09/2020 2:46 AM CYTOTECHNOLOGIST/CYTOLOGY SUPERVISOR COVID-19 02/07/2020 02/07/2020 03/08/2020 8:09 PM CYTOTECHNOLOGIST/CYTOLOGY SUPERVISOR R/O COVID-19 03/13/2020 03/14/2020 03/14/2020 4:43 AM CYTOTECHNOLOGIST/CYTOLOGY SUPERVISOR COVID-19 Comment:Positive in February. Retest for pre-procedure. 03/14/2020 03/14/2020 03/15/2020 9:16 AM Mindy CRUZ documented as of this encounter Care Teams Hourly Sign Language Interpreter Relationship Specialty Start Date End Date Cori You MD [address] [phone] PCP - General Family Practice 10/10/14 documented as of this encounter
--- OUTSIDE RECORDS SUMMARY | 2024-10-09 00:57 | XMS_ITS | Encounter Summary ---
Author Organization [facility] Address [address] [place] [address] Care Team Providers Care Shot Man Name Role Phone Cori You MD Primary Care Provider [phone] Encounter Details Date Type Department Care Team (Latest Contact Info) Description 12/18/2004 Outpatient Historical [facility] [address] [place] [address] George Wilkerson MD NO ADDRESS ON FILE DEVIATED NASAL SEPTUM (Primary Dx); Hypertrph nasal turbinat; CHRONIC RHINITIS; Dysfunct eustachian tube Social History Tobacco Use Types Packs/Day Years Used Date Smoking Tobacco: Never Assessed Comments Unknown Sex and Gender Information Value Date Recorded Sex Assigned at Not on file Legal Sex Female 5:17 AM MOSAIC TILE MAKER Gender Identity Not on file Sexual Orientation Not on file documented as of this encounter Plan of Treatment Not on file documented as of this encounter Visit Diagnoses Diagnosis Deviated nasal septum- Primary Hypertrph nasal turbinat Hypertrophy of nasal turbinates Chronic rhinitis Dysfunct eustachian tube Dysfunction of Eustachian tube documented in this encounter Additional Health Concerns Infection Onset Date Last Indicated Resolved Time R/O COVID-19 02/07/2020 02/07/2020 02/09/2020 2:46 AM MOSAIC TILE MAKER COVID-19 02/07/2020 02/07/202003/0803/08/2020 8:09 PM MOSAIC TILE MAKER R/O COVID-19 03/13/2020 03/14/2020 03/14/2020 4:43 AM MOSAIC TILE MAKER COVID-19 Comment:Positive in February. Retest for pre-procedure. 03/14/2020 03/14/2020 03/15/2020 9:[address] documented as of this encounter Care Teams Shot Man Relationship Specialty Start Date End Date Cori You MD [address] [phone] PCP - General Family Practice 10/10/14 documented as of this encounter
--- OUTSIDE RECORDS SUMMARY | 2024-10-09 00:57 | XMS_ITS | Encounter Summary ---
Author Organization [facility] Address [address] [place] [address] Care Team Providers Care Environmental Compliance Officer Name Role Phone Cori You MD Primary Care Provider Encounter Details Date Type Department Care Team (Late st Contact Info) Description 06/10/2008 Ancillary Orders [facility] [address] [place] [address] Liliane Leonardo FNP NO ADDRESS ON FILE Morbid Obesity (CMS/HCC) Social History Tobacco Use Types Packs/Day Years Used Date Smoking Tobacco: Never Assessed Comments No Sex and Gender Information Value Date Recorded Sex Assigned at Not on file Legal Sex Female 5:17 AM SHOE CUTTER Gender Identity Not on file Sexual Orientation Not on file documented as of this encounter Plan of Treatment Not on file documented as of this encounter Results * XR FLUORO < 1 HOUR (06/12/2008 10:21 AM CDT) Anatomical Region Laterality Modality Computed Radiogr aphy Narrative 10/04/2012 8:37 AM CDT This exam has been autofinalized. Procedure Note Sgf Danie Wu, Radiologist, - 10/04/2012 This exam has been autofinalized. us Liliane L Leonardo GOLF COURSE DESIGNER DIAGNOSTIC IMAGING ORDERABLES Final Result documented in this encounter Visit Diagnoses Diagnosis Morbid obesity (CMS/HCC) Morbid obesity Morbid obesity (CMS/HCC) Morbid obesity documented in this encounter Additional Health Concerns Infection Onset Date Last Indicated Resolved Time R/O COVID-19 02/07/2020 02/07/2020 02/09/2020 2:46 AM SHOE CUTTER COVID-19 02/07/2020 02/07/2020 03/08/2020 8:09 PM SHOE CUTTER R/O COVID-19 03/13/2020 03/14/2020 03/14/2020 4:43 AM SHOE CUTTER COVID-19 Comment:Positive in February. Retest for pre-procedure. 03/14/2020 03/14/2020 03/15/2020 9:[address] documented as of this encounter Care Teams Environmental Compliance Officer Relationship Specialty Start Date End Date Cori You MD [address] [phone] PCP - General Family Practice 10/10/14 documented as of this encounter
--- OUTSIDE RECORDS SUMMARY | 2024-10-09 00:57 | XMS_ITS | Encounter Summary ---
Author Organization [facility] Address [address] [place] [address] Care Team Providers Care Shift Mechanic Name Role Phone Cori You MD Primary Care Provider Encounter Details Date Type Department Care Team (Latest Contact Info) Description 10/30/2001 Outpatient Historical [facility] Medicine- [address] [phone] Trace Singleton MD [address] [phone] ALLERGY, UNSPECIFIED (Primary Dx) Social History Tobacco Use Types Packs/Day Years Used Date Smoking Tobacco: Never Assessed Comments Unknown Sex and Gender Information Value Date Recorded Sex Assigned at Not on file Legal Sex Female 5:17 AM DIETITIAN RESEARCH Gender Identity Not on file Sexual Orientation Not on file documented as of this encounter Plan of Treatment Not on file documented as of this encounter Visit Diagnoses Diagnosis Allergy, unspecified not elsewhere classified- Primary documented in this encounter Additional Health Concerns Infection Onset Date Last Indicated Resolved Time R/O COVID-19 02/07/2020 02/07/2020 02/09/2020 2:46 AM DIETITIAN RESEARCH COVID-19 02/07/2020 02/07/2020 03/08/2020 8:09 PM DIETITIAN RESEARCH R/O COVID-19 03/13/2020 03/14/2020 03/14/2020 4:43 AM DIETITIAN RESEARCH COVID-19 Comment:Positive in February. Retest for pre-procedure. 03/14/2020 03/14/2020 03/15/2020 9:16 AM Mindy CRUZ documented as of this encounter Care Teams Shift Mechanic Relationship Specialty Start Date End Date Cori You MD [address] [phone] PCP - General Family Practice 10/10/14 documented as of this encounter
--- OUTSIDE RECORDS SUMMARY | 2024-10-09 00:57 | XMS_ITS | Encounter Summary ---
Author Organization [facility] Address [address] [place] [facility] [address] Care Team Providers Care Mortgage Accounting Clerk Name Role Phone Cori You MD Primary Care Provider Encounter Details Date Type Department Care Team (Late st Contact Info) Description 12/19/2006 Inpatient Historical [facility] Sohail Flores MD NO ADDRESS ON FILE Loc Osteoarth NOS-L/Leg (Primary Dx) Social History Tobacco Use Types Packs/Day Years Used Date Smoking Tobacco: Never Assessed Comments Unknown Sex and Gender Information Value Date Recorded Sex Assigned at Not on file Legal Sex Female 5:17 AM FLAVOR TANK TENDER Gender Identity Not on file Sexual Orientation Not on file documented as of this encounter Plan of Treatment Not on file documented as of this encounter Procedures Procedure Name Priority Date/Time Associated Diagnosis Comments POC GLUCOSE Routine 12/22/2006 10:42 AM CDT POC GLUCOSE Routine 12/22/2006 5:58 AM CDT CBC WITHOUT DIFFERENTIAL Routine 12/22/2006 5:49 AM CDT POC GLUCOSE Routine 12/21/2006 9:47 PM CDT POC GLUCOSE Routine 12/21/2006 5:39 PM CDT POC GLUCOSE Routine 12/21/2006 10:51 AM CDT POC GLUCOSE Routine 12/21/2006 6:08 AM CDT POC GLUCOSE Routine 12/20/2006 9:49 PM CDT POC GLUCOSE Routine 12/20/2006 5:29 PM CDT POC GLUCOSE Routine 12/20/2006 11:09 AM CDT CBC WITHOUT DIFFERENTIAL Routine 12/20/2006 6:07 AM CDT POC GLUCOSE Routine 12/20/2006 6:05 AM CDT POC GLUCOSE Routine 12/19/2006 9:50 PM CDT POC GLUCOSE Routine 12/19/2006 4:55 PM CDT POC GLUCOSE Routine 12/19/2006 9:26 AM CDT documented in this encounter Results * (ABNORMAL) POC GLUCOSE (12/22/2006 10:42 AM CDT) GLUCOSE POC 157(H) 60 - 100 mg/dL INTERFACE SYSTEM 12/22/2006 10:4 2 AM CDT Sohail Flores MD POINT OF CARE TESTING Edited Performing Organization Address City/[facility] Co de Phone Number INTERFACE SYSTEM Refer to clinic/hospital department * (ABNORMAL) POC GLUCOSE (12/22/2006 5:58 AM CDT) GLUCOSE POC 168(H) 60 - 100 mg/dL INTERFACE SYSTEM 12/22/2006 5:58 AM CDT us Sohail Flores MD POINT OF CARE TESTING Edited INTERFACE SYSTEM Refer to clinic/hospital department * (ABNORMAL) CBC WITHOUT DIFFERENTIAL (12/22/2006 5:49 AM CDT) WBC 10.3 4.8 - 10.8 K/ul INTERFACE SYSTEM RBC 3.89(L) 4.20 - 5.40 Mil/ul INTERFACE SYSTEM HEMOGLOBIN 11.3(L) 12.0 - 16.0 g/dL INTERFACE SYSTEM HEMATOCRIT 33.2(L) 36.0 - 46.0 % INTERFACE SYSTEM MCV 85.3 84.0 - 103.0 Fl INTERFACE SYSTEM MCH 29.0 27.0 - 34.0 pg INTERFACE SYSTEM MCHC 34.0 30.0 - 35.0 g/dL INTERFACE SYSTEM RDW 14.5 11.0 - 14.5 % INTERFACE SYSTEM PLATELETS 224 140 - 440 K/ul INTERFACE SYSTEM MPV 9.8 8.9 - 12.8 Fl INTERFACE SYSTEM NEUTROPHILS 76.8(H) 42.2 - 75.2 % INTERFACE SYSTEM LYMPHOCYTES 13.7(L) 24.0 - 44.0 % INTERFACE SYSTEM MONOCYTES 8.3 2.0 - 10.0 % INTERFACE SYSTEM EOSINOPHILS 0.9 0.0 - 7.0 % INTERFACE SYSTEM BASOPHILS 0.3 0.0 - 1.0 % INTERFACE SYSTEM NEUTROPHIL ABSOLUTE 7.9 2.0 - 8.0 K/ul INTERFACE SYSTEM LYMPHOCYTE ABSOLUTE 1.4 1.2 - 4.0 K/ul INTERFACE SYSTEM MONOCYTE ABSOLUTE 0.9(H) 0.1 - 0.6 K/ul INTERFACE SYSTEM EOSINOPHIL ABSOLUTE 0.1 0.0 - 0.7 K/ul INTERFACE SYSTEM BASOPHILS ABSOLUTE 0.0 0.0 - 0.2 K/ul INTERFACE SYSTEM 12/22/2006 5:49 AM CDT Sohail Flores MD HEMATOLOGY ORDERABLES Edited INTERFACE SYSTEM Refer to clinic/hospital department * (ABNORMAL) POC GLUCOSE (12/21/2006 9:47 PM CDT) GLUCOSE POC 229(H) 60 - 100 mg/dL INTERFACE SYSTEM 12/21/2006 9:47 PM CDT Sohail Flores MD POINT OF CARE TESTING Edited Performing Organization Address City/[facility] de Phone Number INTERFACE SYSTEM Refer to clinic/hospital department * (ABNORMAL) POC GLUCOSE (12/21/2006 5:39 PM CDT) GLUCOSE POC 158(H) 60 - 100 mg/dL INTERFACE SYSTEM 12/21/2006 5:39 PM CDT us Sohail Flores MD POINT OF CARE TESTING Edited Performing Organization Address City/[facility] de Phone Number INTERFACE SYSTEM Refer to clinic/hospital department * (ABNORMAL) POC GLUCOSE (12/21/2006 10:51 AM CDT) GLUCOSE POC 165(H) 60 - 100 mg/dL INTERFACE SYSTEM 12/21/2006 10:5 1 AM CDT us Sohail Flores MD POINT OF CARE TESTING Edited Performing Organization Address [facility] de Phone Number INTERFACE SYSTEM Refer to clinic/hospital department * (ABNORMAL) POC GLUCOSE (12/21/2006 6:08 AM CDT) GLUCOSE POC 171(H) 60 - 100 mg/dL INTERFACE SYSTEM 12/21/2006 6:08 AM CDT us Sohail Flores MD POINT OF CARE TESTING Edited Performing Organization Address [facility] de Phone Number INTERFACE SYSTEM Refer to clinic/hospital department * (ABNORMAL) POC GLUCOSE (12/20/2006 9:49 PM CDT) GLUCOSE POC 169(H) 60 - 100 mg/dL INTERFACE SYSTEM 12/20/2006 9:49 PM CDT us Sohail Flores MD POINT OF CARE TESTING Edited Performing Organization Address City/[facility] de Phone Number INTERFACE SYSTEM Refer to clinic/hospital department * (ABNORMAL) POC GLUCOSE (12/20/2006 5:29 PM CDT) GLUCOSE POC 163(H) 60 - 100 mg/dL INTERFACE SYSTEM 12/20/2006 5:29 PM CDT Sohail Flores MD POINT OF CARE TESTING Edited Performing Organization Address City/[facility] Co de Phone Number INTERFACE SYSTEM Refer to clinic/hospital department * (ABNORMAL) POC GLUCOSE (12/20/2006 11:09 AM CDT) GLUCOSE POC 181(H) 60 - 100 mg/dL INTERFACE SYSTEM 12/20/2006 11:0 9 AM CDT Sohail Flores MD POINT OF CARE TESTING Edited Performing Organization Address City/[facility] de Phone Number INTERFACE SYSTEM Refer to clinic/hospital department * (ABNORMAL) CBC WITHOUT DIFFERENTIAL (12/20/2006 6:07 AM CDT) WBC 10.1 4.8 - 10.8 K/ul INTERFACE SYSTEM RBC 3.62(L) 4.20 - 5.40 Mil/ul INTERFACE SYSTEM HEMOGLOBIN 10.5(L) 12.0 - 16.0 g/dL INTERFACE SYSTEM HEMATOCRIT 31.2(L) 36.0 - 46.0 % INTERFACE SYSTEM MCV 86.2 84.0 - 103.0 Fl INTERFACE SYSTEM MCH 29.0 27.0 - 34.0 pg INTERFACE SYSTEM MCHC 33.7 30.0 - 35.0 g/dL INTERFACE SYSTEM RDW 14.8(H) 11.0 - 14.5 % INTERFACE SYSTEM PLATELETS 205 140 - 440 K/ul INTERFACE SYSTEM MPV 9.8 8.9 - 12.8 Fl INTERFACE SYSTEM NEUTROPHILS 78.3(H) 42.2 - 75.2 % INTERFACE SYSTEM LYMPHOCYTES 11.2(L) 24.0 - 44.0 % INTERFACE SYSTEM MONOCYTES 9.9 2.0 - 10.0 % INTERFACE SYSTEM EOSINOPHILS 0.4 0.0 - 7.0 % INTERFACE SYSTEM BASOPHILS 0.2 0.0 - 1.0 % INTERFACE SYSTEM NEUTROPHIL ABSOLUTE 7.9 2.0 - 8.0 K/ul INTERFACE SYSTEM LYMPHOCYTE ABSOLUTE 1.1(L) 1.2 - 4.0 K/ul INTERFACE SYSTEM MONOCYTE ABSOLUTE 1.0(H) 0.1 - 0.6 K/ul INTERFACE SYSTEM EOSINOPHIL ABSOLUTE 0.0 0.0 - 0.7 K/ul INTERFACE SYSTEM BASOPHILS ABSOLUTE 0.0 0.0 - 0.2 K/ul INTERFACE SYSTEM 12/20/2006 6:07 AM CDT Sohail Flores MD HEMATOLOGY ORDERABLES Edited Performing Organization Address City/[facility] Phone Number INTERFACE SYSTEM Refer to clinic/hospital department * (ABNORMAL) POC GLUCOSE (12/20/2006 6:05 AM CDT) GLUCOSE POC 173(H) 60 - 100 mg/dL INTERFACE SYSTEM 12/20/2006 6:05 AM CDT Sohail Flores MD POINT OF CARE TESTING Edited Performing Organization Address [facility] Phone Number INTERFACE SYSTEM Refer to clinic/hospital department * (ABNORMAL) POC GLUCOSE (12/19/2006 9:50 PM CDT) GLUCOSE POC 137(H) 60 - 100 mg/dL INTERFACE SYSTEM 12/19/2006 9:50 PM CDT Sohail Flores MD POINT OF CARE TESTING Edited Performing Organization Address [facility] Phone Number INTERFACE SYSTEM Refer to clinic/hospital department * (ABNORMAL) POC GLUCOSE (12/19/2006 4:55 PM CDT) GLUCOSE POC 117(H) 60 - 100 mg/dL INTERFACE SYSTEM 12/19/2006 4:55 PM CDT us Sohail Flores MD POINT OF CARE TESTING Edited Performing Organization Address City/[facility] de Phone Number INTERFACE SYSTEM Refer to clinic/hospital department * (ABNORMAL) POC GLUCOSE (12/19/2006 9:26 AM CDT) GLUCOSE POC 149(H) 60 - 100 mg/dL INTERFACE SYSTEM 12/19/2006 9:26 AM CDT us Sohail Flores MD POINT OF CARE TESTING Edited INTERFACE SYSTEM Refer to clinic/hospital department documented in this encounter Visit Diagnoses Diagnosis Localized osteoarthrosis not specified whether primary or secondary, lower leg- Primary documented in this encounter Additional Health Concerns Infection Onset Date Last Indicated Resolved Time R/O COVID-19 02/07/2020 02/07/2020 02/09/2020 2:46 AM FLAVOR TANK TENDER COVID-19 02/07/2020 02/07/2020 03/08/2020 8:09 PM FLAVOR TANK TENDER R/O COVID-19 03/13/2020 03/14/2020 03/14/2020 4:43 AM FLAVOR TANK TENDER COVID-19 Comment:Positive in February. Retest for pre-procedure. 03/14/2020 03/14/2020 03/15/2020 9:[address] documented as of this encounter Care Teams Mortgage Accounting Clerk Relationship Specialty Start Date End Date Cori You MD [address] [phone] PCP - General Family Practice 10/10/14 documented as of this encounter
--- OUTSIDE RECORDS SUMMARY | 2024-10-09 00:57 | XMS_ITS | Encounter Summary ---
Author Organization [facility] Address [address] [place] [address] Care Team Providers Care Railway Yard Assistant Name Role Phone Cori You MD Primary Care Provider Encounter Details Date Type Department Care Team (Latest Contact Info) Description 10/28/2006 Outpatient Historical [facility] Medicine- [address] [phone] Lev Pena PA NO ADDRESS ON FILE Routine Gynecological Examination (Primary Dx); Screening for Malignant Neoplasm of the Cervix; Pain in Joint, Lower Leg; Benign Jarod Lg Bowel Social History Tobacco Use Types Packs/Day Years Used Date Smoking Tobacco: Never Assessed Comments Unknown Sex and Gender Information Value Date Recorded Sex Assigned at Not on file Legal Sex Female 5:17 AM INDUSTRIAL SECURITY ANALYST Gender Identity Not on file Sexual Orientation Not on file documented as of this encounter Plan of Treatment Not on file documented as of this encounter Visit Diagnoses Diagnosis Routine gynecological examination- Primary Screening for malignant neoplasm of the cervix Pain in joint, lower leg Benign jarod lg bowel Benign neoplasm of colon documented in this encounter Additional Health Concerns Infection Onset Date Last Indicated Resolved Time R/O COVID-19 02/07/2020 02/07/2020 02/09/2020 2:46 AM INDUSTRIAL SECURITY ANALYST COVID-19 02/07/2020 02/07/2020 03/08/2020 8:09 PM INDUSTRIAL SECURITY ANALYST R/O COVID-19 03/13/2020 03/14/2020 03/14/2020 4:43 AM INDUSTRIAL SECURITY ANALYST COVID-19 Comment:Positive in February. Retest for pre-procedure. 03/14/2020 03/14/2020 03/15/2020 9:[address] documented as of this encounter Care Teams Railway Yard Assistant Relationship Specialty Start Date End Date Cori You MD [address] [phone] PCP - General Family Practice 10/10/14 documented as of this encounter
--- OUTSIDE RECORDS SUMMARY | 2024-10-09 00:57 | XMS_ITS | Encounter Summary ---
Author Organization [facility] Address [address] [place] [address] Care Team Providers Care Twisting Department End Finder Name Role Phone Cori You MD Primary Care Provider Encounter Details Date Type Department Care Team (Latest Contact Info) Description 09/09/2004 Outpatient Historical [facility] [place] [facility] Medicine- [address] [phone] Trace Singleton MD [address] [phone] CYSTITIS NOS (Primary Dx); POLYDIPSIA; GOITER NOS; SCREENING-DEFIC ANEMIA NEC Social History Tobacco Use Types Packs/Day Years Used Date Smoking Tobacco: Never Assessed Comments Unknown Sex and Gender Information Value Date Recorded Sex Assigned at Not on file Legal Sex Female 5:17 AM HEALTHCARE ADMINISTRATION INTERN Gender Identity Not on file Sexual Orientation Not on file documented as of this encounter Plan of Treatment Not on file documented as of this encounter Visit Diagnoses Diagnosis Cystitis, unspecified- Primary Polydipsia Goiter, unspecified Screening for other and unspecified deficiency anemia documented in this encounter Additional Health Concerns Infection Onset Date Last Indicated Resolved Time R/O COVID-19 02/07/2020 02/07/2020 02/09/2020 2:46 AM HEALTHCARE ADMINISTRATION INTERN COVID-19 02/07/2020 02/07/2020 03/08/2020 8:09 PM HEALTHCARE ADMINISTRATION INTERN R/O COVID-19 03/13/2020 03/14/2020 03/14/2020 4:43 AM HEALTHCARE ADMINISTRATION INTERN COVID-19 Comment:Positive in February. Retest for pre-procedure. 03/14/2020 03/14/2020 03/15/2020 9:[address] documented as of this encounter Care Teams Twisting Department End Finder Relationship Specialty Start Date End Date Cori You MD [address] [phone] PCP - General Family Practice 10/10/14 documented as of this encounter
--- OUTSIDE RECORDS SUMMARY | 2024-10-09 00:57 | XMS_ITS | Encounter Summary ---
Author Organization [facility] Address [address] [place] [address] Care Team Providers Care Outside Parts Sales Name Role Phone Cori You MD Primary Care Provider Encounter Details Date Type Department Care Team (Late st Contact Info) Description 11/17/2006 Outpatient Historical [facility] Gastroenterology- [address] [place] [address] Santy Treviño MD [address] [place] [address] Disability Determination Services [place], [place] [id number] Blood in Stool (Primary Dx) Social History Tobacco Use Types Packs/Day Years Used Date Smoking Tobacco: Never Assessed Comments Unknown Sex and Gender Information Value Date Recorded Sex Assigned at Not on file Legal Sex Female 5:17 AM CHIEF EMBALMER Gender Identity Not on file Sexual Orientation Not on file documented as of this encounter Plan of Treatment Not on file documented as of this encounter Visit Diagnoses Diagnosis Blood in stool- Primary documented in this encounter Additional Health Concerns Infection Onset Date Last Indicated Resolved Time R/O COVID-19 02/07/2020 02/07/2020 02/09/2020 2:46 AM CHIEF EMBALMER COVID-19 02/07/2020 02/07/2020 03/08/2020 8:09 PM CHIEF EMBALMER R/O COVID-19 03/13/2020 03/14/2020 03/14/2020 4:43 AM CHIEF EMBALMER COVID-19 Comment:Positive in February. Retest for pre-procedure. 03/14/2020 03/14/2020 03/15/2020 9:16 AM Mindy CRUZ documented as of this encounter Care Teams Outside Parts Sales Relationship Specialty Start Date End Date Cori You MD [address] [phone] PCP - General Family Practice 10/10/14 documented as of this encounter
--- OUTSIDE RECORDS SUMMARY | 2024-10-09 00:57 | XMS_ITS | Encounter Summary ---
Author Organization [facility] Address [address] [place] [address] Care Team Providers Care Mud Logger Name Role Phone Cori You MD Primary Care Provider Encounter Details Date Type Department Care Team (Latest Contact Info) Description 07/04/2001 Outpatient Historical [facility] Medicine- [address] [phone] Trace Singleton MD [address] [phone] ALLERGY, UNSPECIFIED (Primary Dx) Social History Tobacco Use Types Packs/Day Years Used Date Smoking Tobacco: Never Assessed Comments Unknown Sex and Gender Information Value Date Recorded Sex Assigned at Not on file Legal Sex Female 5:17 AM TELEPHONIC CASE MANAGER Gender Identity Not on file Sexual Orientation Not on file documented as of this encounter Plan of Treatment Not on file documented as of this encounter Visit Diagnoses Diagnosis Allergy, unspecified not elsewhere classified- Primary documented in this encounter Additional Health Concerns Infection Onset Date Last Indicated Resolved Time R/O COVID-19 02/07/2020 02/07/2020 02/09/2020 2:46 AM TELEPHONIC CASE MANAGER COVID-19 02/07/2020 02/07/2020 03/08/2020 8:09 PM TELEPHONIC CASE MANAGER R/O COVID-19 03/13/2020 03/14/2020 03/14/2020 4:43 AM TELEPHONIC CASE MANAGER COVID-19 Comment:Positive in February. Retest for pre-procedure. 03/14/2020 03/14/2020 03/15/2020 9:16 AM Mindy CRUZ documented as of this encounter Care Teams Mud Logger Relationship Specialty Start Date End Date Cori You MD [address] [phone] PCP - General Family Practice 10/10/14 documented as of this encounter
--- OUTSIDE RECORDS SUMMARY | 2024-10-09 00:57 | XMS_ITS | Encounter Summary ---
Author Organization [facility] Address [address] [place] [address] Care Team Providers Care Conveyor Weigher Operator Name Role Phone Cori You MD Primary Care Provider Encounter Details Date Type Department Care Team (Latest Contact Info) Description 12/09/2006 Outpatient Historical [facility] Medicine- [address] [phone] Lev Pena PA NO ADDRESS ON FILE Generalized Osteoarthrosis, Involving Multiple Sites (Primary Dx); Obesity, Unspecified; Unspecified Essential Hypertension; Unspecified Hypothyroidism Social History Tobacco Use Types Packs/Day Years Used Date Smoking Tobacco: Never Assessed Comments Unknown Sex and Gender Information Value Date Recorded Sex Assigned at Not on file Legal Sex Female 5:17 AM MILK HAULER Gender Identity Not on file Sexual Orientation Not on file documented as of this encounter Plan of Treatment Not on file documented as of this encounter Visit Diagnoses Diagnosis Generalized osteoarthrosis, involving multiple sites- Primary Obesity, unspecified Unspecified essential hypertension Unspecified hypothyroidism documented in this encounter Additional Health Concerns Infection Onset Date Last Indicated Resolved Time R/O COVID-19 02/07/2020 02/07/2020 02/09/2020 2:46 AM MILK HAULER COVID-19 02/07/2020 02/07/2020 03/08/2020 8:09 PM MILK HAULER R/O COVID-19 03/13/2020 03/14/2020 03/14/2020 4:43 AM MILK HAULER COVID-19 Comment:Positive in February. Retest for pre-procedure. 03/14/2020 03/14/2020 03/15/2020 9:[address] documented as of this encounter Care Teams Conveyor Weigher Operator Relationship Specialty Start Date End Date Cori You MD [address] [phone] PCP - General Family Practice 10/10/14 documented as of this encounter
--- OUTSIDE RECORDS SUMMARY | 2024-10-09 00:57 | XMS_ITS | Encounter Summary ---
Author Organization [facility] Address [address] [place] [address] Care Team Providers Care Deckhand Maintenance Name Role Phone Cori You MD Primary Care Provider Encounter Details Date Type Department Care Team (Late st Contact Info) Description 04/11/2007 Outpatient Historical [facility] [address] [phone] Social History Tobacco Use Types Packs/Day Years Used Date Smoking Tobacco: Never Assessed Comments Unknown Sex and Gender Information Value Date Recorded Sex Assigned at Not on file Legal Sex Female 5:17 AM VP [employer] Gender Identity Not on file Sexual Orientation Not on file documented as of this encounter Plan of Treatment Not on file documented as of this encounter Visit Diagnoses Not on filedocumented in this encounter Additional Health Concerns Infection Onset Date Last Indicated Resolved Time R/O COVID-19 02/07/2020 02/07/2020 02/09/2020 2:46 AM VP [employer] COVID-19 02/07/2020 02/07/2020 03/08/2020 8:09 PM VP [employer] R/O COVID-19 03/13/2020 03/14/2020 03/14/2020 4:43 AM VP [employer] COVID-19 Comment:Positive in February. Retest for pre-procedure. 03/14/2020 03/14/2020 03/15/2020 9:[address] documented as of this encounter Care Teams Deckhand Maintenance Relationship Specialty Start Date End Date Cori You MD [address] [phone] PCP - General Family Practice 10/10/14 documented as of this encounter
--- OUTSIDE RECORDS SUMMARY | 2024-10-09 00:57 | XMS_ITS | Encounter Summary ---
Author Organization [facility] Address [address] [place] [address] Care Team Providers Care Furniture Painter Name Role Phone Cori You MD Primary Care Provider Encounter Details Date Type Department Care Team (Late st Contact Info) Description 06/26/2004 Outpatient Historical [facility]oscopy [address] [place] [address] Santy Treviño MD [address] [place] [address] Disability Determination Services [place], [place] [id number] DIARRHEA NOS (Primary Dx) Social History Tobacco Use Types Packs/Day Years Used Date Smoking Tobacco: Never Assessed Comments Unknown Sex and Gender Information Value Date Recorded Sex Assigned at Not on file Legal Sex Female 5:17 AM DIRECTOR [employer]CHOOL [employer]URSING Gender Identity Not on file Sexual Orientation Not on file documented as of this encounter Plan of Treatment Not on file documented as of this encounter Visit Diagnoses Diagnosis Diarrhea- Primary documented in this encounter Additional Health Concerns Infection Onset Date Last Indicated Resolved Time R/O COVID-19 02/07/2020 02/07/2020 02/09/2020 2:46 AM DIRECTOR [employer]CHOOL OF NURSING COVID-19 02/07/2020 02/07/2020 03/08/2020 8:09 PM [employer]OR [employer] R/O COVID-19 03/13/2020 03/14/2020 03/14/2020 4:43 AM [employer] COVID-19 Comment:Positive in February. Retest for pre-procedure. 03/14/2020 03/14/2020 03/15/2020 9:[address] documented as of this encounter Care Teams Furniture Painter Relationship Specialty Start Date End Date Cori You MD [address] [phone] PCP - General Family Practice 10/10/14 documented as of this encounter
--- OUTSIDE RECORDS SUMMARY | 2024-10-09 00:57 | XMS_ITS | Encounter Summary ---
Author Organization [facility] Address [address] [place] [address] Care Team Providers Care Manager Rn Name Role Phone Cori You MD Primary Care Provider Encounter Details Date Type Department Care Team (Latest Contact Info) Description 06/23/2001 Outpatient Historical [facility] [address] [phone] Herbert Hugo, NO ADDRESS ON FILE ALLERGY, UNSPECIFIED (Primary Dx) Social History Tobacco Use Types Packs/Day Years Used Date Smoking Tobacco: Never Assessed Comments Unknown Sex and Gender Information Value Date Recorded Sex Assigned at Not on file Legal Sex Female 5:17 AM METAL BONDING ASSEMBLER Gender Identity Not on file Sexual Orientation Not on file documented as of this encounter Plan of Treatment Not on file documented as of this encounter Visit Diagnoses Diagnosis Allergy, unspecified not elsewhere classified- Primary documented in this encounter Additional Health Concerns Infection Onset Date Last Indicated Resolved Time R/O COVID-19 02/07/2020 02/07/2020 02/09/2020 2:46 AM METAL BONDING ASSEMBLER COVID-19 02/07/2020 02/07/2020 03/08/2020 8:09 PM METAL BONDING ASSEMBLER R/O COVID-19 03/13/2020 03/14/2020 03/14/2020 4:43 AM METAL BONDING ASSEMBLER COVID-19 Comment:Positive in February. Retest for pre-procedure. 03/14/2020 03/14/2020 03/15/2020 9:[address] documented as of this encounter Care Teams Manager Rn Relationship Specialty Start Date End Date Cori You MD [address] [phone] PCP - General Family Practice 10/10/14 documented as of this encounter
--- OUTSIDE RECORDS SUMMARY | 2024-10-09 00:57 | XMS_ITS | Encounter Summary ---
Author Organization [facility] Address [address] [place] [address] Care Team Providers Care Marine Engineering Professor Name Role Phone Cori You MD Primary Care Provider Encounter Details Date Type Department Care Team (Latest Contact Info) Description 12/18/2004 Outpatient Historical [facility] PreAdmission [address] [address] George Wilkerson MD NO ADDRESS ON FILE PREOP CARDIOVASC EXAM (Primary Dx) Social History Tobacco Use Types Packs/Day Years Used Date Smoking Tobacco: Never Assessed Comments Unknown Sex and Gender Information Value Date Recorded Sex Assigned at Not on file Legal Sex Female 5:17 AM SENIOR MEDICAL TECHNOLOGIST Gender Identity Not on file Sexual Orientation Not on file documented as of this encounter Plan of Treatment Not on file documented as of this encounter Procedures Procedure Name Priority Date/Time Associated Diagnosis Comments CBC WITHOUT DIFFERENTIAL Routine 12/18/2004 12:35 PM CDT COMPREHENSIVE METABOLIC PANEL Routine 12/18/2004 12:35 PM CDT documented in this encounter Results * (ABNORMAL) COMPREHENSIVE METABOLIC PANEL (12/18/2004 12:35 PM CDT) GLUCOSE 93 70 - 110 mg/dL INTERFACE SYSTEM BUN 10 7 - 17 mg/dL INTERFACE SYSTEM CREATININE 0.6(L) 0.7 - 1.2 mg/dL INTERFACE SYSTEM SODIUM 139 136 - 145 mEq/L INTERFACE SYSTEM POTASSIUM 3.9 3.5 - 5.0 mEq/L INTERFACE SYSTEM CO2 29 22 - 32 mmol/l INTERFACE SYSTEM CHLORIDE 101 95 - 110 mEq/L INTERFACE SYSTEM CALCIUM 9.0 8.4 - 10.5 mg/dL INTERFACE SYSTEM ALKALINE PHOSPHATASE 89 38 - 126 IU/L INTERFACE SYSTEM TOTAL PROTEIN 7.5 6.3 - 8.2 g/dL INTERFACE SYSTEM ALBUMIN 3.9 3.5 - 5.0 g/dL INTERFACE SYSTEM AST 23 14 - 36 IU/L INTERFACE SYSTEM ALT 32 9 - 52 IU/L INTERFACE SYSTEM BILIRUBIN TOTAL 0.4 0.2 - 1.4 mg/dL INTERFACE SYSTEM GLOBULIN (CALC) 3.6 2.4 - 3.9 g/dL INTERFACE SYSTEM ANION GAP 13 9 - 20 mEq/L INTERFACE SYSTEM ALBUMIN/GLOBULIN RATIO 1.1 1.0 - 2.3 INTERFACE SYSTEM OSMOLALITY, CALCULATED 285 275 - 295 mOsm/Kg INTERFACE SYSTEM 12/18/2004 12:3 5 PM CDT us George Wilkerson MD CHEMISTRY ORDERABLES Final Re sult INTERFACE SYSTEM Refer to clinic/hospital department * (ABNORMAL) CBC WITHOUT DIFFERENTIAL (12/18/2004 12:35 PM CDT) WBC 7.2 4.8 - 10.8 K/ul INTERFACE SYSTEM RBC 4.27 4.20 - 5.40 Mil/ul INTERFACE SYSTEM HEMOGLOBIN 12.2 12.0 - 16.0 g/dL INTERFACE SYSTEM HEMATOCRIT 37.4 36.0 - 46.0 % INTERFACE SYSTEM MCV 87.6 84.0 - 103.0 Fl INTERFACE SYSTEM MCH 28.6 27.0 - 34.0 pg INTERFACE SYSTEM MCHC 32.6 30.0 - 35.0 g/dL INTERFACE SYSTEM RDW 14.6(H) 11.0 - 14.5 % INTERFACE SYSTEM PLATELETS 206 140 - 440 K/ul INTERFACE SYSTEM MPV 9.9 8.9 - 12.8 Fl INTERFACE SYSTEM NEUTROPHILS 63.2 42.2 - 75.2 % INTERFACE SYSTEM LYMPHOCYTES 29.1 24.0 - 44.0 % INTERFACE SYSTEM MONOCYTES 4.4 2.0 - 10.0 % INTERFACE SYSTEM EOSINOPHILS 2.6 0.0 - 7.0 % INTERFACE SYSTEM BASOPHILS 0.4 0.0 - 1.0 % INTERFACE SYSTEM NEUTROPHIL ABSOLUTE 4.6 2.0 - 8.0 K/uL INTERFACE SYSTEM LYMPHOCYTE ABSOLUTE 2.1 1.2 - 4.0 K/ul INTERFACE SYSTEM MONOCYTE ABSOLUTE 0.3 0.1 - 0.6 K/ul INTERFACE SYSTEM EOSINOPHIL ABSOLUTE 0.2 0.0 - 0.7 K/ul INTERFACE SYSTEM BASOPHILS ABSOLUTE 0.0 0.0 - 0.2 K/ul INTERFACE SYSTEM 12/18/2004 12:3 5 PM CDT us George Wilkerson MD HEMATOLOGY ORDERABLES Final R esult INTERFACE SYSTEM Refer to clinic/hospital department documented in this encounter Visit Diagnoses Diagnosis Pre-operative cardiovascular examination- Primary documented in this encounter Additional Health Concerns Infection Onset Date Last Indicated Resolved Time R/O COVID-19 02/07/2020 02/07/2020 02/09/2020 2:46 AM SENIOR MEDICAL TECHNOLOGIST COVID-19 02/07/2020 02/07/2020 03/08/2020 8:09 PM SENIOR MEDICAL TECHNOLOGIST R/O COVID-19 03/13/2020 03/14/2020 03/14/2020 4:43 AM SENIOR MEDICAL TECHNOLOGIST COVID-19 Comment:Positive in February. Retest for pre-procedure. 03/14/2020 03/14/2020 03/15/2020 9:[address] documented as of this encounter Care Teams Marine Engineering Professor Relationship Specialty Start Date End Date Cori You MD [address] [phone] PCP - General Family Practice 10/10/14 documented as of this encounter
--- OUTSIDE RECORDS SUMMARY | 2024-10-09 00:57 | XMS_ITS | Encounter Summary ---
Author Organization [facility] Address [address] [place] [address] Care Team Providers Care Bed Manager Name Role Phone Cori You MD Primary Care Provider Encounter Details Date Type Department Care Team (Latest Contact Info) Description 10/02/2001 Outpatient Historical [facility] Medicine- [address] [phone] Trace Singleton MD [address] [phone] ALLERGY, UNSPECIFIED (Primary Dx) Social History Tobacco Use Types Packs/Day Years Used Date Smoking Tobacco: Never Assessed Comments Unknown Sex and Gender Information Value Date Recorded Sex Assigned at Not on file Legal Sex Female 5:17 AM POWER HOUSE ENGINEER Gender Identity Not on file Sexual Orientation Not on file documented as of this encounter Plan of Treatment Not on file documented as of this encounter Visit Diagnoses Diagnosis Allergy, unspecified not elsewhere classified- Primary documented in this encounter Additional Health Concerns Infection Onset Date Last Indicated Resolved Time R/O COVID-19 02/07/2020 02/07/2020 02/09/2020 2:46 AM POWER HOUSE ENGINEER COVID-19 02/07/2020 02/07/2020 03/08/2020 8:09 PM POWER HOUSE ENGINEER R/O COVID-19 03/13/2020 03/14/2020 03/14/2020 4:43 AM POWER HOUSE ENGINEER COVID-19 Comment:Positive in February. Retest for pre-procedure. 03/14/2020 03/14/2020 03/15/2020 9:16 AM Mindy CRUZ documented as of this encounter Care Teams Bed Manager Relationship Specialty Start Date End Date Cori You MD [address] [phone] PCP - General Family Practice 10/10/14 documented as of this encounter
--- OUTSIDE RECORDS SUMMARY | 2024-10-09 00:57 | XMS_ITS | Encounter Summary ---
Author Organization [facility] Address [address] [place] [address] Care Team Providers Care Spot Machine Operator Name Role Phone Cori You MD Primary Care Provider Encounter Details Date Type Department Care Team (Latest Contact Info) Description 12/24/2004 Outpatient Historical [facility] [address] [place] [address] George Wilkerson MD NO ADDRESS ON FILE DEVIATED NASAL SEPTUM (Primary Dx); Hypertrph nasal turbinat Social History Tobacco Use Types Packs/Day Years Used Date Smoking Tobacco: Never Assessed Comments Unknown Sex and Gender Information Value Date Recorded Sex Assigned at Not on file Legal Sex Female 5:17 AM PAINTER SUPERVISOR Gender Identity Not on file Sexual Orientation Not on file documented as of this encounter Plan of Treatment Not on file documented as of this encounter Visit Diagnoses Diagnosis Deviated nasal septum- Primary Hypertrph nasal turbinat Hypertrophy of nasal turbinates documented in this encounter Additional Health Concerns Infection Onset Date Last Indicated Resolved Time R/O COVID-19 02/07/2020 02/07/2020 02/09/2020 2:4 6 AM PAINTER SUPERVISOR COVID-19 02/07/2020 02/07/2020 03/08/2020 8:09 PM PAINTER SUPERVISOR R/O COVID-19 03/13/2020 03/14/2020 03/14/2020 4:43 AM PAINTER SUPERVISOR COVID-19 Comment:Positive in February. Retest for pre-procedure. 03/14/2020 03/14/2020 03/15/2020 9:1 6 AM PAINTER SUPERVISOR documented as of this encounter Care Teams Spot Machine Operator Relationship Specialty Start Date End Date Cori You MD [address] [phone] PCP - General Family Practice 10/10/14 documented as of this encounter
--- OUTSIDE RECORDS SUMMARY | 2024-10-09 00:57 | XMS_ITS | Encounter Summary ---
Author Organization [facility] Address [address] [place] [address] Care Team Providers Care Public Health Informatician Name Role Phone Cori You MD Primary Care Provider [phone] Encounter Details Date Type Department Care Team (Latest Contact Info) Description 08/29/2001 Outpatient Historical [facility] Medicine- [address] [phone] Trace Singleton MD [address] [phone] ALLERGY, UNSPECIFIED (Primary Dx) Social History Tobacco Use Types Packs/Day Years Used Date Smoking Tobacco: Never Assessed Comments Unknown Sex and Gender Information Value Date Recorded Sex Assigned at Not on file Legal Sex Female 5:17 AM TRUST MANAGER ASSISTANT Gender Identity Not on file Sexual Orientation Not on file documented as of this encounter Plan of Treatment Not on file documented as of this encounter Visit Diagnoses Diagnosis Allergy, unspecified not elsewhere classified- Primary documented in this encounter Additional Health Concerns Infection Onset Date Last Indicated Resolved Time R/O COVID-19 02/07/2020 02/07/2020 02/09/2020 2:46 AM TRUST MANAGER ASSISTANT COVID-19 02/07/2020 02/07/2020 03/08/2020 8:09 PM TRUST MANAGER ASSISTANT R/O COVID-19 03/13/2020 03/14/2020 03/14/2020 4:43 AM TRUST MANAGER ASSISTANT COVID-19 Comment:Positive in February. Retest for pre-procedure. 03/14/2020 03/14/2020 03/15/2020 9:16 AM Mindy CRUZ documented as of this encounter Care Teams Public Health Informatician Relationship Specialty Start Date End Date Cori You MD [address] [phone] PCP - General Family Practice 10/10/14 documented as of this encounter
--- OUTSIDE RECORDS SUMMARY | 2024-10-09 00:57 | XMS_ITS | Encounter Summary ---
Author Organization [facility] Address [address] [place] [address] Care Team Providers Care Panel Saw Operator Name Role Phone Cori You MD Primary Care Provider Encounter Details Date Type Department Care Team (Latest Contact Info) Description 05/24/2001 Outpatient Historical [facility] Medicine- [address] [phone] Trace Singleton MD [address] [phone] ALLERGY, UNSPECIFIED (Primary Dx) Social History Tobacco Use Types Packs/Day Years Used Date Smoking Tobacco: Never Assessed Comments Unknown Sex and Gender Information Value Date Recorded Sex Assigned at Not on file Legal Sex Female 5:17 AM RECREATION FACILITY ATTENDANT Gender Identity Not on file Sexual Orientation Not on file documented as of this encounter Plan of Treatment Not on file documented as of this encounter Visit Diagnoses Diagnosis Allergy, unspecified not elsewhere classified- Primary documented in this encounter Additional Health Concerns Infection Onset Date Last Indicated Resolved Time R/O COVID-19 02/07/2020 02/07/2020 02/09/2020 2:46 AM RECREATION FACILITY ATTENDANT COVID-19 02/07/2020 02/07/2020 03/08/2020 8:09 PM RECREATION FACILITY ATTENDANT R/O COVID-19 03/13/2020 03/14/2020 03/14/2020 4:43 AM RECREATION FACILITY ATTENDANT COVID-19 Comment:Positive in February. Retest for pre-procedure. 03/14/2020 03/14/2020 03/15/2020 9:16 AM Mindy CRUZ documented as of this encounter Care Teams Panel Saw Operator Relationship Specialty Start Date End Date Cori You MD [address] [phone] PCP - General Family Practice 10/10/14 documented as of this encounter
--- OUTSIDE RECORDS SUMMARY | 2024-10-09 00:57 | XMS_ITS | Encounter Summary ---
Author Organization [facility] Address [address] [place] [address] Care Team Providers Care Flowers Salesperson Name Role Phone Cori You MD Primary Care Provider Encounter Details Date Type Department Care Team (Late st Contact Info) Description 11/09/2006 Outpatient Historical [facility] Lev Pena, NICHOLAS NO ADDRESS ON FILE Social History Tobacco Use Types Packs/Day Years Used Date Smoking Tobacco: Never Assessed Comments Unknown Sex and Gender Information Value Date Recorded Sex Assigned at Not on file Legal Sex Female 5:17 AM DRYWALL TAPER HELPER Gender Identity Not on file Sexual Orientation Not on file documented as of this encounter Plan of Treatment Not on file documented as of this encounter Procedures Procedure Name Priority Date/Time Associated Diagnosis Comments MRI KNEE WO CONTRAST RIGHT Routine 11/09/2006 5:51 AM CDT documented in this encounter Results * MRI KNEE WO CONTRAST RIGHT (11/09/2006 5:51 AM CDT) Anatomical Region Laterality Modality Lower Extremity Other 11/09/2006 5:51 AM CDT Narrative 11/09/2006 5:51 AM CDT MRI right knee without contrast 11/09/2006. Indication 61-year-old female with right knee pain. Technique: Proton density sagittal, T1 coronal, T2 fat-sat sagittal and axial, STIR coronal. Comparison: None. Findings: The ACL, PCL, MCL, and LCL complex are intact. A physiologic joint effusion is present. Atiny popliteal cyst is noted. Moderate to marked thinning and surface irregularity with an area ofcomplete denution of the articular cartilage of the inferior aspect of the lateral articular facetof the patella is identified. Subchondral cystic change of the inferior aspect of the lateralarticular facet of the patella is noted. Mild abnormal thickening with slight intrinsicintermediate signal on low TE weighted sequences within the infrapatellar tendon is identified. Mild intermediate signal intrinsically on fluid-sensitive sequences is noted as well. The extensormechanism is otherwise intact. Grade 2 signal within the anterior and posterior horns of thelateral meniscus is identified. Maceration of the anterior junction, body, posterior junction, andposterior horn of the medial meniscus is identified. Medial subluxation of the body of the medialmeniscus from the medial joint line is seen. Moderate to extensive thinning of the articularcartilage of the medial compartment with subchondral cystic change of the medial aspect of themedial tibial plateau is seen. Tricompartmental marginal osteophyte formation is noted. Extensivethinning with area of complete denution of the articular cartilage of the posterior aspect of thenonweightbearing portion of the medial femoral condyle is present. Impression: 1. 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 2. Tiny dissecting popliteal cyst. 3. Mild tendinopathy of the infrapatellar tendon. - Dictated By: Maribell Vanessa M.D. Electronically Signed By: Maribell Vanessa M.D. Date Signed: 11/09/06 [facility] Procedure Note 02/22/2009 MRI right knee without contrast 11/09/2006. Indication 61-year-old female with right knee pain. Technique: Proton density sagittal, T1 coronal, T2 fat-sat sagittal and axial, STIRcoronal. Comparison: None. Findings: The ACL, PCL, MCL, and LCL complex are intact. A physiologic jointeffusion is present. Atiny popliteal cyst is noted. Moderate to marked thinning and surface irregularity withan area ofcomplete denution of the articular cartilage of the inferior aspect of the lateral articularfacetof the patella is identified. Subchondral cystic change of the inferior aspect of thelateralarticular facet of the patella is noted. Mild abnormal thickening with slight intrinsicintermediatesignal on low TE weighted sequences within the infrapatellar tendon is identified. Mild intermediate signal intrinsically on fluid-sensitive sequences isnoted as well. The extensormechanism is otherwise intact. Grade 2 signal within the anteriorand posterior horns of thelateral meniscus is identified. Maceration of the anterior junction,body, posterior junction, andposterior horn of the medial meniscus is identified. Medial subluxationof the body of the medialmeniscus from the medial joint line is seen. Moderate to extensivethinning of the articularcartilage of the medial compartment with subchondral cysticchange of the medial aspect of themedial tibial plateau is seen. Tricompartmental marginal osteophyteformation is noted. Extensivethinning with area of complete denution of the articularcartilage of the posterior aspect of thenonweightbearing portion of the medial femoral condyle is present. Impression: 1. Tricompartmental degenerative change greatest within the medialcompartment with maceration of themedial meniscus and grade IV chondromalacia of the lateral articularfacet of the patella andposterior aspect of the nonweightbearing portion of the medial femoral condyle asdescribedabove. 2. Tiny dissecting popliteal cyst. 3. Mild tendinopathy of the infrapatellar tendon. - Dictated By: Maribell Vanessa M.D. Electronically Signed By: Maribell Vanessa M.D. Date Signed: 11/09/06 [facility] Lev PETERSON MR ORDERABLES Final Result documented in this encounter Visit Diagnoses Not on filedocumented in this encounter Additional Health Concerns Infection Onset Date Last Indicated Resolved Time R/O COVID-19 02/07/2020 02/07/2020 02/09/2020 2:46 AM DRYWALL TAPER HELPER COVID-19 02/07/2020 02/07/2020 03/08/2020 8:09 PM DRYWALL TAPER HELPER R/O COVID-19 03/13/2020 03/14/2020 03/14/2020 4:43 AM DRYWALL TAPER HELPER COVID-19 Comment:Positive in February. Retest for pre-procedure. 03/14/2020 03/14/2020 03/15/2020 9:[address] documented as of this encounter Care Teams Flowers Salesperson Relationship Specialty Start Date End Date Cori You MD [address] [phone] PCP - General Family Practice 10/10/14 documented as of this encounter
--- OUTSIDE RECORDS SUMMARY | 2024-10-09 00:57 | XMS_ITS | Encounter Summary ---
Author Organization [facility] Address [address] [place] [address] Care Team Providers Care Lumber Stacker Operator Name Role Phone Cori You MD Primary Care Provider Encounter Details Date Type Department Care Team (Late st Contact Info) Description 11/17/2006 Outpatient Historical [facility] Endoscopy [address] [place] [address] Santy Treviño MD [address] [place] [address] Disability Determination Services [place], [place] [id number] Special Screening for Malignant Neoplasms, Colon (Primary Dx) Social History Tobacco Use Types Packs/Day Years Used Date Smoking Tobacco: Never Assessed Comments Unknown Sex and Gender Information Value Date Recorded Sex Assigned at Not on file Legal Sex Female 5:17 AM MACHINE ADJUSTER LEADER Gender Identity Not on file Sexual Orientation Not on file documented as of this encounter Plan of Treatment Not on file documented as of this encounter Visit Diagnoses Diagnosis Special screening for malignant neoplasms, colon- Primary documented in this encounter Additional Health Concerns Infection Onset Date Last Indicated Resolved Time R/O COVID-19 02/07/2020 02/07/2020 02/09/2020 2:46 AM MACHINE ADJUSTER LEADER COVID-19 02/07/2020 02/07/2020 03/08/2020 8:09 PM MACHINE ADJUSTER LEADER R/O COVID-19 03/13/2020 03/14/2020 03/14/2020 4:43 AM MACHINE ADJUSTER LEADER COVID-19 Comment:Positive in February. Retest for pre-procedure. 03/14/2020 03/14/2020 03/15/2020 9:16 AM Mindy CRUZ documented as of this encounter Care Teams Lumber Stacker Operator Relationship Specialty Start Date End Date Cori You MD [address] [phone] PCP - General Family Practice 10/10/14 documented as of this encounter
--- OUTSIDE RECORDS SUMMARY | 2024-10-09 00:57 | XMS_ITS | Encounter Summary ---
Author Organization [facility] Address [address] [place] [address] Care Team Providers Care Security Services Specialist Name Role Phone Cori You MD Primary Care Provider [phone] Encounter Details Date Type Department Care Team (Latest Contact Info) Description 09/05/2001 Outpatient Historical [facility] Medicine- [address] [phone] Trace Singleton MD [address] [phone] ALLERGY, UNSPECIFIED (Primary Dx) Social History Tobacco Use Types Packs/Day Years Used Date Smoking Tobacco: Never Assessed Comments Unknown Sex and Gender Information Value Date Recorded Sex Assigned at Not on file Legal Sex Female 5:17 AM STEWARD RACETRACK Gender Identity Not on file Sexual Orientation Not on file documented as of this encounter Plan of Treatment Not on file documented as of this encounter Visit Diagnoses Diagnosis Allergy, unspecified not elsewhere classified- Primary documented in this encounter Additional Health Concerns Infection Onset Date Last Indicated Resolved Time R/O COVID-19 02/07/2020 02/07/2020 02/09/2020 2:46 AM STEWARD RACETRACK COVID-19 02/07/2020 02/07/2020 03/08/2020 8:09 PM STEWARD RACETRACK R/O COVID-19 03/13/2020 03/14/2020 03/14/2020 4:43 AM STEWARD RACETRACK COVID-19 Comment:Positive in February. Retest for pre-procedure. 03/14/2020 03/14/2020 03/15/2020 9:16 AM Mindy CRUZ documented as of this encounter Care Teams Security Services Specialist Relationship Specialty Start Date End Date Cori You MD [address] [phone] PCP - General Family Practice 10/10/14 documented as of this encounter
--- OUTSIDE RECORDS SUMMARY | 2024-10-09 00:57 | XMS_ITS | Encounter Summary ---
Author Organization [facility] Address [address] [place] [address] Care Team Providers Care Inventory Control/Shipping Receiving Name Role Phone Cori You MD Primary Care Provider Encounter Details Date Type Department Care Team (Latest Contact Info) Description 09/19/2001 Outpatient Historical [facility] Medicine- [address] [phone] Trace Singleton MD [address] [phone] ALLERGY, UNSPECIFIED (Primary Dx) Social History Tobacco Use Types Packs/Day Years Used Date Smoking Tobacco: Never Assessed Comments Unknown Sex and Gender Information Value Date Recorded Sex Assigned at Not on file Legal Sex Female 5:17 AM GROCERY SPECIALIST Gender Identity Not on file Sexual Orientation Not on file documented as of this encounter Plan of Treatment Not on file documented as of this encounter Visit Diagnoses Diagnosis Allergy, unspecified not elsewhere classified- Primary documented in this encounter Additional Health Concerns Infection Onset Date Last Indicated Resolved Time R/O COVID-19 02/07/2020 02/07/2020 02/09/2020 2:46 AM GROCERY SPECIALIST COVID-19 02/07/2020 02/07/2020 03/08/2020 8:09 PM GROCERY SPECIALIST R/O COVID-19 03/13/2020 03/14/2020 03/14/2020 4:43 AM GROCERY SPECIALIST COVID-19 Comment:Positive in February. Retest for pre-procedure. 03/14/2020 03/14/2020 03/15/2020 9:16 AM Mindy CRUZ documented as of this encounter Care Teams Inventory Control/Shipping Receiving Relationship Specialty Start Date End Date Cori You MD [address] [phone] PCP - General Family Practice 10/10/14 documented as of this encounter
--- OUTSIDE RECORDS SUMMARY | 2024-10-09 00:57 | XMS_ITS | Encounter Summary ---
Author Organization [facility] Address [address] [place] [address] Care Team Providers Care Appliance Technician Name Role Phone Cori You MD Primary Care Provider Encounter Details Date Type Department Care Team (Late st Contact Info) Description 04/11/2007 Outpatient Historical [facility] [address] [place] [address] Sohail Flores MD NO ADDRESS ON FILE Social History Tobacco Use Types Packs/Day Years Used Date Smoking Tobacco: Never Assessed Comments Unknown Sex and Gender Information Value Date Recorded Sex Assigned at Not on file Legal Sex Female 5:17 AM CORE SUCKER Gender Identity Not on file Sexual Orientation Not on file documented as of this encounter Plan of Treatment Not on file documented as of this encounter Visit Diagnoses Not on filedocumented in this encounter Additional Health Concerns Infection Onset Date Last Indicated Resolved Time R/O COVID-19 02/07/2020 02/07/2020 02/09/2020 2:46 AM CORE SUCKER COVID-19 02/07/2020 02/07/2020 03/08/2020 8:09 PM CORE SUCKER R/O COVID-19 03/13/2020 03/14/2020 03/14/2020 4:43 AM CORE SUCKER COVID-19 Comment:Positive in February. Retest for pre-procedure. 03/14/2020 03/14/2020 03/15/2020 9:[address] documented as of this encounter Care Teams Appliance Technician Relationship Specialty Start Date End Date Cori You MD [address] [phone] PCP - General Family Practice 10/10/14 documented as of this encounter
--- OUTSIDE RECORDS SUMMARY | 2024-10-09 00:57 | XMS_ITS | Encounter Summary ---
Author Organization [facility] Address [address] [place] [address] Care Team Providers Care Primary Care Nurse Practitioner Name Role Phone Cori You MD Primary Care Provider Encounter Details Date Type Department Care Team (Latest Contact Info) Description 12/01/2004 Outpatient Historical [facility] Trace Singleton MD [address] [facility] [address] [place] [address] MASTODYNIA (Primary Dx) Social History Tobacco Use Types Packs/Day Years Used Date Smoking Tobacco: Never Assessed Comments Unknown Sex and Gender Information Value Date Recorded Sex Assigned at Not on file Legal Sex Female 5:17 AM TITLE INSURANCE EXAMINER Gender Identity Not on file Sexual Orientation Not on file documented as of this encounter Plan of Treatment Not on file documented as of this encounter Visit Diagnoses Diagnosis Mastodynia- Primary documented in this encounter Additional Health Concerns Infection Onset Date Last Indicated Resolved Time R/O COVID-19 02/07/2020 02/07/2020 02/09/2020 2:46 AM TITLE INSURANCE EXAMINER COVID-19 02/07/2020 02/07/2020 03/08/2020 8:09 PM TITLE INSURANCE EXAMINER R/O COVID-19 03/13/2020 03/14/2020 03/14/2020 4:43 AM TITLE INSURANCE EXAMINER COVID-19 Comment:Positive in February. Retest for pre-procedure. 03/14/2020 03/14/2020 03/15/2020 9:[address] documented as of this encounter Care Teams Primary Care Nurse Practitioner Relationship Specialty Start Date End Date Cori You MD [address] [phone] PCP - General Family Practice 10/10/14 documented as of this encounter
--- OUTSIDE RECORDS SUMMARY | 2024-10-09 00:57 | XMS_ITS | Encounter Summary ---
Author Organization [facility] Address [address] [place] [address] Care Team Providers Care Pellet Post Inspector Name Role Phone Cori You MD Primary Care Provider [phone] Encounter Details Date Type Department Care Team (Late st Contact Info) Description 07/16/2008 Ancillary Orders [facility] [address] [place] [address] Liliane Leonardo FNP NO ADDRESS ON FILE Morbid Obesity (CMS/HCC) Social History Tobacco Use Types Packs/Day Years Used Date Smoking Tobacco: Never Assessed Comments No Sex and Gender Information Value Date Recorded Sex Assigned at Not on file Legal Sex Female 5:17 AM GARMENT LINER Gender Identity Not on file Sexual Orientation Not on file documented as of this encounter Plan of Treatment Not on file documented as of this encounter Results * XR FLUORO < 1 HOUR (07/17/2008 10:41 AM CDT) Anatomical Region Laterality Modality Computed Radiogr aphy Narrative 10/04/2012 8:39 AM CDT This exam has been autofinalized. Procedure Note Sgf Danie Wu, Radiologist, - 10/04/2012 This exam has been autofinalized. us Liliane L Leonardo [facility] ORDERABLES Final Result documented in this encounter Visit Diagnoses Diagnosis Morbid obesity (CMS/HCC) Morbid obesity Morbid obesity (CMS/HCC) Morbid obesity documented in this encounter Additional Health Concerns Infection Onset Date Last Indicated Resolved Time R/O COVID-19 02/07/2020 02/07/2020 02/09/2020 2:46 AM GARMENT LINER COVID-19 02/07/2020 02/07/2020 03/08/2020 8:09 PM GARMENT LINER R/O COVID-19 03/13/2020 03/14/2020 03/14/2020 4:43 AM GARMENT LINER COVID-19 Comment:Positive in February. Retest for pre-procedure. 03/14/2020 03/14/2020 03/15/2020 9:[address] documented as of this encounter Care Teams Pellet Post Inspector Relationship Specialty Start Date End Date Cori You MD [address] [phone] PCP - General Family Practice 10/10/14 documented as of this encounter
--- OUTSIDE RECORDS SUMMARY | 2024-10-09 00:57 | XMS_ITS | Encounter Summary ---
Author Organization [facility] Address [address] [place] [address] Care Team Providers Care Vegetable Farming Supervisor Name Role Phone Cori You MD Primary Care Provider Encounter Details Date Type Department Care Team (Latest Contact Info) Description 02/02/[address] [facility] Ear, Nose and Throat [address] [place] [address] Qasim Peralta MD [facility] [place] [address] SURGERY FOLLOWUP NOS (Primary Dx) Social History Tobacco Use Types Packs/Day Years Used Date Smoking Tobacco: Never Assessed Comments Unknown Sex and Gender Information Value Date Recorded Sex Assigned at Not on file Legal Sex Female 5:17 AM DIRECTOR SOFTWARE DEVELOPMENT Gender Identity Not on file Sexual Orientation Not on file documented as of this encounter Plan of Treatment Not on file documented as of this encounter Visit Diagnoses Diagnosis Follow-up examination, following unspecified surgery- Primary documented in this encounter Additional Health Concerns Infection Onset Date Last Indicated Resolved Time R/O COVID-19 02/07/2020 02/07/2020 02/09/2020 2:46 AM DIRECTOR SOFTWARE DEVELOPMENT COVID-19 02/07/2020 02/07/2020 03/08/2020 8:09 PM DIRECTOR SOFTWARE DEVELOPMENT R/O COVID-19 03/13/2020 03/14/2020 03/14/2020 4:43 AM DIRECTOR SOFTWARE DEVELOPMENT COVID-19 Comment:Positive in February. Retest for pre-procedure. 03/14/2020 03/14/2020 03/15/2020 9:16 AM C documented as of this encounter Care Teams Vegetable Farming Supervisor Relationship Specialty Start Date End Date Cori You MD [address] [phone] PCP - General Family Practice 10/10/14 documented as of this encounter
--- OUTSIDE RECORDS SUMMARY | 2024-10-09 00:57 | XMS_ITS | Encounter Summary ---
Author Organization [facility] Address [address] [place] [address] Care Team Providers Care Property Controller Name Role Phone Cori You MD Primary Care Provider Encounter Details Date Type Department Care Team (Latest Contact Info) Description 12/28/2004 Outpatient Historical [facility] Ear, Nose and Throat [address] [place] [address] George Wilkerson MD NO ADDRESS ON FILE SURGERY FOLLOWUP NOS (Primary Dx) Social History Tobacco Use Types Packs/Day Years Used Date Smoking Tobacco: Never Assessed Comments Unknown Sex and Gender Information Value Date Recorded Sex Assigned at Not on file Legal Sex Female 5:17 AM MATERIAL CONTROL SPECIALIST Gender Identity Not on file Sexual Orientation Not on file documented as of this encounter Plan of Treatment Not on file documented as of this encounter Visit Diagnoses Diagnosis Follow-up examination, following unspecified surgery- Primary documented in this encounter Additional Health Concerns Infection Onset Date Last Indicated Resolved Time R/O COVID-19 02/07/2020 02/07/2020 02/09/2020 2:46 AM MATERIAL CONTROL SPECIALIST COVID-19 02/07/2020 02/07/2020 03/08/2020 8:09 PM MATERIAL CONTROL SPECIALIST R/O COVID-19 03/13/2020 03/14/2020 03/14/2020 4:43 AM MATERIAL CONTROL SPECIALIST COVID-19 Comment:Positive in February. Retest for pre-procedure. 03/14/2020 03/14/2020 03/15/2020 9:[address] documented as of this encounter Care Teams Property Controller Relationship Specialty Start Date End Date Cori You MD [address] [phone] PCP - General Family Practice 10/10/14 documented as of this encounter
--- OUTSIDE RECORDS SUMMARY | 2024-10-09 00:57 | XMS_ITS | Encounter Summary ---
Author Organization [facility] Address [address] [place] [address] Care Team Providers Care Nurse Practitioner Physicians Assistant Name Role Phone Cori You MD Primary Care Provider [phone] Encounter Details Date Type Department Care Team (Latest Contact Info) Description 09/27/2006 Outpatient Historical [facility] [place] [phone] [place] [address] Herbert Hugo DO NO ADDRESS ON FILE Other Chest Pain (Primary Dx) Social History Tobacco Use Types Packs/Day Years Used Date Smoking Tobacco: Never Assessed Comments Unknown Sex and Gender Information Value Date Recorded Sex Assigned at Not on file Legal Sex Female 5:17 AM SOCIAL WELFARE ADMINISTRATOR Gender Identity Not on file Sexual Orientation Not on file documented as of this encounter Plan of Treatment Not on file documented as of this encounter Procedures Procedure Name Priority Date/Time Associated Diagnosis Comments STRESS TEST EXERCISE NUCLEAR MED Routine 09/27/2006 12:01 AM CDT NM MYOCARD PERF IMAG SPECT MULT Routine 09/27/2006 12:01 AM CDT documented in this encounter Results * NM MYOCARD PERF IMAG SPECT MULT (09/27/2006 12:01 AM CDT) 09/27/2006 12:0 1 AM CDT Narrative INTERFACE SYSTEM - 09/27/2006 12:01 AM CDT Radionuclide Myocardial Perfusion SPECT Rest/Persantine Stress Wall Motion and Ejection FractionEvaluation: Radiopharmaceutical: Tc-99m (technetium-99m) tetrofosminDose: 13.5 mCi (rest) / 40.1 mCi (stress)Reason for Consultation: Anterior chest pain, CAD risk, asthmaRotating planar and tomographic slices demonstrate the left ventricular chamber to be within normallimits in size without transient dilation, pulmonary accumulation, or important motion. Tomographic slices demonstrate physiologic distribution of tracer throughout the myocardium withoutsegmental reversible or fixed defects. Gated tomographic imaging at rest following stress injection of tracer demonstrates physiologicthickening and excursion of all segments. Left ventricular end diastolic volume is 66 mL. Leftventricular ejection fraction is 89 %. Transient ischemic dilation index is normal at 0.84. Impression: 1. Normal myocardial perfusion imaging examination demonstrating no findings suggesting significantcoronary disease. 2. Normal regional and global left ventricular systolic function with viable myocardium throughout theleft ventricle. 3. Negative electrocardiographic response to pharmacologic intervention. - Dictated By: Be Richard M.D. Electronically Signed By: Be Richard M.D. Date Signed: 09/27/06 Procedure Note 02/22/2009 Radionuclide Myocardial Perfusion SPECT Rest/Persantine Stress Wall Motionand Ejection FractionEvaluation: Radiopharmaceutical: Tc-99m (technetium-99m) tetrofosminDose: 13.5 mCi (rest) / 40.1 mCi (stress)Reason for Consultation: Anterior chest pain, CAD risk, asthmaRotating planar and tomographicslices demonstrate the left ventricular chamber to be within normallimits in size without transientdilation, pulmonary accumulation, or important motion. Tomographic slices demonstrate physiologic distribution of tracerthroughout the myocardium withoutsegmental reversible or fixed defects. Gated tomographic imaging at rest following stress injection of tracerdemonstrates physiologicthickening and excursion of all segments. Left ventricular end diastolic volume is66 mL. Leftventricular ejection fraction is 89 %. Transient ischemic dilation index is normalat 0.84. Impression: 1. Normal myocardial perfusion imaging examination demonstrating nofindings suggesting significantcoronary disease. 2. Normal regional and global left ventricular systolic function withviable myocardium throughout theleft ventricle. 3. Negative electrocardiographic response to pharmacologic intervention. - Dictated By: Be Richard M.D. Electronically Signed By: Be Richard M.D. Date Signed: 09/27/06 Herbert Hugo DO NM ORDERABLES Final Result INTERFACE SYSTEM Refer to clinic/hospital department * STRESS TEST,EXERCISE, NUCLEAR MED (09/27/2006 12:01 AM CDT) 09/27/2006 12:0 1 AM CDT Narrative INTERFACE SYSTEM - 09/27/2006 12:01 AM CDT Cardiac Stress Test with Persantine Provocation, Monitoring, and Interpretation: Reason for Consultation: Anterior chest pain, CAD risk, asthmaDr. Hilary monitored the intervention and administered the pharmacologic agents. Pharmacologicintervention was performed as the patient was unable to accomplished treadmill exercise. Following the intravenous infusion of 58.3 mg of Persantine over four minutes, the radiopharmaceuticalagent was injected at maximum effect at seven minutes. Resting heart rate of 70 increased to 91,and blood pressure of 142/90 was measured at 142/80 at tracer administration. The patientexperienced body heaviness which was reversed with 125 mg aminophylline IV administered at 8minutes 30 seconds. Electrocardiographic monitoring demonstrated no changes diagnostic of ischemianor dysrhythmia. The patient was asymptomatic and stable when discharged from the stress area. Impression: Satisfactory pharmacologic stress in preparation for myocardial perfusion imaging. There was noelectrocardiographic evidence of ischemia nor dysrhythmia. Myocardial perfusion imaging report to follow. - Dictated By: Be Richard M.D. Electronically Signed By: Be Richard M.D. Date Signed: 09/27/06 Procedure Note 02/22/2009 Cardiac Stress Test with Persantine Provocation, Monitoring, andInterpretation: Reason for Consultation: Anterior chest pain, CAD risk, asthmaDr. Hilary monitored theintervention and administered the pharmacologic agents. Pharmacologicintervention was performed as thepatient was unable to accomplished treadmill exercise. Following the intravenous infusion of 58.3 mg of Persantine over fourminutes, the radiopharmaceuticalagent was injected at maximum effect at seven minutes.Resting heart rate of 70 increased to 91,and blood pressure of 142/90 was measured at 142/80 attracer administration. The patientexperienced body heaviness which was reversed with 125 mgaminophylline IV administered at 8minutes 30 seconds. Electrocardiographic monitoring demonstrated nochanges diagnostic of ischemianor dysrhythmia. The patient was asymptomatic and stable when discharged fromthe stress area. Impression: Satisfactory pharmacologic stress in preparation for myocardial perfusionimaging. There was noelectrocardiographic evidence of ischemia nor dysrhythmia. Myocardial perfusion imaging report to follow. - Dictated By: Be Richard M.D. Electronically Signed By: Be Richard M.D. Date Signed: 09/27/06 Herbert Hugo DO [place] ORDERABLES Final Result INTERFACE SYSTEM Refer to clinic/hospital department documented in this encounter Visit Diagnoses Diagnosis Other chest pain- Primary documented in this encounter Additional Health Concerns Infection Onset Date Last Indicated Resolved Time R/O COVID-19 02/07/2020 02/07/2020 02/09/2020 2:46 AM SOCIAL WELFARE ADMINISTRATOR COVID-19 02/07/2020 02/07/2020 03/08/2020 8:09 PM SOCIAL WELFARE ADMINISTRATOR R/O COVID-19 03/13/2020 03/14/2020 03/14/2020 4:43 AM SOCIAL WELFARE ADMINISTRATOR COVID-19 Comment:Positive in February. Retest for pre-procedure. 03/14/2020 03/14/2020 03/15/2020 9:[address] documented as of this encounter Care Teams Nurse Practitioner Physicians Assistant Relationship Specialty Start Date End Date Cori You MD [address] [phone] PCP - General Family Practice 10/10/14 documented as of this encounter
--- OUTSIDE RECORDS SUMMARY | 2024-10-09 00:58 | XMS_ITS | Encounter Summary ---
Author Organization [facility] Address [address] [place] [address] Care Team Providers Care Manager Of Case Management Name Role Phone Cori You MD Primary Care Provider Encounter Details Date Type Department Care Team (Latest Contact Info) Description 10/11/2000 Outpatient Historical [facility] Medicine [address] [place] [address] Harinder Steven MD Abdominal pain, other specified site (Primary Dx) Social History Tobacco Use Types Packs/Day Years Used Date Smoking Tobacco: Never Assessed Comments Unknown Sex and Gender Information Value Date Recorded Sex Assigned at Not on file Legal Sex Female 5:17 AM B2B SALES CONSULTANT Gender Identity Not on file Sexual Orientation Not on file documented as of this encounter Plan of Treatment Not on file documented as of this encounter Visit Diagnoses Diagnosis Abdominal pain, other specified site- Primary documented in this encounter Additional Health Concerns Infection Onset Date Last Indicated Resolved Time R/O COVID-19 02/07/2020 02/07/2020 02/09/2020 2:46 AM B2B SALES CONSULTANT COVID-19 02/07/2020 02/07/2020 03/08/2020 8:09 PM B2B SALES CONSULTANT R/O COVID-19 03/13/2020 03/14/2020 03/14/2020 4:43 AM B2B SALES CONSULTANT COVID-19 Comment:Positive in February. Retest for pre-procedure. 03/14/2020 03/14/2020 03/15/2020 9:[address] documented as of this encounter Care Teams Manager Of Case Management Relationship Specialty Start Date End Date Cori You MD [address] [phone] PCP - General Family Practice 10/10/14 documented as of this encounter
--- OUTSIDE RECORDS SUMMARY | 2024-10-09 00:58 | XMS_ITS | Encounter Summary ---
Author Organization [facility] Address [address] [place] [address] Care Team Providers Care Molder Bench Name Role Phone Cori You MD Primary Care Provider Encounter Details Date Type Department Care Team (Late st Contact Info) Description 05/01/2002 Outpatient Historical [facility] Mango Andujar MD [address] [place] [address] Thoracic spondylosis (Primary Dx); BACKACHE NOS; JOINT PAIN-SHLDER; ROTATOR CUFF DIS NEC Social History Tobacco Use Types Packs/Day Years Used Date Smoking Tobacco: Never Assessed Comments Unknown Sex and Gender Information Value Date Recorded Sex Assigned at Not on file Legal Sex Female 5:17 AM BUILD MASTER Gender Identity Not on file Sexual Orientation Not on file documented as of this encounter Plan of Treatment Not on file documented as of this encounter Visit Diagnoses Diagnosis Thoracic spondylosis- Primary Thoracic spondylosis without myelopathy Backache, unspecified Pain in joint, shoulder region Other specified disorders of rotator cuff syndrome of shoulder and allied disorders documented in this encounter Additional Health Concerns Infection Onset Date Last Indicated Resolved Time R/O COVID-19 02/07/2020 02/07/2020 02/09/2020 2:46 AM BUILD MASTER COVID-19 02/07/2020 02/07/2020 03/08/2020 8:09 PM BUILD MASTER R/O COVID-19 03/13/2020 03/14/2020 03/14/2020 4:43 AM BUILD MASTER COVID-19 Comment:Positive in February. Retest for pre-procedure. 03/14/2020 03/14/2020 03/15/2020 9:16 AM Mindy CRUZ documented as of this encounter Care Teams Molder Bench Relationship Specialty Start Date End Date Cori You MD [address] [phone] PCP - General Family Practice 10/10/14 documented as of this encounter
--- OUTSIDE RECORDS SUMMARY | 2024-10-09 00:58 | XMS_ITS | Encounter Summary ---
Author Organization [facility] Address [address] [place] [address] Care Team Providers Care Field Control Inspector Name Role Phone Cori You MD Primary Care Provider Encounter Details Date Type Department Care Team (Latest Contact Info) Description 01/20/2001 Outpatient Historical [facility] [address] [address] Adalberto Nick MD NO ADDRESS ON FILE Other screening mammogram (Primary Dx) Social History Tobacco Use Types Packs/Day Years Used Date Smoking Tobacco: Never Assessed Comments Unknown Sex and Gender Information Value Date Recorded Sex Assigned at Not on file Legal Sex Female 5:17 AM CITY PLANT SUPERVISOR Gender Identity Not on file Sexual Orientation Not on file documented as of this encounter Plan of Treatment Not on file documented as of this encounter Visit Diagnoses Diagnosis Other screening mammogram- Primary documented in this encounter Additional Health Concerns Infection Onset Date Last Indicated Resolved Time R/O COVID-19 02/07/2020 02/07/2020 02/09/2020 2:46 AM CITY PLANT SUPERVISOR COVID-19 02/07/2020 02/07/2020 03/08/2020 8:09 PM CITY PLANT SUPERVISOR R/O COVID-19 03/13/2020 03/14/2020 03/14/2020 4:43 AM CITY PLANT SUPERVISOR COVID-19 Comment:Positive in February. Retest for pre-procedure. 03/14/2020 03/14/2020 03/15/2020 9:[address] documented as of this encounter Care Teams Field Control Inspector Relationship Specialty Start Date End Date Cori You MD [address] [phone] PCP - General Family Practice 10/10/14 documented as of this encounter
--- OUTSIDE RECORDS SUMMARY | 2024-10-09 00:58 | XMS_ITS | Encounter Summary ---
Author Organization [facility] Address [address] [place] [address] Care Team Providers Care Morning Show Host Name Role Phone Cori You MD Primary Care Provider Encounter Details Date Type Department Care Team (Latest Contact Info) Description 05/18/2000 Outpatient Historical [facility] Medicine- [address] [phone] Trace Singleton MD [address] [phone] Acute bronchitis (Primary Dx) Social History Tobacco Use Types Packs/Day Years Used Date Smoking Tobacco: Never Assessed Comments Unknown Sex and Gender Information Value Date Recorded Sex Assigned at Not on file Legal Sex Female 5:17 AM COOKER SULFITE Gender Identity Not on file Sexual Orientation Not on file documented as of this encounter Plan of Treatment Not on file documented as of this encounter Visit Diagnoses Diagnosis Acute bronchitis- Primary documented in this encounter Additional Health Concerns Infection Onset Date Last Indicated Resolved Time R/O COVID-19 02/07/2020 02/07/2020 02/09/2020 2:46 AM COOKER SULFITE COVID-19 02/07/2020 02/07/2020 03/08/2020 8:09 PM COOKER SULFITE R/O COVID-19 03/13/2020 03/14/2020 03/14/2020 4:43 AM COOKER SULFITE COVID-19 Comment:Positive in February. Retest for pre-procedure. 03/14/2020 03/14/2020 03/15/2020 9:16 AM Mindy CRUZ documented as of this encounter Care Teams Morning Show Host Relationship Specialty Start Date End Date Cori You MD [address] [phone] PCP - General Family Practice 10/10/14 documented as of this encounter
--- OUTSIDE RECORDS SUMMARY | 2024-10-09 00:58 | XMS_ITS | Encounter Summary ---
Author Organization [facility] Address [address] [place] [address] Care Team Providers Care Security Shift Manager Name Role Phone Cori You MD Primary Care Provider [phone] Encounter Details Date Type Department Care Team (Latest Contact Info) Description 11/28/2001 Outpatient Historical [facility] Medicine- [address] [phone] Herbert Hugo, NO ADDRESS ON FILE Dysfunct eustachian tube (Primary Dx); ALLERGY, UNSPECIFIED Social History Tobacco Use Types Packs/Day Years Used Date Smoking Tobacco: Never Assessed Comments Unknown Sex and Gender Information Value Date Recorded Sex Assigned at Not on file Legal Sex Female 5:17 AM CALENDER FEEDER Gender Identity Not on file Sexual Orientation Not on file documented as of this encounter Plan of Treatment Not on file documented as of this encounter Visit Diagnoses Diagnosis Dysfunct eustachian tube- Primary Dysfunction of Eustachian tube Allergy, unspecified not elsewhere classified documented in this encounter Additional Health Concerns Infection Onset Date Last Indicated Resolved Time R/O COVID-19 02/07/2020 02/07/2020 02/09/2020 2:46 AM CALENDER FEEDER COVID-19 02/07/2020 02/07/2020 03/08/2020 8:09 PM CALENDER FEEDER R/O COVID-19 03/13/2020 03/14/2020 03/14/2020 4:43 AM CALENDER FEEDER COVID-19 Comment:Positive in February. Retest for pre-procedure. 03/14/2020 03/14/2020 03/15/2020 9:[address] documented as of this encounter Care Teams Security Shift Manager Relationship Specialty Start Date End Date Cori You MD [address] [phone] PCP - General Family Practice 10/10/14 documented as of this encounter
--- OUTSIDE RECORDS SUMMARY | 2024-10-09 00:58 | XMS_ITS | Encounter Summary ---
Author Organization [facility] Address [address] [place] [address] Care Team Providers Care Merchandise Director Name Role Phone Cori You MD Primary Care Provider Encounter Details Date Type Department Care Team (Latest Contact Info) Description 10/13/2000 Outpatient Historical [facility] Medicine [address] [place] [address] Harinder Steven MD Abdominal pain, left upper quadrant (Primary Dx) Social History Tobacco Use Types Packs/Day Years Used Date Smoking Tobacco: Never Assessed Comments Unknown Sex and Gender Information Value Date Recorded Sex Assigned at Not on file Legal Sex Female 5:17 AM PORTABLE ROUTER OPERATOR Gender Identity Not on file Sexual Orientation Not on file documented as of this encounter Plan of Treatment Not on file documented as of this encounter Visit Diagnoses Diagnosis Abdominal pain, left upper quadrant- Primary documented in this encounter Additional Health Concerns Infection Onset Date Last Indicated Resolved Time R/O COVID-19 02/07/2020 02/07/2020 02/09/2020 2:46 AM PORTABLE ROUTER OPERATOR COVID-19 02/07/2020 02/07/2020 03/08/2020 8:09 PM PORTABLE ROUTER OPERATOR R/O COVID-19 03/13/2020 03/14/2020 03/14/2020 4:43 AM PORTABLE ROUTER OPERATOR COVID-19 Comment:Positive in February. Retest for pre-procedure. 03/14/2020 03/14/2020 03/15/2020 9:[address] documented as of this encounter Care Teams Merchandise Director Relationship Specialty Start Date End Date Cori You MD [address] [phone] PCP - General Family Practice 10/10/14 documented as of this encounter
--- OUTSIDE RECORDS SUMMARY | 2024-10-09 00:58 | XMS_ITS | Encounter Summary ---
Author Organization [facility] Address [address] [place] [address] Care Team Providers Care Correspondence School Instructor Name Role Phone Cori You MD Primary Care Provider Encounter Details Date Type Department Care Team (Latest Contact Info) Description 02/05/2003 Outpatient Historical [facility] General Surgery [address] [address] [address] [place] [address] [place] [address] [facility] [address] [place] [address] SURGERY FOLLOWUP, UNSPEC (Primary Dx) Social History Tobacco Use Types Packs/Day Years Used Date Smoking Tobacco: Never Assessed Comments Unknown Sex and Gender Information Value Date Recorded Sex Assigned at Not on file Legal Sex Female 5:17 AM BEAUTY THERAPIST Gender Identity Not on file Sexual Orientation Not on file documented as of this encounter Plan of Treatment Not on file documented as of this encounter Visit Diagnoses Diagnosis Follow-up examination, following unspecified surgery- Primary documented in this encounter Additional Health Concerns Infection Onset Date Last Indicated Resolved Time R/O COVID-19 02/07/2020 02/07/2020 02/09/2020 2:46 AM BEAUTY THERAPIST COVID-19 02/07/2020 02/07/2020 03/08/2020 8:09 PM BEAUTY THERAPIST R/O COVID-19 03/13/2020 03/14/2020 03/14/2020 4:43 AM BEAUTY THERAPIST COVID-19 Comment:Positive in February. Retest for pre-procedure. 03/14/2020 03/14/2020 03/15/2020 9:[address] documented as of this encounter Care Teams Correspondence School Instructor Relationship Specialty Start Date End Date Cori You MD [address] [phone] PCP - General Family Practice 10/10/14 documented as of this encounter
--- OUTSIDE RECORDS SUMMARY | 2024-10-09 00:58 | XMS_ITS | Encounter Summary ---
Author Organization [facility] Address [address] [place] [address] Care Team Providers Care Curtain Hemmer Automatic Name Role Phone Cori You MD Primary Care Provider Encounter Details Date Type Department Care Team (Latest Contact Info) Description 05/26/2001 Outpatient Historical [facility] [address] [phone] Herbert Hugo, NO ADDRESS ON FILE ALLERGY, UNSPECIFIED (Primary Dx) Social History Tobacco Use Types Packs/Day Years Used Date Smoking Tobacco: Never Assessed Comments Unknown Sex and Gender Information Value Date Recorded Sex Assigned at Not on file Legal Sex Female 5:17 AM FACULTY INSTRUCTOR Gender Identity Not on file Sexual Orientation Not on file documented as of this encounter Plan of Treatment Not on file documented as of this encounter Visit Diagnoses Diagnosis Allergy, unspecified not elsewhere classified- Primary documented in this encounter Additional Health Concerns Infection Onset Date Last Indicated Resolved Time R/O COVID-19 02/07/2020 02/07/2020 02/09/2020 2:46 AM FACULTY INSTRUCTOR COVID-19 02/07/2020 02/07/2020 03/08/2020 8:09 PM FACULTY INSTRUCTOR R/O COVID-19 03/13/2020 03/14/2020 03/14/2020 4:43 AM FACULTY INSTRUCTOR COVID-19 Comment:Positive in February. Retest for pre-procedure. 03/14/2020 03/14/2020 03/15/2020 9:[address] documented as of this encounter Care Teams Curtain Hemmer Automatic Relationship Specialty Start Date End Date Cori You MD [address] [phone] PCP - General Family Practice 10/10/14 documented as of this encounter
--- OUTSIDE RECORDS SUMMARY | 2024-10-09 00:58 | XMS_ITS | Encounter Summary ---
Author Organization [facility] Address [address] [place] [address] Care Team Providers Care Educational Resource Center Teacher Name Role Phone Cori You MD Primary Care Provider Encounter Details Date Type Department Care Team (Latest Contact Info) Description 10/19/2000 Outpatient Historical [facility] Medicine- [address] [phone] Trace Singleton MD [address] [phone] Unspecified sinusitis (chronic) (Primary Dx) Social History Tobacco Use Types Packs/Day Years Used Date Smoking Tobacco: Never Assessed Comments Unknown Sex and Gender Information Value Date Recorded Sex Assigned at Not on file Legal Sex Female 5:17 AM SENIOR PEOPLESOFT DEVELOPER Gender Identity Not on file Sexual Orientation Not on file documented as of this encounter Plan of Treatment Not on file documented as of this encounter Visit Diagnoses Diagnosis Unspecified sinusitis (chronic)- Primary documented in this encounter Additional Health Concerns Infection Onset Date Last Indicated Resolved Time R/O COVID-19 02/07/2020 02/07/2020 02/09/2020 2:46 AM SENIOR PEOPLESOFT DEVELOPER COVID-19 02/07/2020 02/07/2020 03/08/2020 8:09 PM SENIOR PEOPLESOFT DEVELOPER R/O COVID-19 03/13/2020 03/14/2020 03/14/2020 4:43 AM SENIOR PEOPLESOFT DEVELOPER COVID-19 Comment:Positive in February. Retest for pre-procedure. 03/14/2020 03/14/2020 03/15/2020 9:[address] documented as of this encounter Care Teams Educational Resource Center Teacher Relationship Specialty Start Date End Date Cori You MD [address] [phone] PCP - General Family Practice 10/10/14 documented as of this encounter
--- OUTSIDE RECORDS SUMMARY | 2024-10-09 00:58 | XMS_ITS | Encounter Summary ---
Author Organization [facility] Address [address] [place] [address] Care Team Providers Care Flexible Babysitter Name Role Phone Cori You MD Primary Care Provider Encounter Details Date Type Department Care Team (Latest Contact Info) Description 10/20/2000 Outpatient Historical [facility] Medicine [address] [place] [address] Harinder Steven MD Dyspepsia and other specified disorders of function of stomach (Primary Dx) Social History Tobacco Use Types Packs/Day Years Used Date Smoking Tobacco: Never Assessed Comments Unknown Sex and Gender Information Value Date Recorded Sex Assigned at Not on file Legal Sex Female 5:17 AM CIRCULAR GANG SAW OPERATOR Gender Identity Not on file Sexual Orientation Not on file documented as of this encounter Plan of Treatment Not on file documented as of this encounter Visit Diagnoses Diagnosis Dyspepsia and other specified disorders of function of stomach- Primary documented in this encounter Additional Health Concerns Infection Onset Date Last Indicated Resolved Time R/O COVID-19 02/07/2020 02/07/2020 02/09/2020 2:46 AM CIRCULAR GANG SAW OPERATOR COVID-19 02/07/2020 02/07/2020 03/08/2020 8:09 PM CIRCULAR GANG SAW OPERATOR R/O COVID-19 03/13/2020 03/14/2020 03/14/2020 4:43 AM CIRCULAR GANG SAW OPERATOR COVID-19 Comment:Positive in February. Retest for pre-procedure. 03/14/2020 03/14/2020 03/15/2020 9:[address] documented as of this encounter Care Teams Flexible Babysitter Relationship Specialty Start Date End Date Cori You MD [address] [phone] PCP - General Family Practice 10/10/14 documented as of this encounter
--- OUTSIDE RECORDS SUMMARY | 2024-10-09 00:58 | XMS_ITS | Encounter Summary ---
Author Organization [facility] Address [address] [place] [address] Care Team Providers Care Auto Technician Mechanic Name Role Phone Cori You MD Primary Care Provider Encounter Details Date Type Department Care Team (Latest Contact Info) Description 04/13/2002 Outpatient Historical [facility] Medicine[address] [phone] Dasha Levin MD NO ADDRESS ON FILE ALLERGY, UNSPECIFIED (Primary Dx) Social History Tobacco Use Types Packs/Day Years Used Date Smoking Tobacco: Never Assessed Comments Unknown Sex and Gender Information Value Date Recorded Sex Assigned at Not on file Legal Sex Female 5:17 AM CURING PRESS OPERATOR Gender Identity Not on file Sexual Orientation Not on file documented as of this encounter Plan of Treatment Not on file documented as of this encounter Visit Diagnoses Diagnosis Allergy, unspecified not elsewhere classified- Primary documented in this encounter Additional Health Concerns Infection Onset Date Last Indicated Resolved Time R/O COVID-19 02/07/2020 02/07/2020 02/09/2020 2:46 AM CURING PRESS OPERATOR COVID-19 02/07/2020 02/07/2020 03/08/2020 8:09 PM CURING PRESS OPERATOR R/O COVID-19 03/13/2020 03/14/2020 03/14/2020 4:43 AM CURING PRESS OPERATOR COVID-19 Comment:Positive in February. Retest for pre-procedure. 03/14/2020 03/14/2020 03/15/2020 9:[address] documented as of this encounter Care Teams Auto Technician Mechanic Relationship Specialty Start Date End Date Cori You MD [address] [phone] PCP - General Family Practice 10/10/14 documented as of this encounter
--- OUTSIDE RECORDS SUMMARY | 2024-10-09 00:58 | XMS_ITS | Encounter Summary ---
Author Organization [facility] Address [address] [place] [address] Care Team Providers Care Companion Caregiver Name Role Phone Cori You MD Primary Care Provider [phone] Encounter Details Date Type Department Care Team (Latest Contact Info) Description 02/14/2001 Outpatient Historical [facility] Medicine[address] [phone] Herbert Hugo, NO ADDRESS ON FILE INGROWING NAIL (Primary Dx) Social History Tobacco Use Types Packs/Day Years Used Date Smoking Tobacco: Never Assessed Comments Unknown Sex and Gender Information Value Date Recorded Sex Assigned at Not on file Legal Sex Female 5:17 AM SALES AND MARKETING INTERN Gender Identity Not on file Sexual Orientation Not on file documented as of this encounter Plan of Treatment Not on file documented as of this encounter Visit Diagnoses Diagnosis Ingrowing nail- Primary documented in this encounter Additional Health Concerns Infection Onset Date Last Indicated Resolved Time R/O COVID-19 02/07/2020 02/07/2020 02/09/2020 2:46 AM SALES AND MARKETING INTERN COVID-19 02/07/2020 02/07/2020 03/08/2020 8:09 PM SALES AND MARKETING INTERN R/O COVID-19 03/13/2020 03/14/2020 03/14/2020 4:43 AM SALES AND MARKETING INTERN COVID-19 Comment:Positive in February. Retest for pre-procedure. 03/14/2020 03/14/2020 03/15/2020 9:[address] documented as of this encounter Care Teams Companion Caregiver Relationship Specialty Start Date End Date Cori You MD [address] [phone] PCP - General Family Practice 10/10/14 documented as of this encounter
--- OUTSIDE RECORDS SUMMARY | 2024-10-09 00:58 | XMS_ITS | Encounter Summary ---
Author Organization [facility] Address [address] [place] [address] Care Team Providers Care Accountant Systems Name Role Phone Cori You MD Primary Care Provider Encounter Details Date Type Department Care Team (Latest Contact Info) Description 2002 Outpatient Historical [facility] Medicine- [address] [phone] Trace Singleton MD [address] [phone] ALLERGY, UNSPECIFIED (Primary Dx); VACCINE FOR INFLUENZA Social History Tobacco Use Types Packs/Day Years Used Date Smoking Tobacco: Never Assessed Comments Unknown Sex and Gender Information Value Date Recorded Sex Assigned at Not on file Legal Sex Female 5:17 AM BUCKLE AND BUTTON MAKER Gender Identity Not on file Sexual Orientation Not on file documented as of this encounter Plan of Treatment Not on file documented as of this encounter Visit Diagnoses Diagnosis Allergy, unspecified not elsewhere classified- Primary Need vaccination-viral disease Need for prophylactic vaccination and inoculation against other viral diseases documented in this encounter Additional Health Concerns Infection Onset Date Last Indicated Resolved Time R/O COVID-19 02/07/2020 02/07/2020 02/09/2020 2:46 AM BUCKLE AND BUTTON MAKER COVID-19 02/07/2020 02/07/2020 03/08/2020 8:09 PM BUCKLE AND BUTTON MAKER R/O COVID-19 03/13/2020 03/14/2020 03/14/2020 4:43 AM BUCKLE AND BUTTON MAKER COVID-19 Comment:Positive in February. Retest for pre-procedure. 03/14/2020 03/14/2020 03/15/2020 9:[address] documented as of this encounter Care Teams Accountant Systems Relationship Specialty Start Date End Date Cori You MD [address] [phone] PCP - General Family Practice 10/10/14 documented as of this encounter
--- OUTSIDE RECORDS SUMMARY | 2024-10-09 00:58 | XMS_ITS | Encounter Summary ---
Author Organization [facility] Address [address] [place] [address] Care Team Providers Care Feed House Supervisor Name Role Phone Cori You MD Primary Care Provider Encounter Details Date Type Department Care Team (Latest Contact Info) Description 03/23/2000 Outpatient Historical [facility] Medicine- [address] [phone] Trace Singleton MD [address] [phone] Need vaccination-viral disease (Primary Dx) Social History Tobacco Use Types Packs/Day Years Used Date Smoking Tobacco: Never Assessed Comments Unknown Sex and Gender Information Value Date Recorded Sex Assigned at Not on file Legal Sex Female 5:17 AM INORGANIC CHEMISTRY TEACHER Gender Identity Not on file Sexual [...] R/O COVID-19 02/07/2020 02/07/2020 02/09/2020 2:46 AM INORGANIC CHEMISTRY TEACHER COVID-19 02/07/2020 02/07/2020 03/08/2020 8:09 PM INORGANIC CHEMISTRY TEACHER R/O COVID-19 03/13/2020 03/14/2020 03/14/2020 4:43 AM INORGANIC CHEMISTRY TEACHER COVID-19 Comment:Positive in February. Retest for pre-procedure. 03/14/2020 03/14/2020 03/15/2020 9:[address] documented as of this encounter Care Teams Feed House Supervisor Relationship Specialty Start Date End Date Cori You MD [address] [phone] PCP - General Family Practice 10/10/14 documented as of this encounter
--- OUTSIDE RECORDS SUMMARY | 2024-10-09 00:58 | XMS_ITS | Encounter Summary ---
Author Organization [facility] Address [address] [place]: [place] [address] Care Team Providers Care Supervisor Dehydrogenation Name Role Phone Cori You MD Primary Care Provider Encounter Details Date Type Department Care Team (Late st Contact Info) Description 12/06/2001 Outpatient Historical Trace Singleton MD [address] [facility] [address] [place] [address] Social History Tobacco Use Types Packs/Day Years Used Date Smoking Tobacco: Never Assessed Comments Unknown Sex and Gender Information Value Date Recorded Sex Assigned at Not on file Legal Sex Female 5:17 AM SALES OFFICE ADMINISTRATOR Gender Identity Not on file Sexual Orientation Not on file documented as of this encounter Plan of Treatment Not on file documented as of this encounter Visit Diagnoses Not on filedocumented in this encounter Additional Health Concerns Infection Onset Date Last Indicated Resolved Time R/O COVID-19 02/07/2020 02/07/2020 02/09/2020 2:46 AM SALES OFFICE ADMINISTRATOR COVID-19 02/07/2020 02/07/2020 03/08/2020 8:09 PM SALES OFFICE ADMINISTRATOR R/O COVID-19 03/13/2020 03/14/2020 03/14/2020 4:43 AM SALES OFFICE ADMINISTRATOR COVID-19 Comment:Positive in February. Retest for pre-procedure. 03/14/2020 03/14/2020 03/15/2020 9:[address] documented as of this encounter Care Teams Supervisor Dehydrogenation Relationship Specialty Start Date End Date Cori You MD [address] [phone] PCP - General Family Practice 10/10/14 documented as of this encounter
--- OUTSIDE RECORDS SUMMARY | 2024-10-09 00:58 | XMS_ITS | Encounter Summary ---
Author Organization [facility] Address [address] [place] [address] Care Team Providers Care Trestle Mechanic Name Role Phone Cori You MD Primary Care Provider Encounter Details Date Type Department Care Team (Latest Contact Info) Description 01/02/2002 Outpatient Historical [facility] Medicine- [address] [phone] Trace Singleton MD [address] [phone] ALLERGY, UNSPECIFIED (Primary Dx) Social History Tobacco Use Types Packs/Day Years Used Date Smoking Tobacco: Never Assessed Comments Unknown Sex and Gender Information Value Date Recorded Sex Assigned at Not on file Legal Sex Female 5:17 AM FITNESS ATTENDANT Gender Identity Not on file Sexual Orientation Not on file documented as of this encounter Plan of Treatment Not on file documented as of this encounter Visit Diagnoses Diagnosis Allergy, unspecified not elsewhere classified- Primary documented in this encounter Additional Health Concerns Infection Onset Date Last Indicated Resolved Time R/O COVID-19 02/07/2020 02/07/2020 02/09/2020 2:46 AM FITNESS ATTENDANT COVID-19 02/07/2020 02/07/2020 03/08/2020 8:09 PM FITNESS ATTENDANT R/O COVID-19 03/13/2020 03/14/2020 03/14/2020 4:43 AM FITNESS ATTENDANT COVID-19 Comment:Positive in February. Retest for pre-procedure. 03/14/2020 03/14/2020 03/15/2020 9:16 AM Mindy CRUZ documented as of this encounter Care Teams Trestle Mechanic Relationship Specialty Start Date End Date Cori You MD [address] [phone] PCP - General Family Practice 10/10/14 documented as of this encounter
--- OUTSIDE RECORDS SUMMARY | 2024-10-09 00:58 | XMS_ITS | Encounter Summary ---
Author Organization [facility] Address [address] [place] [address] Care Team Providers Care Livery Car Driver Name Role Phone Cori You MD Primary Care Provider Encounter Details Date Type Department Care Team (Late st Contact Info) Description 01/30/2003 Outpatient Historical [facility] [place] [address] [facility] [address] [place] [id number] Social History Tobacco Use Types Packs/Day Years Used Date Smoking Tobacco: Never Assessed Comments Unknown Sex and Gender Information Value Date Recorded Sex Assigned at Not on file Legal Sex Female 5:17 AM MACHINE FEEDER FLOORPERSON Gender Identity Not on file Sexual Orientation Not on file documented as of this encounter Plan of Treatment Not on file documented as of this encounter Visit Diagnoses Not on filedocumented in this encounter Additional Health Concerns Infection Onset Date Last Indicated Resolved Time R/O COVID-19 02/07/2020 02/07/2020 02/09/2020 2:46 AM MACHINE FEEDER FLOORPERSON COVID-19 02/07/2020 02/07/2020 03/08/2020 8:09 PM MACHINE FEEDER FLOORPERSON R/O COVID-19 03/13/2020 03/14/2020 03/14/2020 4:43 AM MACHINE FEEDER FLOORPERSON COVID-19 Comment:Positive in February. Retest for pre-procedure. 03/14/2020 03/14/2020 03/15/2020 9:[address] documented as of this encounter Care Teams Livery Car Driver Relationship Specialty Start Date End Date Cori You MD [address] [phone] PCP - General Family Practice 10/10/14 documented as of this encounter
--- OUTSIDE RECORDS SUMMARY | 2024-10-09 00:58 | XMS_ITS | Encounter Summary ---
Author Organization [facility] Address [address] [place] [address] Care Team Providers Care Production Honing Machine Operator Name Role Phone Cori You MD Primary Care Provider Encounter Details Date Type Department Care Team (Latest Contact Info) Description 05/30/2002 Outpatient Historical [facility] Medicine- [address] [phone] Trace Singleton MD [address] [phone] CORNS AND CALLOSITIES (Primary Dx) Social History Tobacco Use Types Packs/Day Years Used Date Smoking Tobacco: Never Assessed Comments Unknown Sex and Gender Information Value Date Recorded Sex Assigned at Not on file Legal Sex Female 5:17 AM USED CAR SALESPERSON Gender Identity Not on file Sexual Orientation Not on file documented as of this encounter Plan of Treatment Not on file documented as of this encounter Visit Diagnoses Diagnosis Corns and callosities- Primary documented in this encounter Additional Health Concerns Infection Onset Date Last Indicated Resolved Time R/O COVID-19 02/07/2020 02/07/2020 02/09/2020 2:46 AM USED CAR SALESPERSON COVID-19 02/07/2020 02/07/2020 03/08/2020 8:09 PM USED CAR SALESPERSON R/O COVID-19 03/13/2020 03/14/2020 03/14/2020 4:43 AM USED CAR SALESPERSON COVID-19 Comment:Positive in February. Retest for pre-procedure. 03/14/2020 03/14/2020 03/15/2020 9:16 AM Mindy CRUZ documented as of this encounter Care Teams Production Honing Machine Operator Relationship Specialty Start Date End Date Cori You MD [address] [phone] PCP - General Family Practice 10/10/14 documented as of this encounter
--- OUTSIDE RECORDS SUMMARY | 2024-10-09 00:58 | XMS_ITS | Encounter Summary ---
Author Organization [facility] Address [address] [place] [address] Care Team Providers Care Wireless Retail Manager Name Role Phone Cori You MD Primary Care Provider Encounter Details Date Type Department Care Team (Latest Contact Info) Description 06/26/2002 Outpatient Historical [facility] Podiatry-Jairo Johns Arturo [address] [place] [address] Rik Currie, DPM [address] [place] [address] Hallux valgus (Primary Dx); BURSITIS NEC; EXOSTOSIS, SITE NOS; IDIO PERIPH NEURPTHY NEC Social History Tobacco Use Types Packs/Day Years Used Date Smoking Tobacco: Never Assessed Comments Unknown Sex and Gender Information Value Date Recorded Sex Assigned at Not on file Legal Sex Female 5:17 AM AD TERMINAL MAKEUP OPERATOR Gender Identity Not on file Sexual Orientation Not on file documented as of this encounter Plan of Treatment Not on file documented as of this encounter Visit Diagnoses Diagnosis Hallux valgus- Primary Hallux valgus (acquired) Other bursitis disorders Exostosis of unspecified site Other specified idiopathic peripheral neuropathy documented in this encounter Additional Health Concerns Infection Onset Date Last Indicated Resolved Time R/O COVID-19 02/07/2020 02/07/2020 02/09/2020 2:46 AM AD TERMINAL MAKEUP OPERATOR COVID-19 02/07/2020 02/07/2020 03/08/2020 8:09 PM AD TERMINAL MAKEUP OPERATOR R/O COVID-19 03/13/2020 03/14/2020 03/14/2020 4:43 AM AD TERMINAL MAKEUP OPERATOR COVID-19 Comment:Positive in February. Retest for pre-procedure. 03/14/2020 03/14/2020 03/15/2020 9:[address] documented as of this encounter Care Teams Wireless Retail Manager Relationship Specialty Start Date End Date Cori You MD [address] [phone] PCP - General Family Practice 10/10/14 documented as of this encounter
--- OUTSIDE RECORDS SUMMARY | 2024-10-09 00:58 | XMS_ITS | Encounter Summary ---
Author Organization [facility] Address [address] [place] [address] Care Team Providers Care Broadcast News Producer Name Role Phone Cori You MD Primary Care Provider Encounter Details Date Type Department Care Team (Latest Contact Info) Description 01/16/2002 Outpatient Historical [facility] Medicine- [address] [phone] Trace Singleton MD [address] [phone] ALLERGY, UNSPECIFIED (Primary Dx) Social History Tobacco Use Types Packs/Day Years Used Date Smoking Tobacco: Never Assessed Comments Unknown Sex and Gender Information Value Date Recorded Sex Assigned at Not on file Legal Sex Female 5:17 AM CONTEMPORARY OR MODERN DANCER Gender Identity Not on file Sexual Orientation Not on file documented as of this encounter Plan of Treatment Not on file documented as of this encounter Visit Diagnoses Diagnosis Allergy, unspecified not elsewhere classified- Primary documented in this encounter Additional Health Concerns Infection Onset Date Last Indicated Resolved Time R/O COVID-19 02/07/2020 02/07/2020 02/09/2020 2:46 AM CONTEMPORARY OR MODERN DANCER COVID-19 02/07/2020 02/07/2020 03/08/2020 8:09 PM CONTEMPORARY OR MODERN DANCER R/O COVID-19 03/13/2020 03/14/2020 03/14/2020 4:43 AM CONTEMPORARY OR MODERN DANCER COVID-19 Comment:Positive in February. Retest for pre-procedure. 03/14/2020 03/14/2020 03/15/2020 9:16 AM Mindy CRUZ documented as of this encounter Care Teams Broadcast News Producer Relationship Specialty Start Date End Date Cori You MD [address] [phone] PCP - General Family Practice 10/10/14 documented as of this encounter
--- OUTSIDE RECORDS SUMMARY | 2024-10-09 00:58 | XMS_ITS | Encounter Summary ---
Author Organization [facility] Address [address] [place] [address] Care Team Providers Care Receiver/Laborer Name Role Phone Cori You MD Primary Care Provider Encounter Details Date Type Department Care Team (Latest Contact Info) Description 12/12/2002 Outpatient Historical [facility] Medicine- [address] [phone] Trace Singleton MD [address] [phone] OSTEOARTHROS NOS-UNSPEC (Primary Dx); ALLERGY, UNSPECIFIED Social History Tobacco Use Types Packs/Day Years Used Date Smoking Tobacco: Never Assessed Comments Unknown Sex and Gender Information Value Date Recorded Sex Assigned at Not on file Legal Sex Female 5:17 AM SMALL ORDER CUTTER Gender Identity Not on file Sexual Orientation Not on file documented as of this encounter Plan of Treatment Not on file documented as of this encounter Visit Diagnoses Diagnosis Osteoarthrosis, unspecified whether generalized or localized, unspecified site- Primary Allergy, unspecified not elsewhere classified documented in this encounter Additional Health Concerns Infection Onset Date Last Indicated Resolved Time R/O COVID-19 02/07/2020 02/07/2020 02/09/2020 2:46 AM SMALL ORDER CUTTER COVID-19 02/07/2020 02/07/2020 03/08/2020 8:09 PM SMALL ORDER CUTTER R/O COVID-19 03/13/2020 03/14/2020 03/14/2020 4:43 AM SMALL ORDER CUTTER COVID-19 Comment:Positive in February. Retest for pre-procedure. 03/14/2020 03/14/2020 03/15/2020 9:[address] documented as of this encounter Care Teams Receiver/Laborer Relationship Specialty Start Date End Date Cori You MD [address] [phone] PCP - General Family Practice 10/10/14 documented as of this encounter
--- OUTSIDE RECORDS SUMMARY | 2024-10-09 00:58 | XMS_ITS | Encounter Summary ---
Author Organization [facility] Address [address] [place] [address] Care Team Providers Care Estate Agent Name Role Phone Cori You MD Primary Care Provider Encounter Details Date Type Department Care Team (Late st Contact Info) Description 02/09/2002 Outpatient Historical [address] [phone] Social History Tobacco Use Types Packs/Day Years Used Date Smoking Tobacco: Never Assessed Comments Unknown Sex and Gender Information Value Date Recorded Sex Assigned at Not on file Legal Sex Female 5:17 AM HOUSING PROJECT MANAGER Gender Identity Not on file Sexual Orientation Not on file documented as of this encounter Plan of Treatment Not on file documented as of this encounter Visit Diagnoses Not on filedocumented in this encounter Additional Health Concerns Infection Onset Date Last Indicated Resolved Time R/O COVID-19 02/07/2020 02/07/2020 02/09/2020 2:46 AM HOUSING PROJECT MANAGER COVID-19 02/07/2020 02/07/2020 03/08/2020 8:09 PM HOUSING PROJECT MANAGER R/O COVID-19 03/13/2020 03/14/2020 03/14/2020 4:43 AM HOUSING PROJECT MANAGER COVID-19 Comment:Positive in February. Retest for pre-procedure. 03/14/2020 03/14/2020 03/15/2020 9:[address] documented as of this encounter Care Teams Estate Agent Relationship Specialty Start Date End Date Cori You MD [address] [phone] PCP - General Family Practice 10/10/14 documented as of this encounter
--- OUTSIDE RECORDS SUMMARY | 2024-10-09 00:58 | XMS_ITS | Encounter Summary ---
Author Organization [facility] Address [address] [place]: [place] [address] Care Team Providers Care Torpedo Man Name Role Phone Cori You MD Primary Care Provider Encounter Details Date Type Department Care Team (Late st Contact Info) Description 01/20/2001 Outpatient Historical Trace Singleton MD [address] [facility] [address] [place] [address] Social History Tobacco Use Types Packs/Day Years Used Date Smoking Tobacco: Never Assessed Comments Unknown Sex and Gender Information Value Date Recorded Sex Assigned at Not on file Legal Sex Female 5:17 AM PACKAGE CENTER SUPERVISOR Gender Identity Not on file Sexual Orientation Not on file documented as of this encounter Plan of Treatment Not on file documented as of this encounter Visit Diagnoses Not on filedocumented in this encounter Additional Health Concerns Infection Onset Date Last Indicated Resolved Time R/O COVID-19 02/07/2020 02/07/2020 02/09/2020 2:46 AM PACKAGE CENTER SUPERVISOR COVID-19 02/07/2020 02/07/2020 03/08/2020 8:09 PM PACKAGE CENTER SUPERVISOR R/O COVID-19 03/13/2020 03/14/2020 03/14/2020 4:43 AM PACKAGE CENTER SUPERVISOR COVID-19 Comment:Positive in February. Retest for pre-procedure. 03/14/2020 03/14/2020 03/15/2020 9:[address] documented as of this encounter Care Teams Torpedo Man Relationship Specialty Start Date End Date Cori You MD [address] [phone] PCP - General Family Practice 10/10/14 documented as of this encounter
--- OUTSIDE RECORDS SUMMARY | 2024-10-09 00:58 | XMS_ITS | Encounter Summary ---
Author Organization [facility] Address [address] [place] [address] Care Team Providers Care Finance Business Partner Name Role Phone Cori You MD Primary Care Provider Encounter Details Date Type Department Care Team (Latest Contact Info) Description 09/21/2000 Outpatient Historical [facility] Medicine- [address] [phone] Trace Singleton MD [address] [phone] Abdominal pain, unspecified site (Primary Dx) Social History Tobacco Use Types Packs/Day Years Used Date Smoking Tobacco: Never Assessed Comments Unknown Sex and Gender Information Value Date Recorded Sex Assigned at Not on file Legal Sex Female 5:17 AM METAL MOCKUP MAKER Gender Identity Not on file Sexual Orientation Not on file documented as of this encounter Plan of Treatment Not on file documented as of this encounter Visit Diagnoses Diagnosis Abdominal pain, unspecified site- Primary documented in this encounter Additional Health Concerns Infection Onset Date Last Indicated Resolved Time R/O COVID-19 02/07/2020 02/07/2020 02/09/2020 2:46 AM METAL MOCKUP MAKER COVID-19 02/07/2020 02/07/2020 03/08/2020 8:09 PM METAL MOCKUP MAKER R/O COVID-19 03/13/2020 03/14/2020 03/14/2020 4:43 AM METAL MOCKUP MAKER COVID-19 Comment:Positive in February. Retest for pre-procedure. 03/14/2020 03/14/2020 03/15/2020 9:16 AM Mindy CRUZ documented as of this encounter Care Teams Finance Business Partner Relationship Specialty Start Date End Date Cori You MD [address] [phone] PCP - General Family Practice 10/10/14 documented as of this encounter
--- OUTSIDE RECORDS SUMMARY | 2024-10-09 00:58 | XMS_ITS | Encounter Summary ---
Author Organization [facility] Address [address] [place] [address] Care Team Providers Care Water And Gas Helper Name Role Phone Cori You MD Primary Care Provider Encounter Details Date Type Department Care Team (Latest Contact Info) Description 01/30/2003 Outpatient Historical [facility] [place] [address] [address] [place] [address] [place] [address] [facility] [address] [place] [address] Benign dao lg bowel (Primary Dx) Social History Tobacco Use Types Packs/Day Years Used Date Smoking Tobacco: Never Assessed Comments Unknown Sex and Gender Information Value Date Recorded Sex Assigned at Not on file Legal Sex Female 5:17 AM EMAIL PRODUCER Gender Identity Not on file Sexual Orientation Not on file documented as of this encounter Plan of Treatment Not on file documented as of this encounter Visit Diagnoses Diagnosis Benign dao lg bowel- Primary Benign neoplasm of colon documented in this encounter Additional Health Concerns Infection Onset Date Last Indicated Resolved Time R/O COVID-19 02/07/2020 02/07/2020 02/09/2020 2:46 AM EMAIL PRODUCER COVID-19 02/07/2020 02/07/2020 03/08/2020 8:09 PM EMAIL PRODUCER R/O COVID-19 03/13/2020 03/14/2020 03/14/2020 4:43 AM EMAIL PRODUCER COVID-19 Comment:Positive in February. Retest for pre-procedure. 03/14/2020 03/14/2020 03/15/2020 9:[address] documented as of this encounter Care Teams Water And Gas Helper Relationship Specialty Start Date End Date Cori You MD [address] [phone] PCP - General Family Practice 10/10/14 documented as of this encounter
--- OUTSIDE RECORDS SUMMARY | 2024-10-09 00:58 | XMS_ITS | Encounter Summary ---
Author Organization [facility] Address [address] [place] [address] Care Team Providers Care Oval Or Circular Glass Cutter Name Role Phone Cori You MD Primary Care Provider [phone] Encounter Details Date Type Department Care Team (Latest Contact Info) Description 06/12/2001 Outpatient Historical [facility] Medicine- [address] [phone] Trace Singleton MD [address] [phone] ALLERGY, UNSPECIFIED (Primary Dx) Social History Tobacco Use Types Packs/Day Years Used Date Smoking Tobacco: Never Assessed Comments Unknown Sex and Gender Information Value Date Recorded Sex Assigned at Not on file Legal Sex Female 5:17 AM MERCHANDISER Gender Identity Not on file Sexual Orientation Not on file documented as of this encounter Plan of Treatment Not on file documented as of this encounter Visit Diagnoses Diagnosis Allergy, unspecified not elsewhere classified- Primary documented in this encounter Additional Health Concerns Infection Onset Date Last Indicated Resolved Time R/O COVID-19 02/07/2020 02/07/2020 02/09/2020 2:46 AM MERCHANDISER COVID-19 02/07/2020 02/07/2020 03/08/2020 8:09 PM MERCHANDISER R/O COVID-19 03/13/2020 03/14/2020 03/14/2020 4:43 AM MERCHANDISER COVID-19 Comment:Positive in February. Retest for pre-procedure. 03/14/2020 03/14/2020 03/15/2020 9:16 AM Mindy CRUZ documented as of this encounter Care Teams Oval Or Circular Glass Cutter Relationship Specialty Start Date End Date Cori You MD [address] [phone] PCP - General Family Practice 10/10/14 documented as of this encounter
--- OUTSIDE RECORDS SUMMARY | 2024-10-09 00:58 | XMS_ITS | Encounter Summary ---
Author Organization [facility] Address [address] [place] [address] Care Team Providers Care Pearl Stringer Name Role Phone Cori You MD Primary Care Provider Encounter Details Date Type Department Care Team (Latest Contact Info) Description 08/10/2000 Outpatient Historical [facility] Medicine- [address] [phone] Trace Singleton MD [address] [phone] Anemia, unspecified (Primary Dx); Adjustment disorder with anxiety Social History Tobacco Use Types Packs/Day Years Used Date Smoking Tobacco: Never Assessed Comments Unknown Sex and Gender Information Value Date Recorded Sex Assigned at Not on file Legal Sex Female 5:17 AM BOILERMAKER INDUSTRIAL BOILERS Gender Identity Not on file Sexual Orientation Not on file documented as of this encounter Plan of Treatment Not on file documented as of this encounter Visit Diagnoses Diagnosis Anemia, unspecified- Primary Adjustment disorder with anxiety documented in this encounter Additional Health Concerns Infection Onset Date Last Indicated Resolved Time R/O COVID-19 02/07/2020 02/07/2020 02/09/2020 2:46 AM BOILERMAKER INDUSTRIAL BOILERS COVID-19 02/07/2020 02/07/2020 03/08/2020 8:09 PM BOILERMAKER INDUSTRIAL BOILERS R/O COVID-19 03/13/2020 03/14/2020 03/14/2020 4:43 AM BOILERMAKER INDUSTRIAL BOILERS COVID-19 Comment:Positive in February. Retest for pre-procedure. 03/14/2020 03/14/2020 03/15/2020 9:[address] documented as of this encounter Care Teams Pearl Stringer Relationship Specialty Start Date End Date Cori You MD [address] [phone] PCP - General Family Practice 10/10/14 documented as of this encounter
--- OUTSIDE RECORDS SUMMARY | 2024-10-09 00:58 | XMS_ITS | Encounter Summary ---
Author Organization [facility] Address [address] [place] [address] Care Team Providers Care Physical Plant Manager Name Role Phone Cori You MD Primary Care Provider [phone] Encounter Details Date Type Department Care Team (Latest Contact Info) Description 04/02/2002 Outpatient Historical [facility] Medicine- [address] [phone] Trace Singleton MD [address] [phone] ALLERGY, UNSPECIFIED (Primary Dx) Social History Tobacco Use Types Packs/Day Years Used Date Smoking Tobacco: Never Assessed Comments Unknown Sex and Gender Information Value Date Recorded Sex Assigned at Not on file Legal Sex Female 5:17 AM BOX GLUER Gender Identity Not on file Sexual Orientation Not on file documented as of this encounter Plan of Treatment Not on file documented as of this encounter Visit Diagnoses Diagnosis Allergy, unspecified not elsewhere classified- Primary documented in this encounter Additional Health Concerns Infection Onset Date Last Indicated Resolved Time R/O COVID-19 02/07/2020 02/07/2020 02/09/2020 2:46 AM BOX GLUER COVID-19 02/07/2020 02/07/2020 03/08/2020 8:09 PM BOX GLUER R/O COVID-19 03/13/2020 03/14/2020 03/14/2020 4:43 AM BOX GLUER COVID-19 Comment:Positive in February. Retest for pre-procedure. 03/14/2020 03/14/2020 03/15/2020 9:16 AM Mindy CRUZ documented as of this encounter Care Teams Physical Plant Manager Relationship Specialty Start Date End Date Cori You MD [address] [phone] PCP - General Family Practice 10/10/14 documented as of this encounter
--- OUTSIDE RECORDS SUMMARY | 2024-10-09 00:58 | XMS_ITS | Encounter Summary ---
Author Organization [facility] Address [address] [place] [address] Care Team Providers Care Curb Worker Name Role Phone Cori You MD Primary Care Provider [phone] Encounter Details Date Type Department Care Team (Latest Contact Info) Description 02/18/2003 Outpatient Historical [facility] [address] [phone] Herbert Hugo, NO ADDRESS ON FILE ALLERGY, UNSPECIFIED (Primary Dx); ACUTE SINUSITIS NOS Social History Tobacco Use Types Packs/Day Years Used Date Smoking Tobacco: Never Assessed Comments Unknown Sex and Gender Information Value Date Recorded Sex Assigned at Not on file Legal Sex Female 5:17 AM CHRO Gender Identity Not on file Sexual Orientation Not on file documented as of this encounter Plan of Treatment Not on file documented as of this encounter Visit Diagnoses Diagnosis Allergy, unspecified not elsewhere classified- Primary Acute sinusitis, unspecified documented in this encounter Additional Health Concerns Infection Onset Date Last Indicated Resolved Time R/O COVID-19 02/07/2020 02/07/2020 02/09/2020 2:46 AM CHRO COVID-19 02/07/2020 02/07/2020 03/08/2020 8:09 PM CHRO R/O COVID-19 03/13/2020 03/14/2020 03/14/2020 4:43 AM CHRO COVID-19 Comment:Positive in February. Retest for pre-procedure. 03/14/2020 03/14/2020 03/15/2020 9:16 AM Mindy CRUZ documented as of this encounter Care Teams Curb Worker Relationship Specialty Start Date End Date Cori You MD [address] [phone] PCP - General Family Practice 10/10/14 documented as of this encounter
--- OUTSIDE RECORDS SUMMARY | 2024-10-09 00:58 | XMS_ITS | Encounter Summary ---
Author Organization [facility] Address [address] [place] [address] Care Team Providers Care Basting Machine Operator Name Role Phone Cori You MD Primary Care Provider Encounter Details Date Type Department Care Team (Latest Contact Info) Description 04/09/2002 Outpatient [facility] [address] [place], [place] [address] Trace Singleton MD [address] [phone] SCREENING MAMM-MAILG NEOPL-OTHER (Primary Dx) Social History Tobacco Use Types Packs/Day Years Used Date Smoking Tobacco: Never Assessed Comments Unknown Sex and Gender Information Value Date Recorded Sex Assigned at Not on file Legal Sex Female 5:17 AM CASH PROCESSING SPECIALIST Gender Identity Not on file Sexual Orientation Not on file documented as of this encounter Plan of Treatment Not on file documented as of this encounter Visit Diagnoses Diagnosis Other screening mammogram- Primary documented in this encounter Additional Health Concerns Infection Onset Date Last Indicated Resolved Time R/O COVID-19 02/07/2020 02/07/2020 02/09/2020 2:46 AM CASH PROCESSING SPECIALIST COVID-19 02/07/2020 02/07/2020 03/08/2020 8:09 PM CASH PROCESSING SPECIALIST R/O COVID-19 03/13/2020 03/14/2020 03/14/2020 4:43 AM CASH PROCESSING SPECIALIST COVID-19 Comment:Positive in February. Retest for pre-procedure. 03/14/2020 03/14/2020 03/15/2020 9:16 AM Mindy CRUZ documented as of this encounter Care Teams Basting Machine Operator Relationship Specialty Start Date End Date Cori You MD [address] [phone] PCP - General Family Practice 10/10/14 documented as of this encounter
--- OUTSIDE RECORDS SUMMARY | 2024-10-09 00:58 | XMS_ITS | Encounter Summary ---
Author Organization [facility] Address [address] [place] [address] Care Team Providers Care Clinical Data Manager Name Role Phone Cori You MD Primary Care Provider Encounter Details Date Type Department Care Team (Latest Contact Info) Description 05/20/2000 Outpatient Historical [facility] Medicine[address] [phone] Herbert Hugo, NO ADDRESS ON FILE Acute upper respiratory infections of unspecified site (Primary Dx) Social History Tobacco Use Types Packs/Day Years Used Date Smoking Tobacco: Never Assessed Comments Unknown Sex and Gender Information Value Date Recorded Sex Assigned at Not on file Legal Sex Female 5:17 AM SURGICAL DENTAL ASSISTANT Gender Identity Not on file Sexual Orientation Not on file documented as of this encounter Plan of Treatment Not on file documented as of this encounter Visit Diagnoses Diagnosis Acute upper respiratory infections of unspecified site- Primary documented in this encounter Additional Health Concerns Infection Onset Date Last Indicated Resolved Time R/O COVID-19 02/07/2020 02/07/2020 02/09/2020 2:46 AM SURGICAL DENTAL ASSISTANT COVID-19 02/07/2020 02/07/2020 03/08/2020 8:09 PM SURGICAL DENTAL ASSISTANT R/O COVID-19 03/13/2020 03/14/2020 03/14/2020 4:43 AM SURGICAL DENTAL ASSISTANT COVID-19 Comment:Positive in February. Retest for pre-procedure. 03/14/2020 03/14/2020 03/15/2020 9:[address] documented as of this encounter Care Teams Clinical Data Manager Relationship Specialty Start Date End Date Cori You MD [address] [phone] PCP - General Family Practice 10/10/14 documented as of this encounter
--- OUTSIDE RECORDS SUMMARY | 2024-10-09 00:58 | XMS_ITS | Encounter Summary ---
Author Organization [facility] Address [address] [place] [address] Care Team Providers Care Partner Marketing Manager Name Role Phone Cori You MD Primary Care Provider [phone] Encounter Details Date Type Department Care Team (Latest Contact Info) Description 01/23/2002 Outpatient Historical [facility] Family Medicine- [address] [phone] Trace Singleton MD [address] [phone] ALLERGY, UNSPECIFIED (Primary Dx) Social History Tobacco Use Types Packs/Day Years Used Date Smoking Tobacco: Never Assessed Comments Unknown Sex and Gender Information Value Date Recorded Sex Assigned at Not on file Legal Sex Female 5:17 AM WAREHOUSE PACKAGING SUPERVISOR Gender Identity Not on file Sexual Orientation Not on file documented as of this encounter Plan of Treatment Not on file documented as of this encounter Visit Diagnoses Diagnosis Allergy, unspecified not elsewhere classified- Primary documented in this encounter Additional Health Concerns Infection Onset Date Last Indicated Resolved Time R/O COVID-19 02/07/2020 02/07/2020 02/09/2020 2:46 AM WAREHOUSE PACKAGING SUPERVISOR COVID-19 02/07/2020 02/07/2020 03/08/2020 8:09 PM WAREHOUSE PACKAGING SUPERVISOR R/O COVID-19 03/13/2020 03/14/2020 03/14/2020 4:43 AM WAREHOUSE PACKAGING SUPERVISOR COVID-19 Comment:Positive in February. Retest for pre-procedure. 03/14/2020 03/14/2020 03/15/2020 9:16 AM Mindy CRUZ documented as of this encounter Care Teams Partner Marketing Manager Relationship Specialty Start Date End Date Cori You MD [address] [phone] PCP - General Family Practice 10/10/14 documented as of this encounter
--- OUTSIDE RECORDS SUMMARY | 2024-10-09 00:58 | XMS_ITS | Encounter Summary ---
Author Organization [facility] Address [address] [place] [address] Care Team Providers Care Yard Attendant Name Role Phone Cori You MD Primary Care Provider Encounter Details Date Type Department Care Team (Latest Contact Info) Description 01/03/2001 Outpatient Historical [facility] Medicine- [address] [phone] Trace Singleton MD [address] [phone] Need for prophylactic vaccination and inoculation against other specified disease (Primary Dx); Need vaccination-viral disease Social History Tobacco Use Types Packs/Day Years Used Date Smoking Tobacco: Never Assessed Comments Unknown Sex and Gender Information Value Date Recorded Sex Assigned at Not on file Legal Sex Female 5:17 AM DELI SLICER Gender Identity Not on file Sexual Orientation Not on file documented as of this encounter Plan of Treatment Not on file documented as of this encounter Visit Diagnoses Diagnosis Need for prophylactic vaccination and inoculation against other specified disease- Primary Need vaccination-viral disease Need for prophylactic vaccination and inoculation against other viral diseases documented in this encounter Additional Health Concerns Infection Onset Date Last Indicated Resolved Time R/O COVID-19 02/07/2020 02/07/2020 02/09/2020 2:46 AM DELI SLICER COVID-19 02/07/2020 02/07/2020 03/08/2020 8:09 PM DELI SLICER R/O COVID-19 03/13/2020 03/14/2020 03/14/2020 4:43 AM DELI SLICER COVID-19 Comment:Positive in February. Retest for pre-procedure. 03/14/2020 03/14/2020 03/15/2020 9:[address] documented as of this encounter Care Teams Yard Attendant Relationship Specialty Start Date End Date Cori You MD [address] [phone] PCP - General Family Practice 10/10/14 documented as of this encounter
--- OUTSIDE RECORDS SUMMARY | 2024-10-09 00:58 | XMS_ITS | Encounter Summary ---
Author Organization [facility] Address [address] [place] [address] Care Team Providers Care Social Service Liaison Name Role Phone Cori You MD Primary Care Provider Encounter Details Date Type Department Care Team (Latest Contact Info) Description 02/26/2002 Outpatient Historical [facility] Family Medicine- [address] [phone] Trace Singleton MD [address] [phone] ALLERGY, UNSPECIFIED (Primary Dx) Social History Tobacco Use Types Packs/Day Years Used Date Smoking Tobacco: Never Assessed Comments Unknown Sex and Gender Information Value Date Recorded Sex Assigned at Not on file Legal Sex Female 5:17 AM TERMINAL CLERK Gender Identity Not on file Sexual Orientation Not on file documented as of this encounter Plan of Treatment Not on file documented as of this encounter Visit Diagnoses Diagnosis Allergy, unspecified not elsewhere classified- Primary documented in this encounter Additional Health Concerns Infection Onset Date Last Indicated Resolved Time R/O COVID-19 02/07/2020 02/07/2020 02/09/2020 2:46 AM TERMINAL CLERK COVID-19 02/07/2020 02/07/2020 03/08/2020 8:09 PM TERMINAL CLERK R/O COVID-19 03/13/2020 03/14/2020 03/14/2020 4:43 AM TERMINAL CLERK COVID-19 Comment:Positive in February. Retest for pre-procedure. 03/14/2020 03/14/2020 03/15/2020 9:16 AM Mindy CRUZ documented as of this encounter Care Teams Social Service Liaison Relationship Specialty Start Date End Date Cori You MD [address] [phone] PCP - General Family Practice 10/10/14 documented as of this encounter
--- OUTSIDE RECORDS SUMMARY | 2024-10-09 00:58 | XMS_ITS | Encounter Summary ---
Author Organization [facility] Address [address] [place] [address] Care Team Providers Care Spanish Professor Name Role Phone Cori You MD Primary Care Provider [phone] Encounter Details Date Type Department Care Team (Latest Contact Info) Description 06/02/2001 Outpatient Historical [facility] Medicine[address] [phone] Herbert Hugo, NO ADDRESS ON FILE ALLERGY, UNSPECIFIED (Primary Dx) Social History Tobacco Use Types Packs/Day Years Used Date Smoking Tobacco: Never Assessed Comments Unknown Sex and Gender Information Value Date Recorded Sex Assigned at Not on file Legal Sex Female 5:17 AM WARDROBE SPECIALIST Gender Identity Not on file Sexual Orientation Not on file documented as of this encounter Plan of Treatment Not on file documented as of this encounter Visit Diagnoses Diagnosis Allergy, unspecified not elsewhere classified- Primary documented in this encounter Additional Health Concerns Infection Onset Date Last Indicated Resolved Time R/O COVID-19 02/07/2020 02/07/2020 02/09/2020 2:46 AM WARDROBE SPECIALIST COVID-19 02/07/2020 02/07/2020 03/08/2020 8:09 PM WARDROBE SPECIALIST R/O COVID-19 03/13/2020 03/14/2020 03/14/2020 4:43 AM WARDROBE SPECIALIST COVID-19 Comment:Positive in February. Retest for pre-procedure. 03/14/2020 03/14/2020 03/15/2020 9:[address] documented as of this encounter Care Teams Spanish Professor Relationship Specialty Start Date End Date Cori You MD [address] [phone] PCP - General Family Practice 10/10/14 documented as of this encounter
--- OUTSIDE RECORDS SUMMARY | 2024-10-09 00:58 | XMS_ITS | Encounter Summary ---
Author Organization [facility] Address [address] [place] [address] Care Team Providers Care White Washer Piler Name Role Phone Cori You MD Primary Care Provider Encounter Details Date Type Department Care Team (Latest Contact Info) Description 02/14/2002 Outpatient Historical [facility] Medicine[address] [phone] Herbert Hugo, NO ADDRESS ON FILE ALLERGY, UNSPECIFIED (Primary Dx) Social History Tobacco Use Types Packs/Day Years Used Date Smoking Tobacco: Never Assessed Comments Unknown Sex and Gender Information Value Date Recorded Sex Assigned at Not on file Legal Sex Female 5:17 AM STEMMING MACHINE OPERATOR Gender Identity Not on file Sexual Orientation Not on file documented as of this encounter Plan of Treatment Not on file documented as of this encounter Visit Diagnoses Diagnosis Allergy, unspecified not elsewhere classified- Primary documented in this encounter Additional Health Concerns Infection Onset Date Last Indicated Resolved Time R/O COVID-19 02/07/2020 02/07/2020 02/09/2020 2:46 AM STEMMING MACHINE OPERATOR COVID-19 02/07/2020 02/07/2020 03/08/2020 8:09 PM STEMMING MACHINE OPERATOR R/O COVID-19 03/13/2020 03/14/2020 03/14/2020 4:43 AM STEMMING MACHINE OPERATOR COVID-19 Comment:Positive in February. Retest for pre-procedure. 03/14/2020 03/14/2020 03/15/2020 9:[address] documented as of this encounter Care Teams White Washer Piler Relationship Specialty Start Date End Date Cori You MD [address] [phone] PCP - General Family Practice 10/10/14 documented as of this encounter
--- OUTSIDE RECORDS SUMMARY | 2024-10-09 00:58 | XMS_ITS | Encounter Summary ---
Author Organization [facility] Address [address] [place] [address] Care Team Providers Care Behavioral Interventionist Name Role Phone Cori You MD Primary Care Provider Encounter Details Date Type Department Care Team (Latest Contact Info) Description 08/31/2002 Outpatient Historical [facility] Medicine[address] [phone] Dasha Levin MD NO ADDRESS ON FILE CHRONIC SINUSITIS NOS (Primary Dx) Social History Tobacco Use Types Packs/Day Years Used Date Smoking Tobacco: Never Assessed Comments Unknown Sex and Gender Information Value Date Recorded Sex Assigned at Not on file Legal Sex Female 5:17 AM CLARIFIER Gender Identity Not on file Sexual Orientation Not on file documented as of this encounter Plan of Treatment Not on file documented as of this encounter Visit Diagnoses Diagnosis Unspecified sinusitis (chronic)- Primary documented in this encounter Additional Health Concerns Infection Onset Date Last Indicated Resolved Time R/O COVID-19 02/07/2020 02/07/2020 02/09/2020 2:46 AM CLARIFIER COVID-19 02/07/2020 02/07/2020 03/08/2020 8:09 PM CLARIFIER R/O COVID-19 03/13/2020 03/14/2020 03/14/2020 4:43 AM CLARIFIER COVID-19 Comment:Positive in February. Retest for pre-procedure. 03/14/2020 03/14/2020 03/15/2020 9:[address] documented as of this encounter Care Teams Behavioral Interventionist Relationship Specialty Start Date End Date Cori You MD [address] [phone] PCP - General Family Practice 10/10/14 documented as of this encounter
--- OUTSIDE RECORDS SUMMARY | 2024-10-09 00:58 | XMS_ITS | Encounter Summary ---
Author Organization [facility] Address [address] [place] [address] Care Team Providers Care Computer Programming Supervisor Name Role Phone Cori You MD Primary Care Provider Encounter Details Date Type Department Care Team (Latest Contact Info) Description 05/30/2001 Outpatient Historical [facility] Medicine- [address] [phone] Trace Singleton MD [address] [phone] ALLERGY, UNSPECIFIED (Primary Dx) Social History Tobacco Use Types Packs/Day Years Used Date Smoking Tobacco: Never Assessed Comments Unknown Sex and Gender Information Value Date Recorded Sex Assigned at Not on file Legal Sex Female 5:17 AM AIR CONDITIONING MECHANIC INDUSTRIAL Gender Identity Not on file Sexual Orientation Not on file documented as of this encounter Plan of Treatment Not on file documented as of this encounter Visit Diagnoses Diagnosis Allergy, unspecified not elsewhere classified- Primary documented in this encounter Additional Health Concerns Infection Onset Date Last Indicated Resolved Time R/O COVID-19 02/07/2020 02/07/2020 02/09/2020 2:46 AM AIR CONDITIONING MECHANIC INDUSTRIAL COVID-19 02/07/2020 02/07/2020 03/08/2020 8:09 PM AIR CONDITIONING MECHANIC INDUSTRIAL R/O COVID-19 03/13/2020 03/14/2020 03/14/2020 4:43 AM AIR CONDITIONING MECHANIC INDUSTRIAL COVID-19 Comment:Positive in February. Retest for pre-procedure. 03/14/2020 03/14/2020 03/15/2020 9:16 AM Mindy CRUZ documented as of this encounter Care Teams Computer Programming Supervisor Relationship Specialty Start Date End Date Cori You MD [address] [phone] PCP - General Family Practice 10/10/14 documented as of this encounter
--- OUTSIDE RECORDS SUMMARY | 2024-10-09 00:58 | XMS_ITS | Encounter Summary ---
Author Organization [facility] Address [address] [place] [address] Care Team Providers Care Hardness Inspector Name Role Phone Cori You MD Primary Care Provider Encounter Details Date Type Department Care Team (Latest Contact Info) Description 01/12/2002 Outpatient Historical [facility] Medicine[address] [phone] Dasha Levin MD NO ADDRESS ON FILE ALLERGY, UNSPECIFIED (Primary Dx) Social History Tobacco Use Types Packs/Day Years Used Date Smoking Tobacco: Never Assessed Comments Unknown Sex and Gender Information Value Date Recorded Sex Assigned at Not on file Legal Sex Female 5:17 AM LEADING FIREFIGHTER Gender Identity Not on file Sexual Orientation Not on file documented as of this encounter Plan of Treatment Not on file documented as of this encounter Visit Diagnoses Diagnosis Allergy, unspecified not elsewhere classified- Primary documented in this encounter Additional Health Concerns Infection Onset Date Last Indicated Resolved Time R/O COVID-19 02/07/2020 02/07/2020 02/09/2020 2:46 AM LEADING FIREFIGHTER COVID-19 02/07/2020 02/07/2020 03/08/2020 8:09 PM LEADING FIREFIGHTER R/O COVID-19 03/13/2020 03/14/2020 03/14/2020 4:43 AM LEADING FIREFIGHTER COVID-19 Comment:Positive in February. Retest for pre-procedure. 03/14/2020 03/14/2020 03/15/2020 9:[address] documented as of this encounter Care Teams Hardness Inspector Relationship Specialty Start Date End Date Cori You MD [address] [phone] PCP - General Family Practice 10/10/14 documented as of this encounter
--- OUTSIDE RECORDS SUMMARY | 2024-10-09 00:58 | XMS_ITS | Encounter Summary ---
Author Organization [facility] Address [address] [place] [address] Care Team Providers Care Candle Wicker Name Role Phone Cori You MD Primary Care Provider [phone] Encounter Details Date Type Department Care Team (Latest Contact Info) Description 07/27/2000 Outpatient Historical [facility] Medicine- [address] [phone] Trace Singleton MD [address] [phone] Sarcoidosis (Primary Dx); Pain in joint, site unspecified; Anemia, unspecified Social History Tobacco Use Types Packs/Day Years Used Date Smoking Tobacco: Never Assessed Comments Unknown Sex and Gender Information Value Date Recorded Sex Assigned at Not on file Legal Sex Female 5:17 AM SEASONING SPRAYER Gender Identity Not on file Sexual Orientation Not on file documented as of this encounter Plan of Treatment Not on file documented as of this encounter Visit Diagnoses Diagnosis Sarcoidosis- Primary Pain in joint, site unspecified Anemia, unspecified documented in this encounter Additional Health Concerns Infection Onset Date Last Indicated Resolved Time R/O COVID-19 02/07/2020 02/07/2020 02/09/2020 2:46 AM SEASONING SPRAYER COVID-19 02/07/2020 02/07/202003/0803/08/2020 8:09 PM SEASONING SPRAYER R/O COVID-19 03/13/2020 03/14/2020 03/14/2020 4:43 AM SEASONING SPRAYER COVID-19 Comment:Positive in February. Retest for pre-procedure. 03/14/2020 03/14/2020 03/15/2020 9:[address] documented as of this encounter Care Teams Candle Wicker Relationship Specialty Start Date End Date Cori You MD [address] [phone] PCP - General Family Practice 10/10/14 documented as of this encounter
--- OUTSIDE RECORDS SUMMARY | 2024-10-09 00:58 | XMS_ITS | Encounter Summary ---
Author Organization [facility] Address [address] [place] [address] Care Team Providers Care Bleach Machine Operator Name Role Phone Cori You MD Primary Care Provider Encounter Details Date Type Department Care Team (Latest Contact Info) Description 03/16/2002 Outpatient Historical [facility] Medicine[address] [phone] Herbert Hugo, NO ADDRESS ON FILE ALLERGY, UNSPECIFIED (Primary Dx) Social History Tobacco Use Types Packs/Day Years Used Date Smoking Tobacco: Never Assessed Comments Unknown Sex and Gender Information Value Date Recorded Sex Assigned at Not on file Legal Sex Female 5:17 AM ELECTROPHYSIOLOGY SCIENTIST Gender Identity Not on file Sexual Orientation Not on file documented as of this encounter Plan of Treatment Not on file documented as of this encounter Visit Diagnoses Diagnosis Allergy, unspecified not elsewhere classified- Primary documented in this encounter Additional Health Concerns Infection Onset Date Last Indicated Resolved Time R/O COVID-19 02/07/2020 02/07/2020 02/09/2020 2:46 AM ELECTROPHYSIOLOGY SCIENTIST COVID-19 02/07/2020 02/07/2020 03/08/2020 8:09 PM ELECTROPHYSIOLOGY SCIENTIST R/O COVID-19 03/13/2020 03/14/2020 03/14/2020 4:43 AM ELECTROPHYSIOLOGY SCIENTIST COVID-19 Comment:Positive in February. Retest for pre-procedure. 03/14/2020 03/14/2020 03/15/2020 9:[address] documented as of this encounter Care Teams Bleach Machine Operator Relationship Specialty Start Date End Date Cori You MD [address] [phone] PCP - General Family Practice 10/10/14 documented as of this encounter
--- OUTSIDE RECORDS SUMMARY | 2024-10-09 00:58 | XMS_ITS | Encounter Summary ---
Author Organization [facility] Address [address] [place] [address] Care Team Providers Care Lock Plater Name Role Phone Cori You MD Primary Care Provider Encounter Details Date Type Department Care Team (Latest Contact Info) Description 06/06/2001 Outpatient Historical [facility] Medicine- [address] [phone] Trace Singleton MD [address] [phone] ALLERGY, UNSPECIFIED (Primary Dx) Social History Tobacco Use Types Packs/Day Years Used Date Smoking Tobacco: Never Assessed Comments Unknown Sex and Gender Information Value Date Recorded Sex Assigned at Not on file Legal Sex Female 5:17 AM WEED CONTROL INSPECTOR Gender Identity Not on file Sexual Orientation Not on file documented as of this encounter Plan of Treatment Not on file documented as of this encounter Visit Diagnoses Diagnosis Allergy, unspecified not elsewhere classified- Primary documented in this encounter Additional Health Concerns Infection Onset Date Last Indicated Resolved Time R/O COVID-19 02/07/2020 02/07/2020 02/09/2020 2:46 AM WEED CONTROL INSPECTOR COVID-19 02/07/2020 02/07/2020 03/08/2020 8:09 PM WEED CONTROL INSPECTOR R/O COVID-19 03/13/2020 03/14/2020 03/14/2020 4:43 AM WEED CONTROL INSPECTOR COVID-19 Comment:Positive in February. Retest for pre-procedure. 03/14/2020 03/14/2020 03/15/2020 9:16 AM Mindy CRUZ documented as of this encounter Care Teams Lock Plater Relationship Specialty Start Date End Date Cori You MD [address] [phone] PCP - General Family Practice 10/10/14 documented as of this encounter
--- OUTSIDE RECORDS SUMMARY | 2024-10-09 00:58 | XMS_ITS | Encounter Summary ---
Author Organization [facility] Address [address] [place] [address] Care Team Providers Care Shipping Agent Name Role Phone Cori You MD Primary Care Provider Encounter Details Date Type Department Care Team (Latest Contact Info) Description 03/20/2002 Outpatient Historical [facility] Family Medicine- [address] [phone] Trace Singleton MD [address] [phone] ALLERGY, UNSPECIFIED (Primary Dx) Social History Tobacco Use Types Packs/Day Years Used Date Smoking Tobacco: Never Assessed Comments Unknown Sex and Gender Information Value Date Recorded Sex Assigned at Not on file Legal Sex Female 5:17 AM DIRECTOR PROSPECT Gender Identity Not on file Sexual Orientation Not on file documented as of this encounter Plan of Treatment Not on file documented as of this encounter Visit Diagnoses Diagnosis Allergy, unspecified not elsewhere classified- Primary documented in this encounter Additional Health Concerns Infection Onset Date Last Indicated Resolved Time R/O COVID-19 02/07/2020 02/07/2020 02/09/2020 2:46 AM DIRECTOR PROSPECT COVID-19 02/07/2020 02/07/2020 03/08/2020 8:09 PM DIRECTOR PROSPECT R/O COVID-19 03/13/2020 03/14/2020 03/14/2020 4:43 AM DIRECTOR PROSPECT COVID-19 Comment:Positive in February. Retest for pre-procedure. 03/14/2020 03/14/2020 03/15/2020 9:16 AM Mindy CRUZ documented as of this encounter Care Teams Shipping Agent Relationship Specialty Start Date End Date Cori You MD [address] [phone] PCP - General Family Practice 10/10/14 documented as of this encounter
--- OUTSIDE RECORDS SUMMARY | 2024-10-09 00:58 | XMS_ITS | Encounter Summary ---
Author Organization [facility] Address [address] [place] [address] Care Team Providers Care Box Toe Cementer Name Role Phone Cori You MD Primary Care Provider Encounter Details Date Type Department Care Team (Latest Contact Info) Description 03/05/2002 [facility] [address] [phone] Trace Singleton MD [address] [phone] ALLERGY, UNSPECIFIED (Primary Dx) Social History Tobacco Use Types Packs/Day Years Used Date Smoking Tobacco: Never Assessed Comments Unknown Sex and Gender Information Value Date Recorded Sex Assigned at Not on file Legal Sex Female 5:17 AM HOOP RIVETER Gender Identity Not on file Sexual Orientation Not on file documented as of this encounter Plan of Treatment Not on file documented as of this encounter Visit Diagnoses Diagnosis Allergy, unspecified not elsewhere classified- Primary documented in this encounter Additional Health Concerns Infection Onset Date Last Indicated Resolved Time R/O COVID-19 02/07/2020 02/07/2020 02/09/2020 2:46 AM HOOP RIVETER COVID-19 02/07/2020 02/07/2020 03/08/2020 8:09 PM HOOP RIVETER R/O COVID-19 03/13/2020 03/14/2020 03/14/2020 4:43 AM HOOP RIVETER COVID-19 Comment:Positive in February. Retest for pre-procedure. 03/14/2020 03/14/2020 03/15/2020 9:16 AM Mindy CRUZ documented as of this encounter Care Teams Box Toe Cementer Relationship Specialty Start Date End Date Cori You MD [address] [phone] PCP - General Family Practice 10/10/14 documented as of this encounter
--- OUTSIDE RECORDS SUMMARY | 2024-10-09 00:58 | XMS_ITS | Encounter Summary ---
Author Organization [facility] Address [address] [place] [address] Care Team Providers Care Tracer Clerk Name Role Phone Cori You MD Primary Care Provider Encounter Details Date Type Department Care Team (Latest Contact Info) Description 01/01/2003 Outpatient Historical [facility] General Surgery [address] [address] [address] [place] [address] [place] [address] [facility] [address] [place] [address] PREOP EXAM OTHER SPECIFIED (Primary Dx); SCREENING MAL NEOP-COLON; FAMILY HX GI MALIGNANCY Social History Tobacco Use Types Packs/Day Years Used Date Smoking Tobacco: Never Assessed Comments Unknown Sex and Gender Information Value Date Recorded Sex Assigned at Not on file Legal Sex Female 5:17 AM PROGRAM DIRECTOR GROUP WORK Gender Identity Not on file Sexual Orientation Not on file documented as of this encounter Plan of Treatment Not on file documented as of this encounter Visit Diagnoses Diagnosis Other specified pre-operative examination- Primary Special screening for malignant neoplasms, colon Family history of malignant neoplasm of gastrointestinal tract documented in this encounter Additional Health Concerns Infection Onset Date Last Indicated Resolved Time R/O COVID-19 02/07/2020 02/07/2020 02/09/2020 2:46 AM PROGRAM DIRECTOR GROUP WORK COVID-19 02/07/2020 02/07/2020 03/08/2020 8:09 PM PROGRAM DIRECTOR GROUP WORK R/O COVID-19 03/13/2020 03/14/2020 03/14/2020 4:43 AM PROGRAM DIRECTOR GROUP WORK COVID-19 Comment:Positive in February. Retest for pre-procedure. 03/14/2020 03/14/2020 03/15/2020 9:[address] documented as of this encounter Care Teams Tracer Clerk Relationship Specialty Start Date End Date Cori You MD [address] [phone] PCP - General Family Practice 10/10/14 documented as of this encounter
--- OUTSIDE RECORDS SUMMARY | 2024-10-09 00:59 | XMS_ITS | Encounter Summary ---
Author Organization [facility] Address [address] [place] [address] Care Team Providers Care Video Production Intern Name Role Phone Chun Arshad MD Primary Care Provider [phone] Reason for Visit * Reason Onset Date Comments Lab Results 10/02/2024 Results Encounter Details Date Type Department Care Team (Late st Contact Info) Description 10/02/2024 Results Follow-Up [facility] Medicine [address] [phone] Laila Molina, [facility] [address] [phone] TSH, CBC WITH DIFFERENTIAL, PROTIME-INR, Additional followed-up results: 3 Social History Tobacco Use Types Packs/Day Years Used Date Smoking Tobacco: Never Passive Smoke Exposure: Never Smokeless Tobacco: Never Alcohol Use Standard [...] of Transportation (Non-Medical) Not on file 09/01/2021 Feeling Safe Answer Date Recorded Are you in a relationship wi th someone who hurts you emotionally and/or physically? No 07/30/2022 Comments No Sex and Gender Information Value Date Recorded Sex Assigned at Not on file Legal Sex Female 12:22 AM FAMILY RESOURCE MANAGEMENT SPECIALIST Gender Identity Not on file Sexual Orientation Not on file documented as of this encounter Miscellaneous Notes * Telephone Encounter - Merry Jolley RN - 10/02/2024 4:53 PM CDT 10/02/2024 4:53 PM Returned call and spoke with patient. Advised per provider: I see nothing concerning in her labs toaccount for her bruise. If this gets bigger or she develops more let us know. Otherwise monitor this and just keep us up to date if not improving. It should take about 1 week to improve. Voiced understanding. Merry RN * Telephone Encounter - Merry Jolley RN - 10/02/2024 4:35 PM CDT 10/02/2024 4:35 PM Called and notified patient of results. Voiced understanding. Patient would like to know the next steps. Merry RN * Telephone Encounter - Conner Herrera - 10/02/2024 4:21 PM CDT Copied from [facility] #[id number]. Topic: CPA Information Request - Results >> Oct 02, 2024 4:19 PM Conner Singh wrote: Caller is requesting information about results from an order. ? Caller Name: Abby Nova Callback Number: Telephone Information: Test Name: Labs Results Encounter notes are: In chart and clinician noted CC okay to provide information Call Notes: Results were given and the patient has additional questions * Telephone Encounter - Merry Jolley RN - 10/02/2024 1:54 PM CDT 10/02/2024 1:54 PM No answer. Left voice mail/message that patient/caregiver can return our call. If patient/caregivercalls back, contact center may tell caller Blood counts are good. No anemia noted. Electrolytes arein normal range. Liver function is in normal range. Kidney function is low but stable. Stay well hydrated. Avoid NSAIDs. Cholesterol panel is good except triglycerides are a little elevated. Decreasesugars and carbs in diet. Increase lean meats, leafy green vegetables, avocado, and nuts in diet. A1c is 7.8 making average daily sugar 177. Thyroid is in normal range. Merry RAJAN * Telephone Encounter - Merry Jolley RN - 10/02/2024 1:54 PM CDT ----- Message from Laila Molina sent at 10/02/2024 12:01 PM CDT ----- Blood counts are good. No anemia noted. Electrolytes are in normal range. Liver function is in normal range. Kidney function is low but stable. Stay well hydrated. Avoid NSAIDs. Cholesterol panel is good except triglycerides are a little elevated. Decrease sugars and carbs in diet. Increase lean meats, leafy green vegetables, avocado, and nuts in diet. A1c is 7.8 making average daily sugar 177. Thyroid is in normal range. documented in this encounter Plan of Treatment Upcoming Encounters Date Type Department Care Team (Late st Contact Info) Description 10/19/2024 1:00 PM CDT Office Visit [facility] [address] [phone] Maddi Zuniga FNP [address] [phone] 10/24/2024 2:00 PM CDT Ancillary Procedure [facility] [place] [address] [place] [address] Zay Connor NP [address] [place] [address] 10/24/2024 3:00 PM CDT Office Visit [facility] Vascular Surgery [place] [id number] [place] [address] Zay Connor NP [address] [place] [address] 11/13/2024 1:20 PM CDT Office Visit [facility] [address] [place] [phone] Melia Causey MD [address] [place] [phone] [place] PA [address] [place] [phone] 11/13/2024 1:30 PM CDT Procedure visit [facility] [address] [place] [phone] Melia Causey MD [address] [place] [phone] 11/27/2024 10:20 AM CDT Office Visit [facility] [address] [phone] Chun Arshad MD [address] [phone] 12/28/2024 10:45 AM CDT Office Visit [facility] [address] [phone] Sera Littlejohn, AUTOMOBILE TECHNICIAN [address] [address] 02/11/2025 8:00 AM FAMILY RESOURCE MANAGEMENT SPECIALIST Procedure visit [facility] [address] [facility] [address] [place] [address] Melia Causey MD [address] [facility] [address] [place] [phone] documented as of this encounter Visit Diagnoses Not on filedocumented in this encounter Care Teams Video Production Intern Relationship Specialty Start Date End Date Chun Arshad MD [address] [phone] PCP - General Family Practice 03/18/21 documented as of this encounter
--- OUTSIDE RECORDS SUMMARY | 2024-10-09 00:59 | XMS_ITS | Clinical Summary ---
Author Organization [facility] Address [address] [place] [address] Care Team Providers Care Livestock Slaughterer Name Role Phone Cori You MD Primary Care Provider Allergies Active Allergy Reactions Criticality Noted Date Comments Baclofen Nausea and Vomiting,Headache Low 017 Prednisone Shortness of Breath/Wheezing,Palpitations High 01/17/2008 Medications lancets 30 gauge 1 Device by [facility].(Non-Drug; Combo Route) route daily Check blood sugar one time daily. 100 Each 11 5 Active blood sugar diagnostic (TRUETRACK TEST) Strip Dx:code E11.9 check blood sugar one time daily NPI#[id number]. 50 Strip 5 7 Active mupirocin (BACTROBAN) 2 % Ointment Apply to affected area 2 times daily. 15 Gram 1 7 Active silver sulfADIAZINE (SILVADENE) 1 % Cream Apply to affected area daily. 50 Gram 1 9 Active diclofenac sodium (VOLTAREN) 75 mg Tablet, Delayed Release (E.C.) TAKE 1 TABLET TWICE DAILY ( NEED MD APPOINTMENT FOR REFILLS ) 180 Tablet 9 Active Additional Information Patient taking differently: As needed, Reported on 06/11/2019 traZODone (DESYREL) 150 mg tablet Take 0.5 Tablets (75 mg) by mouth daily at bedtime. TAKE 1 TABLET AT BEDTIME 45 Tablet 1 0 Active naloxone (NARCAN) 4 mg/spray [place], Non-Aerosol EMERGENCY USE ONLY: Administer 1 spray (4 mg) in one nostril one time. May repeat in alternating nostrils every 2-3 min until responsive or EMS arrives. 2 Each 3 0 Active promethazine-dex tromethorphan (PHENERGAN-DM) 6.25-15 mg/5 mL syrup Take 5 mL by mouth every 6 hours as needed for Cough. 120 mL 1 0 Active nystatin-triamci nolone (MYCOLOG) 100,000-0.1 unit/gram-% Ointment Apply to affected area 2 times daily. 15 Gram 1 0 Active citalopram (CeleXA) 20 mg tablet TAKE 1 TABLET ONE TIME DAILY 90 Tablet 1 0 Active albuterol HFA 90 mcg inhaler Take 2 Puffs by inhalation every 6 hours as needed for Shortness of Breath. 8.5 Gram 5 0 Active traMADoL (ULTRAM) 50 mg tabletIndication s:Chronic back pain, unspecified back location, unspecified back pain laterality Take 1 tablet by mouth twice daily as needed for pain 46 Tablet 1 Active fluticasone propionate (Flonase) 50 mcg/spray [place], Suspension nasal inhaler Administer 2 Sprays in each nostril daily. 16 Gram 3 1 Active metoprolol tartrate (LOPRESSOR) 50 mg tablet Take 1 Tablet (50 mg) by mouth daily in the morning. 180 Tablet 1 1 Active tiZANidine (ZANAFLEX) 4 mg Tablet TAKE 1 TABLET BY MOUTH ONCE DAILY AT BEDTIME 90 Tablet 1 Active amLODIPine (NORVASC) 5 mg tablet Take 1 tablet by mouth once daily 90 Tablet 1 Active metFORMIN (GLUCOPHAGE) 1,000 mg tablet TAKE 1 TABLET BY MOUTH TWICE DAILY WITH MEALS 180 Tablet 1 Active pantoprazole (PROTONIX) 40 mg Tablet, Delayed Release (E.C.) Take 1 tablet by mouth once daily 90 Tablet 1 Active Blood-Glucose Meter (Blood Glucose Monitoring) Kit Use to check blood sugars once daily. Dx: E11.9, #100 test strips, #100 lancets. Brand covered by insurance. 1 Kit 1 Active nitroglycerin (NITROSTAT) 0.4 mg Tablet, Sublingual Place 1 Tablet (0.4 mg) under tongue every 5 minutes as needed for Chest Pain. 25 Tablet 1 Active clopidogreL (PLAVIX) 75 mg Tablet Take 1 tablet by mouth once daily 30 Tablet 1 Active lovastatin (MEVACOR) 20 mg tablet TAKE 1 TABLET BY MOUTH ONCE DAILY WITH SUPPER 90 Tablet 1 Active furosemide (Lasix) 40 mg tablet Take 1 Tablet (40 mg) by mouth 1 time daily as needed (fluid). 40 Tablet 1 Active levothyroxine (EUTHYROX) 25 mcg tablet Take 1 tablet by mouth once daily 30 Tablet 1 Active elderberry fruit (ELDERBERRY ORAL) Take 1,250 mg by mouth 2 times daily. Active cyanocobalamin, vitamin B-12, (VITAMIN B12 ORAL) Take 1,000 mg by mouth daily. Active methylsulfonylme julian (MSM ORAL) Take by mouth daily. Active GREEN TEA EXTRACT ORAL Take by mouth daily. Active BLACK COHOSH ORAL Take by mouth daily. Active docusate sodium (COLACE) 100 mg capsule Take 1 Capsule (100 mg) by mouth 2 times daily. 20 Capsule 1 Active Active Problems Problem Noted Date Diagnosed Date Stenosis of left carotid artery 09/27/2020 Type 2 diabetes mellitus wit h stage 3 chronic kidney disease, without long-term current use of insulin 07/14/2020 Pacemaker 07/07/2020 Complete heart block 03/14/2020 2nd degree AV block 03/13/2020 Overview (03/13/2020): Added automatically from request for surgery [id number] Prediabetes 11/30/2019 ASHD (arteriosclerotic heart disease) 10/08/2019 History of non-ST elevation myocardial infarctio n (NSTEMI) 10/08/2019 Anemia due to vitamin B12 deficiency 11/03/2015 Diabetes mellitus type 2, un controlled, without complications 10/15/2014 Dysphagia 10/08/2014 Antral ulcer 09/10/2014 Fitting and adjustment of gastric lap band 02/12 Fatty liver 09/11/2012 Spells 03/23/2011 Near-syncope 09/22/2009 Sarcoidosis 09/22/2009 Overview (09/22/2009): In 1980s, treated with prednisone then Right bundle branch block 09/04/2009 Disorder of lipoid metabolism Dysrhythmia, cardiac Overview (05/02/2008): rapid heart beat Essential hypertension Overview (05/02/2008): pt denies high blood pressure Obesity, morbid Symptomatic bradycardia Resolved Problems Problem Noted Date Diagnosed Date Resolved Date CKD (chronic kidney disease) stage 3, GFR 30-59 ml/min 03/17/2020 05/22/2020 Acute heart failure with pre served ejection fraction (HFpEF) 03/15/2020 05/22/2020 Angina pectoris 10/08/2019 06/05/2020 Abnormal cardiovascular stress test 09/22/2009 10/13/2014 Senile nuclear sclerosis 08/27/2008 Immunizations Immunization Administration Dates Next Due (PNEUMOVAX 23)(50 YRS UP) PNEUMOCOCCAL POLYSACCHARIDE (PPV23) 0.5 ML, IM 03/09/2006,01/03/2001 (PREVNAR 13)(6 WKS UP) PNEUM OCOCCAL CONJUGATE (PCV13) 0.5 ML, IM 10/09/2014 (SHINGRIX)(50 YRS UP) ZOSTER VACCINE RECOMBINANT, 0.5 ML, IM 12/31/2019 (SPIKEVAX) (12 YRS UP PRIMAR Y SERIES) COVID-19 VACCINE - MRNA-1273(PF) 100 MCG/0.5 ML IM SUSP 06/13/2020,05/16/2020 INFLUENZA VACCINE QUADRIVALE NT RECOMB 18 YR UP PF IM 12/31/2019 Influenza A (H1N1) Vaccine IM 02/22/2009 Influenza Seasonal Unspecifi ed Formulation IM 01/16/2019,01/16/2014,01/22/2009,01/04,01/03/2001,03/23/2000,02/02/19 99 Influenza Vaccine High Dose 65+ Yrs IM 12/27/2017,02/15/2017,01/13/2016,12/0312/27/2018 Influenza Vaccine Split 3+ Yrs PF IM 03/18/2010 PREVNAR (PCV13) pneumococcal 13-valent conjugate Vaccine 01/13/2016 Family History Medical History Relation Name Comments Cancer Brother 2 MEREDITH CHEST WALL CANC ER Stroke Brother 2 MEREDITH Alzheimer's Disease Brother 3 FABIANA Kidney Disease Brother 3 FABIANA Stroke Brother 4 SU Brain Cancer Brother 5 CLARICE Lung Cancer Brother 5 CLARICE Brain mets Amblyopia Daughter 1 GABBI LAZY EYE Stroke Daughter 3 PAYTON Heart Disease Father Leukemia Father Kidney Disease Maternal Grandmother Cataract Mother Colon Cancer Mother Heart Disease Mother Kidney Disease Mother Heart Disease Sister 1 VERGIE Blindness Neg Hx Breast Cancer Neg Hx Detachment/Tears Neg Hx Glaucoma Neg Hx Macular Degen Neg Hx Ovarian Cancer Neg Hx Strabismus Neg Hx Thyroid Disease Neg Hx Relation Name Status Comments Brother 1 JOLEEN Brother 2 MEREDITH Brother 3 FABIANA Alive Brother 4 SU Alive Brother 5 CLARICE Brother 6 KARLA Alive Brother 7 NISHI Alive Daughter 1 GABBI Alive Daughter 2 AMELIA Alive Daughter 3 PAYTON Father Maternal Grandmother Mother Sister 1 VERGIE Sister 2 VERDIE Alive Sister 3 VERA Alive Sister 4 STEPHENIE Alive Sister 5 SRAVAN Alive Son MARCELO Alive Social History Tobacco Use Types Packs/Day Years Used Date Smoking Tobacco: Never Smokeless Tobacco: Never Alcohol Use Standard Drinks/Week Comments No 0 (1 standard drink = 0.6 oz pur e alcohol) Comments No Sex and Gender Information Value Date Recorded Sex Assigned at Not on file Legal Sex Female 5:17 AM SPICE MIXER Gender Identity Not on file Sexual Orientation Not on file Occupation Industry Job Start Date Job End Date Not on file Not on file Not on file Not on file Last Filed Vital Signs Vital Sign Reading Time Taken Comments Blood Pressure 114/47 09/27/2020 8:18 AM CDT Pulse 60 09/27/2020 8:18 AM CDT Temperature 36.7 C (98.1 F) 09/27/2020 8:18 AM CDT Respiratory Rate 10 09/27/2020 8:18 AM CDT Oxygen Saturation 90% 09/27/2020 8:18 AM CDT Inhaled Oxygen Concentration - - Weight 85 kg (187 lb 8 oz) 09/27/2020 5:00 AM CD T Height 152.4 cm (5') 09/26/2020 7:24 AM CDT Body Mass Index 36.62 09/26/2020 7:24 AM CDT Plan of Treatment Health Maintenance Due Date Last Done Comments DTAP/TDAP/TD VACCINES (1 - Tdap) 01/30/1964 RSV VACCINE (60+ or ) (1 - 1-dose 75+ series) 01/30/2019 ZOSTER VACCINE (2 of 2) 02/25/2020 12/31/2019 DIABETES HBA1C Q 6 MONTHS 03/20/20202019, 03/23/2019, 08/24/2018, Additional history exists DIABETES MICROALBUMIN ANNUAL SCREEN 10/23/2020 10/24/2019, 08/24/2018, 04/17/2018 LDL CHOLESTEROL ANNUAL 10/23/2020 0, 09/19/2019, 03/23/2019, Additional history exists PNEUMOCOCCAL VACCINE 50+ YEA RS (3 of 3 - PCV20 or PCV21) 01/12/2021 01/13/2016, 10/09/2014, 03/09/2006, Additional history exists DIABETES ANNUAL FOOT EXAM 06/05/20212020, 06/05/2020, 05/30/2019, Additional history exists DIABETES ANNUAL RETINAL EXAM 05/15/202202/2022, 04/02/2010, 04/02/2010, Additional history exists COLORECTAL SCREENING 03/14/2023 03/14/2018, 03/14/2018, 12/22/2011, Additional history exists COVID-19 Vaccine (5 - 2023-2 5 season) 2023 07/24/2020, 07/03/2020, 06/13/2020, Additional history exists [place] Preventative Visit/Annual Wellness Visit 04/04/2024 05/08/2018 INFLUENZA VACCINE (#1) 2024 0, 12/31/2019, 01/16/2019, Additional history exists OSTEOPOROSIS SCREENING 06/25/2025 1, 06/25/2020, 09/20/2013, Additional history exists Medical Devices Implanted Type Area Carbon Paste Mixer Operator Device Identifier Shelf Expiration Date Model / Serial / Lot Clip Ligating Horizon Red [id number] - Csc - [id number] Implanted:Qty : 1 on 09/26/2020 by Cheko Patel MD at [facility] Clip Left: Neck TELEFLEX INC [id number] 12/09/2024 [id number] / / [id number] Clip Ligating Horizon Med Ti 134362 - Csc - [id number] Implanted:Qty : 1 on 09/26/2020 by Cheko Patel MD at [facility] Clip Left: Neck TELEFLEX- WECK CLOSURE SYS [id number] 12/02/2024 [id number] / / [id number] Log [id number] - Jonathan Sn6ad1 - 1 - Lens Io Sn6ad1 23.0 Implanted:Qty : 1 on 09/12/2008 at [facility] Eye Right: Eye [facility] 02/02/2013 SN6AD1.2 30 / [id number] / Log [id number] - Jonathan Sn6ad1 - 1 - Lens Io Sn6ad1 23.5 Implanted:Qty : 1 on 09/19/2008 at [facility] Eye Left: Eye [facility] SN6AD1.2 35 / [id number] / Patch Vascu-Guard [id number] - [id number] Implanted:Qty : 1 on 09/26/2020 by Cheko Patel MD at [facility] Graft Left: Neck [employer]NOVIS- B[employer]ASC[employer] INC [id number] 04/17/2025 [id number] / / [id number]- [id number] Hemostatic Surgiflo 8ml W/Thrombin 2994 - [id number] Implanted:Qty : 1 on 09/26/2020 by Cheko Patel MD at [facility] Hemostatic Left: Neck J&J- [employer] INC [id number] 03/03/2022 2994 / / [id number] Lead Pacemaker Solia S 53 [id number] - [id number] Implanted:Qty : 1 on 03/14/2020 by Duane Cordova MD at [facility] Lead Right: Ventricle [employer] INC [id number] / [id number] / Lead Pacemaker Solia S 45 [id number] - [id number] Implanted:Qty : 1 on 03/14/2020 by Duane Cordova MD at [facility] Lead Right: Heart [employer] [id number] / [id number] / Pacemaker Edora 8 Jeana [id number] - [id number] Implanted:Qty : 1 on 03/14/2020 by Duane Cordova MD at [facility] Pacemaker Left: Chest [employer] [id number] / [id number] / Explanted Type Area Carbon Paste Mixer Operator Device Identifier Shelf Expiration Date Model / Serial / Lot Log 1425 - Laparoscopic Bands - 1 - Band Gastric Lap Standard [id number] Implanted:Qty: 1 on 05/01/[address] [facility] Explanted:Qty: 1 on 10/08/2014 by Misael Aviles MD at [facility] Other N/A: Stomach ALLERGAN- MEDICAL 02/02/2010 B-2240 / [id number] / N/A Procedures Procedure Name Priority Date/Time Associated Diagnosis Comments XR DEXA BONE DENSITY AXIAL 1 OR MORE SITES Routine 06/25/2020 1:27 PM CDT Postmenopausal MICROALBUMIN/CREATIN INE RATIO, RANDOM UR Routine 10/24/2019 10:29 AM CDT Type 2 diabetes mellitus with hyperglycemia, without long-term current use of insulin ([facility]) LDL CHOLESTEROL, DIRECT Routine 10/24/2019 10:29 AM CDT Type 2 diabetes mellitus without complication, unspecified whether long term care social worker insulin use ([facility]) HEMOGLOBIN A1C Routine 08/24/2018 9:20 AM CDT Diabetes mellitus type 2, uncontrolled, without complications COLONOSCOPY REPORT 03/14/2018 10 :07 AM SPICE MIXER from Last 3 Months or Most Recently Relevant to Health Maintenance Results * XR DEXA BONE DENSITY AXIAL 1 OR MORE SITES (06/25/2020 1:27 PM CDT) Anatomical Region Laterality Modality Digital Radiogra phy 06/25/2020 1:27 PM CDT Impressions 06/27/2020 9:47 AM CDT IMPRESSION: 1. Compared to previous exam, there has not been statistically significant change in bone mineral density with findings consistent with osteopenia. with site of lowest density at the lumbar spine. 2. Age matched Z-score of greater than -2.0 is within expected range for age and does not indicate accelerated bone demineralization. Definitions: T-score > -0.99 = Normal T-score -1.00 to -2.49 = Osteopenia T-score < -2.50 = Osteoporosis Z-score >-2.0 = Normal Z-score <-2.0 = Low bone density for chronologic age N.B. Changes in density of <=0.05 g/cm2 are not statistically significant. RECOMMENDATIONS: Follow up 1 year after starting or changing therapy recommended. NOF guidelines recommend consideration of FDA-approved medical therapies in patients with FRAX determined 10-year probabilities of hip/major osteoporosis-related fractures equal or greater than 3%/20% respectively. Consider assessing fracture risk using the FRAX analysis tool for guidance of clinical management available online at www.shef.ac.uk/FRAX/. Enter OpenQ for Select DXA and the Femoral Neck BMD value. [id number]/[facility] Narrative 06/27/2020 9:47 AM CDT Exam: XR DEXA BONE DENSITY AXIAL 1 OR MORE SITES Reason For Exam: See Diagnosis, osteoporosis screening. Diagnosis: Postmenopausal Findings: The following absorptiometry data were obtained. The quality of this examination is acceptable with regards to count density, processed images, data display and lack of important artifacts (including but not limited to motion and attenuation artifacts). COMPARISON: 10/21/2008 L1-L4 BMD (g/cm2): 0.927 (Previously 0.906) Adult T-score: -1.1 (Previously -1.3) Adult Z-score: Normal (Previously Normal) Left Femoral Neck BMD (g/cm2): 0.757 (Previously 0.779) Adult T-score: -0.8 (Previously -0.6) Adult Z-score: Normal (Previously Normal) Left Total Hip BMD (g/cm2): 0.971 (Previously 1.077) Adult T-score: 0.2 (Previously 1.1) Adult Z-score: Normal (Previously Normal) Procedure Note Pepe Phelan MD - 06/27/2020 Exam: XR DEXA BONE DENSITY AXIAL 1 OR MORE SITES Reason For Exam: See Diagnosis, osteoporosis screening. Diagnosis: Postmenopausal Findings: The following absorptiometry data were obtained. The quality of this examination is acceptable with regards to count density, processed images, data display and lack of important artifacts (including but not limited to motion and attenuation artifacts). COMPARISON: 10/21/2008 L1-L4 BMD (g/cm2): 0.927 (Previously 0.906) Adult T-score: -1.1 (Previously -1.3) Adult Z-score: Normal (Previously Normal) Left Femoral Neck BMD (g/cm2): 0.757 (Previously 0.779) Adult T-score: -0.8 (Previously -0.6) Adult Z-score: Normal (Previously Normal) Left Total Hip BMD (g/cm2): 0.971 (Previously 1.077) Adult T-score: 0.2 (Previously 1.1) Adult Z-score: Normal (Previously Normal) IMPRESSION: 1. Compared to previous exam, there has not been statistically significant change in bone mineral density with findings consistent with osteopenia. with site of lowest density at the lumbar spine. 2. Age matched Z-score of greater than -2.0 is within expected range for age and does not indicate accelerated bone demineralization. Definitions: T-score > -0.99 = Normal T-score -1.00 to -2.49 = Osteopenia T-score < -2.50 = Osteoporosis Z-score >-2.0 = Normal Z-score <-2.0 = Low bone density for chronologic age N.B. Changes in density of <=0.05 g/cm2 are not statistically significant. RECOMMENDATIONS: Follow up 1 year after starting or changing therapy recommended. NOF guidelines recommend consideration of FDA-approved medical therapies in patients with FRAX determined 10-year probabilities of hip/major osteoporosis-related fractures equal or greater than 3%/20% respectively. Consider assessing fracture risk using the FRAX analysis tool for guidance of clinical management available online at www.shef.ac.uk/FRAX/. Enter OpenQ for Select DXA and the Femoral Neck BMD value. [id number]/[facility] Karla PETERSON DIAGNOSTIC IMAGING ORDERABLES Final Result * MICROALBUMIN/CREATININE RATIO, RANDOM UR (10/24/2019 10:29 AM CDT) MICROALBUMIN, URINE <1.2 No Reference Range mg/dL 10/24/2019 10:23 PM T [facility] CREATININE, URINE 94.0 29.0 - 226.0 mg/dL 10/24/2019 10:23 PM T [facility] Comment:Reference Range vari es with fluid intake and diet. MICROALBUMIN/C REAT RATIO, UR <12.8 <25.0 mg/g 10/24/2019 10:23 PM T [facility] Urine URINE SPECIMEN OBTAINED BY CLEAN CATCH PROCEDURE / Unknown Collection / Unknown 10/24/2019 10:29 AM CDT 10/24/2019 8:02 PM CDT Narrative [facility] - 10/24/2019 10:23 PM CDT Condition Microalbumin/Creat ratio Normal Males <17 Normal Females <25 Microalbuminuria Males 17-299 Microalbuminuria Females 25-299 Overt proteinuria >=300 us Karla PETERSON URINE ORDERABLES Final Result [facility] CLIA# [id number] [facility] [place] [address] * LDL CHOLESTEROL, DIRECT (10/24/2019 10:29 AM CDT) LDL CHOLESTEROL, DIRECT 69 <100 mg/dL 10/25/2019 11:06 AM CDT [facility] Blood Venipuncture / Unknown 10/24/2019 10:29 AM CDT 10/24/2019 8:03 PM CDT [facility] - 10/25/2019 11:06 AM CDT LDL CHOLESTEROL mg/dL LDL <70, OPTIMAL if have Atherosclerotic cardiovascular disease (ASCVD) or intermediate or higher (>7.5%) 10 year risk of ASCVD including most adults with diabetes. LDL <100, Optimal in adult patients with low (<7.5%) 10 year ASCVD risk LDL 100-160, Suboptimal LDL >160, High LDL >190, Very high Based on AHA/NCEP guidelines Karla PETERSON CHEMISTRY ORDERABLES Final Re sult [facility] CLIA# [id number] [facility] [place] [address] * (ABNORMAL) HEMOGLOBIN A1C (08/24/2018 9:20 AM CDT) HEMOGLOBIN A1C 5.8(H) See Comment % 08/24/2018 8:10 PM CDT [facility] EST. AVG GLUCOSE, A1C 120 mg/dL 08/24/2018 8:10 PM CDT [facility] Blood Venipuncture / Unknown 08/24/2018 9:20 AM CDT 08/24/2018 7:40 PM CDT [facility] - 08/24/2018 8:10 PM CDT HGB A1C INTERPRETATION NORMAL: <5.7% PRE-DIABETES: 5.7 - 6.4% DIABETES: 6.5% OR GREATER Falsely low A1C measurements can occur when: 1. Anemia and/or hemolytic anemia is present. 2. Hemoglobin variants present. 3. Renal failure. 4. Transfusion of blood product in the last 120 days. We recommend ordering a fructosamine test([id number]) to more accurately assess glycemic status if any of the above conditions are present. us Karla PETERSON CHEMISTRY ORDERABLES Final Re sult [facility] CLIA# [id number] [place] [address] * COLONOSCOPY REPORT (03/14/2018 10:07 AM SPICE MIXER) Narrative Procedure Note Santy Gardner MD - 03/14/2018 10:06 AM CST [facility] GI Patient Name: Abby Nova Procedure Date: 03/14/2018 Date of : 1945 Admit Type: Outpatient Age: 73 Attending MD: Santy Gardner , Procedure: Colonoscopy Indications: Family history of colon cancer in a first-degree relative, Last colonoscopy 6 years ago Providers: Santy Gardner, Josey Garcia RN, Ade Trevino Referring MD: Cori You MD Medicines: Midazolam 3 mg IV, Fentanyl 50 micrograms IV Complications: No immediate complications. Procedure: Pre-Anesthesia Assessment: - The risks and benefits of the procedure and the sedation options and risks were discussed with the patient. All questions were answered and informed consent was obtained. - ASA Grade Assessment: II - A patient with mild systemic disease. After I obtained informed consent, the scope was passed under direct vision. Throughout the procedure, the patient's blood pressure, pulse, and oxygen saturations were monitored continuously. The Colonoscope was introduced through the anus and advanced to the cecum, identified by appendiceal orifice and ileocecal valve. The colonoscopy was performed without difficulty. The patient tolerated the procedure well. The quality of the bowel preparation was adequate. Estimated Blood Loss: Estimated blood loss: none. Findings: The perianal and digital rectal examinations were normal. A few diverticula were found in the sigmoid colon. The exam was otherwise without abnormality on direct and retroflexion views. Impression: - Diverticulosis in the sigmoid colon. - The examination was otherwise normal on direct and retroflexion views. - No specimens collected. Recommendation: - Repeat colonoscopy is not recommended for surveillance. Santy Gardner, 03/14/2018 10:06:37 AM Number of Addenda: 0 Note Initiated On: 03/14/2018 9:46 AM Scope Withdrawal Time 0 hours 6 minutes 23 seconds Scope In: 9:54:32 AM Scope Out: 10:02:44 AM [id number] Santy Gardner MD GI PROCEDURE ORDERABLES Final Result from Last 3 Months or Most Recently Relevant to Health Maintenance [place] [address] [facility] [address] [place] [address] Advance Directives For more information, please contact: [phone] * Full Code (Latest Code Status on File) Date Activated Date Inactivated Comments 09/26/2020 2:07 PM 09/27/2020 3:50 PM * Full Code Date Activated Date Inactivated Comments 03/14/2020 12:41 PM 03/15/2020 2:21 PM * Default Full Code - Needs Discussion Date Activated Date Inactivated Comments 03/13/2020 3:33 PM 03/14/2020 12:41 PM * Full Code Date Activated Date Inactivated Comments 12/25/2018 1:06 PM 12/25/2018 6:07 PM * Full Code Date Activated Date Inactivated Comments 03/14/2018 8:37 AM 03/14/2018 12:30 PM Care Teams Livestock Slaughterer Relationship Specialty Start Date End Date Cori You MD [facility] [address] [id number] PCP - General Family Practice 10/10/14
--- OUTSIDE RECORDS SUMMARY | 2024-10-09 00:59 | XMS_ITS | Encounter Summary ---
Author Organization [facility] Address [address] [place] [address] Care Team Providers Care Barrow Worker Name Role Phone Cori You MD Primary Care Provider Encounter Details Date Type Department Care Team (Latest Contact Info) Description 12/06/2001 Outpatient Historical [facility] Medicine- [address] [phone] Trace Singleton MD [address] [phone] URIN TRACT INFECTION NOS (Primary Dx); ANEMIA NOS; JOINT PAIN-SHLDER Social History Tobacco Use Types Packs/Day Years Used Date Smoking Tobacco: Never Assessed Comments Unknown Sex and Gender Information Value Date Recorded Sex Assigned at Not on file Legal Sex Female 5:17 AM GLOBAL COMMODITY MANAGER Gender Identity Not on file Sexual Orientation Not on file documented as of this encounter Plan of Treatment Not on file documented as of this encounter Visit Diagnoses Diagnosis Urinary tract infection, site not specified- Primary Anemia, unspecified Pain in joint, shoulder region documented in this encounter Additional Health Concerns Infection Onset Date Last Indicated Resolved Time R/O COVID-19 02/07/2020 02/07/2020 02/09/2020 2:46 AM GLOBAL COMMODITY MANAGER COVID-19 02/07/2020 02/07/2020 03/08/2020 8:09 PM GLOBAL COMMODITY MANAGER R/O COVID-19 03/13/2020 03/14/2020 03/14/2020 4:43 AM GLOBAL COMMODITY MANAGER COVID-19 Comment:Positive in February. Retest for pre-procedure. 03/14/2020 03/14/2020 03/15/2020 9:[address] documented as of this encounter Care Teams Barrow Worker Relationship Specialty Start Date End Date Cori You MD [address] [phone] PCP - General Family Practice 10/10/14 documented as of this encounter
--- OUTSIDE RECORDS SUMMARY | 2024-10-09 00:59 | XMS_ITS | Encounter Summary ---
Author Organization [facility] Address [address] [place] [address] Care Team Providers Care Spinning Bath Person Name Role Phone Cori You MD Primary Care Provider Encounter Details Date Type Department Care Team (Latest Contact Info) Description 12/26/2001 Outpatient Historical [facility] Medicine[address] [phone] Herbert Hugo, NO ADDRESS ON FILE ALLERGY, UNSPECIFIED (Primary Dx) Social History Tobacco Use Types Packs/Day Years Used Date Smoking Tobacco: Never Assessed Comments Unknown Sex and Gender Information Value Date Recorded Sex Assigned at Not on file Legal Sex Female 5:17 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 Gender Identity Not on file Sexual Orientation Not on file documented as of this encounter Plan of Treatment Not on file documented as of this encounter Visit Diagnoses Diagnosis Allergy, unspecified not elsewhere classified- Primary documented in this encounter Additional Health Concerns Infection Onset Date Last Indicated Resolved Time R/O COVID-19 02/07/2020 02/07/2020 02/09/2020 2:46 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 COVID-19 02/07/2020 02/07/2020 03/08/2020 8:09 PM INTERIOR DESIGN PROGRAM CHAIR R/O COVID-19 03/13/2020 03/14/2020 03/14/2020 4:43 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 COVID-19 Comment:Positive in February. Retest for pre-procedure. 03/14/2020 03/14/2020 03/15/2020 9:[address] documented as of this encounter Care Teams Spinning Bath Person Relationship Specialty Start Date End Date Cori You MD [address] [phone] PCP - General Family Practice 10/10/14 documented as of this encounter
--- OUTSIDE RECORDS SUMMARY | 2024-10-09 00:59 | XMS_ITS | Encounter Summary ---
Author Organization [facility] Address [address] [place] [address] Care Team Providers Care Bell Person Name Role Phone Cori You MD Primary Care Provider [phone] Encounter Details Date Type Department Care Team (Latest Contact Info) Description 12/19/2001 Outpatient Historical [facility] Medicine- [address] [phone] Trace Singleton MD [address] [phone] ALLERGY, UNSPECIFIED (Primary Dx) Social History Tobacco Use Types Packs/Day Years Used Date Smoking Tobacco: Never Assessed Comments Unknown Sex and Gender Information Value Date Recorded Sex Assigned at Not on file Legal Sex Female 5:17 AM 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 Gender Identity Not on file Sexual Orientation Not on file documented as of this encounter Plan of Treatment Not on file documented as of this encounter Visit Diagnoses Diagnosis Allergy, unspecified not elsewhere classified- Primary documented in this encounter Additional Health Concerns Infection Onset Date Last Indicated Resolved Time R/O COVID-19 02/07/2020 02/07/2020 02/09/2020 2:46 AM 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 COVID-19 02/07/2020 02/07/2020 03/08/2020 8:09 PM 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 R/O COVID-19 03/13/2020 03/14/2020 03/14/2020 4:43 AM 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 COVID-19 Comment:Positive in February. Retest for pre-procedure. 03/14/2020 03/14/2020 03/15/2020 9:16 AM Mindy CRUZ documented as of this encounter Care Teams Bell Person Relationship Specialty Start Date End Date Cori You MD [address] [phone] PCP - General Family Practice 10/10/14 documented as of this encounter
--- OUTSIDE RECORDS SUMMARY | 2024-10-09 00:59 | XMS_ITS | Encounter Summary ---
Author Organization [facility] Address [address] [place] [address] Care Team Providers Care Telegraph Office Telephone Clerk Name Role Phone Cori You MD Primary Care Provider Encounter Details Date Type Department Care Team (Latest Contact Info) Description 12/12/2001 Outpatient Historical [facility] Medicine- [address] [phone] Trace Singleton MD [address] [phone] ALLERGY, UNSPECIFIED (Primary Dx) Social History Tobacco Use Types Packs/Day Years Used Date Smoking Tobacco: Never Assessed Comments Unknown Sex and Gender Information Value Date Recorded Sex Assigned at Not on file Legal Sex Female 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 Retest for pre-procedure. 03/14/2020 03/14/2020 03/15/2020 9:16 AM Mindy CRUZ documented as of this encounter Care Teams Telegraph Office Telephone Clerk Relationship Specialty Start Date End Date Cori You MD [address] [phone] PCP - General Family Practice 10/10/14 documented as of this encounter
--- OUTSIDE RECORDS SUMMARY | 2024-10-09 00:59 | XMS_ITS | Clinical Summary ---
Author Organization [facility] Address [address] [address] Care Team Providers Care Flanging Roll Operator Name Role Phone Chun Arshad MD Primary Care Provider [phone] Allergies Active Allergy Reactions Criticality Noted Date Comments Baclofen Nausea and Vomiting,Headache Low 017 Prednisone Shortness of Breath/Wheezing,Palpitations High 01/17/2008 Medications elderberry fruit (ELDERBERRY ORAL) Take 1,250 mg by mouth 2 times daily. 09/27/19 21 Active cyanocobalamin, vitamin B-12, (VITAMIN B12 ORAL) Take 1,000 mg by mouth daily. 09/27/19 21 Active ASCORBIC ACID, VITAMIN C, ORAL Take by mouth. Active CHOLECALCIFEROL, VITAMIN D3, ORAL Take by mouth. Active lancets 30 gauge 1 Device by [facility].(Non-Pierre g; Combo Route) route daily Check blood sugar one time daily. 100 Each 11 10/16/19 15 Active Blood-Glucose Meter KitIndications:Ty pe 2 diabetes mellitus with stage 3b chronic kidney disease, without long-term current use of insulin ([facility]) Use to check blood sugars once daily 1 Kit 12/23/19 23 Active albuterol sulfate HFA 90 mcg/actuation aerosol inhalerIndication s:Chronic obstructive pulmonary disease, unspecified COPD type (CMS/HCC) Take 2 Puffs by inhalation every 6 hours as needed for Wheezing or Shortness of Breath. 18 Gram 11 08/08/19 24 Active budesonide-formot Manav (SYMBICORT) 80-4.5 mcg/actuation HFA Aerosol InhalerIndication s:Chronic obstructive pulmonary disease, unspecified COPD type (CMS/HCC) Take 2 Puffs by inhalation 2 times daily. 10.2 Gram 11 08/08/19 24 Active hydrOXYzine HCL (ATARAX) 10 mg tabletIndications :Pruritus TAKE ONE TABLET BY MOUTH THREE TIMES DAILY NEEDED FOR ITCHING. 90 Tablet 12/09/19 24 Active OTHER Otc Liver renew Active nitroglycerin (NITROSTAT) 0.4 mg Tablet, Sublingual Place 1 Tablet (0.4 mg) under tongue every 5 minutes as needed for Chest Pain. 25 Tablet 3 01/02/20 24 Active chlorhexidine gluconate 0.12 % Mouthwash 15 mL by Mouth/Throat route 2 times daily. 473 mL 1 01/02/20 24 Active budesonide-formot Manav (SYMBICORT) 160-4.5 mcg/actuation HFA Aerosol InhalerIndication s:Chronic obstructive pulmonary disease, unspecified COPD type (CMS/HCC) Inhale 2 puffs by mouth twice daily 11 Gram 2 04/03/20 24 Active cetirizine (ZyrTEC) 10 mg tabletIndications :Chronic pansinusitis take 1 tablet by mouth once daily 100 Tablet 1 05/21/19 25 Active Blood-Glucose Meter KitIndications:Ty pe 2 diabetes mellitus with stage 3b chronic kidney disease, without long-term current use of insulin ([facility]) Use to check fasting sugars once daily - Dx: E11.9 #100 test strips, #100 lancets - Brand covered by insurance 1 Kit 05/29/19 25 Active CPAP / BIPAP suppliesIndicatio ns:Obstructive sleep apnea Auto Bi-level (E0470) at EP min of 4, IP max of 14 and pressure support of 4 cm/H2O with heated humidifier (E0562), MASK OF CHOICE, headgear(A703 5), cushions (A7031) 1/1 month, (A7032) (A7033) 2 pair/1 month. Heated tubing A4604 1/3mo,water chamber A7046 1/6mo,filter disp A7038 2/mo,Reusable filter A7039 1/6mo, Chin strap A7036 a/6mo DALILA 99mo DX: SORAYA (G47.33) 1 Each 06/09/19 25 Active triamcinolone acetonide (KENALOG) 0.1 % Cream Apply enough TO cover topically EVERY 12 hours NEEDED FOR DRY SKIN ON THE LEGS. No more THAN TWO WEEKS of THE MONTH, not FOR THE face OR SKIN folds, 06/19/19 25 Active Accu-Chek Guide Me Glucose Mtr USE TO check fasting sugars ONCE DAILY. 05/29/19 25 Active diclofenac sodium (VOLTAREN) 1 % gelIndications:Ac cheo left-sided low back pain without sciatica Apply 2 Grams to affected area 4 times daily. 100 Gram 2 06/30/19 25 Active furosemide (LASIX) 40 mg tablet TAKE ONE TABLET BY MOUTH ONCE daily. 100 Tablet 2 07/06/19 25 Active metoprolol tartrate (LOPRESSOR) 50 mg tablet TAKE ONE TABLET BY MOUTH DAILY in THE morning. 100 Tablet 3 07/10/19 25 Active levothyroxine 25 mcg tabletIndications :Acquired hypothyroidism TAKE ONE TABLET BY MOUTH ONCE daily. 100 Tablet 3 07/10/19 25 Active HYDROcodone-aceta minophen (NORCO) 5-325 mg tabletIndications :Chronic back pain, unspecified back location, unspecified back pain laterality Take 1 Tablet by mouth every 8 hours as needed for Pain, Moderate. Max Daily Amount: 3 Tablets 21 Tablet 07/28/19 25 Active citalopram (CeleXA) 20 mg tabletIndications :CORAL (generalized anxiety disorder) TAKE ONE TABLET BY MOUTH DAILY. 100 Tablet 1 07/28/19 25 Active traZODone (DESYREL) 150 mg tabletIndications :CORAL (generalized anxiety disorder) TAKE ONE TABLET BY MOUTH AT BEDTIME. 100 Tablet 2 08/07/19 25 Active fluticasone propionate (FLONASE) 50 mcg/spray [place], Suspension nasal inhalerIndication s:Post-nasal drip SPRAY TWO SPRAYS in each nostril daily. 16 Gram 2 08/07/19 25 Active albuterol (PROVENTIL,VENTOL IN) 2.5 mg /3 mL (0.083 %) Solution for NebulizationIndic ations:COPD with exacerbation ([facility]) Inhale THE contents of ONE vial via NEBULIZER EVERY SIX hours NEEDED FOR SHORTNESS OF BREATH. 180 mL 3 08/10/19 25 Active tiZANidine (ZANAFLEX) 4 mg TabletIndications :Chronic back pain, unspecified back location, unspecified back pain laterality TAKE ONE TABLET BY MOUTH nightly NEEDED FOR spasm, pain OR discomfort. 270 Tablet 2 08/15/19 25 Active lovastatin (MEVACOR) 20 mg tabletIndications :Type 2 diabetes mellitus with stage 3 chronic kidney disease, without long-term current use of insulin, unspecified whether stage 3a or 3b CKD (CMS/HCC) TAKE ONE TABLET BY MOUTH DAILY with SUPPER. 100 Tablet 1 09/15/19 25 Active lancets (Accu-Chek Softclix Lancets) USE TO check fasting sugars ONCE DAILY. 100 Each 2 09/15/19 25 Active blood sugar diagnostic (Accu-Chek Guide test strips) StripIndications: Type 2 diabetes mellitus with stage 3b chronic kidney disease, without long-term current use of insulin ([facility]) USE TO check fasting sugars ONCE DAILY. 100 Strip 2 09/15/19 25 Active clopidogreL (PLAVIX) 75 mg Tablet TAKE ONE TABLET BY MOUTH DAILY. 100 Tablet 2 09/21/19 25 Active pregabalin (LYRICA) 100 mg CapsuleIndication s:Fibromyalgia Take 1 Capsule (100 mg) by mouth every 12 hours. 60 Capsule 09/27/19 25 Active metFORMIN (GLUCOPHAGE) 500 mg tabletIndications :Type 2 diabetes mellitus with stage 3 chronic kidney disease, without long-term current use of insulin, unspecified whether stage 3a or 3b CKD (CMS/HCC) TAKE ONE TABLET BY MOUTH TWICE DAILY with meals. Note DOSE inrease. 200 Tablet 2 10/02/19 25 Active Eliquis 5 mg tabletIndications :Atrial flutter, unspecified type (CMS/HCC) TAKE ONE TABLET BY MOUTH TWICE DAILY. 200 Tablet 1 10/09/19 25 Active blood sugar diagnostic StripIndications: Type 2 diabetes mellitus with stage 3b chronic kidney disease, without long-term current use of insulin ([facility]) Use to check blood sugars once daily 100 Strip 11 12/23/19 23 2024 Discontinued lovastatin (MEVACOR) 20 mg tabletIndications :Type 2 diabetes mellitus with stage 3 chronic kidney disease, without long-term current use of insulin, unspecified whether stage 3a or 3b CKD (CMS/HCC) Take 1 Tablet (20 mg) by mouth daily with supper. 100 Tablet 3 06/24/19 24 2024 Discontinued metFORMIN (GLUCOPHAGE) 500 mg tabletIndications :Type 2 diabetes mellitus with stage 3 chronic kidney disease, without long-term current use of insulin, unspecified whether stage 3a or 3b CKD (CMS/HCC) Take 1 Tablet (500 mg) by mouth 2 times daily with meals. Dose increased 200 Tablet 3 10/18/19 24 2024 Discontinued apixaban (Eliquis) 5 mg tabletIndications :Atrial flutter, unspecified type (CMS/HCC) TAKE ONE TABLET BY MOUTH TWICE DAILY. 200 Tablet 1 04/11/19 25 2024 Discontinued pregabalin (LYRICA) 100 mg CapsuleIndication s:Fibromyalgia TAKE ONE CAPSULE BY MOUTH EVERY 12 hours 180 Capsule 06/19/19 25 2024 Discontinued Accu-Chek Softclix Lancets USE TO check fasting sugars ONCE DAILY. 05/29/19 25 2024 Discontinued clopidogreL (PLAVIX) 75 mg Tablet TAKE ONE TABLET BY MOUTH DAILY. 100 Tablet 07/03/192024 Discontinued Active Problems Problem Noted Date Diagnosed Date Need for influenza vaccination 01/02/2024 History of falling 12/08/2023 History of carotid endarterectomy 08/17/2023 Chronic pansinusitis 04/21/2023 DM type 2, goal HbA1c < 7% 03/20/2023 Severe obesity (BMI 35.0-39.9) with comorbidity 03/20/2023 Dyslipidemia, goal LDL below 70 03/20/2023 Fibromyalgia 07/22/2022 Mild asthma with allergic rhinitis without compl ication 06/22/2022 SORAYA (obstructive sleep apnea) 06/22/2022 COPD (chronic obstructive pulmonary disease) 01/2023 Acquired hypothyroidism 06/11/2022 CORAL (generalized anxiety disorder) 06/11/2022 Pancytopenia 06/11/2022 Chronic back pain 06/11/2022 Dependence on other enabling machines and device s 05/10/2022 Aortic arch atherosclerosis 02/13/2021 Overview (02/13/2021): ADDED PER PVQ RESPONSE DOS 11..2020 Chronic diastolic congestive heart failure 02/13 Overview (02/13/2021): ADDED PER PVQ RESPONSE DOS 11.9.2020 Atrial flutter 01/13/2021 Stenosis of left carotid artery 09/27/2020 Type 2 diabetes mellitus wit h stage 3 chronic kidney disease, without long-term current use of insulin 07/14/2020 Pacemaker 07/07/2020 Complete heart block 03/14/2020 2nd degree AV block 03/13/2020 Overview (08/01/2020): Added automatically from request for surgery [id number] History of non-ST elevation myocardial infarctio n (NSTEMI) 10/08/2019 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 10/08/2019 Overview (02/13/2021): CHANGED PER PVQ RESPONSE DOS 11.9.2020 Anemia due to vitamin B12 deficiency 11/03/2015 Dysphagia 10/08/2014 Antral ulcer 09/10/2014 Fitting and adjustment of gastric lap band 02/12 Fatty liver 09/11/2012 Near-syncope 09/22/2009 Sarcoidosis 09/22/2009 Overview (07/31/2020): In 1980s, treated with prednisone then Right bundle branch block 09/04/2009 Dysrhythmia, cardiac Overview (07/31/2020): rapid heart beat Disorder of lipoid metabolism HTN, goal below 130/80 Overview (07/31/2020): pt denies high blood pressure Symptomatic bradycardia Resolved Problems Problem Noted Date Diagnosed Date Resolved Date Chronic respiratory failure with hypoxia and hypercapnia 04/27/2022 04/21/2023 CKD (chronic kidney disease) stage 3, GFR 30-59 ml/min 03/17/2020 05/22/2020 Acute heart failure with pre served ejection fraction (HFpEF) 03/15/2020 05/22/2020 Prediabetes 11/30/2019 04/27/2022 Angina pectoris 10/08/2019 06/05/2020 Diabetes mellitus type 2, un controlled, without complications 10/15/2014 04/27/2022 Spells 03/23/2011 04/27/2022 Abnormal cardiovascular stress test 09/22/2009 10/13/2014 Senile nuclear sclerosis 08/27/2008 Morbid obesity with body mas s index of 40.0-49.9 04/21/2023 Encounters Date Type Department Care Team Description 10/05/[address] [phone] Chun Arshad MD Atrial flutter, unspecified type ([facility]) 10/02/2024 Results Follow-Up [address] [phone] Laila Molina FNP TSH, CBC WITH DIFFERENTIAL, PROTIME-INR, Additional followed-up results: 3 10/01/2024 3:20 PM CDT Office Visit [address] [phone] Laila Molina FNP Spontaneous ecchymoses (Primary Dx); Frail elderly; Type 2 diabetes mellitus with stage 3b chronic kidney disease, without long-term current use of insulin ([facility]); Disorder of lipoid metabolism; Acquired hypothyroidism; AK (actinic keratosis) 10/01/[address] [address] Chun Arshad MD Type 2 diabetes mellitus with stage 3 chronic kidney disease, without long-term current use of insulin, unspecified whether stage 3a or 3b CKD ([facility]/HCC) 09/28/[address] [phone] Chun Arshad MD Clinical Consult Before Scheduling 09/26/[address] [phone] Chun Arshad MD Patient Communication 09/26/[address] [phone] Chun Arshad MD Fibromyalgia 09/20/2024 [facility] [address] [phone] Maddi Zuniga FNP 09/14/[address] [phone] Maddi Zuniga FNP Type 2 diabetes mellitus with stage 3b chronic kidney disease, without long-term current use of insulin ([facility]) 09/13/[address] [phone] Chun Arshad MD Type 2 diabetes mellitus with stage 3 chronic kidney disease, without long-term current use of insulin, unspecified whether stage 3a or 3b CKD ([facility]) 08/29/2024 Orders Only [facility] [place] [address] [place] [address] Zay Connor NP Stenosis of left carotid artery (Primary Dx); History of carotid endarterectomy 08/14/[address] [phone] Chun Arshad MD Chronic back pain, unspecified back location, unspecified back pain laterality 08/09/[address] [phone] Laila Molina FNP COPD with exacerbation ([facility]) 08/08/2024 8:00 AM CDT Procedure visit [facility] [address] [place] [address] Melia Causey MD Complete heart block (Primary Dx); Atrial flutter, unspecified type ([facility]); Pacemaker; 2nd degree AV block 08/05/[address] [phone] Laila Molina FNP Post-nasal drip 08/05/[address] [place] [phone] Chun Arshad MD CORAL (generalized anxiety disorder) 07/26/[address] [place] [phone] Chun Arshad MD Chronic back pain, unspecified back location, unspecified back pain laterality; CORAL (generalized anxiety disorder) 07/20/2024 2:20 PM CDT Office Visit [address] [place] [phone] Laila Molina FNP COPD with exacerbation (CMS/HCC) (Primary Dx); Frail elderly 07/20/[address] [place] [phone] Chun Arshad MD Clinical Consult Before Scheduling 07/13/[address] [place] [phone] Chun Arshad MD from Last 3 Months Immunizations Immunization Administration Dates Next Due (ADACEL/BOOSTRIX)(10 YR UP) TDAP VACCINE, 0.5ML, IM 11/11/2021 (PNEUMOVAX 23)(50 YRS UP) PN EUMOCOCCAL POLYSACCHARIDE (PPV23) 0.5 ML, IM 03/09/2006,01/03/2001 (PREVNAR 13)(6 WKS UP) PNEUM OCOCCAL CONJUGATE (PCV13) 0.5 ML, IM 10/09/2014 (PREVNAR 20)(6 WKS UP) PNEUM OCOCCAL CONJUGATE VACCINE 20-VALENT (PCV20), POLYSACCHARIDE TBA094 CONJUGATE, ADJUVANT 0.5 ML (PF) IM 01/02/2024 (SHINGRIX)(50 YRS UP) ZOSTER VACCINE RECOMBINANT, 0.5 ML, IM 12/31/2019 (SPIKEVAX) (12 YRS UP PRIMAR Y SERIES) COVID-19 VACCINE - MRNA-1273(PF) 100 MCG/0.5 ML IM SUSP 06/13/2020,05/16/2020 INFLUENZA VACCINE HIGH DOSE QUADRIVALENT 65 YR UP PF IM 12/22/2022,02/09/2022,02/10/2021 INFLUENZA VACCINE HIGH DOSE TRIVALENT SPLIT VIRUS, (65 YR UP), 0.5ML (PF), IM 01/02/2024 INFLUENZA VACCINE QUADRIVALE NT RECOMB 18 YR UP PF IM 12/31/2019 Influenza A (H1N1) Vaccine IM 02/22/2009 Influenza Seasonal Unspecifi ed Formulation IM 01/16/2019,01/16/2014,01/22/2009,01/31,01/03/2001,03/23/2000,02/02/1999 Influenza Vaccine High Dose 65+ Yrs IM 0 12/27/2017,02/15/2017,01/13/2016,12/16 Influenza Vaccine Split 3+ Yrs PF IM 03/18/2010 PREVNAR (PCV13) pneumococcal 13-valent conjugate Vaccine 01/13/2016 Family History Medical History Relation Name Comments Alzheimer's Disease Brother 1 FABIANA Kidney Disease Brother 1 FABIANA Stroke Brother 2 SU Brain Cancer Brother 3 CLARICE Lung Cancer Brother 3 CLARICE Brain mets Cancer Brother 4 MEREDITH CHEST WALL CANC ER Stroke Brother 4 MEREDITH Stroke Daughter 1 PAYTON Amblyopia Daughter 2 GABBI LAZY EYE Heart Disease Father Leukemia Father Kidney Disease Maternal Grandmother Cataract Mother Colon Cancer Mother Heart Disease Mother Kidney Disease Mother Heart Disease Sister 1 VERGIE Blindness Neg Hx Breast Cancer Neg Hx Detachment/Tears Neg Hx Glaucoma Neg Hx Macular Degen Neg Hx Ovarian Cancer Neg Hx Strabismus Neg Hx Thyroid Disease Neg Hx Relation Name Status Comments Brother 1 FABIANA Alive Brother 2 SU Alive Brother 3 CLARICE Brother 4 MEREDITH Brother 5 NISHI Alive Brother 6 JOLEEN INFANT Brother 7 KARLA Alive Daughter 1 PAYTON Daughter 2 GABBI Alive Daughter 3 AMELIA Alive Father Maternal Grandmother Mother Sister 1 VERGIE Sister 2 VERA Alive Sister 3 STEPHENIE Alive Sister 4 SRAVAN Alive Sister 5 VERDIE Alive Son MARCELO Alive Social History Tobacco Use Types Packs/Day Years Used Date Smoking Tobacco: Never Passive Smoke Exposure: Never Smokeless Tobacco: Never Tobacco Cessation:Counseling Given: No Alcohol Use Standard Drinks/Week Comments No 0 [...] on file 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 Gender Identity Not on file Sexual Orientation Not on file Last Filed Vital Signs Vital Sign Reading Time Taken Comments Blood Pressure 137/61 10/01/2024 3:18 PM CDT Pulse 60 10/01/2024 3:12 PM CDT Temperature 36.3 C (97.3 F) 10/01/2024 3:12 PM CDT Respiratory Rate 20 10/01/2024 3:12 PM CDT Oxygen Saturation 96% 10/01/2024 3:12 PM CDT Inhaled Oxygen Concentration - - Weight 94.1 kg (207 lb 6 oz) 10/01/2024 3:12 PM CDT Height 152.4 cm (5') 10/01/2024 3:12 PM CDT Body Mass Index 40.5 10/01/2024 3:12 PM CDT Plan of Treatment Upcoming Encounters Date Type Department Care Team (Late st Contact Info) Description 10/19/2024 1:00 PM CDT Office Visit [facility] [place] [address] [phone] Maddi Zuniga FNP [address] [phone] 10/24/2024 2:00 PM CDT Ancillary Procedure [facility] [place] [address] [place] [address] Zay Connor NP [address] [place] [address] 10/24/2024 3:00 PM CDT Office Visit [facility] [place] [address] [place] [address] Zay Connor NP [address] [place] [address] 11/13/2024 1:20 PM CDT Office Visit [facility] [address] [place] [phone] Melia Causey MD [address] [place] [phone] [place] Major PA [address] [place] [phone] 11/13/2024 1:30 PM CDT Procedure visit [facility] [address] [place] [phone] Melia Causey MD [address] [place] [phone] 11/27/2024 10:20 AM CDT Office Visit [facility] [address] [phone] Chun Arshad MD [address] [phone] 12/28/2024 10:45 AM CDT Office Visit [facility] [address] [phone] Sera Littlejohn, SCRIPT WORKER [address] [facility] [address] [place] [address] 02/11/2025 8:00 AM AMMONIA STILL OPERATOR Procedure visit [facility] [address] [place] [address] Melia Causey MD [address] [place] [address] Health Maintenance Due Date Last Done Comments RSV VACCINE (60+ or ) (1 - 1-dose 75+ series) 01/30/2019 ZOSTER VACCINE (2 of 2) 02/25/2020 12/31/2019 COLORECTAL SCREENING 03/14/2023 03/14/2018, 03/14/2018, 03/14/2018, Additional history exists DIABETES ANNUAL RETINAL EXAM 02/29/2024, 05/15/2021, 04/02/2010 Medicare Ad[place]age ([place]) Preventative Visit/Annual Wellness Visit 04/04/2024 07/01/2023, 07/22/2022, 09/01/2021, Additional history exists COVID-19 Vaccine (2023-2 5 season) 2024 01/02/2024, 02/02/2022, 03/10/2021, Additional history exists DIABETES ANNUAL FOOT EXAM 09/01/20242023, 02/09/2022, 06/05/2020, Additional history exists INFLUENZA VACCINE (#1) 2024 , 12/22/2022, 02/09/2022, Additional history exists DIABETES HBA1C Q 6 MONTHS 04/02/20252024, 05/29/2024, 01/02/2024, Additional history exists DIABETES MICROALBUMIN ANNUAL SCREEN 05/29/2025 05/29/2024, 04/21/2023, 04/14/2021, Additional history exists OSTEOPOROSIS SCREENING 06/25/2025 , 06/25/2020, 09/20/2013, Additional history exists DIABETES: A1C (Auto Order) 10/01/202510/01, 05/29/2024, 01/02/2024, Additional history exists LDL CHOLESTEROL ANNUAL 10/01/2025 , 05/29/2024, 09/02/2023, Additional history exists DTAP/TDAP/TD VACCINES (2 - T d or Tdap) 11/12/2031 11/11/2021 PNEUMOCOCCAL VACCINE 50+ YEARS Completed 0 01/02/2024, 02/10/2021, 01/13/2016, Additional history exists KHE uACR (Auto Order) Completed 05/29/2024 , 04/21/2023, 04/14/2021, Additional history exists KHE eGFR (Auto Order) Completed 10/01/2024 , 06/29/2024, 06/21/2024, Additional history exists Medical Devices Implanted Type Area Escalator Constructor Device Identifier Shelf Expiration Date Model / Serial / Lot Clip Ligating Horizon Med [place] [id number] [place] [facility] [id number] Implanted:Qt y: 1 on 09/26/2020 by Cheko Patel MD Clip Left: Neck TELEFLEX- WECK CLOSURE SYS [id number] 12/02/2024 / / [id number] Clip Ligating Horizon Red [id number] - [facility] [place] [id number] Implanted:Qt y: 1 on 09/26/2020 by Cheko Patel MD Clip Left: Neck TELE[employer]LEX INC [id number] 12/09/2024 / / [id number] Log [id number] - Jonathan Sn6ad1 - 1 - Lens Io [id number] 23.0 Implanted:Qt y: 1 on 09/12/2008 Eye Right: Eye [facility] 02/02/2013 SN6AD1.23 0 / [id number] / Log [id number] - Jonathan Sn6ad1 - 1 - Lens Io [id number] 23.5 Implanted:Qt y: 1 on 09/19/2008 Eye Left: Eye [facility] SN6AD1.23 5 / [id number] / Patch Vascu-Guard [id number] - [id number] Implanted:Qt y: 1 on 09/26/2020 by Cheko Patel MD Graft Left: Neck [employer]- [employer] [id number] 04/17/2025 [id number] / / [id number] Hemostatic Surgiflo 8ml W/Thrombin 2994 - [id number] Implanted:Qt y: 1 on 09/26/2020 by Cheko Patel MD Hemostatic Left: Neck [employer] [id number] 03/03/2022 2994 / / [id number] Lead Pacemaker Solia S 45 955383 - [id number] Implanted:Qt y: 1 on 03/14/2020 by Duane Cordova MD Lead Right: Heart [employer] 164347 / [id number] / Lead Pacemaker Solia S 53 [id number] - [id number] Implanted:Qt y: 1 on 03/14/2020 by Duane Cordova MD Lead Right: Ventricle [employer] [id number] / [id number] / Pacemaker Edora 8 Dr-T 107499 - [id number] Implanted:Qt y: 1 on 03/14/2020 by Duane Cordova MD Pacemaker Left: Chest [employer] [id number] / [id number] / Explanted Type Area Escalator Constructor Device Identifier Shelf Expiration Date Model / Serial / Lot Log [id number] - Laparoscopic Bands - 1 - Band Gastric Lap Standard [id number] Implanted:Qty: 1 on 05/01/2008 Explanted:Qty: 1 on 10/08/2014 by Misael Aviles MD Other N/A: Stomach [employer]- [employer] 02/02/2010 B-[id number] / [id number] / N/A Procedures Procedure Name Priority Date/Time Associated Diagnosis Comments LIPID PANEL Routine 10/01/2024 3:29 PM CDT Disorder of lipoid metabolism COMPREHENSIVE METABOLIC PANEL Routine 10/01/2024 3:29 PM CDT Type 2 diabetes mellitus with stage 3b chronic kidney disease, without long-term current use of insulin (CMS/HCC) HEMOGLOBIN A1C Routine 10/01/2024 3:29 PM CDT Type 2 diabetes mellitus with stage 3b chronic kidney disease, without long-term current use of insulin (CMS/HCC) PROTIME-INR Routine 10/01/2024 3:29 PM CDT Spontaneous ecchymoses CBC WITH DIFFERENTIAL Routine 10/01/2024 3:29 PM CDT Spontaneous ecchymoses TSH Routine 10/01/2024 3:29 PM CDT Acquired hypothyroidism AK DESTRUCTION PREMALIGNANT LESION 1ST Routine 10/01/2024 3:20 PM CDT AK (actinic keratosis) AK REM INTERROG PM/LDLS PM/IDS <90 D TECH REVIEW Routine 08/08/2024 2:22 AM CDT Complete heart block Atrial flutter, unspecified type (CMS/HCC) Pacemaker 2nd degree AV block AK REM INTERROG PM/LDLS PM <90 D PHYS/QHP Routine 08/08/2024 2:22 AM CDT Complete heart block Atrial flutter, unspecified type (CMS/HCC) Pacemaker 2nd degree AV block MICROALBUMIN/CREATINI NE RATIO, RANDOM UR Routine 05/29/2024 2:02 PM 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 STILL OPERATOR Type 2 diabetes mellitus with stage 3b chronic kidney disease, without long-term current use of insulin (CMS/HCC) HM DIABETES EYE EXAM Routine 05/15/2021 XR DEXA BONE DENSITY AXIAL 1 OR MORE SITES Routine 06/25/2020 1:27 PM CDT Asymptomatic menopausal state COLONOSCOPY REPORT Routine 03/14/2018 10 :06 AM AMMONIA STILL OPERATOR from Last 3 Months or Most Recently Relevant to Health Maintenance Results * (ABNORMAL) CBC WITH DIFFERENTIAL (10/01/2024 3:29 PM CDT) WBC 7.8 3.8 - 10.8 Thousand/u L [facility] RBC 4.09 3.80 - 5.10 Million/uL [facility] HEMOGLOBIN 12.3 11.7 - 15.5 g/dL [facility] HEMATOCRIT 37.3 35.0 - 45.0 % [facility] MCV 91.2 80.0 - 100.0 fL [facility] MCH 30.1 27.0 - 33.0 pg [facility] MCHC 33.0 32.0 - 36.0 g/dL [facility] Comment: For adults, a slight decrease in the calculated MCHC value (in the range of 30 to 32 g/dL) is most likely not clinically significant; however, it should be interpreted with caution in correlation with other red cell parameters and the patient's clinical condition. RDW 15.4(H) 11.0 - 15.0 % [facility] PLATELETS 220 140 - 400 Thousand/u L [facility] MPV 9.5 7.5 - 12.5 fL [facility] NEUTROPHIL ABSOLUTE 4,883 1,500 - 7,800 cells/uL [facility] LYMPHOCYTE ABSOLUTE 2,083 850 - 3,900 cells/uL [facility] MONOCYTE ABSOLUTE 624 200 - 950 cells/uL [facility] EOSINOPHIL ABSOLUTE 133 15 - 500 cells/uL [facility] BASOPHILS ABSOLUTE 78 0 - 200 cells/uL [facility] NEUTROPHIL 62.6 % [facility] LYMPHOCYTES 26.7 % [facility] MONOCYTE 8.0 % [facility] EOSINOPHILS 1.7 % [facility] BASOPHILS 1.0 % [facility] Comment: Test Performed at: [facility] [address] [place] [address] Lea Florian MD Blood 10/01/2024 3:29 PM CDT 10/02/2024 3:24 AM CDT Laila Molina [facility] HEMATOLOGY ORDERABLES Fi nal Result Performing Organization Address City/[facility]/ZIP Co de Phone Number [facility] [phone] [facility] [address] [place] [address] [place] [address] * (ABNORMAL) PROTIME-INR (10/01/2024 3:29 PM CDT) INR 1.1 [facility] Comment: Reference Range 0.9-1.1 Moderate-intensity Warfarin Therapy 2.0-3.0 Higher-intensity Warfarin Therapy 3.0-4.0 PROTIME 11.8(H) 9.0 - 11.5 sec [facility] Comment: For additional information, please refer to http://education.Farmeron/faq/GFR274 (This link is being provided for informational/ educational purposes only.) Test Performed at: [facility] [address] [place] [address] Lea Florian MD Blood 10/01/2024 3:29 PM CDT 10/02/2024 3:24 AM CDT Laila Molina [facility] HEMATOLOGY ORDERABLES Fi nal Result Performing Organization Address [facility]/ZIP Co de Phone Number [facility] [phone] [facility] [address] [place] [address] * TSH (10/01/2024 3:29 PM CDT) TSH 2.65 0.40 - 4.50 mIU/L [facility] Comment: Test Performed at: [facility] [address] [place] [address] Lea Florian MD Blood 10/01/2024 3:29 PM CDT 10/02/2024 3:24 AM CDT Laila William Jesse [facility] CHEMISTRY ORDERABLES Fin al Result Performing Organization Address [facility] Co de Phone Number [facility] [phone] [facility] [address] [place] [address] * (ABNORMAL) HEMOGLOBIN A1C (10/01/2024 3:29 PM CDT) HEMOGLOBIN A1C 7.8(H) <5.7 % [facility] Comment: For someone without known diabetes, a hemoglobin A1c value of 6.5% or greater indicates that they may have diabetes and this should be confirmed with a follow-up test. For someone with known diabetes, a value <7% indicates that their diabetes is well controlled and a value greater than or equal to 7% indicates suboptimal control. A1c targets should be individualized based on duration of diabetes, age, comorbid conditions, and other considerations. Currently, no consensus exists regarding use of hemoglobin A1c for diagnosis of diabetes for children. ESTIMATED AVERAGE GLUCOSE (MG/DL) 177 mg/dL [facility] ESTIMATED AVERAGE GLUCOSE (MMOL/L) 9.8 mmol/L [facility] Comment: Test Performed at: [facility] [address] [facility] [place] [address] Lea Florian MD Blood 10/01/2024 3:29 PM CDT 10/02/2024 3:24 AM CDT Laila Nataliia Molina [facility] CHEMISTRY ORDERABLES Fin al Result Performing Organization Address [facility] Co de Phone Number [facility] [phone] [facility] [address] [facility] [place] [address] * (ABNORMAL) LIPID PANEL (10/01/2024 3:29 PM CDT) CHOLESTEROL 132 <200 mg/dL [facility] HDL 43(L) > OR = 50 mg/dL [facility] TRIGLYCERIDE 200(H) <150 mg/dL [facility] Comment: If a non-fasting specimen was collected, consider repeat triglyceride testing on a fasting specimen if clinically indicated. Angelita et al. J. of Clin. Lipidol. 2015;9:129-169. LDL CALCULATED 62 mg/dL (calc) [facility] Comment: Reference range: <100 Desirable range <100 mg/dL for primary prevention; <70 mg/dL for patients with CHD or diabetic patients with > or = 2 CHD risk factors. LDL-C is now calculated using the Marlen calculation, which is a validated novel method providing better accuracy than the Friedewald equation in the estimation of LDL-C. Juanjo SS et al. CAMERON. 2013;310(19): 5433-0741 (http://education.Philoptima/faq/URA368) CHOL/HDL RATIO 3.1 <5.0 (calc) [facility] NON-HDL CHOLESTEROL 89 <130 mg/dL (calc) [facility] Comment: For patients with diabetes plus 1 major ASCVD risk factor, treating to a non-HDL-C goal of <100 mg/dL (LDL-C of <70 mg/dL) is considered a therapeutic option. Test Performed at: [facility] [address] [facility] [place] [address] Lea Florian MD Blood 10/01/2024 3:29 PM CDT 10/02/2024 3:24 AM CDT Laila LOGANP CHEMISTRY ORDERABLES Fin al Result [facility] [phone] [facility] [address] [place] [address] * (ABNORMAL) COMPREHENSIVE METABOLIC PANEL (10/01/2024 3:29 PM CDT) GLUCOSE 139(H) 65 - 99 mg/dL [facility] Comment: Fasting reference interval For someone without known diabetes, a glucose value >125 mg/dL indicates that they may have diabetes and this should be confirmed with a follow-up test. BUN 18 7 - 25 mg/dL [facility] CREATININE 1.33(H) 0.60 - 0.95 mg/dL [facility] GFR 40(L) > OR = 60 mL/min/1.7 3m2 [facility] BUN/CREAT RATIO 14 6 - 22 (calc) [facility] SODIUM 134(L) 135 - 146 mmol/L [facility] POTASSIUM 4.0 3.5 - 5.3 mmol/L [facility] CHLORIDE 91(L) 98 - 110 mmol/L [facility] CO2 34(H) 20 - 32 mmol/L [facility] CALCIUM 9.3 8.6 - 10.4 mg/dL [facility] TOTAL PROTEIN 7.4 6.1 - 8.1 g/dL [facility] ALBUMIN 4.6 3.6 - 5.1 g/dL [facility] GLOBULIN 2.8 1.9 - 3.7 g/dL (calc) [facility] ALBUMIN/GLOBULIN RATIO 1.6 1.0 - 2.5 (calc) [facility] BILIRUBIN TOTAL 0.9 0.2 - 1.2 mg/dL [facility] ALKALINE PHOSPHATASE 60 37 - 153 U/L [facility] AST 13 10 - 35 U/L [facility] ALT 11 6 - 29 U/L [facility] Comment: Test Performed at: [facility] [address] [facility] [place] [address] Lea Florian MD Blood 10/01/2024 3:29 PM CDT 10/02/2024 3:24 AM CDT Laila Molina SCRIPT WORKER CHEMISTRY ORDERABLES Fin al Result [facility] [phone] [facility] [address] [facility] [place] [address] * Destruction of Lesion (10/01/2024 3:20 PM CDT) Narrative [facility] - 10/01/2024 3:20 PM CDT Laila Molina FNP 10/01/2024 3:44 PM Destruction of Lesion Date/Time: 10/01/2024 3:20 PM Performed by: Laila Molina FNP Authorized by: Laila Molina FNP Local anesthesia used: no Anesthesia: Local anesthesia used: no Sedation: Patient sedated: no Patient tolerance: patient tolerated the procedure well with no immediate complications Comments: Cryo cautery of each lesion x AK x 1 performed in standard fashion using liquid nitrogen on large cotton tipped applicator. Good freeze accomplished. Two freeze-thaw cycles were performed without incident. Patient tolerated the procedure well. Expected course of healing and wound care reviewed with patient. Follow-up for any problems. us Laila LYNN PROCEDURE/MINOR SURGICAL ORDERABLES Final Result [facility] CLIA# [id number] [address] [place] [address] * AK REM INTERROG PM/LDLS PM <90 D PHYS/QHP, AK REM INTERROG PM/LDLS PM/IDS <90 D TECH REVIEW (08/08/2024 2:22 AM CDT) 08/08/2024 2:22 AM CDT Narrative INTERFACE SYSTEM - 08/08/2024 11:32 AM CDT Remote Transmission Report Date of Procedure: August 08, 2024 Events: 0 Comments: Biotronik remote transmission reveals normal dual chamber pacemaker function with stable available threshold and impedance trends. Follow-up with Cardiology - EP Office 11/13/2024. See attached report for details. Procedure Note Provider, Historical - 08/08/2024 Remote Transmission Report Date of Procedure: August 08, 2024 Events: 0 Comments: Biotronik remote transmission reveals normal dual chamber pacemakerfunction with stable available threshold and impedance trends. Follow-up with Cardiology - EP Office 11/13/2024. See attached report for details. us Melia Causey MD CARDIAC SERVICES ORDERABLES E dited Result - Final INTERFACE SYSTEM Refer to clinic/hospital department * (ABNORMAL) MICROALBUMIN/CREATININE RATIO, RANDOM UR (05/29/2024 2:02 PM AMMONIA STILL OPERATOR) Creatinine, Urine 18(L) 20 - 275 mg/dL [facility] MICROALBUMIN, URINE <0.2 See Note: mg/dL [facility] Comment: Reference Range: Reference Range Not established MICROALBUMIN/CREAT RATIO, UR NOTE <30 mg/g creat [facility] Comment: NOTE: The urine albumin value is less than 0.2 mg/dL therefore we are unable to calculate excretion and/or creatinine ratio. The ADA defines abnormalities in albumin excretion as follows: Albuminuria Category Result (mg/g creatinine) Normal to Mildly increased <30 Moderately increased 30-299 Severely increased > OR = 300 The ADA recommends that at least two of three specimens collected within a 3-6 month period be abnormal before considering a patient to be within a diagnostic category. Test Performed at: [facility] [address] [facility] [place] [address] Lea Florian MD Urine URINE SPECIMEN OBTAINED BY CLEAN CATCH PROCEDURE / Unknown 05/29/2024 2:02 PM AMMONIA STILL OPERATOR 05/30/2024 4:10 AM AMMONIA STILL OPERATOR Maddi Zuniga SCRIPT WORKER URINE ORDERABLES Final R esult [facility] [phone] [facility] [address] [facility] [place] [address] * DIABETES EYE EXAM (05/15/2021) Abstract Provider HEALTH MAINTENANCE Final Resul t * XR DEXA BONE DENSITY AXIAL 1 OR MORE SITES (06/25/2020 1:27 PM CDT) Anatomical Region Laterality Modality Other Impressions 06/27/2020 9:47 AM CDT 1. Compared to previous exam, there has [...] clinical management available online at [email or web address]/. Enter Totango for Select DXA and the Femoral Neck BMD value. [id number] Narrative 06/27/2020 9:47 AM CDT Exam: XR [...] Normal) Procedure Note Pepe Phelan MD - 09/08/2020 Exam: XR DEXA BONE DENSITY AXIAL 1 [...] (Previously 1.1) Adult Z-score: Normal (Previously Normal) IMPRESSION 1. Compared to previous exam, there has [...] clinical management available online at [email or web address]/. Enter Totango for Select DXA and the Femoral Neck BMD value. [id number] us Karla PETERSON DIAGNOSTIC IMAGING ORDERABLES Final Result * COLONOSCOPY REPORT (03/14/2018 10:06 AM AMMONIA STILL OPERATOR) 03/14/2018 10:0 6 AM AMMONIA STILL OPERATOR us Santy Gardner MD GI PROCEDURE ORDERABLES Final Result Performing Organization Address City/State/[facility] Co de Phone Number [facility] from Last 3 Months or Most Recently Relevant to Health Maintenance Insurance [facility] MEDIC[facility] HMO Care Teams Flanging Roll Operator Relationship Specialty Start Date End Date Chun Arshad MD [address] [phone] PCP - General Family Practice 03/18/21
--- OUTSIDE RECORDS SUMMARY | 2024-10-09 00:59 | XMS_ITS | Encounter Summary ---
Author Organization [facility] Address [address] [place] [address] Care Team Providers Care Automotive Sales Executive Name Role Phone Chun Arshad MD Primary Care Provider [phone] Reason for Visit * Reason Comments Med Refill Encounter Details Date Type Department Care Team (Late st Contact Info) Description 10/05/2024 Refill [facility] Family Medicine [address] [address] Chun Arshad MD [facility] [address] [address] Atrial flutter, unspecified type (CMS/HCC) Social History Tobacco Use Types Packs/Day [...] on file Legal Sex Female 12:22 AM STUDY LEAD Gender Identity Not on file Sexual Orientation Not on file documented as of this encounter Plan of Treatment Upcoming Encounters Date Type Department Care Team (Late st Contact Info) Description 10/19/2024 1:00 PM CDT Office Visit [facility] Family Medicine [place] [address] [address] Maddi Zuniga FNP [address] [address] 10/24/2024 2:00 PM CDT Ancillary Procedure [facility] [place] [address] [place] [address] Zay Connor NP [address] [place] [address] 10/24/2024 3:00 PM CDT Office Visit [facility] Vascular Surgery [place] [address] [place] [address] Zay Connor NP [address] [place] [address] 11/13/2024 1:20 PM CDT Office Visit [facility] Cardiology [facility] [address] [place] [address] Melia Causey MD [address] [place] [address] [place] Major PA [address] [place] [address] 11/13/2024 1:30 PM CDT Procedure visit [facility] [address] [place] [address] Melia Causey MD [address] [place] [address] 11/27/2024 10:20 AM CDT Office Visit [facility] Family Medicine [place] [address] [address] Chun Arshad MD [address] [address] 12/28/2024 10:45 AM CDT Office Visit [facility] [address] [address] Sera Littlejohn, [facility] [address] [address] 02/11/2025 8:00 AM STUDY LEAD Procedure visit [facility] [address] [place] [address] Melia Causey MD [address] [place] [address] documented as of this encounter Visit Diagnoses Diagnosis Atrial flutter, unspecified type (CMS/HCC) documented in this encounter Care Teams Automotive Sales Executive Relationship Specialty Start Date End Date Chun Arshad MD [address] [address] PCP - General Family Practice 03/18/21 documented as of this encounter
--- NOTE | 2024-10-09 02:13 | XRR_ITS ---
PROCEDURE INFORMATION: Exam: XR Left Femur Exam date and time: 10/09/2024 2:15 AM Age: 79 years old Clinical indication: Injury or trauma; Fall; Fracture, traumatic; Displaced; Femur; Prior surgery; Surgery date: 6+ months; Surgery type: Total left knee and total left hip; Additional info: Left knee pain TECHNIQUE: Imaging protocol: Radiologic exam of the left femur. Views: 2 views. COMPARISON: CT abdomen pelvis w con* [id number] 06/21/2024 4:46 PM FINDINGS: Bones/joints: Left knee arthroplasty is partially imaged. The distal femur shows a severely displaced and comminuted acute periprosthetic fracture. There is mild angulation, apex anterior. This involves the left knee prosthesis. Partially assessed lumbar fusion. Moderate left hip DJD. Soft tissues: Thigh swelling. XR/XR femur LT min 2V* [id number] IMPRESSION: Left distal femur acute, severe periprosthetic fracture.
[2024-10-09] MEDS: fentaNYL 50 mcg/mL INJ 2mL IVP (02:28)
--- NOTE | 2024-10-09 03:08 | W.ED.FALL ---
HPI - Fall General: Chief Complaint: Fall Stated Complaint: FALL/ KNEE PAIN Time Seen by Provider: 10/09/24 00:48 History of Present Illness: Patient is an elderly female with history of fibromyalgia, arthritis, and left knee replacement (performed at [facility] in [place] circa 2008) who presents after a fall at home. Patient reports she was getting up from her chair when her leg 'gave away' causing her to fall and land on her left knee. She states she 'couldn't even move it' after the fall. Patient denies any previous problems with the knee replacement prior to this incident. She reports being on two blood thinners including Eliquis, though there was some confusion about a second anticoagulant. Patient last ate a peach at approximately 6:00. Related Data Home Medications ?Medication ?Instructions ?Recorded ?Confirmed aspirin 81 mg tablet,delayed 81 mg PO DAILY 09/18/19 09/14/20 release black cohosh 40 mg tablet 40 mg PO DAILY 09/18/19 09/14/20 citalopram 20 mg tablet 20 mg PO DAILY 09/18/19 09/14/20 elderberry fruit 460 mg-elderberry 1 cap PO BID 09/18/19 09/14/20 flower 115 mg capsule levothyroxine 25 mcg tablet 25 mcg PO DAILY 09/18/19 09/14/20 pantoprazole 40 mg tablet,delayed 40 mg PO DAILY 09/18/19 09/14/20 release trazodone 150 mg tablet 75 mg PO BEDTIME 09/18/19 09/14/20 amlodipine 5 mg PO DAILY 09/14/20 09/14/20 clopidogrel 75 mg tablet 75 mg PO DAILY 09/14/20 09/14/20 fluticasone propionate 50 1 spray intranasal BID 09/14/20 09/14/20 mcg/actuation nasal spray,suspension furosemide 40 mg tablet 40 mg PO DAILY PRN Fluid overload 09/14/20 09/14/20 metformin 1,000 mg tablet 1,000 mg PO BID 09/14/20 09/14/20 metoprolol tartrate 50 mg tablet 25 mg PO BID 09/14/20 09/14/20 tizanidine 4 mg tablet 2 mg PO DAILY 09/14/20 09/14/20 Previous Rx's ?Medication ?Instructions ?Recorded diclofenac sodium 75 mg 75 mg PO DAILY PRN pain #0 tabs 09/20/19 tablet,delayed release Allergies Allergy/AdvReac Type Severity Reaction Status Date / Time prednisone Allergy ALGY-Difficulty Verified 06/21/24 13:32 Breathing Review of Systems General: Reports: 10 or more systems reviewed and unremarkable except in HPI and below PFSH ED PFSH: Medical History COVID-19 vaccine administered (~07/2020) History of COVID-19 (~02/2020) of covid Carotid artery stenosis 90% blockage Mixed hyperlipidemia Type 2 diabetes mellitus Benign essential hypertension with target blood pressure below 140/90 Acute non-ST elevation myocardial infarction (NSTEMI) (09/2019) History of paroxysmal supraventricular tachycardia Sarcoidosis Hypothyroidism Surgical History History of cholecystectomy History of foot surgery History of neck surgery History of cataract surgery History of nasal surgery History of back surgery History of knee surgery bilateral replacement History of surgery on arm right History of hysterectomy History of arteriography attempted left heart Cath 09/2019. 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, done in [place] History of appendectomy Family History Brother Stroke CAD (coronary artery disease) Brother Stroke Sister CAD (coronary artery disease) upper 50s Other Cancer Denies family history of Diabetes Clotting disorder Social History Smoking and tobacco/nicotine status: never used tobacco/nicotine Alcohol intake: never Substance/Drug Use: never Lives independently: Yes Household members: none Marital status: / Physical Exam Const: COMMON NORMALS: no acute distress, patient oriented x3, alert and well nourished HENMT: COMMON NORMALS: normocephalic HEAD & SCALP: normocephalic Eye: COMMON NORMALS: Equal, round and reactive pupils present, EOMs intact bilaterally and conjunctivae normal CONJUNCTIVA: Yes conjunctivae normal PUPIL: Yes Equal, round and reactive pupils present Neck/C-Spine: COMMON NORMALS: full ROM, no lymphadenopathy, supple, no meningeal signs, no JVD and Thyroid normal THYROID: Thyroid normal Resp: COMMON NORMALS: normal respiratory effort, No retractions, No use of accessory muscles, clear to auscultation bilaterally and percussion normal AUSCULTATION: clear to auscultation bilaterally PERCUSSION: percussion normal Cardio: COMMON NORMALS: no JVD GI: COMMON NORMALS: Normal to inspection, nondistended, normoactive bowel sounds present, Soft to palpation, non-tender, No hepatosplenomegaly present, no masses and no bruits PALPATION: Yes Soft to palpation and Yes No hepatosplenomegaly present Extremity: NARRATIVE EXTREMITY EXAM: Pain to palpation and swelling over the distal femur on the left Neuro: COMMON NORMALS: patient oriented x3 SENSORIUM/ORIENTATION: Yes alert MENINGEAL SIGNS: Yes no meningeal signs Skin: COMMON NORMALS: no rashes or lesions noted, turgor normal and no jaundice GENERAL SKIN EXAM: no rashes or lesions noted and turgor normal Course Vital Signs: Vital signs: Vital Signs Temperature 98.3 F 10/09/24 00:46 Pulse Rate 70 10/09/24 04:00 Respiratory Rate 16 10/09/24 04:00 Blood Pressure 138/83 10/09/24 04:00 Pulse Oximetry 91 10/09/24 04:00 Oxygen Delivery Me thod Nasal Cannula 10/09/24 04:00 Oxygen Flow Rate 2 10/09/24 04:00 MDM - Fall Medical Decision Making 1. Left Periprosthetic Knee Fracture - Acute fracture around previous left knee prosthesis from 2008 - Severity requires specialized orthopedic management beyond our facility's capabilities - Transfer to [facility] in [place] arranged for definitive care - Pain managed with analgesics, though complete relief not possible until surgical intervention 2. Anticoagulation Management - Currently on Eliquis (apixaban) - Possible second anticoagulant reported by patient requires clarification - Anticoagulation status complicates surgical planning - Will communicate medication details to receiving facility 3. Disposition - Transfer to [facility] arranged for specialized orthopedic evaluation and management - Patient made NPO in preparation for potential surgical intervention - Family notified of transfer plans Called and talked to emergency about initial transfer they requested all the lab results prior to transfer. Patient had labs run she had some mild leukocytosis but otherwise most of her labs are normal or nondiagnostic her EKG showed an electronic ventricular pacemaker. Patient was given another milligram of Dilaudid to control her pain and is doing well. Plan on transfer to [facility] - paperwork filled out. Lab Data 10/09/24 03:45 10/09/24 03:45 Radiology Impressions Femur X-Ray 10/09/24 02:13 IMPRESSION: Left distal femur acute, severe periprosthetic fracture. Chest X-Ray 10/09/24 03:16 IMPRESSION: No acute findings. Laboratory Results WBC 15.78 10^3/uL (3.29-11.43) H 10/09/24 03:45 RBC 3.74 10^6/uL (3.85-5.65) L 10/09/24 03:45 Hgb 11.00 g/dL (11.27-16.99) L 10/09/24 03:45 Hct 33.1 % (36-47) L 10/09/24 03:45 MCV 88.5 fl (85-98) 10/09/24 03:45 MCH 29.4 pg (27-33) 10/09/24 03:45 MCHC 33.2 g/dL (30-55) 10/09/24 03:45 RDW 15.9 % (12.1-15.1) H 10/09/24 03:45 Plt Count 223 10^3/cmm (157-399) 10/09/24 03:45 MPV 9.0 fL (7.4-10.4) 10/09/24 03:45 Neut % (Auto) 81.4 % 10/09/24 03:45 Lymph % (Auto) 9.2 % 10/09/24 03:45 [place] % (Auto) 7.5 % 10/09/24 03:45 Eos % (Auto) 0.2 % 10/09/24 03:45 Baso % (Auto) 0.4 % 10/09/24 03:45 Neut # (Auto) 12.85 10^3/uL (1.8-7.7) H 10/09/24 03:45 Lymph # (Auto) 1.5 10^3/uL (0.8-4.8) 10/09/24 03:45 [place] # (Auto) 1.2 10^3/uL (0.2-0.9) H 10/09/24 03:45 Eos # (Auto) 0.0 10^3/uL (0.0-0.8) 10/09/24 03:45 Baso # (Auto) 0.1 10^3/uL (0.0-0.1) 10/09/24 03:45 Nucleated RBC % (auto) 0 % 10/09/24 03:45 Nucleated RBCs # 0.0 /100WBC 10/09/24 03:45 PT 15.50 SECONDS (12.1-14.9) H 10/09/24 03:45 INR 1.15 (0.8-1.2) 10/09/24 03:45 APTT 33.9 SECONDS (23.9-36.7) 10/09/24 03:45 Sodium 138 mmol/L (136-145) 10/09/24 03:45 Potassium 4.7 mmol/L (3.5-5.1) 10/09/24 03:45 Chloride 97 mmol/L (98-107) L 10/09/24 03:45 Carbon Dioxide 30 mmol/L (22-29) H 10/09/24 03:45 Anion Gap 15.7 (5-19) 10/09/24 03:45 BUN 24 mg/dL (8-23) H 10/09/24 03:45 Creatinine 1.3 mg/dL (0.5-0.9) H 10/09/24 03:45 GFR Calculation Not Reportable 10/09/24 03:45 Glucose 270 mg/dL (65-115) H 10/09/24 03:45 Calculated Osmolality 300 mOsm/kg (285-295) H 10/09/24 03:45 Calcium 8.9 mg/dL (8.5-10.5) 10/09/24 03:45 Total Bilirubin 0.5 mg/dL (0.15-1.2) 10/09/24 03:45 AST 15 U/L (0-32) 10/09/24 03:45 ALT 12 U/L (0-33) 10/09/24 03:45 Alkaline Phosphatase 67 U/L (35-105) 10/09/24 03:45 Total Protein 7.1 g/dL (6.6-8.7) 10/09/24 03:45 Albumin 4.1 g/dL (3.5-5.2) 10/09/24 03:45 Globulin 3.0 g/dL (1.3-4.6) 10/09/24 03:45 No radiology studies performed this visit Discharge Plan Discharge Patient Disposition: Xfer Short-Term Hosp Clinical Impression: Periprosthetic fracture of shaft of femur, Chronic anticoagulation Condition: Stable Referrals: Chun Arshad [Primary Care Provider, Family Practice] Print Language: Welsh Coding Level of Care Code ED [employer] for Felisa Meade
--- NOTE | 2024-10-09 03:14 | ECG_ITS ---
[facility]: 2024-10[facility]09 Pat Name: Abby Nova Department: Room: Gender: Female Obgyn Hospitalist Physician: : [id number] Requested By: Jhon Freed Order Number: [id number] Donte MD: Andrea Dukes M.D. Measurements Intervals [place] Rate: 75 P: 232 [place]: 106 QRS: -76 QRSD: 185 T: 76 QT: 469 QTc: 524 Interpretive Statements ELECTRONIC VENTRICULAR PACEMAKER Compared to ECG 09/20/2019 09:51:01 Sinus rhythm no longer present Left-axis deviation no longer present Right bundle-branch block no longer present T-wave abnormality no longer present Possible ischemia no longer present Electronically Signed On 10-09-2024 08:17:37 CDT by Andrea Dukes M.D. [id number] [id number]
--- NOTE | 2024-10-09 03:16 | XRR_ITS ---
PROCEDURE INFORMATION: Exam: XR Chest Exam date and time: 10/09/2024 3:24 AM Age: 79 years old Clinical indication: Injury or trauma; Fall; Other: Pre op for femur FX TECHNIQUE: Imaging protocol: Radiologic exam of the chest. Views: 1 view. COMPARISON: CR XR chest 1V portable [id number] 09/13/2020 11:44 PM FINDINGS: Tubes, catheters and devices: Left-sided pacing device. Lungs: Unremarkable. No consolidation. Pleural spaces: Unremarkable. No pleural effusion. No pneumothorax. Heart/Mediastinum: Unremarkable. No cardiomegaly. Vasculature: Advanced diffuse vascular calcification noted. Bones/joints: Unremarkable. XR/XR chest 1V portable [id number] IMPRESSION: No acute findings.
[2024-10-09 03:50] LABS: Hematocrit 33.1 % (36-47); Hemoglobin 11.00 g/dL (11.27-16.99); Mean Corpuscular HGB Conc 33.2 g/dL (30-55); Mean Corpuscular Hemoglobin 29.4 pg (27-33); Mean Corpuscular Volume 88.5 fl (85-98); Nucleated Red Blood Cells % 0 %; Platelet Count 223 10^3/cmm (157-399); Red Blood Count 3.74 10^6/uL (3.85-5.65); White Blood Count 15.78 10^3/uL (3.29-11.43)
[2024-10-09 04:02] LABS: INR 1.15 (0.8-1.2); Prothrombin Time 15.50 SECONDS (12.1-14.9)
[2024-10-09 04:03] LABS: Partial Thromboplastin Time 33.9 SECONDS (23.9-36.7)
[2024-10-09 04:06] LABS: Alanine Aminotransferase 12 U/L (0-33); Albumin Level 4.1 g/dL (3.5-5.2); Alkaline Phosphatase 67 U/L (35-105); Anion Gap 15.7 (5-19); Aspartate Amino Transferase 15 U/L (0-32); Blood Urea Nitrogen 24 mg/dL (8-23); Calcium 8.9 mg/dL (8.5-10.5); Carbon Dioxide 30 mmol/L (22-29); Chloride 97 mmol/L (98-107); Creatinine Clr Calc Pharmacy 35.0424; Globulin 3.0 g/dL (1.3-4.6); Glucose 270 mg/dL (65-115); Osmolality Calculated 300 mOsm/kg (285-295); Potassium 4.7 mmol/L (3.5-5.1); Sodium 138 mmol/L (136-145); Total Protein 7.1 g/dL (6.6-8.7)
[2024-10-09] MEDS: HYDROmorphone 0.5 MG/0.5 ML INJ 1 MG IVP (04:29)
--- NOTE | 2024-10-09 07:56 | PC.NURSE ---
REPORT CALLED TO ZEENAT Guillen RN AT [facility]. ACCEPTING NURSE VERBALIZED UNDERSTANDING AND DENIED ANY FURTHER QUESTIONS. TRANSFER FORMS FILLED OUT AND GIVEN TO TO SET UP TRANSFER.
[2024-10-09] MEDS: HYDROmorphone 0.5 MG/0.5 ML INJ IVP (08:10)
--- NOTE | 2024-10-09 09:16 | PC.NURSE ---
PT DAUGHTER ASKED THIS NURSE ABOUT WHEN PT WILL BE TRANSFERRED. THIS NURSE INFORMED PT DAUGHTER THAT REPORT HAS BEEN CALLED AND [facility] IS READY FOR THE PT TO BE THERE, BUT WE ARE STILL WAITING ON AN EMS RIDE TO TAKE HER. PT DAUGHTER VOICED CONCERN OF PT LAYING IN BED ALL DAY. THIS NURSE INFORMED PT DAUGHTER THAT PT HAS PAIN MEDICATION ORDERED EVERY 2 HOURS SO WE WILL TRY TO KEEP HER COMFORTABLE WHILE WAITING. PT DAUGHTER VERBALIZED UNDERSTANDING.
== END 2024-10-09 09:56 | disposition short-term general hospital (02) ==
PROVIDERS: Emergency Provider Family Medicine; PCP Family Medicine
DX: S72.302A Unspecified fracture of shaft of left femur, initial encounter for closed fracture (principal); M97.02XA Periprosthetic fracture around internal prosthetic left hip joint, initial encounter; W07.XXXA Fall from chair, initial encounter; E11.9 Type 2 diabetes mellitus without complications; E78.2 Mixed hyperlipidemia; I10 Essential (primary) hypertension; Z79.01 Long term (current) use of anticoagulants
CPT/HCPCS: 36415; 51702; 71045; 73552; 80053; 85025; 85610; 85730; 93005; 96374; 96375; 99285; J1171; J3010

== ENCOUNTER 2025-03-05 14:29 | Outpatient (CLI) | payer MEDICARE, SELFPAY ==
--- NOTE | 2025-03-05 14:35 | MM_ITS ---
WS: [id number] BILATERAL 3D TOMOSYNTHESIS DIGITAL SCREENING MAMMOGRAPHY WITH CAD CLINICAL INFORMATION: SCREENING HISTORY: Screening mammogram. No current complaints. COMPARISON: 2023 TECHNIQUE: Bilateral CC and MLO views. FINDINGS: The breasts are composed of heterogeneous fibroglandular density tissue, which can limit the detection of small underlying mass lesions. No suspicious mass, asymmetry, calcifications, or architectural distortion. No evidence of malignancy. Vascular calcification. Secretory calcifications. Incidental pu nctate and lucent centered calcifications. MM/MM [facility] tomosynthesis [id number] IMPRESSION: DENSITY: The breasts are heterogeneously dense, which may obscure small masses. BI-RADS: 2 - Benign FOLLOW UP: 1 Year Follow-up Recommend return to annual screening mammography.
== END 2025-03-05 14:30 | disposition home or self-care (01) ==
PROVIDERS: PCP Family Medicine; Visit Provider Family Medicine
DX: Z12.31 Encounter for screening mammogram for malignant neoplasm of breast (principal); R92.333 Mammographic heterogeneous density, bilateral breasts; R92.323 Mammographic fibroglandular density, bilateral breasts; I25.10 Atherosclerotic heart disease of native coronary artery without angina pectoris; R92.1 Mammographic calcification found on diagnostic imaging of breast
CPT/HCPCS: 77063; 77067